=== PATIENT | male | born 1965 | race Caucasian/White ===

== ENCOUNTER 2017-02-24 12:15 | Inpatient (IN) | payer OTHER ==
[2017-02-24] VITALS (14 sets, daily range): BP systolic 100–125; BP diastolic 63–79; PULSE 67–76; TEMP 36.2–37.1; O2SAT 96–100; Ht 172.7 cm; Wt 65.5 kg
[~2017-02-24] VITALS: Ht 172.7 cm; Wt 65.5 kg
[~2017-02-24 12:15] MED LIST: ASPCH81X PO; CYAN10005 PO; FERR1TAB13 PO; FLM4 PO; FURO80TA63 PO; HYDR-4717 PO; LISI20TA3 PO; LOVA20TA4 PO; METO100T14 PO
[2017-02-24] MEDS ORDERED: ALUMINUM/MAGNESIUM/SIMETH (MAALOX MAX) 30 ML UDC PO PRN (13:30)
[2017-02-24] MEDS ORDERED: ONDANSETRON INJ 2 MG/ML 2 ML VIAL IV PRN (13:30)
[2017-02-24] MEDS ORDERED: ACETAMINOPHEN 325 MG TAB PO PRN (13:30)
--- NOTE | 2017-02-24 13:52 | History and Physical ---
History & Physical Date & Time of Service: Feb 24, 2017 at 13:43 Chief Complaint: Worsening Anemia Primary Care Physician: Arslan Mendoza M.D. History of Present Illness 51 M sent from group home for persistent anemia, has previously had outpt transfusions. Currently is weak and sleeps 16 hours a day, Custodial hgb is 5.2. The pt is currently on iron and B12, has presistent dark stools. Had colonoscopy and EGD in april 2016 at [facility] in [place], record release is pending, and reportedly had a colon polyp and some thing in his esophagus, the pt states his discharge hgb at that time was 9.2. Was scheduled for an outpt colonoscopy this coming week. Has no other issues, has a history of "heart failure from blood pressure", but has not had issues recently with shortness of breath at rest, currently is slightly mackey. Social History Smoking Status: Never Smoker Smokeless Tobacco Use: Yes Alcohol Use: socially Immunizations History of Influenza Vaccine: Unknown History of Tetanus Vaccine?: Unknown History of Pneumococcal: Unknown History of Hepatitis B Vaccine: Unknown Allergies Coded Allergies: Penicillins (Verified Allergy, Unknown, unknown, 01/19/17) Home Medications Scheduled Aspirin (Aspirin Chewable), 81 MG PO DAILY Cyanocobalamin (Vitamin B-12), 1,000 MCG PO DAILY Ferrous Sulfate (Kp Ferrous Sulfate), 1 TAB PO DAILY Furosemide (Lasix), 80 MG PO DAILY Hydralazine Hcl (Apresoline), 1 TAB PO DIRECTED Lisinopril (Prinivil), 20 MG PO DAILY Lovastatin (Mevacor), 20 MG PO DAILY Metoprolol Tartrate (Lopressor) (Lopressor), 1 TAB PO DIRECTED Tamsulosin HCl (Tamsulosin HCl), 0.4 MG PO DAILY Review of Systems Constitutional: + weakness, + fatigue, No fever, No chills Eyes: No worsening of vision, No eye pain Respiratory: No cough, No sputum, No wheezing Abdomen: + problem reported (poor appetite), No pain, No nausea, No vomiting Musculoskeletal: + problem reported (some back pain), No joint pain, No muscle pain, No swelling Neurologic: No memory loss, No paralysis, No weakness Psychiatric: No depression symptoms, No anhedonism Endocrine: + fatigue, No excessive thirst Physical Exam Vital Signs Date Time Temp Pulse Resp B/P (MAP) Pulse Ox O2 Delivery O2 Flow Rate FiO2 02/24/17 13:21 36.4 75 20 100/66 (77) 100 Room Air General Appearance: WD/WN, + mild distress Head: normocephalic, atraumatic Eyes: normal inspection, EOMI ENT: hearing grossly normal, pharynx normal Neck: supple, no adenopathy, thyroid normal, no JVD Respiratory/Chest: chest non-tender, lungs clear, normal breath sounds Cardiovascular: regular rate, rhythm (not tachycardic, likely from B Monet), no murmur Abdomen/GI: normal bowel sounds, non tender, soft Back: no CVA tenderness, no muscle spasm Extremities/Musculoskelatal: no calf tenderness, no pedal edema Neurologic/Psych: alert, oriented x 3 Skin: + pallor Diagnostics Laboratory Results Results Past 24 Hours Test 02/24/17 13:25 Range/Units Transferrin % Saturation 20-50 % Diagnostic Radiology Lab tests pending on intake except for hgb of 5.2 Impression Assessment and Plan 51 M with symptomatic anemia reportedly with hgb of 5.2 Anemia, will have a workup and hematology consult, consider keeping colonoscopy this week if nothing is discovered on initial surveilence will transfuse 2 u prbc, continue B12 and iron HTN/ Heart failure unspecified typy, will continue metoprolol lisinopril hydralazine and lasix. lovastatin but hold aspirin BPH will continue flomax pt request nutritional supplement for poor appetite DVT prevention is mechanical means VTE Prophylaxis VTE Risk Assessment Done? Y/N: Yes Risk Level: Moderate Given or contraindicated: Contraindicated
[2017-02-24 14:29] LABS: ALT/SGPT 14 U/L (12-78); AST/SGOT 15 U/L (15-37); BLOOD UREA NITROGEN 50 mg/dl (7-18); BUN/CREATININE RATIO 26.3 (10-20); CALCIUM 7.7 mg/dl (8.5-10.1); CARBON DIOXIDE 24 mmol/L (21-32); CHLORIDE 105 mmol/L (98-107); CREATININE 1.89 mg/dl (0.60-1.40); GLUCOSE 101 mg/dl (70-99); POTASSIUM 4.6 mmol/L (3.5-5.1); SODIUM 138 mmol/L (136-145)
[2017-02-24 14:38] LABS: ALKALINE PHOSPHATASE 72 U/L (45-117); FERRITIN 101.2 ng/ml (8.0-388.0); TOTAL IRON BINDING CAPACITY 217 mcg/dl (250-450)
[2017-02-24 14:39] LABS: HEMATOCRIT 20.1 % (42-52); MEAN CORPUSCULAR HEMOGLOBIN 26.4 pg (25-34); MEAN CORPUSCULAR HGB CONC 30.3 g/dl (32-36); MEAN PLATELET VOLUME 8.2 fL (7.4-10.4); PLATELET COUNT 288 K/uL (130-400); RED BLOOD COUNT 2.31 M/uL (4.7-6.1); WHITE BLOOD COUNT 3.33 K/uL (4.8-10.8)
[2017-02-24] MEDS ORDERED: INFLUENZA VIRUS QUAD VACCINE 0.5 ML SYR IM. ONE (14:45)
[2017-02-24] MEDS ORDERED: INFLUENZA ADMINISTRATION CHARGE ONE (14:45)
[2017-02-24] MEDS ORDERED: PNEUMOCOCCAL ADMINISTRATION CHARGE ONE (15:00)
[2017-02-24] MEDS ORDERED: PNEUMOCOCCAL POLYSACCHARIDES 25 MCG/0.5 ML VIAL/SYR IM. ONE (15:00)
[2017-02-24 15:06] LABS: COMPLETE YES; EOS % 3.3 %; HYPOCHROMIA PRESENT; IG% 0.3 %; LYMPH % 19.8 %; LYMPH ABS # 0.66 K/uL (1.2-3.4); MONO % 4.2 %; NEUT % 72.4 %
[2017-02-24] MEDS: RANITIDINE HCL 150 MG TAB PO SCH (20:08)
[2017-02-24] MEDS: METOPROLOL TARTRATE 100 MG TAB PO SCH (20:08)
[2017-02-24] MEDS: BOOST VANILLA PO SCH ×2 (20:08)
[2017-02-25] VITALS (19 sets, daily range): BP systolic 89–109; BP diastolic 51–67; PULSE 71–86; TEMP 36.6–37.4; O2SAT 95–98
[2017-02-25 06:34] LABS: HEMATOCRIT 21.3 % (42-52); MEAN CELL VOLUME 86.2 fL (80-100); MEAN CORPUSCULAR HEMOGLOBIN 26.7 pg (25-34); MEAN PLATELET VOLUME 8.4 fL (7.4-10.4); PLATELET COUNT 242 K/uL (130-400); RED BLOOD COUNT 2.47 M/uL (4.7-6.1); WHITE BLOOD COUNT 3.14 K/uL (4.8-10.8)
[2017-02-25 07:03] LABS: BUN/CREATININE RATIO 26.1 (10-20); CALCIUM 7.8 mg/dl (8.5-10.1); CREATININE 1.89 mg/dl (0.60-1.40); POTASSIUM 5.3 mmol/L (3.5-5.1)
[2017-02-25] MEDS: RANITIDINE HCL 150 MG TAB PO SCH ×2 (07:57→19:58)
[2017-02-25] MEDS: LISINOPRIL 20 MG TAB PO SCH ×2 (07:58→08:00)
[2017-02-25] MEDS: FUROSEMIDE 80 MG TAB PO SCH (07:58)
[2017-02-25] MEDS: TAMSULOSIN HCL 0.4 MG CAP PO SCH (07:58)
[2017-02-25] MEDS: LOVASTATIN 20 MG TAB PO SCH (07:59)
[2017-02-25] MEDS: METOPROLOL TARTRATE 100 MG TAB PO SCH ×2 (08:00→19:58)
[2017-02-25] MEDS: CYANOCOBALAMIN 500 MCG TAB (VIT B-12) PO SCH (08:00)
[2017-02-25] MEDS: FERROUS SULFATE 325 MG TAB PO SCH (08:00)
[2017-02-25] MEDS ORDERED: ACETAMINOPHEN 325 MG TAB PO STA (08:33)
[2017-02-25] MEDS: BOOST VANILLA PO SCH ×4 (09:42→17:00)
--- NOTE | 2017-02-25 10:20 | Hospitalist Progress Note ---
Hospitalist Progress Note Date of Service Feb 25, 2017. Subjective Pt evaluation today including: conversation w/ patient, chart review, lab review, review of studies Pt reports a one year h/o weakness, falls, anemia that has been severe at times requiring transfusions. He recently had a transfusion at our [facility] about 1-2 months ago. Hgb was down to 6.0 at that time and then was not rechecked until yesterday when it was found to be 5.2 at the residential. After 2 units PRBCs yesterday, hgb still only at 6.6 this AM. He reports a daily, well-formed BM that is usually dark and a little sticky in texture, but takes Fe tabs. No BRBPR, no hematemesis, no GERD sxs, but sometimes feels a little pressure in the upper abdomen. No N/V, no diarrhea, no constipation. He had a colonoscopy in 04/2016 which revealed a large 1.8 cm pedunculated, friable polyp that was bleeding. Path results not available in the old records. Constitutional: + fatigue, No fever Eyes: No problem reported ENT: No problem reported Respiratory: No shortness of breath Cardiovascular: No chest pain Breast: No problem reported Abdomen: No diarrhea, No constipation, No GI bleeding Musculoskeletal: + problem reported (some hand pain bilaterally, has numbness in bilat hands x 1 year, no neck or back pain, no leg pain) Male : No problem reported Neurologic: + numbness/tingling (in hands as above) Psychiatric: No problem reported Heme: + see HPI Endo: + fatigue Skin: No problem reported All Other Systems: Reviewed and Negative Objective Vital Signs Date Time Temp Pulse Resp B/P (MAP) Pulse Ox O2 Delivery O2 Flow Rate FiO2 02/25/17 09:47 98 Room Air 02/25/17 08:14 92/57 (69) 96/54 (68) 02/25/17 06:48 37.0 77 18 95/55 (68) 98 Room Air 02/25/17 00:15 Room Air 02/25/17 00:10 37.1 83 18 89/51 (64) 95 Room Air 02/24/17 21:09 36.2 74 18 102/63 (76) 97 Room Air 02/24/17 20:00 37.1 73 18 117/72 02/24/17 19:26 36.7 73 18 118/72 02/24/17 19:08 36.7 71 18 119/76 02/24/17 18:32 36.8 74 18 113/71 02/24/17 18:18 36.7 76 18 122/73 02/24/17 18:04 36.7 76 18 122/73 02/24/17 17:10 36.7 70 20 125/75 02/24/17 16:30 36.7 67 18 117/76 02/24/17 16:00 96 Room Air 02/24/17 16:00 36.8 73 20 118/73 02/24/17 15:44 36.7 69 20 118/69 02/24/17 15:30 36.6 69 18 125/79 02/24/17 13:50 36.4 75 20 100/66 96 Room Air 02/24/17 13:21 36.4 75 20 100/66 (77) 100 Room Air Physical Exam General Appearance: WD/WN, no apparent distress Eyes: sclerae normal, + pertinent finding (pale conjunctiva) ENT: hearing grossly normal, pharynx normal Neck: trachea midline Respiratory/Chest: lungs clear, normal breath sounds, no respiratory distress, no accessory muscle use Cardiovascular: regular rate, rhythm, no edema, no gallop, no JVD, no murmur Abdomen: normal bowel sounds, non tender, soft, no organomegaly, no pulsatile mass Extremities: non-tender, normal inspection, no pedal edema, no calf tenderness Neurologic/Psychiatric: alert, normal mood/affect, oriented x 3 Skin: warm/dry, no rash, + pallor Laboratory Results Last 24 Hours Test 02/24/17 13:48 02/25/17 06:04 02/25/17 09:36 White Blood Count 3.33 K/uL 3.14 K/uL Red Blood Count 2.31 M/uL 2.47 M/uL Hemoglobin 6.1 g/dL 6.6 g/dL Hematocrit 20.1 % 21.3 % Mean Corpuscular Volume 87.0 fL 86.2 fL Mean Corpuscular Hemoglobin 26.4 pg 26.7 pg Mean Corpuscular Hemoglobin Concent 30.3 g/dl 31.0 g/dl Platelet Count 288 K/uL 242 K/uL Mean Platelet Volume 8.2 fL 8.4 fL Neutrophils (%) (Auto) 72.4 % Lymphocytes (%) (Auto) 19.8 % Monocytes (%) (Auto) 4.2 % Eosinophils (%) (Auto) 3.3 % Basophils (%) (Auto) 0.0 % Neutrophils # (Auto) 2.41 K/uL Lymphocytes # (Auto) 0.66 K/uL Monocytes # (Auto) 0.14 K/uL Eosinophils # (Auto) 0.11 K/uL Basophils # (Auto) 0.00 K/uL RDW Standard Deviation 50.9 fL 47.6 fL RDW Coefficient of Variation 15.8 % 15.1 % Immature Granulocyte % (Auto) 0.3 % Immature Granulocyte # (Auto) 0.01 K/uL Hypochromasia PRESENT Absolute Reticulocyte Count 0.08 10^6/uL Percent Reticulocyte Count 3.4 % Sodium Level 138 mmol/L 137 mmol/L Potassium Level 4.6 mmol/L 5.3 mmol/L Chloride Level 105 mmol/L 108 mmol/L Carbon Dioxide Level 24 mmol/L 25 mmol/L Anion Gap 9.0 mmol/L 4.0 mmol/L Blood Urea Nitrogen 50 mg/dl 49 mg/dl Creatinine 1.89 mg/dl 1.89 mg/dl Est Creatinine Clear Calc Drug Dose 41.9 ml/min 41.9 ml/min Estimated GFR () 45.9 45.9 Estimated GFR (Non- 39.6 39.6 BUN/Creatinine Ratio 26.3 26.1 Random Glucose 101 mg/dl 83 mg/dl Calcium Level 7.7 mg/dl 7.8 mg/dl Iron Level 19 mcg/dl Total Iron Binding Capacity 217 mcg/dl Transferrin 175 mg/dl Transferrin % Saturation 8 % Ferritin 101.2 ng/ml Total Bilirubin 0.3 mg/dl Direct Bilirubin < 0.1 mg/dl Aspartate Amino Transf (AST/SGOT) 15 U/L Alanine Aminotransferase (ALT/SGPT) 14 U/L Alkaline Phosphatase 72 U/L Lactate Dehydrogenase 229 U/L Total Protein 7.2 gm/dl Albumin 2.7 gm/dl Vitamin B12 Level 1343 pg/mL Folate 9.83 ng/mL Thyroid Stimulating Hormone (TSH) 1.900 uIu/ml Assessment and Plan This pt is a 51 yo male with a h/o chronic GI blood loss Fe-def anemia, colon polyp, gastritis, previous systolic CHF which is now resolved, HTN, BPH, B12 deficiency, here with persistent weakness/fatigue and severe anemia, hgb 5.2 at residential on day of admission. Chronic GI blood loss Fe-def and B12-def anemia/h/o colon polyp/ h/o gastritis/ Severe anemia/Hypotension-Hgb 5.2 at residential, was 6.0 6 weeks ago and received PRBC transfusion. No obvious gross GI bleeding, has chronic daily dark stools due to taking Fe tabs so difficult to tell. Previous large 1.8 cm pedunculated friable polyp responsible last time, but continues to be anemic since then. COuld be from same area of polyp resection vs AVM vs UGI bleeding. B12 levels here normal Received 2 units PRBCs 02/24 -GI consult to see baout EGD/Colonoscopy this admission -transfuse another 2 units prbcs today for goal Hgb >7 -follow CBC daily - hematology consult placed on admission, does also have leukopenia persistently , but plts normal so not likely bone marrow issue - continue B12 and iron tabs -continue Zantac 150mg bid -if EGD/Colon performed and unremarkable, consider capsule endoscopy HTN/Previous systolic CHF-pt states previous LVEF was 20% in 2014, had clean coronaries on cath, was placed on CHF meds. Had repeat ECHO in 04/2016 during hospitalization and was told his EF was normal then. No records available for review. No current evidence at all of volume overload, no JVD. -holding metoprolol, lisinopril, hydralazine for hypotension -give lasix po daily at home dose due to large volume with PRBC transfusions - continue lovastatin -hold aspirin for bleeding -f/u as outpt with Cardiology Possible CKD Stage III- [employer] Liqu[employer] in 04/2016 records was 1.6 but was also acutely admitted at that time for severe anemia. 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
--- NOTE | 2017-02-25 12:07 | HEMATOLOGY CONSULTATION ---
DATE OF CONSULTATION: 02/25/2017 REASON FOR CONSULTATION: Severe normocytic normochromic anemia. HISTORY OF PRESENT ILLNESS: Mr. Madera is a 51-year-old half-way inmate who was admitted to [facility] on 02/24/2017 for generalized weakness, fatigue and lethargy. According to Mateusz, he sleeps most of the day, approximately 16 hours. The patient was diagnosed with iron deficiency and was started on oral supplementation, he estimates about a year ago. Apparently, he has been worked up by gastroenterology and underwent a colonoscopy approximately 1 year ago, revealing a single polyp, which was actively bleeding. The patient has been transfused on multiple occasions, he estimates 4 times over the past year or so. He has never been evaluated by hematology for this reason. He suffers other comorbid issues, particularly hypertension and chronic renal insufficiency, attributable to obstructive uropathy. Baseline laboratories on admission reveal a mild leukopenia, hemoglobin of 6.1, and hematocrit of 20.1 with a percent reticulocytosis of 3.4. Serum chemistries revealed serum iron of 19, TIBC of 217, any transferrin saturation of 8. Ferritin presently 101.2. His creatinine measures 1.89. The remainder of lab results were otherwise unremarkable. Primary service is requesting assistance for anemia workup. He reports no eddie rectal bleeding, hematochezia or melena at present. PAST MEDICAL HISTORY: Again, significant for, 1. Obstructive uropathy, secondary to prostatic enlargement. 2. Chronic anemia. 3. Chronic renal insufficiency, secondary to obstructive uropathy. 4. Iron deficiency. 5. Essential hypertension. MEDICATIONS: Prior to admission include aspirin 81 mg p.o. q. daily, vitamin B12 at 1000 mcg p.o. q. daily, ferrous sulfate 325 mg p.o. q. daily, Lasix 80 mg p.o. q. daily, hydralazine 1 tablet p.o. as directed, lisinopril 20 mg p.o. q. daily, lovastatin 20 mg p.o. q. daily, metoprolol 1 tablet p.o. as directed, and Flomax 0.4 mg p.o. q. daily. ALLERGIES: TO PENICILLINS. SOCIAL HISTORY: The patient is incarcerated. Nonsmoker. Does to chew tobacco. Social alcohol use. FAMILY HISTORY: Positive for breast cancer in the patient's mother. Father has a history of skin cancers. REVIEW OF SYSTEMS: GENERAL: As per HPI, most notably for generalized weakness, fatigue and lethargy. No fevers, chills or sweats. He is not anorexic or losing weight. SKIN: No rashes or lesions. No history of dermatoses. HEENT: He denies headaches, lightheadedness or dizziness. No acute visual or hearing deficits. No sinus symptoms, sore throat or dysphagia. LYMPHATICS: No history of lymphoproliferative disease. CARDIAC: Negative for coronary artery disease. No angina or palpitations. PULMONARY: Negative for COPD. No shortness of breath, dyspnea or orthopnea. No cough or hemoptysis. GASTROINTESTINAL: Negative for abdominal pain, nausea, vomiting, diarrhea or constipation. GENITOURINARY: Again, he reports a history of obstructive uropathy secondary to BPH and underwent TURP in the past. No current hematuria, dysuria, or urinary incontinence. PSYCHIATRIC: Negative for anxiety, depression or psychoses. ENDOCRINE: Negative for diabetes or thyroid disease. NEUROLOGIC: Negative for seizure, stroke, or migraine headache by history. HEMATOLOGIC: As per HPI. PHYSICAL EXAMINATION: GENERAL: Very pleasant 51-year-old gentleman, awake, alert and appropriate, no acute distress. VITAL SIGNS: Temperature 36.8, pulse 73, respiratory rate 20, and blood pressure 97/59. SKIN: Warm, dry, and noncyanotic without petechia, rash or ecchymosis. HEENT: Head: Atraumatic and normocephalic. Eyes: PERRLA and EOMI. Sclerae nonicteric. No conjunctival injection. Nares patent without rhinorrhea or discharge. Throat is clear. Tongue is midline. Mucous membranes are moist. NECK: Supple without JVD or thyromegaly. LYMPHATICS: No cervical, supraclavicular, axillary or inguinal palpable nodes. HEART: Regular rate and rhythm. No clicks, rubs, murmurs, or gallops. LUNGS: Clear to auscultation bilaterally. ABDOMEN: Soft, nontender, and nondistended without palpable hepatosplenomegaly. EXTREMITIES: No calf tenderness or swelling. No clubbing, cyanosis or edema. NEUROLOGICALLY: He is awake, alert and oriented x3. Cranial nerves II-XII are intact. No gross motor or sensory deficits are noted. LABORATORY DATA: WBC count 3140, hemoglobin 6.6, and platelet count 242,000. Sodium 137, potassium 5.3, chloride 108, carbon dioxide 25, BUN 49, and creatinine 1.89. IMPRESSION: 1. Persistent normocytic normochromic anemia. 2. Generalized weakness. 3. Lethargy/fatigue. 4. Chronic renal insufficiency. 5. Leukopenia. PLAN: Mateusz is a pleasant 51-year-old half-way inmate, who was admitted to [facility] with generalized weakness and fatigue. His hemoglobin was in the 6 gram per deciliter range. Apparently, Mateusz has had issues with anemia over the past several months. He was seen by gastroenterology and underwent colonoscopy, revealing a single polyp. EGD has yet to be performed. Mateusz also reports being placed on supplemental iron, which obviously has not been effective. His iron studies still reflect deficient state. He also suffers from renal insufficiency and there therefore may have a component of anemia secondary to renal insufficiency/chronic disease. However, if GI tract has not been thoroughly examined, I recommend doing so. Additionally, the patient's leukopenia is otherwise unexplained. Certainly, myelodysplasia is not ruled out unless the patient undergoes bone marrow biopsy and aspiration. I would be in favor of pursuing supplemental intravenous iron while inpatient and perhaps consider supplemental erythropoietin as well. I agree with transfusing him at this juncture. Dr. Ngo will take over service tomorrow and I will leave it up to him if bone marrow biopsy should be pursued. Thank you very much for allowing me to participate in his care. If you have any questions or concerns, feel free to contact me at any time. HEALTH SYSTEMDmitry
--- NOTE | 2017-02-25 16:36 | Gastrointestinal Consultation ---
Gastrointestinal Consultation Date of Consultation: Feb 25, 2017 Attending Physician: Dr. Ellis Consulting Physician: Dr. Dumont Reason for Consultation: symptomatic anemia History of Present Illness Patient is a 51 year old male with CKD and HTN as well as iron deficiency anemia. He has had problems with anemia for about a year and has been followed by gastroenterology at [facility]. He was admitted from intermediate with weakness and SOB and a hgb of 6. Has reports dark stools since being started on a iron supplement about a year ago. No hematochezia. He had an EGD and a colonoscopy in April at [facility] (I do not have those reports at this time) and tells me he had a colon polyp removed. He was supposed to have a repeat colonoscopy this coming week apparently. Iron studies on admission show on-going iron deficiency despite oral replacement with iron of 19 and transferrin saturation of 8%. On B12 as well and levels reflect this. he was seen by hematology and plans in place for IV iron infusion as well as transfusion. Past Medical/Surgical History severe anemia SOB Past Medical History: as note din HPI Past Surgical History: non-contributory; reviewed. Family History non-contributory Social History Smoking Status: Never Smoker Alcohol Use: none Drug Use: none Housing Status: other Occupation Status: other incarcerated Allergies Coded Allergies: Penicillins (Verified Allergy, Unknown, unknown, 01/19/17) Current Medications Home Meds and Scripts Medications Dose Route/Sig Max Daily Dose Days Date Category Apresoline (Hydralazine Hcl) 50 Mg Tab 1 Tab PO DIRECTED 30 12/07/16 Reported Lasix (Furosemide) 80 Mg Tab 80 Mg PO DAILY 12/07/16 Reported Vitamin B-12 (Cyanocobalamin) 1,000 Mcg Tab 1,000 Mcg PO DAILY 12/07/16 Reported Kp Ferrous Sulfate (Ferrous Sulfate) 325 Mg Tab 1 Tab PO DAILY 30 12/07/16 Reported Tamsulosin HCl 0.4 Mg Cap 0.4 Mg PO DAILY 12/07/16 Reported Lopressor (Metoprolol Tartrate) 100 Mg Tab 1 Tab PO DIRECTED 12/07/16 Reported Mevacor (Lovastatin) 20 Mg Tab 20 Mg PO DAILY 12/07/16 Reported Prinivil (Lisinopril) 20 Mg Tab 20 Mg PO DAILY 12/07/16 Reported Aspirin Chewable (Aspirin) 81 Mg Chew 81 Mg PO DAILY 12/07/16 Reported Review of Systems 12 systems reviewed and negative except as noted Physical Exam Date Time Temp Pulse Resp B/P (MAP) Pulse Ox O2 Delivery O2 Flow Rate FiO2 02/25/17 16:00 97 Room Air 02/25/17 15:29 36.6 73 18 95/60 (72) 97 Room Air 02/25/17 14:30 37.2 72 18 95/59 96 02/25/17 14:00 37.2 86 18 93/56 02/25/17 13:30 37.2 78 18 92/58 02/25/17 13:15 37.0 76 18 92/56 02/25/17 13:00 36.9 72 20 104/67 02/25/17 11:43 36.9 71 18 100/61 02/25/17 11:16 36.8 73 20 97/59 02/25/17 10:45 36.7 72 20 97/58 02/25/17 10:30 37.2 72 20 102/58 02/25/17 10:28 37.2 73 20 109/67 02/25/17 10:11 36.6 72 16 101/64 02/25/17 09:47 98 Room Air 02/25/17 08:14 92/57 (69) 96/54 (68) 02/25/17 06:48 37.0 77 18 95/55 (68) 98 Room Air 02/25/17 00:15 Room Air 02/25/17 00:10 37.1 83 18 89/51 (64) 95 Room Air 02/24/17 21:09 36.2 74 18 102/63 (76) 97 Room Air 02/24/17 20:00 37.1 73 18 117/72 02/24/17 19:26 36.7 73 18 118/72 02/24/17 19:08 36.7 71 18 119/76 02/24/17 18:32 36.8 74 18 113/71 02/24/17 18:18 36.7 76 18 122/73 02/24/17 18:04 36.7 76 18 122/73 02/24/17 17:10 36.7 70 20 125/75 02/24/17 16:30 36.7 67 18 117/76 General Appearance: WD/WN, no apparent distress Eyes: normal inspection, PERRL ENT: normal ENT inspection, hearing grossly normal, pharynx normal Neck: supple, no adenopathy, no JVD Respiratory/Chest: chest non-tender, lungs clear, normal breath sounds, no respiratory distress Cardiovascular: regular rate, rhythm, no murmur Abdomen: normal bowel sounds, non tender, soft Extremities: normal range of motion, no pedal edema 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, no motor/sensory deficits, alert, normal mood/affect, oriented x 3 Skin: normal color, no jaundice, warm/dry, no rash Laboratory Results Last 24 Hours Test 02/25/17 06:04 White Blood Count 3.14 K/uL Red Blood Count 2.47 M/uL Hemoglobin 6.6 g/dL Hematocrit 21.3 % Mean Corpuscular Volume 86.2 fL Mean Corpuscular Hemoglobin 26.7 pg Mean Corpuscular Hemoglobin Concent 31.0 g/dl RDW Standard Deviation 47.6 fL RDW Coefficient of Variation 15.1 % Platelet Count 242 K/uL Mean Platelet Volume 8.4 fL Sodium Level 137 mmol/L Potassium Level 5.3 mmol/L Chloride Level 108 mmol/L Carbon Dioxide Level 25 mmol/L Anion Gap 4.0 mmol/L Blood Urea Nitrogen 49 mg/dl Creatinine 1.89 mg/dl Est Creatinine Clear Calc Drug Dose 41.9 ml/min Estimated GFR () 45.9 Estimated GFR (Non- 39.6 BUN/Creatinine Ratio 26.1 Random Glucose 83 mg/dl Calcium Level 7.8 mg/dl Impression Patient is a 51 year old male with persistent iron deficiency anemia as well as CKD. Outpatient GI work up has been initiated at [facility]. Presumably, a colon and upper GI malignancy were ruled out on endoscopies there in April. He had a polyp and is supposed to undergo a repeat colonoscopy. It is unclear if small bowel biopsies of the duodenum were done to r/o celiac disease as this can be a cause of persistent iron deficiency anemia. If not already done, a small bowel capsule study may be useful though this may prove difficult to arrange in an inmate as it is an outpatient study with specific timing. Hematologic causes also a possibility. Plan - Await records from [facility] regarding endoscopy details from April. - Check celiac markers. - Further recommendations regarding repeating endoscopies can be made once records are available. - Consider small bowel VCE. - Hematology following.
[2017-02-26 07:00] VITALS: BP 107/68; PULSE 62; TEMP 36.9; O2SAT 96
[2017-02-26] MEDS: METOPROLOL TARTRATE 100 MG TAB PO SCH ×2 (07:39→20:40)
[2017-02-26] MEDS: RANITIDINE HCL 150 MG TAB PO SCH ×2 (07:39→20:39)
[2017-02-26] MEDS: FUROSEMIDE 80 MG TAB PO SCH (07:40)
[2017-02-26] MEDS: FERROUS SULFATE 325 MG TAB PO SCH (07:40)
[2017-02-26] MEDS: TAMSULOSIN HCL 0.4 MG CAP PO SCH (07:40)
[2017-02-26] MEDS: CYANOCOBALAMIN 500 MCG TAB (VIT B-12) PO SCH (07:40)
[2017-02-26] MEDS: LOVASTATIN 20 MG TAB PO SCH (07:40)
[2017-02-26] MEDS: BOOST VANILLA PO SCH ×4 (08:00→17:00)
[2017-02-26 08:10] LABS: COMPLETE YES; EOS % 4.9 %; HEMATOCRIT 28.4 % (42-52); IG% 0.3 %; LYMPH % 26.9 %; LYMPH ABS # 0.94 K/uL (1.2-3.4); MEAN CELL VOLUME 87.4 fL (80-100); MEAN CORPUSCULAR HEMOGLOBIN 27.7 pg (25-34); MEAN CORPUSCULAR HGB CONC 31.7 g/dl (32-36); MEAN PLATELET VOLUME 8.6 fL (7.4-10.4); MONO % 6.6 %; NEUT % 61.3 %; PLATELET COUNT 236 K/uL (130-400); RED BLOOD COUNT 3.25 M/uL (4.7-6.1); WHITE BLOOD COUNT 3.49 K/uL (4.8-10.8)
[2017-02-26 08:47] LABS: BUN/CREATININE RATIO 23.1 (10-20); CALCIUM 8.1 mg/dl (8.5-10.1); CREATININE 2.16 mg/dl (0.60-1.40); MAGNESIUM 2.3 mg/dl (1.8-2.4); POTASSIUM 5.1 mmol/L (3.5-5.1)
--- NOTE | 2017-02-26 10:30 | Hematology/Oncology Prog Note ---
Hematology/Onc Progress Note Date of Service Feb 26, 2017. Diagnoses Anemia cause unclear Medications Medications Administered Medications (Trade) Dose Ordered Sig/Dada Route Start Time Stop Time Status Last Admin Dose Admin Cyanocobalamin (Vitamin B-12 Tab) 1,000 mcg DAILY PO 02/25/17 08:00 03/27/17 07:59 02/26/17 07:40 1,000 MCG Furosemide (Lasix Tab) 80 mg DAILY PO 02/25/17 08:00 03/27/17 07:59 Future Hold 02/26/17 07:40 80 MG Hydralazine HCl (Apresoline Tab) 50 mg TID PO 02/24/17 20:00 03/26/17 19:59 Future Hold 02/25/17 19:59 50 MG Lovastatin (Mevacor Tab) 20 mg DAILY PO 02/25/17 08:00 03/27/17 07:59 02/26/17 07:40 20 MG Metoprolol Tartrate (Lopressor Tab) 100 mg BID PO 02/24/17 20:00 03/26/17 19:59 02/26/17 07:39 100 MG Tamsulosin HCl (Flomax Cap) 0.4 mg DAILY PO 02/25/17 08:00 03/27/17 07:59 02/26/17 07:40 0.4 MG Ferrous Sulfate (Feosol Tab) 325 mg DAILY PO 02/25/17 08:00 03/27/17 07:59 02/26/17 07:40 325 MG Enteral Nutritional Formula (Boost) 1 can BID PO 02/24/17 20:00 02/25/17 14:13 DC 02/25/17 09:42 1 CAN Ranitidine HCl (zANTac TAB) 150 mg BID PO 02/24/17 20:00 03/26/17 19:59 02/26/17 07:39 150 MG Pneumococcal Polysaccharide Vaccine (Pneumovax-23 Inj) 25 mcg ONCE ONCE IM. 02/24/17 15:00 02/24/17 15:01 DC 02/24/17 20:10 25 MCG Acetaminophen (Tylenol Tab) 650 mg NOW STAT PO 02/25/17 08:33 02/25/17 08:46 DC 02/25/17 09:40 650 MG Diphenhydramine HCl (Benadryl Cap) 25 mg NOW ONCE PO 02/25/17 08:45 02/25/17 08:46 DC 02/25/17 09:40 25 MG Enteral Nutritional Formula (Boost) 1 can BIDM PO 02/25/17 17:00 03/27/17 16:59 02/25/17 17:00 1 CAN Subjective He really offers no new complaints. He reviews with me that he has lost a considerable amount of weight in the past 6 months. He states he has been on iron supplementation for the past several months that he believes turns his stool dark. Review of Systems: Constitutional: Negative for night sweats, or fever. He states he is always cold Eyes: Negative for event change of vision ENT: Negative for epistaxis, nasal discharge, sore throat, or deafness Cardiovascular: Negative for chest pain, palpitations, dizziness, diaphoresis Respiratory: Negative for new shortness of breath,hemoptysis, or purulent cough Gastrointestinal: Negative for diarrhea, hematemesis, definite melena, nausea, vomiting, or dyspepsia Integumentary (skin): Negative for rash or jaundice discoloration Genitourinary: Negative for urinary frequency, hematuria, or dysuria Neurological: Negative for weakness, seizure activity, headache, or dizziness Lymphatic/Hematologic: Negative for petechiae, bleeding or new adenopathy Musculoskeletal: Negative for new joint or back pain Allergic/Immunologic: Negative for unusual rash or pruritis. Vital Signs Vital Signs Past 12 Hours Date Time Temp Pulse Resp B/P (MAP) Pulse Ox O2 Delivery O2 Flow Rate FiO2 02/26/17 08:00 Room Air 02/26/17 07:00 36.9 62 18 107/68 (81) 96 Room Air 02/25/17 23:32 Room Air 02/25/17 22:42 37.4 78 18 103/60 (74) 95 Room Air Physical Exam Constitutional: vitals are stable. Eyes: Eyes are ALFREDO EOMI without conjuctival erythema or icterus. ENT: External examination was negative for masses. Neck: Negative for masses or palpable thyromegaly Respiratory: Lung sounds were generally clear bilaterally Cardiovascular: Heart was RRR without significant murmur, gallops aoe rubs Gastrointestinal: No palpable hepatic or splenomegaly however the spleen tip is palpable with deep inspiration. The abdomen was soft with normal bowel sounds. Lymphatic system: there was no palpable peripheral lymphadenopathy Musculoskeletal System: The musculoskeletal system seemed concordant with age. Skin: The skin was negative for jaundice. Neurologic exam: The exam was negative for any focal findings. Deep tendon reflexes were equal and symmetrical. Psychiatric exam: Was essentially negative with normal mood and effect. Extremities: Negative for edema erythema Laboratory Last 24 Hours Test 02/26/17 07:31 02/26/17 08:49 White Blood Count 3.49 K/uL Red Blood Count 3.25 M/uL Hemoglobin 9.0 g/dL Hematocrit 28.4 % Mean Corpuscular Volume 87.4 fL Mean Corpuscular Hemoglobin 27.7 pg Mean Corpuscular Hemoglobin Concent 31.7 g/dl Platelet Count 236 K/uL Mean Platelet Volume 8.6 fL Neutrophils (%) (Auto) 61.3 % Lymphocytes (%) (Auto) 26.9 % Monocytes (%) (Auto) 6.6 % Eosinophils (%) (Auto) 4.9 % Basophils (%) (Auto) 0.0 % Neutrophils # (Auto) 2.14 K/uL Lymphocytes # (Auto) 0.94 K/uL Monocytes # (Auto) 0.23 K/uL Eosinophils # (Auto) 0.17 K/uL Basophils # (Auto) 0.00 K/uL RDW Standard Deviation 48.9 fL RDW Coefficient of Variation 15.1 % Immature Granulocyte % (Auto) 0.3 % Immature Granulocyte # (Auto) 0.01 K/uL Sodium Level 140 mmol/L Potassium Level 5.1 mmol/L Chloride Level 108 mmol/L Carbon Dioxide Level 23 mmol/L Anion Gap 9.0 mmol/L Blood Urea Nitrogen 50 mg/dl Creatinine 2.16 mg/dl Est Creatinine Clear Calc Drug Dose 36.6 ml/min Estimated GFR () 39.1 Estimated GFR (Non- 33.7 BUN/Creatinine Ratio 23.1 Random Glucose 87 mg/dl Calcium Level 8.1 mg/dl Magnesium Level 2.3 mg/dl Stool Occult Blood POSITIVE Assessment & Plan Marked anemia that is normochromic normocytic. Iron studies would suggest more of an anemia of iron reutilization defect rather than deficiency. I understand a GI workup is pending and certainly would agree with that. It may come to having to do an eventual bone marrow biopsy. For now I would like to ask for a chest x-ray as well as a complete abdominal ultrasound as well as serum immunofixation studies. We will follow along with you.
[2017-02-26 13:39] LABS: URINE APPEARANCE CLEAR (CLEAR); URINE BILIRUBIN NEG (NEG); URINE COLOR YELLOW; URINE EPITHELIAL CELL AUTO 0-5 /lpf (0-5); URINE NITRITE NEG (NEG); URINE SPECIFIC GRAVITY 1.013 (1.000-1.030); UROBILINOGEN NEG (NEG)
[2017-02-26 13:44] LABS: MANUAL MICROSCOPIC REQUIRED? NO; REVIEW REQ? NO
--- NOTE | 2017-02-26 14:43 | DIAGNOSTIC IMAGING REPORT ---
TWO VIEW CHEST CLINICAL HISTORY: Anemia and weight loss. FINDINGS: PA and lateral chest radiographs are obtained. No prior studies are available for comparison at the time of dictation. The cardiomediastinal silhouette is unremarkable. There is atherosclerotic calcification of the thoracic aorta. Calcified hilar nodes are identified. There is elevation of the right hemidiaphragm. A small pleural effusion is seen on the right. The left lung appears clear. There is no pneumothorax. The bony thorax appears intact. IMPRESSION: There is elevation of right hemidiaphragm and a small right pleural effusion. This could be further assessed with a chest CT if clinically warranted. Electronically signed by: Ta Dangelo M.D. 02/26/2017 2:42 PM Dictated Date/Time: 02/26/2017 2:40 PM
--- NOTE | 2017-02-26 15:22 | DIAGNOSTIC IMAGING REPORT ---
ABDOMEN COMPLETE (US) CLINICAL HISTORY: severe anemia, weight loss and increased creatinine COMPARISON STUDY: No previous studies for comparison. FINDINGS: The pancreas appears normal as visualized. There is no evidence of abdominal aortic dilatation. There is a large calcified gallstone. There is significant gallbladder wall thickening. No focal hepatic masses are visualized. The liver is slightly heterogeneous in echotexture. There is no intrahepatic ductal dilatation. The common bile duct measures 6 mm. The spleen is enlarged measuring 14.8 cm. There are several splenic calcifications. The right kidney measures 12.7 cm in length. There is a 3.4 cm upper pole right renal cyst. The left kidney measures 11.8 cm in length. There is a tiny lower pole left renal cyst. There is no hydronephrosis IMPRESSION: 1. Large calcified gallstone. The gallbladder wall is thickened measuring 9 mm and hypervascular. Clinical correlation in regards to cholecystitis or a gallbladder wall mass is recommended. 2. No evidence of ductal dilatation. 3. Splenomegaly Electronically signed by: Rohit Cazares M.D. 02/26/2017 3:21 PM Dictated Date/Time: 02/26/2017 3:16 PM
[2017-02-26 16:00] VITALS: O2SAT 96
[2017-02-26 16:10] VITALS: BP 106/68; PULSE 74; TEMP 36.9; O2SAT 100
--- NOTE | 2017-02-26 16:25 | Gastroenterology Progress Note ---
Progress Note Date of Service: Feb 26, 2017 Subjective Pt evaluation today including: conversation w/ patient, physical exam, chart review, lab review, review of studies, review of inpatient medication list Mr. Madera is a 51 yr old male admitted for anemia. Stool occult positive today. Pt denies abdominal pain, nausea or vomiting. Tolerating a regular diet. Review of Systems Constitutional: No fever Respiratory: No cough Abdomen: + GI bleeding (occult positive but no gross bleeding), No pain, No nausea, No vomiting, No diarrhea, No constipation Male : No dysuria Neuro: No memory loss Psych: No depression symptoms Heme: No abnormal bleeding/bruising Endo: + fatigue (much improved with blood transfusion) Skin: No rash, No jaundice Medications Current Inpatient Medications Medications (Trade) Dose Ordered Sig/Dada Route Start Time Stop Time Status Last Admin Dose Admin Acetaminophen (Tylenol Tab) 650 mg Q4H PRN PO 02/24/17 13:30 03/26/17 13:29 Al Hydrox/Mg Hydrox/Simethicone (Maalox Max Susp) 15 ml Q4H PRN PO 02/24/17 13:30 03/26/17 13:29 Ondansetron HCl (Zofran Inj) 4 mg Q6H PRN IV 02/24/17 13:30 03/26/17 13:29 Cyanocobalamin (Vitamin B-12 Tab) 1,000 mcg DAILY PO 02/25/17 08:00 03/27/17 07:59 02/26/17 07:40 1,000 MCG Furosemide (Lasix Tab) 80 mg DAILY PO 02/25/17 08:00 03/27/17 07:59 Future Hold 02/26/17 07:40 80 MG Hydralazine HCl (Apresoline Tab) 50 mg TID PO 02/24/17 20:00 03/26/17 19:59 Future Hold 02/25/17 19:59 50 MG Lisinopril (Zestril Tab) 20 mg DAILY PO 02/25/17 08:00 03/27/17 07:59 Future Hold Lovastatin (Mevacor Tab) 20 mg DAILY PO 02/25/17 08:00 03/27/17 07:59 02/26/17 07:40 20 MG Metoprolol Tartrate (Lopressor Tab) 100 mg BID PO 02/24/17 20:00 03/26/17 19:59 02/26/17 07:39 100 MG Tamsulosin HCl (Flomax Cap) 0.4 mg DAILY PO 02/25/17 08:00 03/27/17 07:59 02/26/17 07:40 0.4 MG Ferrous Sulfate (Feosol Tab) 325 mg DAILY PO 02/25/17 08:00 03/27/17 07:59 02/26/17 07:40 325 MG Ranitidine HCl (zANTac TAB) 150 mg BID PO 02/24/17 20:00 03/26/17 19:59 02/26/17 07:39 150 MG Enteral Nutritional Formula (Boost) 1 can BIDM PO 02/25/17 17:00 03/27/17 16:59 02/26/17 08:00 1 CAN Objective Vital Signs Date Time Temp Pulse Resp B/P (MAP) Pulse Ox O2 Delivery O2 Flow Rate FiO2 02/26/17 16:10 36.9 74 18 106/68 (81) 100 Room Air 02/26/17 08:00 Room Air 02/26/17 07:00 36.9 62 18 107/68 (81) 96 Room Air 02/25/17 23:32 Room Air 02/25/17 22:42 37.4 78 18 103/60 (74) 95 Room Air 02/25/17 19:57 75 18 106/66 (79) 96 Room Air Physical Exam General Appearance: no apparent distress ENT: pharynx normal Neck: no JVD Respiratory/Chest: lungs clear Cardiovascular: regular rate, rhythm, no JVD, no murmur Abdomen: non tender, soft Extremities: normal inspection Neurologic/Psych: alert, normal mood/affect, oriented x 3 Skin: normal color, no jaundice Laboratory Results Last 24 Hours Test 02/26/17 07:31 02/26/17 08:49 02/26/17 11:00 02/26/17 13:00 White Blood Count 3.49 K/uL Red Blood Count 3.25 M/uL Hemoglobin 9.0 g/dL Hematocrit 28.4 % Mean Corpuscular Volume 87.4 fL Mean Corpuscular Hemoglobin 27.7 pg Mean Corpuscular Hemoglobin Concent 31.7 g/dl Platelet Count 236 K/uL Mean Platelet Volume 8.6 fL Neutrophils (%) (Auto) 61.3 % Lymphocytes (%) (Auto) 26.9 % Monocytes (%) (Auto) 6.6 % Eosinophils (%) (Auto) 4.9 % Basophils (%) (Auto) 0.0 % Neutrophils # (Auto) 2.14 K/uL Lymphocytes # (Auto) 0.94 K/uL Monocytes # (Auto) 0.23 K/uL Eosinophils # (Auto) 0.17 K/uL Basophils # (Auto) 0.00 K/uL RDW Standard Deviation 48.9 fL RDW Coefficient of Variation 15.1 % Immature Granulocyte % (Auto) 0.3 % Immature Granulocyte # (Auto) 0.01 K/uL Sodium Level 140 mmol/L Potassium Level 5.1 mmol/L Chloride Level 108 mmol/L Carbon Dioxide Level 23 mmol/L Anion Gap 9.0 mmol/L Blood Urea Nitrogen 50 mg/dl Creatinine 2.16 mg/dl Est Creatinine Clear Calc Drug Dose 36.6 ml/min Estimated GFR () 39.1 Estimated GFR (Non- 33.7 BUN/Creatinine Ratio 23.1 Random Glucose 87 mg/dl Calcium Level 8.1 mg/dl Magnesium Level 2.3 mg/dl Hepatitis C Antibody Screen NEG Stool Occult Blood POSITIVE Urine Color YELLOW Urine Appearance CLEAR Urine pH 5.0 Urine Specific [place] 1.013 Urine Protein 1+ Urine Glucose (UA) NEG Urine Ketones NEG Urine Occult Blood 3+ Urine Nitrite NEG Urine Bilirubin NEG Urine Urobilinogen NEG Urine Leukocyte Esterase NEG Urine WBC (Auto) 1-5 /hpf Urine RBC (Auto) >30 /hpf Urine Hyaline Casts (Auto) 1-5 /lpf Urine Epithelial Cells (Auto) 0-5 /lpf Urine Bacteria (Auto) NEG Test 02/26/17 15:51 Assessment and Plan Mr. Madera is a 51 yr old male patient with acute on chronic normocytic anemia. Stool occult is positive. Plan: 1. Regular diet today. 2. Begin clear liquids tomorrow morning. 3. Plan for OP EGD and Colonoscopy as previously scheduled at [facility] with Dr. Naik on this Sunday. If negative, may consider VCE - will address when results of the EGD/Colonoscopy are reviewed. 4. No GI contraindication to discharge. I performed a history and physical examination of the patient. I have discussed the patient's case, impression and plan with RAF Harvey on 02/26/2017. Her note reflects my findings and plan. Patient already scheduled for out patient endoscopy. Rusty Ferguson MD
--- NOTE | 2017-02-26 17:16 | Family Medicine Progress Note ---
Progress Note Date of Service Feb 26, 2017. Subjective Pt evaluation today including: conversation w/ patient, conversation w/ family , physical exam, chart review, lab review, review of inpatient medication list Pain: No pain reported PO Intake: Tolerating PO intake Voiding: no voiding problems Mr. Madera reports he feels better today than yesterday. He states his fatigue is slowly starting to resolve. He denies chest pain, shortness of breath, presyncope or syncopal episodes. He is eating and drinking ok. No urinary symptoms. Bowels moving. He did state that he has had a longstanding history of bilateral arm weakness and occasional pain that flares up from time to time. He has not sought medical attention for this in the past. Constitutional: + fatigue, No fever, No chills, No sweats Respiratory: No cough, No sputum, No wheezing, No shortness of breath Cardiovascular: No chest pain, No edema All Other Systems: Reviewed and Negative Medications Current Inpatient Medications Medications (Trade) Dose Ordered Sig/Dada Route Start Time Stop Time Status Last Admin Dose Admin Acetaminophen (Tylenol Tab) 650 mg Q4H PRN PO 02/24/17 13:30 03/26/17 13:29 Al Hydrox/Mg Hydrox/Simethicone (Maalox Max Susp) 15 ml Q4H PRN PO 02/24/17 13:30 03/26/17 13:29 Ondansetron HCl (Zofran Inj) 4 mg Q6H PRN IV 02/24/17 13:30 03/26/17 13:29 Cyanocobalamin (Vitamin B-12 Tab) 1,000 mcg DAILY PO 02/25/17 08:00 03/27/17 07:59 02/26/17 07:40 1,000 MCG Furosemide (Lasix Tab) 80 mg DAILY PO 02/25/17 08:00 03/27/17 07:59 Future Hold 02/26/17 07:40 80 MG Hydralazine HCl (Apresoline Tab) 50 mg TID PO 02/24/17 20:00 03/26/17 19:59 Future Hold 02/25/17 19:59 50 MG Lisinopril (Zestril Tab) 20 mg DAILY PO 02/25/17 08:00 03/27/17 07:59 Future Hold Lovastatin (Mevacor Tab) 20 mg DAILY PO 02/25/17 08:00 03/27/17 07:59 02/26/17 07:40 20 MG Metoprolol Tartrate (Lopressor Tab) 100 mg BID PO 02/24/17 20:00 03/26/17 19:59 02/26/17 07:39 100 MG Tamsulosin HCl (Flomax Cap) 0.4 mg DAILY PO 02/25/17 08:00 03/27/17 07:59 02/26/17 07:40 0.4 MG Ferrous Sulfate (Feosol Tab) 325 mg DAILY PO 02/25/17 08:00 03/27/17 07:59 02/26/17 07:40 325 MG Ranitidine HCl (zANTac TAB) 150 mg BID PO 02/24/17 20:00 03/26/17 19:59 02/26/17 07:39 150 MG Enteral Nutritional Formula (Boost) 1 can BIDM PO 02/25/17 17:00 03/27/17 16:59 02/26/17 08:00 1 CAN Objective Vital Signs Date Time Temp Pulse Resp B/P (MAP) Pulse Ox O2 Delivery O2 Flow Rate FiO2 02/26/17 16:10 36.9 74 18 106/68 (81) 100 Room Air 02/26/17 08:00 Room Air 02/26/17 07:00 36.9 62 18 107/68 (81) 96 Room Air 02/25/17 23:32 Room Air 02/25/17 22:42 37.4 78 18 103/60 (74) 95 Room Air 02/25/17 19:57 75 18 106/66 (79) 96 Room Air Physical Exam General Appearance: WD/WN, no apparent distress Respiratory/Chest: chest non-tender, lungs clear, normal breath sounds, no respiratory distress, no accessory muscle use Cardiovascular: regular rate, rhythm, no edema, no gallop, no JVD, no murmur Abdomen: normal bowel sounds, non tender, soft Neurologic/Psychiatric: + pertinent finding (Decreased bank president strength and 4/5 power in upper extremities. Cap refill <2seconds. Sensation intact) Laboratory Results Last 24 Hours Test 02/26/17 07:31 02/26/17 08:49 02/26/17 11:00 02/26/17 13:00 White Blood Count 3.49 K/uL Red Blood Count 3.25 M/uL Hemoglobin 9.0 g/dL Hematocrit 28.4 % Mean Corpuscular Volume 87.4 fL Mean Corpuscular Hemoglobin 27.7 pg Mean Corpuscular Hemoglobin Concent 31.7 g/dl Platelet Count 236 K/uL Mean Platelet Volume 8.6 fL Neutrophils (%) (Auto) 61.3 % Lymphocytes (%) (Auto) 26.9 % Monocytes (%) (Auto) 6.6 % Eosinophils (%) (Auto) 4.9 % Basophils (%) (Auto) 0.0 % Neutrophils # (Auto) 2.14 K/uL Lymphocytes # (Auto) 0.94 K/uL Monocytes # (Auto) 0.23 K/uL Eosinophils # (Auto) 0.17 K/uL Basophils # (Auto) 0.00 K/uL RDW Standard Deviation 48.9 fL RDW Coefficient of Variation 15.1 % Immature Granulocyte % (Auto) 0.3 % Immature Granulocyte # (Auto) 0.01 K/uL Sodium Level 140 mmol/L Potassium Level 5.1 mmol/L Chloride Level 108 mmol/L Carbon Dioxide Level 23 mmol/L Anion Gap 9.0 mmol/L Blood Urea Nitrogen 50 mg/dl Creatinine 2.16 mg/dl Est Creatinine Clear Calc Drug Dose 36.6 ml/min Estimated GFR () 39.1 Estimated GFR (Non- 33.7 BUN/Creatinine Ratio 23.1 Random Glucose 87 mg/dl Calcium Level 8.1 mg/dl Magnesium Level 2.3 mg/dl Hepatitis C Antibody Screen NEG Stool Occult Blood POSITIVE Urine Color YELLOW Urine Appearance CLEAR Urine pH 5.0 Urine Specific [place] 1.013 Urine Protein 1+ Urine Glucose (UA) NEG Urine Ketones NEG Urine Occult Blood 3+ Urine Nitrite NEG Urine Bilirubin NEG Urine Urobilinogen NEG Urine Leukocyte Esterase NEG Urine WBC (Auto) 1-5 /hpf Urine RBC (Auto) >30 /hpf Urine Hyaline Casts (Auto) 1-5 /lpf Urine Epithelial Cells (Auto) 0-5 /lpf Urine Bacteria (Auto) NEG Test 02/26/17 16:19 Assessment and Plan Mr. Madera is a 51 yo male with a longstanding history of chronic GI blood loss Fe-def anemia, colon polyp, gastritis, previous systolic CHF which is now resolved, HTN, BPH, B12 deficiency, who presented to [facility] with persistent weakness/fatigue and severe anemia with a hemoglobin of 5.2 at senior living on day of admission. Chronic GI blood loss Fe-def and B12-def anemia/h/o colon polyp/ h/o gastritis/ Severe anemia/Hypotension - Hgb 5.2 at senior living, was 6.0 6 weeks ago and received PRBC transfusion - Apr 2016 - Colonoscopy revealed a large 1.8 cm pedunculated friable polyp which was removed, but he continues to be anemic - thank you to GI for consult - stool occult positive but no obvious GI bleeding at the time - will undergo outpatient EGD and colonoscopy as previously scheduled at [facility] with Dr. Naik on Sunday. If negative, could consider VCE - begin clear liquid diet from tomorrow AM - awaiting celiac panel - Received 2 units PRBCs 02/24 and another 2 units PRBCs 02/25 - Hemoglobin increased from 6.6 to 9 - will follow CBC daily & obtain peripheral blood smear - thank you to hematology for input - in addition to anemia, has persistent leukopenia, but platelets normal - abdo ultrasound revealed splenomegaly - anemia is normochromic normocytic & as per hematology, iron studies suggest anemia of iron reutilization instead of deficiency - will obtain serum immunofixation studies - continue B12 and iron tabs - continue Zantac 150mg bid HTN/Previous systolic CHF - pt states previous LVEF was 20% in 2014, had clean coronaries on cath, was placed on CHF meds. Had repeat ECHO in 04/2016 during hospitalization and was told his EF was normal then. No records available for review. No current evidence at all of volume overload, no JVD. - holding metoprolol, lisinopril, hydralazine for hypotension - hold Lasix given creatinine of 2.16 - continue lovastatin - hold aspirin for bleeding - f/u as outpt with Cardiology Acute Tubular Necrosis on a background of possible CKD Stage III- - Merchandise Coordinator in 04/2016 records was 1.6 - creatinine worsened today at 2.16 from 1.89 - casts present in urine - likely due to volume depletion causing decreased renal perfusion - holding BP meds as above - follow BMP - avoid nephrotoxins, and renally dose meds BPH- - no current issues - will continue flomax Bilateral Arm Weakness - chronic problem, no evidence of acute worsening - ?due to severe anemia - will monitor Gallstone/Gallbladder wall thickening - currently asymptomatic, but abdominal US revealed "Large calcified gallstone. The gallbladder wall is thickened measuring 9 mm and hypervascular. No evidence of ductal dilation" - can follow up for this in outpatient setting VTE Prophylaxis: DVT prevention is mechanical means Code: FULL Disposition: stable for discharge to senior living with outpatient follow up - pending creatinine and BP improvement Resident Tracking Resident Involvement: Resident Care Provided Care Provided: Adult Hospital Medicine Reviewed: Pt Seen/Exam by Me History Resident Physician Supervision Note: I interviewed and examined the patient. Discussed with Dr. Lerma and agree with findings and plan as documented in the note. Any exceptions or clarifications are listed here: Pt feeling better today. Denies abd pain. DIscussed findings on ABD US and RBCs in UA, CXR with small rt pleural effusion. Vitals reviewed RRR no mgr CTAB no wcr Abd +BS soft NT ND Ext no edema This pt is a 51 yo male with a h/o chronic GI blood loss Fe-def anemia, colon polyp, gastritis, previous systolic CHF which is now resolved, HTN, BPH, B12 deficiency, here with persistent weakness/fatigue and severe anemia, hgb 5.2 at senior living on day of admission. -hold lasix and follow logistics team leader, likely ATN from hypotension as cause of acute renal insufficiency in setting of likely CKD stage III -microscopic hematuria-had cystoscopy in 06/2016 reportedly normal but with BPH, kidneys without masses (except cysts) on US here--> consider CT abd/pel to look for source of bleeding; check urine cytology -GI bleeding, anemia--> mixed picture, not exactly consistent with Fe-deficiency , appreciate Heme input. With splenomegaly on US. APpreciate Heme further input ; plan for outpt EGD/colon on Sun if discharged on Sunday. If not discharged for other reasons, plan for rescheduling outpt colonoscopy -Thickened GB wall, Radiology cannot r/o gallbladder wall mass. Pt asymptomatic , normal LFTs, no abd pain--> Appreciate Surgery input as to whether should have cholecystectomy this admission or in future. -CXR with small rt pleural effusion--> possibly related to chronic cholecystitis ? Dispo- to senior living when renal function improved and after Surgery evaluation Documented By: Lynsey Light
[2017-02-26 23:58] VITALS: BP 101/60; PULSE 73; TEMP 37; O2SAT 96
[2017-02-27 07:09] VITALS: BP 110/71; PULSE 59; TEMP 36.9; O2SAT 97
[2017-02-27] MEDS: RANITIDINE HCL 150 MG TAB PO SCH (07:42)
[2017-02-27] MEDS: LOVASTATIN 20 MG TAB PO SCH (07:42)
[2017-02-27] MEDS: TAMSULOSIN HCL 0.4 MG CAP PO SCH (07:42)
[2017-02-27] MEDS: FERROUS SULFATE 325 MG TAB PO SCH (07:42)
[2017-02-27] MEDS: CYANOCOBALAMIN 500 MCG TAB (VIT B-12) PO SCH (07:43)
[2017-02-27 07:44] VITALS: PULSE 64
[2017-02-27] MEDS: METOPROLOL TARTRATE 100 MG TAB PO SCH (07:44)
[2017-02-27] MEDS: BOOST VANILLA PO SCH ×4 (08:00→17:00)
[2017-02-27 08:55] LABS: HEMATOCRIT 28.7 % (42-52); MEAN CELL VOLUME 89.7 fL (80-100); MEAN CORPUSCULAR HEMOGLOBIN 27.5 pg (25-34); MEAN CORPUSCULAR HGB CONC 30.7 g/dl (32-36); MEAN PLATELET VOLUME 8.6 fL (7.4-10.4); PLATELET COUNT 238 K/uL (130-400); WHITE BLOOD COUNT 3.94 K/uL (4.8-10.8)
[2017-02-27 09:26] LABS: BUN/CREATININE RATIO 28.6 (10-20); CREATININE 2.03 mg/dl (0.60-1.40)
[2017-02-27 09:44] LABS: ALKALINE PHOSPHATASE 65 U/L (45-117); ALT/SGPT 12 U/L (12-78); AST/SGOT 14 U/L (15-37)
--- NOTE | 2017-02-27 10:33 | Surgery Consultation ---
Consultation Date of Consultation: Feb 27, 2017. Attending Physician: Lynsey Light MD History of Present Illness 51 M sent from [facility] for persistent anemia, has previously had outpt transfusions. Currently is weak and sleeps 16 hours a day, Half-Way hgb is 5.2. The pt is currently on iron and B12, has presistent dark stools. Had colonoscopy and EGD in april 2016 at [facility] in [place], record release is pending, and reportedly had a colon polyp and some thing in his esophagus, the pt states his discharge hgb at that time was 9.2. Was scheduled for an outpt colonoscopy this coming week. Has no other issues, has a history of "heart failure from blood pressure", but has not had issues recently with shortness of breath at rest, currently is slightly mackey. I got a call for consult gallstone, pt has no abdominal pain, no nausea, no vomiting. He tolerated diet, Social History Smoking Status: Never Smoker Smokeless Tobacco Use: Yes Alcohol Use: socially Drug Use: none Housing Status: other Occupation Status: other Allergies Coded Allergies: Penicillins (Verified Allergy, Unknown, unknown, 01/19/17) Home Medications Scheduled Aspirin (Aspirin Chewable), 81 MG PO DAILY Cyanocobalamin (Vitamin B-12), 1,000 MCG PO DAILY Ferrous Sulfate (Kp Ferrous Sulfate), 1 TAB PO DAILY Furosemide (Lasix), 80 MG PO DAILY Hydralazine Hcl (Apresoline), 1 TAB PO DIRECTED Lisinopril (Prinivil), 20 MG PO DAILY Lovastatin (Mevacor), 20 MG PO DAILY Metoprolol Tartrate (Lopressor) (Lopressor), 1 TAB PO DIRECTED Tamsulosin HCl (Tamsulosin HCl), 0.4 MG PO DAILY Current Inpatient Medications Current Inpatient Medications Medications (Trade) Dose Ordered Sig/Dada Route Start Time Stop Time Status Last Admin Dose Admin Acetaminophen (Tylenol Tab) 650 mg Q4H PRN PO 02/24/17 13:30 03/26/17 13:29 Al Hydrox/Mg Hydrox/Simethicone (Maalox Max Susp) 15 ml Q4H PRN PO 02/24/17 13:30 03/26/17 13:29 Ondansetron HCl (Zofran Inj) 4 mg Q6H PRN IV 02/24/17 13:30 03/26/17 13:29 Cyanocobalamin (Vitamin B-12 Tab) 1,000 mcg DAILY PO 02/25/17 08:00 03/27/17 07:59 02/27/17 07:43 1,000 MCG Furosemide (Lasix Tab) 80 mg DAILY PO 02/25/17 08:00 03/27/17 07:59 Future Hold 02/26/17 07:40 80 MG Hydralazine HCl (Apresoline Tab) 50 mg TID PO 02/24/17 20:00 03/26/17 19:59 Future Hold 02/25/17 19:59 50 MG Lisinopril (Zestril Tab) 20 mg DAILY PO 02/25/17 08:00 03/27/17 07:59 Future Hold Lovastatin (Mevacor Tab) 20 mg DAILY PO 02/25/17 08:00 03/27/17 07:59 02/27/17 07:42 20 MG Metoprolol Tartrate (Lopressor Tab) 100 mg BID PO 02/24/17 20:00 03/26/17 19:59 02/27/17 07:44 100 MG Tamsulosin HCl (Flomax Cap) 0.4 mg DAILY PO 02/25/17 08:00 03/27/17 07:59 02/27/17 07:42 0.4 MG Ferrous Sulfate (Feosol Tab) 325 mg DAILY PO 02/25/17 08:00 03/27/17 07:59 02/27/17 07:42 325 MG Ranitidine HCl (zANTac TAB) 150 mg BID PO 02/24/17 20:00 03/26/17 19:59 02/27/17 07:42 150 MG Enteral Nutritional Formula (Boost) 1 can BIDM PO 02/25/17 17:00 03/27/17 16:59 02/26/17 17:00 1 CAN Review of Systems Constitutional: No fever, No chills, No sweats, No weight loss, No weakness, No fatigue, No problem reported Eyes: No worsening of vision, No eye pain, No redness, No discharge, No diplopia, No problem reported ENT: No hearing loss, No unusual epistaxis, No nasal symptoms, No sore throat, No tinnitus, No dental problems, No trouble swallowing, No problem reported Respiratory: No cough, No sputum, No wheezing, No shortness of breath, No dyspnea on exertion, No dyspnea at rest, No hemoptysis, No problem reported Cardiovascular: No chest pain, No orthopnea, No PND, No edema, No claudication , No palpitations, No problem reported Abdomen: No pain, No nausea, No vomiting, No diarrhea, No constipation, No GI bleeding, No problem reported Musculoskeletal: No joint pain, No muscle pain, No swelling, No calf pain, No problem reported Neurologic: No memory loss, No paralysis, No weakness, No numbness/tingling, No vertigo, No balance problems, No problem reported Psychiatric: No depression symptoms, No anhedonism, No anxiety, No insomnia, No substance abuse, No problem reported Endocrine: No fatigue, No excessive thirst, No excessive urination, No problem reported Hematologic / Lymphatic: + problem reported (anemia) Physical Exam Date Time Temp Pulse Resp B/P (MAP) Pulse Ox O2 Delivery O2 Flow Rate FiO2 02/27/17 08:00 Room Air 02/27/17 07:44 64 02/27/17 07:09 36.9 59 18 110/71 (84) 97 Room Air 02/27/17 00:30 Room Air 02/26/17 23:58 37.0 73 18 101/60 (74) 96 Room Air 02/26/17 16:10 36.9 74 18 106/68 (81) 100 Room Air 02/26/17 16:00 96 Room Air General Appearance: WD/WN, no apparent distress Head: normocephalic Eyes: normal inspection ENT: normal ENT inspection Neck: supple, no JVD Respiratory/Chest: chest non-tender, lungs clear, normal breath sounds Cardiovascular: regular rate, rhythm, no edema, no gallop, no JVD, no murmur Abdomen/GI: normal bowel sounds, non tender, soft, no organomegaly, no pulsatile mass Extremities/Musculoskelatal: normal inspection, no calf tenderness, normal capillary refill Neurologic/Psych: no motor/sensory deficits, alert, normal mood/affect Skin: normal color, warm/dry, no rash Laboratory Results Last 24 Hours Test 02/26/17 11:00 02/26/17 13:00 02/26/17 16:19 02/27/17 08:15 Urine Color YELLOW Urine Appearance CLEAR Urine pH 5.0 Urine Specific [place] 1.013 Urine Protein 1+ Urine Glucose (UA) NEG Urine Ketones NEG Urine Occult Blood 3+ Urine Nitrite NEG Urine Bilirubin NEG Urine Urobilinogen NEG Urine Leukocyte Esterase NEG Urine WBC (Auto) 1-5 /hpf Urine RBC (Auto) >30 /hpf Urine Hyaline Casts (Auto) 1-5 /lpf Urine Epithelial Cells (Auto) 0-5 /lpf Urine Bacteria (Auto) NEG Peripheral Blood Smear Path Consult White Blood Count 3.94 K/uL Red Blood Count 3.20 M/uL Hemoglobin 8.8 g/dL Hematocrit 28.7 % Mean Corpuscular Volume 89.7 fL Mean Corpuscular Hemoglobin 27.5 pg Mean Corpuscular Hemoglobin Concent 30.7 g/dl RDW Standard Deviation 49.9 fL RDW Coefficient of Variation 15.4 % Platelet Count 238 K/uL Mean Platelet Volume 8.6 fL Sodium Level 140 mmol/L Potassium Level 5.0 mmol/L Chloride Level 108 mmol/L Carbon Dioxide Level 25 mmol/L Anion Gap 7.0 mmol/L Blood Urea Nitrogen 58 mg/dl Creatinine 2.03 mg/dl Est Creatinine Clear Calc Drug Dose 39.0 ml/min Estimated GFR () 42.1 Estimated GFR (Non- 36.3 BUN/Creatinine Ratio 28.6 Random Glucose 90 mg/dl Calcium Level 8.0 mg/dl Total Bilirubin 0.3 mg/dl Direct Bilirubin < 0.1 mg/dl Aspartate Amino Transf (AST/SGOT) 14 U/L Alanine Aminotransferase (ALT/SGPT) 12 U/L Alkaline Phosphatase 65 U/L Total Protein 6.9 gm/dl Albumin 2.4 gm/dl Assessment & Plan U/S study-IMPRESSION: 1. Large calcified gallstone. The gallbladder wall is thickened measuring 9 mm and hypervascular. Clinical correlation in regards to cholecystitis or a gallbladder wall mass is recommended. 2. No evidence of ductal dilatation. 3. Splenomegaly Assessment: pt is a 51 years old male who was admitted to hospital for anemia, pt got 2 units PRBC , pt feels better, pt denies any abdominal pain, IMP: asymptomatic gallstone, no indication for surgery now F/U out patient clinic 2 weeks [phone] sign off today, thanks, please call if any questions,
--- NOTE | 2017-02-27 10:49 | Hematology/Oncology Prog Note ---
Hematology/Onc Progress Note Date of Service Feb 27, 2017. Diagnoses Anemia cause unclear Medications Medications Administered Medications (Trade) Dose Ordered Sig/Dada Route Start Time Stop Time Status Last Admin Dose Admin Cyanocobalamin (Vitamin B-12 Tab) 1,000 mcg DAILY PO 02/25/17 08:00 03/27/17 07:59 02/27/17 07:43 1,000 MCG Furosemide (Lasix Tab) 80 mg DAILY PO 02/25/17 08:00 03/27/17 07:59 Future Hold 02/26/17 07:40 80 MG Hydralazine HCl (Apresoline Tab) 50 mg TID PO 02/24/17 20:00 03/26/17 19:59 Future Hold 02/25/17 19:59 50 MG Lovastatin (Mevacor Tab) 20 mg DAILY PO 02/25/17 08:00 03/27/17 07:59 02/27/17 07:42 20 MG Metoprolol Tartrate (Lopressor Tab) 100 mg BID PO 02/24/17 20:00 03/26/17 19:59 02/27/17 07:44 100 MG Tamsulosin HCl (Flomax Cap) 0.4 mg DAILY PO 02/25/17 08:00 03/27/17 07:59 02/27/17 07:42 0.4 MG Ferrous Sulfate (Feosol Tab) 325 mg DAILY PO 02/25/17 08:00 03/27/17 07:59 02/27/17 07:42 325 MG Enteral Nutritional Formula (Boost) 1 can BID PO 02/24/17 20:00 02/25/17 14:13 DC 02/25/17 09:42 1 CAN Ranitidine HCl (zANTac TAB) 150 mg BID PO 02/24/17 20:00 03/26/17 19:59 02/27/17 07:42 150 MG Pneumococcal Polysaccharide Vaccine (Pneumovax-23 Inj) 25 mcg ONCE ONCE IM. 02/24/17 15:00 02/24/17 15:01 DC 02/24/17 20:10 25 MCG Acetaminophen (Tylenol Tab) 650 mg NOW STAT PO 02/25/17 08:33 02/25/17 08:46 DC 02/25/17 09:40 650 MG Diphenhydramine HCl (Benadryl Cap) 25 mg NOW ONCE PO 02/25/17 08:45 02/25/17 08:46 DC 02/25/17 09:40 25 MG Enteral Nutritional Formula (Boost) 1 can BIDM PO 02/25/17 17:00 03/27/17 16:59 02/26/17 17:00 1 CAN Subjective No new complaints. Stool is heme positive. He has been transfused. Review of Systems: Constitutional: Negative for night sweats, or fever Eyes: Negative for event change of vision ENT: Negative for epistaxis, nasal discharge, sore throat, or deafness Cardiovascular: Negative for chest pain, palpitations, dizziness, diaphoresis Respiratory: Negative for new shortness of breath,hemoptysis, or purulent cough Gastrointestinal: Negative for diarrhea, hematemesis, melena, nausea, vomiting , or dyspepsia Integumentary (skin): Negative for rash or jaundice discoloration Genitourinary: Negative for urinary frequency, hematuria, or dysuria Neurological: Negative for weakness, seizure activity, headache, or dizziness Lymphatic/Hematologic: Negative for petechiae, bleeding or new adenopathy Musculoskeletal: Negative for new joint or back pain Allergic/Immunologic: Negative for unusual rash or pruritis. Vital Signs Vital Signs Past 12 Hours Date Time Temp Pulse Resp B/P (MAP) Pulse Ox O2 Delivery O2 Flow Rate FiO2 02/27/17 08:00 Room Air 02/27/17 07:44 64 02/27/17 07:09 36.9 59 18 110/71 (84) 97 Room Air 02/27/17 00:30 Room Air 02/26/17 23:58 37.0 73 18 101/60 (74) 96 Room Air Physical Exam Constitutional: vitals are stable. Eyes: Eyes are ALFREDO EOMI without conjuctival erythema or icterus. ENT: External examination was negative for masses. Neck: Negative for masses or palpable thyromegaly Respiratory: Lung sounds were generally clear bilaterally Cardiovascular: Heart was RRR without significant murmur, gallops aoe rubs Gastrointestinal: No palpable hepatic or splenomegaly. The abdomen was soft with normal bowel sounds. Lymphatic system: there was no palpable peripheral lymphadenopathy Musculoskeletal System: The musculoskeletal system seemed concordant with age. Skin: The skin was negative for jaundice. Neurologic exam: The exam was negative for any focal findings. Deep tendon reflexes were equal and symmetrical. Psychiatric exam: Was essentially negative with normal mood and effect. Laboratory Last 24 Hours Test 02/26/17 11:00 02/26/17 13:00 02/26/17 16:19 02/27/17 08:15 Urine Color YELLOW Urine Appearance CLEAR Urine pH 5.0 Urine Specific [place] 1.013 Urine Protein 1+ Urine Glucose (UA) NEG Urine Ketones NEG Urine Occult Blood 3+ Urine Nitrite NEG Urine Bilirubin NEG Urine Urobilinogen NEG Urine Leukocyte Esterase NEG Urine WBC (Auto) 1-5 /hpf Urine RBC (Auto) >30 /hpf Urine Hyaline Casts (Auto) 1-5 /lpf Urine Epithelial Cells (Auto) 0-5 /lpf Urine Bacteria (Auto) NEG Peripheral Blood Smear Path Consult White Blood Count 3.94 K/uL Red Blood Count 3.20 M/uL Hemoglobin 8.8 g/dL Hematocrit 28.7 % Mean Corpuscular Volume 89.7 fL Mean Corpuscular Hemoglobin 27.5 pg Mean Corpuscular Hemoglobin Concent 30.7 g/dl RDW Standard Deviation 49.9 fL RDW Coefficient of Variation 15.4 % Platelet Count 238 K/uL Mean Platelet Volume 8.6 fL Sodium Level 140 mmol/L Potassium Level 5.0 mmol/L Chloride Level 108 mmol/L Carbon Dioxide Level 25 mmol/L Anion Gap 7.0 mmol/L Blood Urea Nitrogen 58 mg/dl Creatinine 2.03 mg/dl Est Creatinine Clear Calc Drug Dose 39.0 ml/min Estimated GFR () 42.1 Estimated GFR (Non- 36.3 BUN/Creatinine Ratio 28.6 Random Glucose 90 mg/dl Calcium Level 8.0 mg/dl Total Bilirubin 0.3 mg/dl Direct Bilirubin < 0.1 mg/dl Aspartate Amino Transf (AST/SGOT) 14 U/L Alanine Aminotransferase (ALT/SGPT) 12 U/L Alkaline Phosphatase 65 U/L Total Protein 6.9 gm/dl Albumin 2.4 gm/dl Assessment & Plan Ultrasound of the abdomen comments about the spleen being gently enlarged. There is no adenopathy seen. Chest x-ray will be reviewed but there is a very small pleural effusion is commented on. I really do not expect to find a primary bone marrow problem. Stool is heme positive. I suspect the anemia is based on GI bleeding however I also realize that there will continue to be questions as to whether there is a marrow issue. I did discuss this with the patient today and he is willing to have a bone marrow biopsy to corroborate. With that then a bone marrow will be done later this morning. We await the results of the GI evaluation. After obtaining consent a bone marrow biopsy was done from the patient's right posterior iliac crest. 1% lidocaine were used as local anesthetic. The specimen that was obtained included both bone marrow aspirate as well as aids a bone marrow core. The patient tolerated the procedure well.
[2017-02-27 15:33] VITALS: BP 110/70; PULSE 63; TEMP 37.1; O2SAT 98
[2017-02-27] MEDS ORDERED: ASPCH81X PO (15:43)
[2017-02-27] MEDS ORDERED: METO100T14 PO (15:43)
[2017-02-27] MEDS ORDERED: HYDR-4717 PO (15:43)
[2017-02-27] MEDS ORDERED: FURO80TA63 PO (15:43)
[2017-02-27] MEDS ORDERED: LISI20TA3 PO (15:43)
--- NOTE | 2017-02-27 15:54 | Discharge Instructions ---
Discharge Instructions Date of Service Feb 27, 2017. Admission Reason for Admission: Worsening Anemia Discharge Discharge Diagnosis / Problem: Anemia Discharge Goals Goal(s): Decrease discomfort, Improve function, Improve disease control Activity Recommendations Activity Limitations: resume your previous activity . Instructions / Follow-Up Instructions / Follow-Up You were admitted to [facility] due to severe anemia. You were transfused with 4 units of blood and your hemoglobin sal from 5.2 to 9. Below are a list of problems that were addressed: 1) Anemia - You were seen by both the gastrointestinal and hematology doctors. The gastrointestinal doctors will perform a scope tomorrow to check if the reason you are so anemic is because you are bleeding from somewhere in your GI tract. Please complete the bowel prep for that tonight. The hematology doctors took a biopsy from your bone marrow and will follow up with you in clinic in one week to discuss these results with you. . 2) Enlarged gallbladder - Your ultrasound showed the presence of a stone in your gallbladder. You met with general surgery, who said that they will follow up with you in 2 weeks in clinic as surgery is not necessary during this hospital visit, as you are not having any symptoms. 3) Blood pressure - please do not take your lasix, metoprolol, lisinopril, or hydralazine until after you have had your scope, and your doctor confirms that it is safe to restart. 5) Please also do not take your aspirin until after your procedure 6) Your urine showed a small amount of blood - we are awaiting the test results pertaining to that. In the future, you may need to have a CT scan of your pelvis to check your kidneys and ureters You can take your other regular medications as prescribed. If you experience worsening of your symptoms, please see your doctor or come back to the hospital. Otherwise, follow up with your doctor in one week. Current Hospital Diet Patient's current hospital diet: Clear Liquid Diet Discharge Diet Recommended Diet: Clear Liquid Diet Procedures Procedures Performed: Blood transfusion, Bone Marrow Biopsy Pending Studies Studies pending at discharge: yes List of pending studies: Celiac Panel, Bone Marrow Biopsy, Urine Cytology Medical Emergencies . Who to Call and When: Medical Emergencies: If at any time you feel your situation is an emergency, please call 911 immediately. . Non-Emergent Contact Non-Emergency issues call your: Primary Care Provider . . "Provider Documentation" section prepared by Riaz Lerma. . VTE Core Measure Inpt VTE Proph given/why not?: Contraindicated
--- NOTE | 2017-02-27 15:55 | Discharge Summary ---
Discharge Summary Date of Service Feb 27, 2017. Discharge Summary Admission Date: Feb 24, 2017 at 13:03 Discharge Date: Feb 27, 2017 Principal Diagnosis: Severe anemia Problems/Secondary Diagnoses: 1) Hypertension 2) GI bleeding 3) Hypercholesterolemia 4) CKD stage 3 5) BPH Immunizations: Have You Had Influenza Vaccine: Unknown History of Tetanus Vaccine?: Unknown History of Pneumococcal: Unknown History of Hepatitis B Vaccine: Unknown Procedures: 1) Blood transfusion x4 2) Bone marrow Biopsy Consultations: 1) Gastrointestinal 2) Hematology 3) General Surgery Medication Reconciliation Changed Medications: Aspirin (Aspirin Chewable) 81 Mg Chew 81 MG PO DAILY for 30 Days (Medication details modified) Hold until after scope Furosemide (Lasix) 80 Mg Tab 80 MG PO DAILY for 30 Days, TAB (Medication details modified) Hold until after scope Hydralazine Hcl (Apresoline) 50 Mg Tab 1 TAB PO DIRECTED for 30 Days, TAB 5 Refills (Medication details modified) Hold until after scope Lisinopril (Prinivil) 20 Mg Tab 20 MG PO DAILY for 30 Days, TAB (Medication details modified) Hold until after scope Metoprolol Tartrate (Lopressor) (Lopressor) 100 Mg Tab 1 TAB PO DIRECTED for 30 Days, TAB 5 Refills (Medication details modified) Hold until after scope Continued Medications: Cyanocobalamin (Vitamin B-12) 1,000 Mcg Tab 1000 MCG PO DAILY, TAB Ferrous Sulfate (Kp Ferrous Sulfate) 325 Mg Tab 1 TAB PO DAILY for 30 Days, #30 TAB 3 Refills Lovastatin (Mevacor) 20 Mg Tab 20 MG PO DAILY, TAB Tamsulosin HCl (Tamsulosin HCl) 0.4 Mg Cap 0.4 MG PO DAILY Discharge Exam Mr. Madera reports he feels well today. He denies any chest pain, shortness of breath at rest, abdominal pain, nausea or vomiting. Review of Systems: Constitutional: No fever, No chills, No sweats Respiratory: No cough, No sputum, No wheezing, No shortness of breath Cardiovascular: No chest pain Abdomen: No pain, No nausea, No vomiting, No diarrhea Physical Exam: General Appearance: WD/WN, no apparent distress Respiratory/Chest: chest non-tender, lungs clear, normal breath sounds, no respiratory distress, no accessory muscle use Cardiovascular: regular rate, rhythm, no edema, no gallop, no JVD, no murmur , normal peripheral pulses Extremities: normal capillary refill, + pertinent finding (weak torch shearer strength, 4/5 power in upper extremities bilaterally) Hospital Course Mr. Madera was admitted to [facility] due to a hemoglobin of 5.2. He was subsequently transfused with 4 units of PRBCS. Both gastroenterology and hematology were consulted. His stool occult was positive and he will undergo a scope on 02/28 at [facility] to determine the source of the bleeding. As well, he underwent a bone marrow biopsy today given both his hemoglobin and white cell counts were low. He will require follow up with hematology in 1 week's time to discuss these results. During his admission, he was discovered to have gallstones, and general surgery was consulted, but stated he did not require surgery at this visit and recommended he follow up in 2 weeks time in clinic. We recommend he hold his metoprolol, lisinopril, hydralazine and lasix until after his scope and after his blood pressure normalizes. We will defer this decision to his regular doctor, as well as restarting aspirin, which we have also held. He also had microscopic hematuria. His cystoscopy on 06/23 was normal, and ultrasound showed cysts on his kidneys, but no masses, and urine cytology showed atypical urothelial cells in the [place] system of urinary cytology. He may need further workup for this, perhaps with a CT scan to examine his ureters. Total Time Spent: Greater than 30 minutes This includes examination of the patient, discharge planning, medication reconciliation, and communication with other providers. Discharge Instructions Please refer to the electronic Patient Visit Report (Discharge Instructions) for additional information. Follow-Up Hematology Clinic - 1 week General surgery clinic - 2 weeks Additional Copies To Arslan Mendoza M.D.; Justin LAYTON Resident Tracking Resident Involvement: Resident Care Provided Care Provided: Adult Hospital Medicine
[2017-02-27 16:00] VITALS: O2SAT 98
[2017-02-27 16:28] VITALS: BP 110/70; PULSE 63; TEMP 37.1; O2SAT 98
[2017-03-01 22:33] LABS: IGA SERUM 60 mg/dL (81-463); TIS TRANS IGA 1 U/mL (<4)
== END 2017-02-27 19:06 | DRG 811 ==
LOC: C.MS4W 13:03
PROVIDERS: ADMIT Internal Medicine; ATTEND Family Medicine
PROC: 07DR3ZX Extraction of Iliac Bone Marrow, Percutaneous Approach, Diagnostic (ICD-10-PCS; principal; 2017-02-27)
DX: D64.9 Anemia, unspecified (principal); N17.0 Acute kidney failure with tubular necrosis; K92.2 Gastrointestinal hemorrhage, unspecified; D50.0 Iron deficiency anemia secondary to blood loss (chronic); D51.0 Vitamin B12 deficiency anemia due to intrinsic factor deficiency; D63.1 Anemia in chronic kidney disease; R31.29 Other microscopic hematuria; R29.898 Other symptoms and signs involving the musculoskeletal system; K80.20 Calculus of gallbladder without cholecystitis without obstruction; R82.99 Other abnormal findings in urine; N28.1 Cyst of kidney, acquired; I12.9 Hypertensive chronic kidney disease with stage 1 through stage 4 chronic kidney disease, or unspecified chronic kidney disease; N18.3 Chronic kidney disease, stage 3 (moderate); N40.0 Benign prostatic hyperplasia without lower urinary tract symptoms; E78.00 Pure hypercholesterolemia, unspecified; F17.220 Nicotine dependence, chewing tobacco, uncomplicated; Z79.899 Other long term (current) drug therapy; Z79.82 Long term (current) use of aspirin; Z86.010 Personal history of colon polyps; Z80.3 Family history of malignant neoplasm of breast; Z80.8 Family history of malignant neoplasm of other organs or systems

== ENCOUNTER 2017-04-30 05:47 | Inpatient (IN) | payer OTHER ==
[2017-04-24 09:45] VITALS: BMI 23.0
[~2017-04-30] VITALS: Ht 172.7 cm; Wt 68.2 kg
[2017-04-30] VITALS (8 sets, daily range): BP systolic 132–160; BP diastolic 74–97; PULSE 64–85; TEMP 36.2–37.1; O2SAT 2–100; Ht 172.7 cm; Wt 68.2 kg
[~2017-04-30 05:47] MED LIST changes: -ASPCH81X PO; +ASPI81TA28 PO; -FERR1TAB13 PO; +FRS/40 PO; -FURO80TA63 PO; -HYDR-4717 PO; -LISI20TA3 PO; -METO100T14 PO; +OMEP40CA41 PO
[2017-04-30] MEDS ORDERED: CEFOXITIN IV 2,000 MG in DEXTROSE 5% 50ML 50 ML IV SCH (06:00)
[2017-04-30] MEDS ORDERED: Procrit SQ (06:00)
[2017-04-30] MEDS ORDERED: LACTATED RINGER'S 1000ML 1,000 ML IV SCH (06:00)
[2017-04-30 06:25] LABS: HEMATOCRIT 25.5 % (42-52); HEMOGLOBIN 7.9 g/dL (14.0-18.0); MEAN CELL VOLUME 83.9 fL (80-100); MEAN PLATELET VOLUME 8.5 fL (7.4-10.4); PLATELET COUNT 221 K/uL (130-400); RED CELL DISTRIBUTION WIDTH SD 49.6 fL (36.4-46.3); WHITE BLOOD COUNT 3.57 K/uL (4.8-10.8)
[2017-04-30] MEDS ORDERED: BUPIVACAINE 0.5 % 5 MG/1 ML MPF 30ML VIAL ONE ×2 (07:08→10:00)
--- NOTE | 2017-04-30 07:13 | History & Physical Bridge Note ---
H&P Re-Evaluation Bridge Note: I have examined the patient, reviewed the History & Physical and in the interval since the performance of the History & Physical I have noted the following changes of clinical significance: HCT 25, down slightly, patient T&C 2 units. Prior EGD results showed likely healing ulcer, biopsies benign. No changes noted
[2017-04-30] MEDS ORDERED: ONDANSETRON INJ 2 MG/ML 2 ML VIAL IV PRN ×2 (07:15→10:30)
[2017-04-30] MEDS ORDERED: MEPERIDINE HCL 25 MG/ML CARP IV PRN (07:15)
[2017-04-30] MEDS ORDERED: HYDROmorphone INJ 2 MG/ML SYR/VIAL IV PRN (07:15)
[2017-04-30] MEDS ORDERED: ATROPINE SULFATE 0.1 MG/ML 5ML SYR IV PRN (07:15)
[2017-04-30] MEDS ORDERED: PHENYLEPHRINE 100MCG/ML 5ML SYR IV PRN (07:15)
[2017-04-30] MEDS ORDERED: LABETALOL HCL IV 5 MG/ML 20ML IV PRN (07:15)
[2017-04-30] MEDS ORDERED: NALOXONE HCL 0.4 MG/1 ML VIAL/CARP IV PRN (07:15)
[2017-04-30] MEDS ORDERED: EpHEDrine SULFATE INJ 50 MG/ML AMP IV PRN (07:15)
[2017-04-30] MEDS ORDERED: FLUMAZENIL 0.1 MG/1 ML 10 ML VIAL IV PRN (07:15)
[2017-04-30] MEDS ORDERED: FENTANYL CITRATE INJ 50 MCG/1 ML 2 ML VIAL ONE ×2 (07:20→08:08)
[2017-04-30] MEDS ORDERED: ONDANSETRON INJ 2 MG/ML 2 ML VIAL ONE (07:39)
[2017-04-30] MEDS ORDERED: DEXAMETHASONE SOD INJ 4 MG/ML VIAL ONE (07:39)
[2017-04-30] MEDS ORDERED: ROCURONIUM BROMIDE 10 MG/ML 5 ML VIAL IV ONE (07:39)
[2017-04-30] MEDS ORDERED: LIDOCAINE 2% 20 MG/ML 5ML SYR IV ONE (07:39)
[2017-04-30] MEDS ORDERED: PROPOFOL IV EMULSION 10 MG/ML 20 ML VIAL IV ONE (07:39)
[2017-04-30] MEDS ORDERED: EpHEDrine SULFATE 50MG/5ML SYR ONE (07:57)
[2017-04-30] MEDS ORDERED: GLYCOPYRROLATE INJ 0.2 MG/ML VIAL ONE (07:57)
[2017-04-30] MEDS ORDERED: NEOSTIGMINE METHYLSULFATE 5 MG/5 ML SYR ONE (07:57)
[2017-04-30] MEDS ORDERED: PHENYLEPHRINE HCL INJ 10 MG/ML VIAL ONE (09:16)
[2017-04-30] MEDS ORDERED: BUPIVACAINE LIPOSOME 1/3% 266 MG/20 ML VIAL INFIL ONE (10:00)
--- NOTE | 2017-04-30 10:18 | [facility] Post Operative Brief Note ---
Immediate Operative Summary Operative Date Apr 30, 2017. Pre-Operative Diagnosis Chronic Cholecystitis Post-Operative Diagnosis Chronic Cholecystitis Procedure(s) Performed Laparoscopic converted to open cholecystectomy Surgeon Dr Garret Menchaca Diamond Wheel Edger Surgeon(s) Simone Savage PA-C; Cale Woodruff MD Estimated Blood Loss 200 mL Findings See Below colon and dudodenum adhesed to gallbladder, converted to open Specimens As Per Surgeon Pernament A. Gall Bladder and Contents Frozen Section 1. Liver Mass Drains 10 mm ZENAIDA in RUQ Anesthesia Type General Complication(s) none Disposition Accompanied Pt To Recover: no Disposition: Recovery Room / PACU
[2017-04-30] MEDS ORDERED: ACETAMINOPHEN 650 MG SUPP PR PRN (10:30)
[2017-04-30] MEDS: FENTANYL CITRATE INJ 50 MCG/1 ML 2 ML VIAL IV PRN ×3 (10:38→11:19)
--- NOTE | 2017-04-30 10:53 | [facility] Operative Report ---
Operative Report Operative Date Apr 30, 2017. Pre-Operative Diagnosis Chronic Cholecystitis Post-Operative Diagnosis chronic cholecystitis, dense adhesions Procedure(s) Performed Laparoscopic converted to open cholecystectomy Surgeon Dr Garret Menchaca Branch Controller Surgeon(s) Simone Savage PA-C; Cale Woodruff MD Estimated Blood Loss 200 mL Findings Significant inflammation and adhesions in the right upper quadrant. The omentum was densely adhesed to the gallbladder as was the transverse colon and duodenum. After taking down the omentum we were unable to grasp the gallbladder and were not able to safely take down the adhesions of the colon and duodenum to the gallbladder. We then converted to open. Gallbladder was dissected using dome down technique, 5 cm x 3 cm stone removed from the gallbladder. Cystic artery was ligated with 3-0 silk ties. We were able to visualize the cystic duct internally and this was ligated with 2-0 chromic [id number] suture. Gallbladder was removed, Surgicel was placed in the liver bed, 10 mm ZENAIDA drain was placed. The patient received 1 unit of blood intraoperatively due to his preoperative anemia and blood loss. Specimens As Per Surgeon Perhkari A. Gall Bladder and Contents Frozen Section 1. Liver Mass Drains 10 mm ZENAIDA in RUQ Anesthesia GETA Complication(s) None Disposition Recovery Room / PACU Indications 51-year-old male prisoner with history of anemia, abdominal pain, and weight loss. He had an ultrasound that showed large gallstones and a thickened gallbladder wall. He also had an upper endoscopy that showed a possible mass versus likely healing ulcer in the second portion of his duodenum. CT scan showed inflammation around the gallbladder, transverse colon, and duodenum. Biopsies of the duodenal mass revealed inflammation and was believed to be secondary to a healing ulcer. Preoperative MRI was performed and showed a 15 mm gallbladder wall possible exophytic duodenal mass. Planned for laparoscopic cholecystectomy with possible cholangiogram, possible open. The risks of the procedure were discussed, all questions were answered, and the patient agreed to proceed with surgery as planned. Description of Procedure The patient was properly identified, consented, and taken to the operating room where he was placed in the supine position. General endotracheal anesthesia was induced. SCDs and a safety belt were placed. Preoperative antibiotics were administered. The patient's abdomen was prepped and draped in the standard sterile fashion. A surgical timeout was performed and all parties were in agreement that this was the correct patient and procedure to be performed and we continued as planned. A curvilinear, infraumbilical incision was made with electrocautery and deepened down to the fascia with blunt dissection. The base of the umbilicus was grasped with a Jacky and elevated towards the ceiling. An incision was made in the midline fascia with a knife and entry into the peritoneum was confirmed. Stay suture of 0 Vicryl was placed and a Powell trocar was inserted. The abdomen was insufflated with carbon dioxide which the patient tolerated without incident. The laparoscope was inserted and no damage from initial trocar placement was noted, no gross abnormalities were noted within the 4 quadrants of the abdomen. 5 mm ports were then placed in the subxiphoid position in the midline and 2 in the right subcostal position. The patient was placed in reverse Trendelenburg position and rotated towards the left. There were dense adhesions between the omentum and the gallbladder. There also appeared to be dense adhesions of the colon and duodenum to the gallbladder. There were a few small exophytic liver lesions, and one of these was biopsied and sent for frozen section with pathology. This returned a granuloma. After prolonged dissection I was able to free the omentum away from the gallbladder, however we could not safely free the transverse colon and duodenum away from the gallbladder. We also could not grasp the gallbladder to assist ourselves with retraction. At this point I decided to convert to open. Laparoscopic surgery was ceased and the ports removed. A Midway incision was made in the right upper quadrant and taken down through the skin, subcutaneous tissue, and muscles. The Bookwalter retractor was inserted. I was able to gently tease the transverse colon away from the gallbladder and using a finger fracture technique was able to take down the adhesions bluntly. The colon was examined and appeared to have no damage to the serosa. We then turned our attention to the duodenal adhesions and this was very dense. At this point Dr. Woodruff scrubbed in and assisted with retraction, exposure, and dissection. During the dissection of the gallbladder, the gallbladder was entered and there was a very large 5 x 3 cm stone that was removed and sent for specimen. There was no bile within the gallbladder. We then continued our dissection and were able to identify the opening of the cystic duct from inside the gallbladder. The gallbladder was divided just above the cystic duct opening and this the duct was ligated with a 2-0 chromic [id number] suture. During the dissection the cystic artery was identified and ligated with 3-0 silk ties. The gallbladder was removed and passed off the table as specimen. The duodenum was examined and there was no evidence of injury. The wound bed was irrigated. There was some bleeding from the liver bed which was controlled with cautery. Surgicel was placed in the liver bed and the liver bed was packed with gauze until the bleeding was negligible. A 10 mm ZENAIDA drain was placed in the gallbladder fossa and exited through the right subcostal port site. This was secured in place with 3-0 nylon suture. The peritoneum was then closed in 2 layers using #0 PDS for the posterior and anterior sheaths. The skin and fascia were injected with Exparel mixed with bupivacaine. The wound was irrigated. Skin was closed with interrupted 3-0 Vicryl deep dermal sutures followed by emily. The fascia of the infrapubic port site was closed with an 0 Vicryl [id number] suture. The skin of the remaining port sites was closed with emily. Sterile dressings were applied. The patient was extubated in the operating room and taken to the PACU where he recovered without apparent incident. All sponge, instrument and needle counts were correct at the conclusion of the procedure. The patient tolerated the procedure well. Simone Savage, the Physician's Branch Controller was crucial in positioning and prepping the patient, entry into the abdomen, exposure, retraction, removal of the gallbladder, and closure of the abdominal wall. I attest to the content of the Intraoperative Record and any orders documented therein. Any exceptions are noted below.
[2017-04-30 11:07] LABS: HEMATOCRIT 25.1 % (42-52); HEMOGLOBIN 7.9 g/dL (14.0-18.0)
--- NOTE | 2017-04-30 11:16 | Anesthesiology Progress Note ---
Anesthesia Post Op Note Date & Time Apr 30, 2017 at 11:15 Vital Signs Pain Intensity: 2 Vital Signs Past 12 Hours Date Time Temp Pulse Resp B/P (MAP) Pulse Ox O2 Delivery O2 Flow Rate FiO2 04/30/17 11:05 36.8 57 12 121/74 100 Nasal Cannula 2 04/30/17 10:55 60 12 134/75 100 Nasal Cannula 2 04/30/17 10:45 59 13 130/82 100 Oxymask 10 04/30/17 10:35 64 19 133/80 100 Oxymask 10 04/30/17 10:31 134/78 04/30/17 10:29 125/ (90) 04/30/17 10:27 36.3 73 24 100 Oxymask 10 04/30/17 06:00 36.8 78 18 144/97 (113) 100 Room Air Notes Mental Status: alert / awake / arousable, participated in evaluation Pt Amnestic to Procedure: Yes Nausea / Vomiting: adequately controlled Pain: adequately controlled Airway Patency, RR, SpO2: stable & adequate BP & HR: stable & adequate Hydration State: stable & adequate Anesthetic Complications: no major complications apparent The patient is doing well. He was anemic preoperatively and had some blood loss during the procedure so he was transfused one unit PRBC. Postop hgb is the same as his preop hgb level of 7.9. He is awake, comfortable, and his vital signs are all stable.
[2017-04-30] MEDS ORDERED: CLINDAMYCIN PHOS 150 MG/ML 2 ML VIAL ONE ×2 (12:24)
[2017-04-30] MEDS: LACTATED RINGER'S 1000ML 1,000 ML IV SCH ×2 (14:02→22:05)
[2017-04-30] MEDS: MoRPHine SULFATE 4 MG/ML 1 ML CARP\\VIAL IV PRN ×2 (14:10→22:11)
[2017-04-30] MEDS: CEFOXITIN IV 2,000 MG in DEXTROSE 5% 50ML 50 ML IV SCH ×2 (18:17→23:50)
[2017-05-01 04:01] VITALS: BP 131/77; PULSE 72; TEMP 36.5; O2SAT 97
[2017-05-01] MEDS: CEFOXITIN IV 2,000 MG in DEXTROSE 5% 50ML 50 ML IV SCH ×2 (05:21→11:54)
[2017-05-01] MEDS: LACTATED RINGER'S 1000ML 1,000 ML IV SCH ×3 (06:03→19:08)
--- NOTE | 2017-05-01 07:04 | Surgery Progress Note ---
Surgery Progress Note Date of Service May 01, 2017. Subjective Post OP Day: 1 + feeling well, + ambulating, + flatus, + pain controlled, + diet (Tolerating clears.), No complaints, No bowel movement, No nausea, No vomiting States he is very hungry Objective Vital Signs: Date Time Temp Pulse Resp B/P (MAP) Pulse Ox O2 Delivery O2 Flow Rate FiO2 05/01/17 04:01 36.5 72 15 131/77 (95) 97 Room Air 04/30/17 23:56 Room Air 04/30/17 22:43 36.9 72 16 160/90 (113) 98 Room Air 04/30/17 19:52 36.3 85 18 158/87 (110) 100 Room Air 04/30/17 15:37 36.9 70 16 150/86 (107) 100 Nasal Cannula 2.5 04/30/17 15:35 Nasal Cannula 04/30/17 14:32 64 20 136/80 (98) 100 Nasal Cannula 2.0 04/30/17 13:34 68 20 157/85 (109) 100 Nasal Cannula 2.0 04/30/17 13:01 37.1 68 17 137/80 (99) 100 Nasal Cannula 2.0 04/30/17 12:35 99 Nasal Cannula 2.0 04/30/17 12:35 36.2 68 16 132/74 (93) 2 Nasal Cannula 99.0 04/30/17 12:35 99 Nasal Cannula 2.0 04/30/17 12:15 36.4 57 12 127/77 100 Nasal Cannula 2 04/30/17 12:00 59 12 120/74 100 Nasal Cannula 2 04/30/17 11:45 60 12 120/71 100 Nasal Cannula 2 04/30/17 11:30 60 17 122/77 100 Nasal Cannula 2 04/30/17 11:15 58 12 121/76 100 Nasal Cannula 2 04/30/17 11:05 36.8 57 12 121/74 100 Nasal Cannula 2 04/30/17 10:55 60 12 134/75 100 Nasal Cannula 2 04/30/17 10:45 59 13 130/82 100 Oxymask 10 04/30/17 10:35 64 19 133/80 100 Oxymask 10 04/30/17 10:31 134/78 04/30/17 10:29 125/ (90) 04/30/17 10:27 36.3 73 24 100 Oxymask 10 General Appearance: WD/WN, no apparent distress Head: normocephalic, atraumatic Respiratory/Chest: no respiratory distress, no accessory muscle use Abdomen: normal bowel sounds, non distended, soft, no organomegaly, + tenderness (Mild incisional tenderness.) Incision(s): clean, dry, intact, no erythema, no drainage Laboratory Results: Results Past 24 Hours Test 04/30/17 10:41 05/01/17 04:44 Range/Units Hemoglobin 7.9 14.0-18.0 g/dL Hematocrit 25.1 42-52 % Assessment & Plan POD #1 s/p laparoscopic cholecystectomy, switch to open Doing well, pain controlled, No N/V, afebrile, Urinating without trouble. Tolerating clears - will advance to Full liquids and ADAT from there. He has been receiving morphine, but denies any pain medication over the night - encouraged him to try PO pain medication first. AM labs pending Probable D/C tomorrow if he tolerates some foods and his pain is controlled on PO medications. Will discuss findings with Dr. Menchaca. Please contact with questions or concerns.
--- NOTE | 2017-05-01 07:11 | Discharge Instructions ---
Discharge Instructions Date of Service May 01, 2017. Admission Reason for Admission: Cholelithiasis Discharge Discharge Diagnosis / Problem: Cholelithiasis Discharge Goals Goal(s): Decrease discomfort, Improve function Activity Recommendations Activity Limitations: as noted below Lifting Limitations: no more than 10 pounds (For 1 week ) Exercise/Sports Limitations: gradually increase as tolerated (avoid strenuous exercise or heavy lifting for the first couple weeks. ) Shower/Bathe: tomorrow Driving or Machine Use: resume 1 day after discharge . Instructions / Follow-Up Instructions / Follow-Up You may remove your bandages tomorrow. Please do not submerge your incision sites in water for 1 week. You may shower tomorrow. You may use Ibuprofen 800mg every 8 hours as needed for pain relief. You may alternate this with over the counter tylenol for better pain relief as well. Please follow-up with a medical provider at your correctional facility in 1-2 weeks for a post-op incision check. Please contact our office with any questions or concerns at . [facility]. [address] [place] [address]. [place] [address]. Current Hospital Diet Patient's current hospital diet: Full Liquid Diet Discharge Diet Recommended Diet: Regular Diet Procedures Procedures Performed: Laparoscopic converted to open cholecystectomy Pending Studies Studies pending at discharge: yes List of pending studies: pathology Medical Emergencies . Who to Call and When: Medical Emergencies: If at any time you feel your situation is an emergency, please call 911 immediately. . Non-Emergent Contact Non-Emergency issues call your: Primary Care Provider, Surgeon Call Non-Emergent contact if: you have a fever, temperature is above 101.5, your pain is not controlled, your pain is worsening, wound has increased drainage, wound has increased redness . "Provider Documentation" section prepared by Shay Noriega. . VTE Core Measure Inpt VTE Proph given/why not?: SCD's [place] Drug Monitoring Program Drug Monitoring Findings: N/A - no narcotic medications prescribed.
[2017-05-01 07:12] VITALS: BP 142/84; PULSE 67; TEMP 36.3; O2SAT 97
[2017-05-01] MEDS: ASPIRIN 81 MG ECTAB PO SCH (08:57)
[2017-05-01] MEDS: PANTOprazole SOD 40 MG TAB PO SCH (08:58)
[2017-05-01] MEDS: TAMSULOSIN HCL 0.4 MG CAP PO SCH (08:58)
[2017-05-01 09:11] LABS: EOS % 1.9 %; EOS ABS # 0.07 K/uL (0-0.5); HEMATOCRIT 24.7 % (42-52); HEMOGLOBIN 7.8 g/dL (14.0-18.0); IG# 0.01 K/uL (0.00-0.02); LYMPH % 31.6 %; LYMPH ABS # 1.15 K/uL (1.2-3.4); MEAN CELL VOLUME 83.4 fL (80-100); MEAN CORPUSCULAR HEMOGLOBIN 26.4 pg (25-34); MEAN CORPUSCULAR HGB CONC 31.6 g/dl (32-36); MEAN PLATELET VOLUME 8.4 fL (7.4-10.4); MONO % 5.8 %; MONO ABS # 0.21 K/uL (0.11-0.59); NEUT % 60.4 %; PLATELET COUNT 209 K/uL (130-400); RED CELL DISTRIBUTION WIDTH CV 16.2 % (11.5-14.5); RED CELL DISTRIBUTION WIDTH SD 49.6 fL (36.4-46.3); WHITE BLOOD COUNT 3.64 K/uL (4.8-10.8)
[2017-05-01 10:31] LABS: CALCIUM 8.1 mg/dl (8.5-10.1); CREATININE 1.49 mg/dl (0.60-1.40)
[2017-05-01 11:18] VITALS: BP 143/83; PULSE 82; TEMP 37.1; O2SAT 96
[2017-05-01] MEDS: OXYCODONE/ACETAMINOPHEN 5-325 TAB PO PRN ×3 (14:08→22:15)
[2017-05-01 15:21] VITALS: BP 128/79; PULSE 92; TEMP 37.1; O2SAT 96
[2017-05-01 23:45] VITALS: BP 136/85; PULSE 91; TEMP 37.3; O2SAT 95
[2017-05-02] MEDS: MoRPHine SULFATE 4 MG/ML 1 ML CARP\\VIAL IV PRN (00:08)
[2017-05-02] MEDS: LACTATED RINGER'S 1000ML 1,000 ML IV SCH ×3 (04:42→23:28)
[2017-05-02] MEDS: OXYCODONE/ACETAMINOPHEN 5-325 TAB PO PRN ×3 (04:43→15:33)
--- NOTE | 2017-05-02 06:24 | Surgery Progress Note ---
Surgery Progress Note Date of Service May 02, 2017. Subjective Post OP Day: 2 + feeling well, + pain controlled, + diet (Tolerating regular diet), No complaints, No bowel movement, No nausea, No vomiting Objective Vital Signs: Date Time Temp Pulse Resp B/P (MAP) Pulse Ox O2 Delivery O2 Flow Rate FiO2 05/02/17 00:04 Room Air 05/01/17 23:45 37.3 91 16 136/85 (102) 95 Room Air 05/01/17 16:30 Room Air 05/01/17 15:21 37.1 92 18 128/79 (95) 96 Room Air 05/01/17 11:18 37.1 82 16 143/83 (103) 96 Room Air 05/01/17 07:20 Room Air 05/01/17 07:12 36.3 67 16 142/84 (103) 97 Room Air Physical Exam: ZENAIDA drainage (Minimal drainage yesterday. Increasing this AM.) General Appearance: WD/WN, no apparent distress Head: normocephalic, atraumatic Neck: trachea midline Respiratory/Chest: no respiratory distress, no accessory muscle use Abdomen: soft, no organomegaly, + distended (mild), + tenderness (Incisional) Incision(s): clean, dry, intact, no erythema, no drainage Laboratory Results: Results Past 24 Hours Test 05/01/17 08:42 05/02/17 04:44 Range/Units White Blood Count 3.64 4.8-10.8 K/uL Red Blood Count 2.96 4.7-6.1 M/uL Hemoglobin 7.8 14.0-18.0 g/dL Hematocrit 24.7 42-52 % Mean Corpuscular Volume 83.4 80-100 fL Mean Corpuscular Hemoglobin 26.4 25-34 pg Mean Corpuscular Hemoglobin Concent 31.6 32-36 g/dl Platelet Count 209 130-400 K/uL Mean Platelet Volume 8.4 7.4-10.4 fL Neutrophils (%) (Auto) 60.4 % Lymphocytes (%) (Auto) 31.6 % Monocytes (%) (Auto) 5.8 % Eosinophils (%) (Auto) 1.9 % Basophils (%) (Auto) 0.0 % Neutrophils # (Auto) 2.20 1.4-6.5 K/uL Lymphocytes # (Auto) 1.15 1.2-3.4 K/uL Monocytes # (Auto) 0.21 0.11-0.59 K/uL Eosinophils # (Auto) 0.07 0-0.5 K/uL Basophils # (Auto) 0.00 0-0.2 K/uL RDW Standard Deviation 49.6 36.4-46.3 fL RDW Coefficient of Variation 16.2 11.5-14.5 % Immature Granulocyte % (Auto) 0.3 % Immature Granulocyte # (Auto) 0.01 0.00-0.02 K/uL Large Platelets 1+ Hypochromasia PRESENT Poikilocytosis PRESENT Sodium Level 138 136-145 mmol/L Potassium Level 4.0 3.5-5.1 mmol/L Chloride Level 106 98-107 mmol/L Carbon Dioxide Level 27 21-32 mmol/L Anion Gap 5.0 3-11 mmol/L Blood Urea Nitrogen 22 7-18 mg/dl Creatinine 1.49 0.60-1.40 mg/dl Est Creatinine Clear Calc Drug Dose 55.3 ml/min Estimated GFR () 61.2 Estimated GFR (Non- 52.8 BUN/Creatinine Ratio 14.8 10-20 Random Glucose 84 70-99 mg/dl Calcium Level 8.1 8.5-10.1 mg/dl Assessment & Plan POD #2 s/p laparoscopic cholecystectomy, switch to open Doing well, pain controlled, afebrile, urinating okay. Tolerating regular diet, No N/V. ZENAIDA drainage minimal yesterday but increased this AM - will keep for now. AM labs pending. Probable D/C today if AM labs look okay and he continues to do well. Will discuss findings with Dr. Menchaca. Please contact with questions or concerns. POD #1 s/p laparoscopic cholecystectomy, switch to open Doing well, pain controlled, No N/V, afebrile, Urinating without trouble. Tolerating clears - will advance to Full liquids and ADAT from there. He has been receiving morphine, but denies any pain medication over the night - encouraged him to try PO pain medication first. AM labs pending Probable D/C today if he tolerates some foods and his pain is controlled on PO medications. Will discuss findings with Dr. Menchaca. Please contact with questions or concerns.
[2017-05-02 07:07] VITALS: BP 109/73; PULSE 81; TEMP 37.2; O2SAT 94
[2017-05-02] MEDS: TAMSULOSIN HCL 0.4 MG CAP PO SCH (08:40)
[2017-05-02] MEDS: ASPIRIN 81 MG ECTAB PO SCH (08:40)
[2017-05-02] MEDS: PANTOprazole SOD 40 MG TAB PO SCH (08:40)
[2017-05-02 08:56] LABS: HEMATOCRIT 26.8 % (42-52); HEMOGLOBIN 8.4 g/dL (14.0-18.0); MEAN CORPUSCULAR HEMOGLOBIN 26.3 pg (25-34); MEAN CORPUSCULAR HGB CONC 31.3 g/dl (32-36); MEAN PLATELET VOLUME 8.9 fL (7.4-10.4); PLATELET COUNT 240 K/uL (130-400); RED CELL DISTRIBUTION WIDTH CV 16.5 % (11.5-14.5); RED CELL DISTRIBUTION WIDTH SD 50.8 fL (36.4-46.3); WHITE BLOOD COUNT 4.86 K/uL (4.8-10.8)
[2017-05-02 09:15] LABS: CALCIUM 8.5 mg/dl (8.5-10.1); CREATININE 1.08 mg/dl (0.60-1.40); POTASSIUM 4.2 mmol/L (3.5-5.1)
--- NOTE | 2017-05-02 13:42 | Progress Note ---
Progress Note Date of Service May 02, 2017. Progress Note ZENAIDA drainage 20 cc remains serosanguineous, drain removed not tolerating diet today, will continue IVF & keep here today
[2017-05-02 16:14] VITALS: BP 136/79; PULSE 83; TEMP 37.6; O2SAT 92
[2017-05-02 22:50] VITALS: BP 120/79; PULSE 85; TEMP 38.1; O2SAT 95
[2017-05-02 23:29] VITALS: TEMP 36.5
[2017-05-03] VITALS (8 sets, daily range): BP systolic 138–163; BP diastolic 79–91; PULSE 78–92; TEMP 36.3–38.1; O2SAT 94–96
--- NOTE | 2017-05-03 06:13 | Surgery Progress Note ---
Surgery Progress Note Date of Service May 03, 2017. Subjective Post OP Day: 3 + feeling well, + flatus, + pain controlled, + diet (Tolerating regular diet.), No complaints, No bowel movement, No nausea, No vomiting Drain pulled yesterday afternoon. Doing fine since then. He did have an elevated temp last PM. Objective Vital Signs: Date Time Temp Pulse Resp B/P (MAP) Pulse Ox O2 Delivery O2 Flow Rate FiO2 05/02/17 23:29 36.5 05/02/17 23:26 Room Air 05/02/17 22:50 38.1 85 16 120/79 (93) 95 Room Air 05/02/17 16:14 37.6 83 18 136/79 (98) 92 Room Air 05/02/17 15:20 Room Air 05/02/17 07:50 Room Air 05/02/17 07:07 37.2 81 18 109/73 (85) 94 Room Air General Appearance: WD/WN, no apparent distress Head: normocephalic, atraumatic Respiratory/Chest: no respiratory distress, no accessory muscle use Abdomen: normal bowel sounds, non distended, soft, no organomegaly, + tenderness (Mild incisional) Incision(s): clean, dry, intact, no erythema, no drainage Laboratory Results: Results Past 24 Hours Test 05/02/17 08:36 05/02/17 11:46 Range/Units White Blood Count 4.86 4.8-10.8 K/uL Red Blood Count 3.19 4.7-6.1 M/uL Hemoglobin 8.4 14.0-18.0 g/dL Hematocrit 26.8 42-52 % Mean Corpuscular Volume 84.0 80-100 fL Mean Corpuscular Hemoglobin 26.3 25-34 pg Mean Corpuscular Hemoglobin Concent 31.3 32-36 g/dl RDW Standard Deviation 50.8 36.4-46.3 fL RDW Coefficient of Variation 16.5 11.5-14.5 % Platelet Count 240 130-400 K/uL Mean Platelet Volume 8.9 7.4-10.4 fL Sodium Level 138 136-145 mmol/L Potassium Level 4.2 3.5-5.1 mmol/L Chloride Level 103 98-107 mmol/L Carbon Dioxide Level 29 21-32 mmol/L Anion Gap 7.0 3-11 mmol/L Blood Urea Nitrogen 17 7-18 mg/dl Creatinine 1.08 0.60-1.40 mg/dl Est Creatinine Clear Calc Drug Dose 76.3 ml/min Estimated GFR () 90.3 Estimated GFR (Non- 77.9 BUN/Creatinine Ratio 16.0 10-20 Random Glucose 98 70-99 mg/dl Calcium Level 8.5 8.5-10.1 mg/dl Total Bilirubin 0.4 0.2-1 mg/dl Aspartate Amino Transf (AST/SGOT) 21 15-37 U/L Alanine Aminotransferase (ALT/SGPT) 19 12-78 U/L Alkaline Phosphatase 75 45-117 U/L Total Protein 6.0 6.4-8.2 gm/dl Albumin 2.0 3.4-5.0 gm/dl Globulin 4.0 2.5-4.0 gm/dl Albumin/Globulin Ratio 0.5 0.9-2 Assessment & Plan POD #3 s/p laparoscopic cholecystectomy, switch to open Doing well, Pain controlled, No N/V, Urinating okay, +flatus. Tolerating regular diet, H/H stable. Will recheck labs this AM as he spiked a fever yesterday evening. Okay for D/C today to correction facility provided labs look okay. Will discuss findings with Dr. Menchaca. Please contact with questions or concerns. POD #2 s/p laparoscopic cholecystectomy, switch to open Doing well, pain controlled, afebrile, urinating okay. Tolerating regular diet, No N/V. ZENAIDA drainage minimal yesterday but increased this AM - will keep for now. AM labs pending. Probable D/C today if AM labs look okay and he continues to do well. Will discuss findings with Dr. Menchaca. Please contact with questions or concerns.
[2017-05-03 08:08] LABS: HEMATOCRIT 21.3 % (42-52); HEMOGLOBIN 6.5 g/dL (14.0-18.0); MEAN CELL VOLUME 83.9 fL (80-100); MEAN CORPUSCULAR HEMOGLOBIN 25.6 pg (25-34); MEAN CORPUSCULAR HGB CONC 30.5 g/dl (32-36); MEAN PLATELET VOLUME 8.7 fL (7.4-10.4); PLATELET COUNT 189 K/uL (130-400); RED CELL DISTRIBUTION WIDTH CV 16.1 % (11.5-14.5); RED CELL DISTRIBUTION WIDTH SD 49.9 fL (36.4-46.3); WHITE BLOOD COUNT 3.83 K/uL (4.8-10.8)
[2017-05-03] MEDS: TAMSULOSIN HCL 0.4 MG CAP PO SCH (08:20)
[2017-05-03] MEDS: PANTOprazole SOD 40 MG TAB PO SCH (08:20)
[2017-05-03] MEDS: LACTATED RINGER'S 1000ML 1,000 ML IV SCH (08:20)
[2017-05-03] MEDS: ASPIRIN 81 MG ECTAB PO SCH (08:20)
[2017-05-03 08:23] LABS: CREATININE 1.02 mg/dl (0.60-1.40)
[2017-05-03 09:06] LABS: HEMATOCRIT 21.9 % (42-52); HEMOGLOBIN 6.7 g/dL (14.0-18.0); MEAN CELL VOLUME 83.9 fL (80-100); MEAN CORPUSCULAR HEMOGLOBIN 25.7 pg (25-34); MEAN CORPUSCULAR HGB CONC 30.6 g/dl (32-36); MEAN PLATELET VOLUME 8.4 fL (7.4-10.4); PLATELET COUNT 184 K/uL (130-400); RED CELL DISTRIBUTION WIDTH CV 15.9 % (11.5-14.5); RED CELL DISTRIBUTION WIDTH SD 49.2 fL (36.4-46.3); WHITE BLOOD COUNT 3.88 K/uL (4.8-10.8)
[2017-05-03 09:18] LABS: EOS % 9.3 %; EOS ABS # 0.36 K/uL (0-0.5); IG# 0.01 K/uL (0.00-0.02); LYMPH % 33.2 %; LYMPH ABS # 1.29 K/uL (1.2-3.4); MONO % 6.7 %; MONO ABS # 0.26 K/uL (0.11-0.59); NEUT % 50.5 %; NEUT ABS # 1.96 K/uL (1.4-6.5)
[2017-05-04] VITALS (8 sets, daily range): BP systolic 153–167; BP diastolic 83–93; PULSE 73–86; TEMP 36.5–37.3; O2SAT 94–96
[2017-05-04 07:30] LABS: EOS % 6.4 %; EOS ABS # 0.24 K/uL (0-0.5); HEMATOCRIT 25.2 % (42-52); HEMOGLOBIN 8.1 g/dL (14.0-18.0); IG# 0.02 K/uL (0.00-0.02); LYMPH % 27.2 %; LYMPH ABS # 1.02 K/uL (1.2-3.4); MEAN CELL VOLUME 83.4 fL (80-100); MEAN CORPUSCULAR HEMOGLOBIN 26.8 pg (25-34); MEAN CORPUSCULAR HGB CONC 32.1 g/dl (32-36); MEAN PLATELET VOLUME 8.6 fL (7.4-10.4); MONO % 6.9 %; MONO ABS # 0.26 K/uL (0.11-0.59); NEUT ABS # 2.21 K/uL (1.4-6.5); PLATELET COUNT 211 K/uL (130-400); RED CELL DISTRIBUTION WIDTH CV 15.7 % (11.5-14.5); RED CELL DISTRIBUTION WIDTH SD 48.2 fL (36.4-46.3); WHITE BLOOD COUNT 3.75 K/uL (4.8-10.8)
--- NOTE | 2017-05-04 08:05 | Surgery Progress Note ---
Surgery Progress Note Date of Service May 04, 2017. Subjective Post OP Day: 4 + feeling well, + ambulating, + flatus, + pain controlled, + diet (Tolerating regular diet), No complaints, No bowel movement, No nausea, No vomiting Objective Vital Signs: Date Time Temp Pulse Resp B/P (MAP) Pulse Ox O2 Delivery O2 Flow Rate FiO2 05/04/17 05:55 36.5 77 16 157/93 96 05/04/17 05:00 36.7 79 16 154/83 96 05/04/17 04:06 36.7 83 16 162/86 96 05/04/17 03:15 37.3 86 16 159/93 94 05/04/17 03:00 37.1 82 16 157/84 94 05/04/17 00:37 37.3 82 16 153/93 95 05/03/17 23:43 Room Air 05/03/17 23:10 37.4 86 16 163/91 96 05/03/17 22:10 37.7 91 16 158/87 96 05/03/17 21:40 38.1 87 16 156/88 96 05/03/17 21:10 37.2 88 16 154/81 95 05/03/17 20:51 37.4 92 18 154/83 95 05/03/17 16:27 37.2 84 17 140/79 (99) 95 Room Air 05/03/17 15:50 Room Air General Appearance: WD/WN, no apparent distress Head: normocephalic, atraumatic Neck: trachea midline Respiratory/Chest: no respiratory distress, no accessory muscle use Abdomen: normal bowel sounds, non distended, soft, no organomegaly, + tenderness (mild) Incision(s): clean, dry, intact, no erythema, no drainage Laboratory Results: Results Past 24 Hours Test 05/03/17 08:34 05/04/17 07:11 Range/Units White Blood Count 3.88 3.75 4.8-10.8 K/uL Red Blood Count 2.61 3.02 4.7-6.1 M/uL Hemoglobin 6.7 8.1 14.0-18.0 g/dL Hematocrit 21.9 25.2 42-52 % Mean Corpuscular Volume 83.9 83.4 80-100 fL Mean Corpuscular Hemoglobin 25.7 26.8 25-34 pg Mean Corpuscular Hemoglobin Concent 30.6 32.1 32-36 g/dl Platelet Count 184 211 130-400 K/uL Mean Platelet Volume 8.4 8.6 7.4-10.4 fL Neutrophils (%) (Auto) 50.5 59.0 % Lymphocytes (%) (Auto) 33.2 27.2 % Monocytes (%) (Auto) 6.7 6.9 % Eosinophils (%) (Auto) 9.3 6.4 % Basophils (%) (Auto) 0.0 0.0 % Neutrophils # (Auto) 1.96 2.21 1.4-6.5 K/uL Lymphocytes # (Auto) 1.29 1.02 1.2-3.4 K/uL Monocytes # (Auto) 0.26 0.26 0.11-0.59 K/uL Eosinophils # (Auto) 0.36 0.24 0-0.5 K/uL Basophils # (Auto) 0.00 0.00 0-0.2 K/uL RDW Standard Deviation 49.2 48.2 36.4-46.3 fL RDW Coefficient of Variation 15.9 15.7 11.5-14.5 % Immature Granulocyte % (Auto) 0.3 0.5 % Immature Granulocyte # (Auto) 0.01 0.02 0.00-0.02 K/uL Hypochromasia PRESENT Poikilocytosis PRESENT Anisocytosis PRESENT Assessment & Plan POD #4 s/p laparoscopic cholecystectomy, switch to open Pain controlled, No N/V, afebrile, Tolerating regular diet. Hgb 8.1 and Hct 25.2 this AM s/p transfusion last night. Okay for D/C today back to correctional facility if H/H remains stable. Will discuss findings with Dr. Menchaca. POD #3 s/p laparoscopic cholecystectomy, switch to open Doing well, Pain controlled, No N/V, Urinating okay, +flatus. Tolerating regular diet, H/H stable. Will recheck labs this AM as he spiked a fever yesterday evening. Okay for D/C today to correction facility provided labs look okay. Will discuss findings with Dr. Menchaca. Please contact with questions or concerns.
[2017-05-04] MEDS: ASPIRIN 81 MG ECTAB PO SCH (08:49)
[2017-05-04] MEDS: PANTOprazole SOD 40 MG TAB PO SCH (08:49)
[2017-05-04] MEDS: TAMSULOSIN HCL 0.4 MG CAP PO SCH (08:49)
--- NOTE | 2017-05-07 11:17 | DISCHARGE SUMMARY ---
PRIMARY DISCHARGE DIAGNOSES: 1. Cholelithiasis with acute on chronic cholecystitis. 2. Acute (blood loss) on chronic anemia. SECONDARY DISCHARGE DIAGNOSES: 1. Hypertension. 2. Benign prostatic hypertrophy. 3. High cholesterol. 4. History of gastritis. PROCEDURE PERFORMED: Laparoscopic converted to open cholecystectomy. HOSPITAL COURSE: The patient is a 51-year-old male inmate with chronic cholecystitis, taken to the operating room through same day for laparoscopic cholecystectomy. He had significantly thickened gallbladder wall, to which the colon and duodenum were adherent. The procedure was converted to open, so that these adhesions could safely be dissected. A ZENAIDA drain was placed. There was no evidence of fistulization. He did have approximately 200 mL of blood loss intraoperatively and he was transfused 1 unit intraoperatively given a preop hemoglobin of 7.9. He was transferred to the surgical floor. He was able to tolerate an advancing diet over postoperative day #1. His drainage remained nonbilious. The drain was removed on postoperative day #2. He was not tolerating diet very well and we decided to observe him another day. On postoperative day #3, his H&H had fallen to 6.5 and 21. He was transfused an additional 2 units of red blood cells for a total of 3 units during the hospitalization. On postoperative day #4, his hemoglobin was 8.1. He was tolerating diet and oral analgesics. His incision was clean and dry. He was stable for discharge. DISCHARGE INSTRUCTIONS: Discharge back to [facility]. Follow up with Dr. Menchaca in 2 weeks. DISCHARGE MEDICATIONS: Aspirin 81 mg daily, vitamin B12 of 1000 mcg daily, Lasix 40 mg daily, Mevacor 20 mg daily, Prilosec 40 mg daily, Flomax 0.4 mg daily, Procrit injections weekly and analgesics per receiving facility. [facility], [place]
== END 2017-05-04 15:00 | disposition home or self-care (01) | DRG 416 ==
LOC: C.ACU 05:47 → C.MSW 10:29 → ENRESERV 12:09
PROVIDERS: ADMIT Surgery; ATTEND Surgery
PROC: 0FT40ZZ Resection of Gallbladder, Open Approach (ICD-10-PCS; principal; 2017-04-30 07:00)
DX: K80.10 Calculus of gallbladder with chronic cholecystitis without obstruction (principal); D64.9 Anemia, unspecified; E78.00 Pure hypercholesterolemia, unspecified; I10 Essential (primary) hypertension; N40.1 Benign prostatic hyperplasia with lower urinary tract symptoms; Z88.0 Allergy status to penicillin; Z82.49 Family history of ischemic heart disease and other diseases of the circulatory system; Z80.3 Family history of malignant neoplasm of breast; Z80.8 Family history of malignant neoplasm of other organs or systems

== ENCOUNTER 2018-10-26 17:29 | Inpatient (IN) ==
--- OUTSIDE RECORDS SUMMARY | 2018-10-26 17:31 | External Medical Summary | Continuity of Care Document ---
:1965 Author Name Ari Coates, Provider Address Unavailable Unavailable , Care Team Providers Name Role Phone Nikolai GUERREROGarret Perez [email or web address] [place] BIANCA STILL Unavailable Unavailable Assessments Assessed Problems:Aftercare following surgery Problems Right upper quadrant abdominal pain (789.01) (R10.11) Anemia (285.9) (D64.9) Cholelithiasis (574.20) (K80.20) Aftercare following surgery (V58.89) (Z48.89) Hypertension (401.9) (I10) Hypercholesterolemia (272.0) (E78.00) Osteoarthritis (715.90) (M19.90) BPH with obstruction/lower urinary tract symptoms (600.01) ( N40.1) Allergies and Adverse Reactions Penicillins (Allergy) Medications Aspirin 81 MG Oral Tablet Delayed Release; TAKE 1 TABLET KAYLA LY DIRECTED. Start: 15-Mar-2017 Refills: 0 Furosemide 40 MG Oral Tablet; TAKE 1 TABLET DAILY DIRECTE D. Start: 15-Mar-2017 Refills: 0 Lovastatin 20 MG Oral Tablet; TAKE 1 TABLET DAILY DIRECTE D. Start: 15-Mar-2017 Refills: 0 60 Tablet Bottle Omeprazole 40 MG Oral Capsule Delayed Release; TAKE 1 CAPSUL E TWICE DAILY. Start: 15-Mar-2017 Refills: 0 Tamsulosin HCl - 0.4 MG Oral Capsule; TAKE 1 CAPSULE Bedtime Start: 15-Mar-2017 Quantity: 30 Refills: 6 Vitamin B12 1000 MCG Oral Tablet Extende d Release; TAKE 1 TABLET DAILY DIRECTED. Start: 15-Mar-2017 Refills: 0 Procrit 2000 UNIT/ML Injection Solution; USE DIRECTED. Start: 12-Jun-2017 Refills: 0 Milliliter Ferrex 150 150 MG Oral Capsule Start: Jun-2017 Refills: 0 Procedures History of cyst excision Status: Complet ed History of colonoscopy Status: Completed History of esophagogastroduodenoscopy St atus: Completed History of cystoscopy Status: Completed History of cholecystectomy Status: Compl eted 30-Apr-2017 0:00 Immunizations Immunizations not documented Family History Mother Family history of hypertension (V17.49) (Z82.49) Status: Act lori Family history of malignant neoplasm of breast (V16.3) (Z80. 3) Status: Active Father Family history of hypertension (V17.49) (Z82.49) Status: Act lori Family history of malignant melanoma (V16.8) (Z80.8) Status: Active Sister Family history of hypertension (V17.49) (Z82.49) Status: Act lori Social History - Smoking Status Never smoker Plan of Treatment Planned Observations Planned Goals not documented Results No Known Results Results not documented Encounters Appointment; Garret Menchaca DO 30-Apr-2017 7:00 Encounter Diagnosis: Problem not documented Appointment; Garret Menchaca DO 17-Apr-2017 14:50 Encounter Diagnosis: Problem not documented Appointment; Garret Menchaca DO 15-Mar-2017 9:00 Encounter Diagnosis: Problem not documented Appointment; Garret Menchaca DO 12-Jun-2017 11:30 Encounter Diagnosis: Problem not documented
[2018-10-26] MEDS ORDERED: SODIUM CHLORIDE 0.9% 500 ML IV SCH (18:00)
[2018-10-26] MEDS ORDERED: SODIUM CHLORIDE 0.9% 1000ML 1,000 ML IV SCH (18:00)
[2018-10-26 18:58] LABS: Eosinophils # (auto) 0.03 K/uL (0-0.5); Eosinophils % (auto) 0.8 %; Hemoglobin 9.3 g/dL (14.0-18.0); Immature Granulocytes # (auto) 0.03 K/uL (0.00-0.02); Immature Granulocytes % (auto) 0.8 %; Lymphocytes # (auto) 1.02 K/uL (1.2-3.4); Lymphocytes % (auto) 27.6 %; Mean Corpuscular Hgb Conc 34.4 g/dL (32-36); Mean Corpuscular Volume 79.4 fL (80-100); Mean Platelet Volume 8.6 fL (7.4-10.4); Monocytes # (auto) 0.39 K/uL (0.11-0.59); Monocytes % (auto) 10.6 %; Neutrophils # (auto) 2.22 K/uL (1.4-6.5); Neutrophils % (auto) 60.2 %; Platelet Count 128 K/uL (130-400); RDW Coefficient of Variation 14.6 % (11.5-14.5); RDW Standard Deviation 42.4 fL (36.4-46.3); White Blood Count 3.69 K/uL (4.8-10.8)
--- NOTE | 2018-10-26 19:25 | CT Scan Report ---
CT SCAN OF THE ABDOMEN AND PELVIS WITHOUT CONTRAST CLINICAL HISTORY: Hematuria and abdominal pain COMPARISON STUDY: Outside CT scan dated 04/06/2017 TECHNIQUE: CT scan of the abdomen and pelvis was performed from the lung bases to the proximal femurs . Images are reviewed in the axial, sagittal, and coronal planes. IV contrast was not administered fo r this examination. A dose lowering technique was utilized adhering to the principles of ALARA. CT DOSE: 384.00 mGy.cm FINDINGS: Lower chest: There are calcified mediastinal and hilar lymph nodes. There is respiratory motion artif act. There is a trace right pleural effusion. There is elevation of the right hemidiaphragm Liver: The unenhanced liver is normal in size, contour, and attenuation. There is no intrahepatic mega iary ductal dilatation. Gallbladder: Not visualized and presumed surgically absent Spleen: There are multiple splenic granulomata. Spleen is mildly enlarged measuring 13 cm. Pancreas: Unremarkable. Adrenal glands: Unremarkable. Kidneys: No renal, ureteral, or bladder calculi are visualized. There is no hydronephrosis. There is a 5.5 cm right renal cyst. Bowel: There are no transition zones indicate bowel obstruction. There is no evidence of acute divert iculitis. There are scattered colonic air-fluid levels. There is no evidence of acute appendicitis. Peritoneum: There is a small volume of free intraperitoneal fluid. There is minor peritoneal and abdo bettina wall edema. Vasculature: The abdominal aorta is normal in course and caliber. Adenopathy: None. Pelvic viscera: There is mild prostatomegaly. There is bladder wall thickening with mild infiltration of the perivesical fat. While this may be secondary to chronic bladder outlet obstruction, a cystiti s could appear similar. Skeletal structures: No destructive osseous lesions are seen. IMPRESSION: 1. Elevated right hemidiaphragm 2. No evidence of bowel obstruction. No evidence of free air. 3. No evidence of acute diverticulitis. No evidence of acute appendicitis. 4. No renal, ureteral, or bladder calculi identified 5. Small amount of intraperitoneal fluid. Mild peritoneal abdominal wall edema. 6. Mild bladder wall thickening and infiltration of the perivesical fat. The findings are likely seco ndary to either chronic bladder outlet obstruction or a cystitis. Correlation with urinalysis is annamarie mmended. 7. 5.5 cm right renal cyst Electronically signed by: Rohit Cazares M.D. 10/26/2018 7:24 PM
[2018-10-26 19:26] LABS: Echinocytes 1+; Tear Drop Cells 1+
[2018-10-26 19:35] LABS: Alanine Aminotransferase 13 U/L (12-78); Albumin Globulin Ratio 0.6 (0.9-2); Albumin Level 2.5 gm/dl (3.4-5.0); Alkaline Phosphatase 78 U/L (45-117); Aspartate Aminotransferase 8 U/L (15-37); BUN Creatinine Ratio 11.1 (10-20); Bilirubin,Total 0.3 mg/dl (0.2-1); Blood Urea Nitrogen 114 mg/dl (7-18); Calcium 6.8 mg/dl (8.5-10.1); Carbon Dioxide 12 mmol/L (21-32); Chloride 90 mmol/L (98-107); Creatinine Clr Calc Pharmacy 7.8 ml/min; Est GFR (African American) 5.8; Globulin 4.1 gm/dl (2.5-4.0); Glucose 74 mg/dl (70-99); Magnesium 2.5 mg/dl (1.8-2.4); Potassium 6.2 mmol/L (3.5-5.1); Sodium 121 mmol/L (136-145); Total Protein 6.6 gm/dl (6.4-8.2); Troponin I < 0.015 ng/ml (0-0.045)
[2018-10-26 19:48] LABS: T4 Free Thyroxine 1.14 ng/dl (0.8-1.6)
--- NOTE | 2018-10-26 19:51 | XRay Report ---
XR chest 1V portable CLINICAL HISTORY: weakness COMPARISON STUDY: 02/26/2017 FINDINGS: The heart is the upper limits of normal in size. There is mild elevation right hemidiaphrag m. There is no failure. There is no focal pulmonary consolidation. There is a small right pleural eff usion.[ IMPRESSION: 1. Mild elevation of the right hemidiaphragm 2. Small right pleural effusion 3. No evidence of focal pulmonary consolidation Electronically signed by: Rohit Cazares M.D. 10/26/2018 7:49 PM
[2018-10-26] MEDS ORDERED: CALCIUM GLUCONATE 10% 1,000 MG in SODIUM CHLORIDE 0.9% 50 ML IV STA (19:58)
[2018-10-26] MEDS ORDERED: NovoLIN-R INSULIN PER UNIT CHARGE IV STA (19:58)
[2018-10-26] MEDS ORDERED: DEXTROSE 50% 50 ML SYRINGE IV STA (19:58)
[2018-10-26] MEDS ORDERED: SODIUM BICARB 8.4% INJ 50 MEQ/50 ML SYR IV STA (19:58)
[2018-10-26] MEDS ORDERED: SODIUM BICARBONATE 8.4% 150 MEQ in DEXTROSE 5% 1,000 ML IV STA (20:19)
--- NOTE | 2018-10-26 21:06 | History & Physical Report ---
Date of Service October 26, 2018 Assessment & Plan (1) Acute renal failure: 53M with PMH CKDIII, anemia, HLD, HTN, gastritis, and nonischemic CM here with diarrhea and low PO intake x 7 days presents from assisted due to abnormal labs - Drafter (Cad) Electrical 10.4 in ED, with hyperkalemia and elev AG. Denies h/o HIV. Has been taking immodium x3 days. ED course: calcium gluconate, insulin, bicarb. CT abdomen with prostamegaly otherwise unremarkable. Elev RT hemidiaphragm on CXR. NIK -Drafter (Cad) [employer] 10x his baseline -complicated by electrolyte abnormalities -likely prerenal given low PO intake/diarrhea Plan -admit to ICU -cont bicarb drip, repeat BMP, titrate as needed -c diff testing -fluids - has documented h/o nonischemic CM EF 10%, repeat TTE -follow BMP -consult nephrology, may need dialysed Diarrhea -likely viral, denies h/o HIV -check c diff -clears, IVF hydration Hyperkalemia -2/2 NIK -mgmt as above FEN/GI: normasol, bicarb drip DVT ppx: heparin q12 CODE STATUS: FULL DISPO: ICU Other ongoing medical problems: abnormal TSH -repeat in 4 weeks, likely temporal Anemia, leukocytopenia (Chronic) -cont procrit (2) Hyponatremia: (3) Hyperkalemia: History of Present Illness Chief Complaint: NIK, diarrhea Primary Care Provider: KINJAL Anderson 53M with PMH CKDIII, anemia, HLD, HTN, gastritis, and nonischemic CM here with diarrhea and low PO intake x 7 days, presents from assisted due to abnormal labs - Drafter (Cad) [employer] 10.4 in ED, with hyperkalemia and elev AG. Has been urinating but says he saw blood in his urine. Denies bloody stools. Has not had antibiotics recently. Has been taking immodium x 3 days. ED course: calcium gluconate, insulin, bicarb. CT abdomen with prostamegaly otherwise unremarkable. Elev RT hemidiaphragm on CXR. Labs remarkable for Drafter (Cad) [employer] 10.4, K 6.2, AG 19, TSH 0.268. Free T4 1.14. Review of past medical records show: Cardiac cath in 2013 which showed normal patent vessels, global severe nonischemic cardiomyopathy with an EF of 10 to 15% with 2-3+ mitral insufficiency and elevated right heart pressures. History of cholelithiasis. PMH Anemia, leukocytopenia, on Procrit BPH on Flomax Hypertension on lisinopril Gastritis on omeprazole History of CKD stage III as of 2016 PSH Cholecystectomy EGD, showed gastritis SH Prisoner at [facility] Allergies Allergy/AdvReac Type Severity Reaction Status Date / Time Penicillins Allergy Unknown unknown Verified 10/26/18 18:02 Home Medications Home Medications Medication Instructions Recorded Confirmed Type aspirin 81 mg PO DAILY 10/26/18 10/26/18 History epoetin sue-epbx [Retacrit] 10,000 unit SUBCUT WK 10/26/18 10/26/18 History furosemide [Lasix] 40 mg PO BID 10/26/18 10/26/18 History lisinopril 40 mg PO DAILY 10/26/18 10/26/18 History lovastatin 40 mg PO DAILY 10/26/18 10/26/18 History metoprolol tartrate 100 mg PO BID 10/26/18 10/26/18 History omeprazole 40 mg PO QAM 10/26/18 10/26/18 History Past Med/Surg History Medical History Anemia CHF (congestive heart failure) HTN (hypertension) Family History Other No significant family history Social History Preferred Language: Upper Sorbian Communication Ability: Effective Beliefs That Will Affect Care: None Current Living Situation: Other Current Living Situation Comment: [facility] Justin current occupational status: other current occupation: prisoner Feels Safe at Home: Yes Safety Concerns: Feels Safe At This Time Smoking Status: Never smoker Hx Alcohol Use: No Hx Substance Use: No Review of Systems Review of Systems: All systems reviewed & are unremarkable except as noted in HPI & below (endorses mild abdominal pain and shoulders hurting, blurred vision) Physical Exam Physical Exam: Vitals noted and within normal limits with the exception of HTN GENERAL: Awake, alert to person, place, and time, nontoxic-appearing, in no distress. HENT: Normocephalic, atraumatic. Mucus membranes appear moist. EYES: Normal conjunctiva. Sclera non-icteric. EOMI. NECK: Supple. Full range of motion. No JVD. RESPIRATORY: Clear to auscultation. Normal work of breathing. CARDIAC: Regular rate, normal rhythm. Extremities warm and well perfused, 2+ radial pulses bilaterally; 2+ posterior tibialis pulses bilaterally. ABDOMEN: Soft, non-distended. Mild tenderness to palpation in LLQ. No rebound or guarding. No masses. Bowel sounds are normal. LOWER EXTREMITIES: Inspection of calves reveal equal size bilaterally. They are non-tender. No edema. No discoloration. NEURO: No gross focal motor deficits noted. Sensation in tact. CN II-XII grossly in tact. . SKIN: Rash not present. No jaundice noted. Significant lesions not present. PSYCH: Appropriate mood and affect. Cooperative. Exam as done by Heather Montano MD, [employer] Director. Results & Data Vital Signs (Past 12 Hours) Vital Signs Temp Pulse Resp BP Pulse Ox 10/26/18 20:31 73 20 99 10/26/18 20:30 72 17 153/92 H 100 10/26/18 20:01 72 17 99 10/26/18 20:00 72 17 158/90 H 100 10/26/18 19:45 75 19 99 10/26/18 19:40 76 22 99 10/26/18 19:39 75 19 170/96 H 99 10/26/18 19:38 99 10/26/18 19:00 68 26 H 10/26/18 18:51 69 20 10/26/18 17:31 36.8 C 71 18 182/98 H 99 Laboratory Results 10/26/18 10/26/18 Range/Units 18:45 18:45 WBC 3.69 L (4.8-10.8) K/uL RBC 3.40 L (4.7-6.1) M/uL Hgb 9.3 L (14.0-18.0) g/dL Hct 27.0 L (42-52) % MCV 79.4 L (80-100) fL MCH 27.4 (25-34) pg MCHC 34.4 (32-36) g/dL RDW Std Deviation 42.4 (36.4-46.3) fL RDW Coeff of Erich 14.6 H (11.5-14.5) % Plt Count 128 L (130-400) K/uL MPV 8.6 (7.4-10.4) fL Immature Gran % (Auto) 0.8 % Neut % (Auto) 60.2 % Lymph % (Auto) 27.6 % Sumner % (Auto) 10.6 % Eos % (Auto) 0.8 % Baso % (Auto) 0.0 % Immature Gran # (Auto) 0.03 H (0.00-0.02) K/uL Neut # (Auto) 2.22 (1.4-6.5) K/uL Lymph # (Auto) 1.02 L (1.2-3.4) K/uL Sumner # (Auto) 0.39 (0.11-0.59) K/uL Eos # (Auto) 0.03 (0-0.5) K/uL Baso # (Auto) 0.00 (0-0.2) K/uL Tear Drop Cells 1+ Echinocytes 1+ Sodium 121 L (136-145) mmol/L Potassium 6.2 H* (3.5-5.1) mmol/L Chloride 90 L (98-107) mmol/L Carbon Dioxide 12 L (21-32) mmol/L Anion Gap 19.0 H (3-11) BUN 114 H (7-18) mg/dl Creatinine 10.40 H* (0.6-1.4) mg/dl Est Cr Clr Drug Dosing 7.8 ml/min Est GFR ( Amer) 5.8 Est GFR (Non-Af Amer) 5.0 BUN/Creatinine Ratio 11.1 (10-20) Glucose 74 (70-99) mg/dl Calcium 6.8 L (8.5-10.1) mg/dl Magnesium 2.5 H (1.8-2.4) mg/dl Total Bilirubin 0.3 (0.2-1) mg/dl AST 8 L (15-37) U/L ALT 13 (12-78) U/L Alkaline Phosphatase 78 (45-117) U/L Troponin I < 0.015 (0-0.045) ng/ml Total Protein 6.6 (6.4-8.2) gm/dl Albumin 2.5 L (3.4-5.0) gm/dl Globulin 4.1 H (2.5-4.0) gm/dl Albumin/Globulin Ratio 0.6 L (0.9-2) TSH 0.268 L (0.300-4.500) uIu/ml Free T4 1.14 (0.8-1.6) ng/dl Supervising Physician Co-Signing Physician Notes Pt seen/examined in conjunction with resident MD Nathaniel Montano. Orders and plan of admission formulated with resident. 53 y/o M Hx CKDIII, anemia, HLD, HTN, nonischemic CM - EF reported at 10% in past - states recent echo shows near-normalization. Presents from the local [facility] due to persistent diarrhea x 10 days. Initial labs demonstrate a creatinine of 10 and a K of 6.2. He states that his urine output is minimal and that he has had some hematuria. OE AAO x 3 - no distress S1,2 R CATB NT, ND No CCE P: Assigned to ICU - IVF, calcium gluc provided. Placed on a bicarb drip per nephrology recommendation We will test stool for C diff Hold Lisinopril - can continue statin PG Care Time/CCT Total # of Minutes Spent Total Time Spent with Patient: Total time spent is greater than 50% in coordination of care (as documented) at patient's floor/unit and/or counseling patient: Resident Activity Tracking Resident Involvement: Resident Care Provided Care Provided: Adult Hospital Medicine (1) Acute renal failure Acute renal failure type: unspecified Qualified Code(s): N17.9 - Acute kidney failure, unspecified
--- NOTE | 2018-10-26 21:56 | Critical Care Consultation ---
Date of Consultation October 26, 2018 Assessment & Plan (1) Acute renal failure: Pt is a 53yo male prisoner requiring emergent dialysis in the setting of metabolic acidosis requiring sodium bicarbonate administration secondary to an approximately week long Hx of diarrhea. NEURO -[facility] ICU NEGATIVE -AAOx3 CARDS/VASC -EKG 10/26 normal sinus rhythm, qtc 501 -Echo with EF of 10%-15% RESP -currently on room air, saturating well -chest XR with no indication of acute cardiopulm process GI -CT Abd/pelvis: suggests cystitis, mesenteric edema -NPO until dialysis -GI Prophylaxis: Pepcid 20mg IV ID -No concerns. RENAL//ELECTROLYTES -Pt with Hx of CKD III, currently requiring emergent dialysis -Cr now elevated to 10.4 with increased K+, Mag -Also with metabolic acidosis likely secondary to diarrhea -Continue bicarb drip, will d/c normosol given pt's EF of 10-15% -appreciate nephro consult ENDOCRINE -ICU protocol for hyperglycemia -Pt with low TSH, normal t4, subclinical hypothyroidism PIVs intact DVT proph: IV heparin CODE STATUS: Full code Dispo: ICU for dialysis cath placement Supervising Physician Co-Signing Physician Notes Dr. Turner was resident physician during care of patient. I discussed the case with the resident via telephone. Plan was to medically manage hyperkalemia with bicarbonate infusion and rechecking potassium. History of Present Illness History of Present Illness Pt is a 53 yo prisoner with a PMHx significant for CKD III, CHF with EF of 10- 15% and anemia requiring Procrit administration who presents after a week of diarrhea, URI symptoms and generalized malaise. In the ED he was found to have a Cr of 10, and elevated electrolytes requiring emergent dialysis. He also had a metabolic acidosis requiring sodium bicarb administration. He currently denies chest pain, SOB, palps, GARZA. States he has some new onset blurry vision with abdominal pain, diarrhea and cough. Allergies Allergy/AdvReac Type Severity Reaction Status Date / Time Penicillins Allergy Unknown unknown Verified 10/26/18 18:02 Home Medications Home Medications Medication Instructions Recorded Confirmed Type aspirin 81 mg PO DAILY 10/26/18 10/26/18 History epoetin sue-epbx [Retacrit] 10,000 unit SUBCUT WK 10/26/18 10/26/18 History furosemide [Lasix] 40 mg PO BID 10/26/18 10/26/18 History lisinopril 40 mg PO DAILY 10/26/18 10/26/18 History lovastatin 40 mg PO DAILY 10/26/18 10/26/18 History metoprolol tartrate 100 mg PO BID 10/26/18 10/26/18 History omeprazole 40 mg PO QAM 10/26/18 10/26/18 History Patient History Medical History Anemia CHF (congestive heart failure) HTN (hypertension) Family History Other No significant family history Social History Preferred Language: Estonian Communication Ability: Effective Beliefs That Will Affect Care: None Current Living Situation: Other Current Living Situation Comment: [facility] current occupational status: other current occupation: prisoner Feels Safe at Home: Yes Safety Concerns: Feels Safe At This Time Smoking Status: Never smoker Hx Alcohol Use: No Hx Substance Use: No Review of Systems Review of Systems: All systems reviewed & are unremarkable except as noted in HPI & below Physical Exam Physical Exam: General: Alert, orientedx3 HEENT: NC/AT Chest: Nontender to palpation. CV: RRR, Normal s1, s2. No murmurs appreciated Resp: Breath sounds clear but decreased bilaterally, no increased effort of breathing. Abdomen: Soft, tender in left quadrants, nondistended. No guarding. Extremities: No edema. Results & Data Vital Signs (Past 12 Hours) Vital Signs Temp Pulse Resp BP Pulse Ox 10/26/18 21:01 76 18 99 10/26/18 21:00 77 17 148/80 H 100 10/26/18 20:31 73 20 99 10/26/18 20:30 72 17 153/92 H 100 10/26/18 20:01 72 17 99 10/26/18 20:00 72 17 158/90 H 100 10/26/18 19:45 75 19 99 10/26/18 19:40 76 22 99 10/26/18 19:39 75 19 170/96 H 99 10/26/18 19:38 99 10/26/18 19:00 68 26 H 10/26/18 18:51 69 20 07/20/19 17:31 36.8 C 71 18 182/98 H 99 Laboratory Results Laboratory Results - last 24 hr 10/26/18 10/26/18 10/26/18 18:45 18:45 23:06 WBC 3.69 L RBC 3.40 L Hgb 9.3 L Hct 27.0 L MCV 79.4 L MCH 27.4 MCHC 34.4 RDW Std Deviation 42.4 RDW Coeff of Erich 14.6 H Plt Count 128 L MPV 8.6 Immature Gran % (Auto) 0.8 Neut % (Auto) 60.2 Lymph % (Auto) 27.6 [place] % (Auto) 10.6 Eos % (Auto) 0.8 Baso % (Auto) 0.0 Immature Gran # (Auto) 0.03 H Neut # (Auto) 2.22 Lymph # (Auto) 1.02 L [place] # (Auto) 0.39 Eos # (Auto) 0.03 Baso # (Auto) 0.00 Tear Drop Cells 1+ Echinocytes 1+ ABG pH ABG pCO2 ABG pO2 ABG HCO3 ABG O2 Saturation ABG Base Excess Leon Test Barometric Pressure Oxygen Given Sodium 121 L Potassium 6.2 H* Chloride 90 L Carbon Dioxide 12 L Anion Gap 19.0 H BUN 114 H Creatinine 10.40 H* Est Cr Clr Drug Dosing 7.8 Est GFR ( Amer) 5.8 Est GFR (Non-Af Amer) 5.0 BUN/Creatinine Ratio 11.1 Glucose 74 POC Glucose 64 L* Calcium 6.8 L Phosphorus Magnesium 2.5 H Total Bilirubin 0.3 AST 8 L ALT 13 Alkaline Phosphatase 78 Troponin I < 0.015 Total Protein 6.6 Albumin 2.5 L Globulin 4.1 H Albumin/Globulin Ratio 0.6 L TSH 0.268 L Free T4 1.14 10/26/18 10/26/18 10/26/18 23:07 23:07 23:07 WBC 4.86 RBC 3.35 L Hgb 9.0 L Hct 26.0 L MCV 77.6 L MCH 26.9 MCHC 34.6 RDW Std Deviation 42.3 RDW Coeff of Erich 14.6 H Plt Count 148 MPV 8.9 Immature Gran % (Auto) 0.6 Neut % (Auto) 61.8 Lymph % (Auto) 29.4 [place] % (Auto) 7.6 Eos % (Auto) 0.6 Baso % (Auto) 0.0 Immature Gran # (Auto) 0.03 H Neut # (Auto) 3.00 Lymph # (Auto) 1.43 [place] # (Auto) 0.37 Eos # (Auto) 0.03 Baso # (Auto) 0.00 Tear Drop Cells Echinocytes ABG pH 7.26 L ABG pCO2 24 L ABG pO2 100 H ABG HCO3 10 L ABG O2 Saturation 96.7 H ABG Base Excess -15.1 L Leon Test POS Barometric Pressure 730.1 Oxygen Given ROOM AIR Sodium Pending Potassium Pending Chloride Pending Carbon Dioxide Pending Anion Gap Pending BUN Pending Creatinine Pending Est Cr Clr Drug Dosing Pending Est GFR ( Amer) Pending Est GFR (Non-Af Amer) Pending BUN/Creatinine Ratio Pending Glucose Pending POC Glucose Calcium Pending Phosphorus Pending Magnesium Pending Total Bilirubin AST ALT Alkaline Phosphatase Troponin I Total Protein Albumin Globulin Albumin/Globulin Ratio TSH Free T4 10/26/18 10/26/18 23:12 23:39 WBC RBC Hgb Hct MCV MCH MCHC RDW Std Deviation RDW Coeff of Erich Plt Count MPV Immature Gran % (Auto) Neut % (Auto) Lymph % (Auto) [place] % (Auto) Eos % (Auto) Baso % (Auto) Immature Gran # (Auto) Neut # (Auto) Lymph # (Auto) [place] # (Auto) Eos # (Auto) Baso # (Auto) Tear Drop Cells Echinocytes ABG pH ABG pCO2 ABG pO2 ABG HCO3 ABG O2 Saturation ABG Base Excess Leon Test Barometric Pressure Oxygen Given Sodium Potassium Chloride Carbon Dioxide Anion Gap BUN Creatinine Est Cr Clr Drug Dosing Est GFR ( Amer) Est GFR (Non-Af Amer) BUN/Creatinine Ratio Glucose POC Glucose 65 L* 71 Calcium Phosphorus Magnesium Total Bilirubin AST ALT Alkaline Phosphatase Troponin I Total Protein Albumin Globulin Albumin/Globulin Ratio TSH Free T4 Medications Administered Home Medications aspirin 81 mg PO DAILY 10/26/18 [History Confirmed 10/26/18] epoetin sue-epbx [Retacrit] 10,000 unit SUBCUT WK 10/26/18 [History Confirmed 10/26/18] furosemide [Lasix] 40 mg PO BID 10/26/18 [History Confirmed 10/26/18] lisinopril 40 mg PO DAILY 10/26/18 [History Confirmed 10/26/18] lovastatin 40 mg PO DAILY 10/26/18 [History Confirmed 10/26/18] metoprolol tartrate 100 mg PO BID 10/26/18 [History Confirmed 10/26/18] omeprazole 40 mg PO QAM 10/26/18 [History Confirmed 10/26/18] Active Medications Al Hydrox/Mg Hydrox/Simethicone (Maalox Max) 15 ml PO Q4H PRN PRN Reason: Dyspepsia Stop: 11/25/18 22:53 Famotidine (Pepcid) 20 mg PO BID [facility] Stop: 11/25/18 23:14 Heparin Sodium (Porcine) (Heparin Sodium (Porcine)) 5,000 units SQ Q12 [facility] Stop: 11/26/18 08:59 Sodium Bicarbonate 150 meq/ (Sterile Water) 1,150 mls @ 250 mls/hr IV .Q4H36M [facility] Stop: 10/27/18 07:56 Last Admin: 10/26/18 23:17 Dose: 250 mls/hr Documented by: Sodium Bicarbonate 150 meq/ (Sterile Water) 1,150 mls @ 125 mls/hr IV .Q9H12M [facility] Stop: 11/26/18 07:59 Magnesium Hydroxide (Milk Of Magnesia) 30 ml PO Q6H PRN PRN Reason: Constipation Stop: 11/25/18 22:53 Metoprolol Tartrate (Lopressor) 100 mg PO BID [facility] Stop: 11/26/18 08:59 Miscellaneous (Icu Protocol For Hyperglycemia) 1 ea N/A PRN PRN; Protocol PRN Reason: Hyperglycemia Protocol Stop: 10/28/18 22:53 Miscellaneous (Carbohydrates For Hypoglycemia) 15 gm PO ONCE PRN PRN Reason: Hypoglycemia Treatment Stop: 11/25/18 23:15 Last Admin: 10/26/18 23:16 Dose: 15 gm Documented by: Polyethylene Glycol (Miralax Powder Packet) 17 gm PO DAILY PRN PRN Reason: Constipation Stop: 11/25/18 22:53 PG Care Time/CCT Total # of Minutes Spent Total Time Spent with Patient: Total time spent is greater than 50% in coordination of care (as documented) at patient's floor/unit and/or counseling patient: (1) Acute renal failure Acute renal failure type: unspecified Qualified Code(s): N17.9 - Acute kidney failure, unspecified
[2018-10-26] MEDS ORDERED: SODIUM BICARBONATE IV SCH ×2 (22:30→22:54)
[2018-10-26] MEDS ORDERED: ICU PROTOCOL FOR HYPERGLYCEMIA PRN (22:54)
[2018-10-26] MEDS ORDERED: NORMOSOL-R 1,000 ML IV SCH (22:54)
[2018-10-26] MEDS ORDERED: POLYETHYLENE (MIRALAX) 17 GM PACK PO PRN (22:54)
[2018-10-26] MEDS ORDERED: MAGNESIUM HYDROXIDE SUSP 30 ML UDC PO PRN (22:54)
[2018-10-26] MEDS ORDERED: ALUMINUM/MAGNESIUM/SIMETH (MAALOX MAX) 30 ML UDC PO PRN (22:54)
[2018-10-26] MEDS: CARBOHYDRATES FOR HYPOGLYCEMIA PO PRN (23:16)
[2018-10-26] MEDS: SODIUM BICARBONATE 8.4% 150 MEQ in WATER, STERILE 1,000 ML IV SCH (23:17)
[2018-10-26 23:18] LABS: Eosinophils # (auto) 0.03 K/uL (0-0.5); Eosinophils % (auto) 0.6 %; Immature Granulocytes # (auto) 0.03 K/uL (0.00-0.02); Immature Granulocytes % (auto) 0.6 %; Lymphocytes # (auto) 1.43 K/uL (1.2-3.4); Lymphocytes % (auto) 29.4 %; Mean Corpuscular Hgb Conc 34.6 g/dL (32-36); Mean Corpuscular Volume 77.6 fL (80-100); Mean Platelet Volume 8.9 fL (7.4-10.4); Monocytes # (auto) 0.37 K/uL (0.11-0.59); Monocytes % (auto) 7.6 %; Neutrophils % (auto) 61.8 %; Platelet Count 148 K/uL (130-400); RDW Coefficient of Variation 14.6 % (11.5-14.5); RDW Standard Deviation 42.3 fL (36.4-46.3); Red Blood Count 3.35 M/uL (4.7-6.1); White Blood Count 4.86 K/uL (4.8-10.8)
[2018-10-26 23:21] LABS: Base Excess ABG -15.1 mEq/L (-9-1.8); HCO3 ABG 10 mmol/L (19-24); Oxygen Saturation ABG 96.7 % (90-95); PCO2 ABG 24 mmHg (35-46); PO2 ABG 100 mm/Hg (80-95); pH ABG 7.26 (7.35-7.45)
[2018-10-26 23:22] LABS: Allen Test POS (Pos)
--- NOTE | 2018-10-26 23:43 | Emergency Department Note ---
Entered by Cinthya Mcbride acting as a scribe for Abelardo Roa MD ED Provider Note CHIEF COMPLAINT: Abnormal lab results HISTORY OF PRESENT ILLNESS: The patient is a 53 year old male who presents to the Emergency Room with complaints of an episode of abnormal test results that were found 1 day ago. He states that he has had diarrhea for 5 days now and is taking Imodium with little relief. He reports that he is experiencing dull abdominal pain. The patient also reports a loss of appetite, low urine output, hematuria, and a lack of urination. He states that he has slightly blurry vision. The patient reports that he was at the doctor yesterday and his labs revealed a creatinine level of 9.41, a potassium level of 5.6, and a sodium level of 120. Pt denies LOC, headache, fevers, chills, diaphoresis, visual changes, neck pain, chest pain, breathing difficulties, nausea, vomiting, back pain, melena, hematochezia, numbness, weakness, lymphadenopathy, rash, or other complaints. REVIEW OF SYSTEMS: See HPI for pertinent positives and negatives. A total of ten systems were reviewed and were otherwise negative. PMHx/PSHx: Gallbladder removal CHF HTN Anemia SOCIAL HISTORY: Patient lives at home. PHYSICAL EXAM: GENERAL: Awake, alert, uncomfortable-appearing, in no distress HENT: Normocephalic, atraumatic. Oropharynx unremarkable. EYES: PERRL. Normal conjunctiva. Sclera non-icteric. NECK: Inspection normal. Non-tender. Supple. No nuchal rigidity. FROM. No masses. RESPIRATORY: Clear to auscultation. No wheezes. No rales. Normal respiratory effort. CARDIAC: Normal rate. Normal rhythm. No murmurs. No rubs. Extremities warm and well perfused. Pulses equal. No JVD. GI: Soft, non-distended. Mild diffusive abdominal tenderness. No rebound or gua rding. No masses. RECTAL: Deferred. MUSCULOSKELETAL: Atraumatic. Chest examination reveals no tenderness. The back is symmetrical on inspection without obvious abnormality. There is no CVA tenderness to palpation. No joint edema. LOWER EXTREMITIES: Calves are equal size bilaterally and non-tender. No edema. No discoloration. NEURO: Normal sensorium. No sensory or motor deficits noted. SKIN: No rash or jaundice noted. EMERGENCY DEPARTMENT COURSE: 1750: Past medical records reviewed. The patient was evaluated in room B10, and a complete history and physical examination were performed. 1943: I reevaluated the patient at this time and he is doing better. I am paging the support staff production controller to discuss the patients case. 1999: I discussed the patients case with Dr. Zepeda, Nephrology. He recommended that the patient be started on insulin, glucose, bicarbonate, and calcium for his electrolyte abnormality. He suggested that I start him on a bicarb drip for 100ml an hour and admit the patient to the ICU. 2003: I reevaluated the patient at this time. I discussed the patients test results and treatment plan at this time. He verbally agreed and understood. 2042: I discussed the patients case with Dr. Montano and Dr. Ellison, [facility]. They have agreed to admit the patient for further management. MEDICAL DECISION MAKING: B10 Prior records/ancillary studies reviewed. Summarized above. Nursing notes reviewed and agree them. The patient's history was concerning for weakness, diarrhea, and abnormal labs. Differential diagnosis: Etiologies such as metabolic, infection, hypo/hyperglycemia, electrolyte abnormalities, cardiac sources, intracerebral event, toxicologic, neurologic, as well as others were entertained. Physical examination: As above. ER treatment provided: IV Lock Normal saline hydration 500 mL bolus then 125 mL per hour hour IV. On reassessment the patient was stable. IV calcium 1 g IV bicarbonate 1 amp IV insulin 10 units IV dextrose 1 amp Bicarbonate drip at 100 mL an hour IV. Diagnostics interpretation by me: ECG: Sinus rhythm. No QRS widening. There was peaked morphology to the T waves. The labs revealed pancytopenia on CBC. The patient's chemistry panel revealed significant abnormalities with hyponatremia, hyperkalemia, acute renal failure with a creatinine of 10 and hypocalcemia. Urine studies and stool studies pending. Imaging studies: CT imaging revealed some trace intra-abdominal fluid and edema to the abdominal wall. There was no signs of urinary obstruction. Consultation: Consultation was placed with Dr. Maurice Zepeda of nephrology. The case was discussed and diagnostics were reviewed. He agreed with the treatment for hyperkalemia and recommended a bicarbonate drip. Recommended admission to the ICU due to the significant metabolic acidosis. A consultation was placed with the hospitalist. The case was discussed and diagnostics were reviewed. The patient was evaluated in the ER for further treatment. IMPRESSION: Acute renal failure, hyponatremia, hyperkalemia PLAN: The patient was admitted for further management. CRITICAL CARE: I have personally spent 45 minutes of critical care time in the direct management of this patient. This includes bedside care, interpretation of diagnostic studies, and testing, discussion with consultants, patient, and other required patient management activities. This 45 minutes is in excess of all separately billable procedures. The scribe's documentation has been prepared under my direction and personally reviewed by me in its entirety. I confirm that the note above accurately reflects all work, treatment, procedures, and medical decision making performed by me. Impression & Plan Acute renal failure, Hyponatremia, Hyperkalemia Past Med/Surg History Medical History Anemia CHF (congestive heart failure) HTN (hypertension) Family History Other No significant family history Social History Preferred Language: Frisian Communication Ability: Effective Beliefs That Will Affect Care: None Current Living Situation: Other Current Living Situation Comment: [facility] current occupational status: other current occupation: prisoner Feels Safe at Home: Yes Safety Concerns: Feels Safe At This Time Smoking Status: Never smoker Hx Alcohol Use: No Hx Substance Use: No Results & Data Vital Signs Vital Signs - 24 hr 10/26/18 17:31 10/26/18 18:51 10/26/18 19:00 Temperature 36.8 C Temperature Source Oral Sepsis Recent Fever Within 48 Hours No Sepsis New/Unexplained Change in Mental Status No Sepsis Action Taken by Nursing No Action Required Pulse Rate 71 69 68 Pulse Rate from SpO2 Sensor Pulse Rhythm Respiratory Rate 18 20 26 H Respiratory Effort / Characteristics Non-Labored Spontaneous Respiratory Depth Normal Respiratory Pattern Regular Blood Pressure 182/98 H Blood Pressure Mean 126 Blood Pressure Position Sitting Pulse Oximetry 99 Oxygen Delivery Method Room Air 10/26/18 19:38 10/26/18 19:39 10/26/18 19:40 Temperature Temperature Source Sepsis Recent Fever Within 48 Hours Sepsis New/Unexplained Change in Mental Status Sepsis Action Taken by Nursing Pulse Rate 75 76 Pulse Rate from SpO2 Sensor 72 74 76 Pulse Rhythm Respiratory Rate 19 22 Respiratory Effort / Characteristics Respiratory Depth Respiratory Pattern Blood Pressure 170/96 H Blood Pressure Mean 120 Blood Pressure Position Pulse Oximetry 99 99 99 Oxygen Delivery Method 10/26/18 19:45 10/26/18 20:00 10/26/18 20:01 Temperature Temperature Source Sepsis Recent Fever Within 48 Hours Sepsis New/Unexplained Change in Mental Status Sepsis Action Taken by Nursing Pulse Rate 75 72 72 Pulse Rate from SpO2 Sensor 72 71 Pulse Rhythm Regular Respiratory Rate 19 17 17 Respiratory Effort / Characteristics Respiratory Depth Respiratory Pattern Blood Pressure 158/90 H Blood Pressure Mean 112 Blood Pressure Position Pulse Oximetry 99 100 99 Oxygen Delivery Method Room Air 10/26/18 20:30 10/26/18 20:31 10/26/18 21:00 Temperature Temperature Source Sepsis Recent Fever Within 48 Hours Sepsis New/Unexplained Change in Mental Status Sepsis Action Taken by Nursing Pulse Rate 72 73 77 Pulse Rate from SpO2 Sensor 72 72 77 Pulse Rhythm Respiratory Rate 17 20 17 Respiratory Effort / Characteristics Respiratory Depth Respiratory Pattern Blood Pressure 153/92 H 148/80 H Blood Pressure Mean 112 102 Blood Pressure Position Pulse Oximetry 100 99 100 Oxygen Delivery Method 10/26/18 21:01 10/26/18 21:30 10/26/18 21:31 Temperature Temperature Source Sepsis Recent Fever Within 48 Hours Sepsis New/Unexplained Change in Mental Status Sepsis Action Taken by Nursing Pulse Rate 76 75 76 Pulse Rate from SpO2 Sensor 76 75 75 Pulse Rhythm Respiratory Rate 18 17 21 Respiratory Effort / Characteristics Respiratory Depth Respiratory Pattern Blood Pressure 156/94 H Blood Pressure Mean 114 Blood Pressure Position Pulse Oximetry 99 100 100 Oxygen Delivery Method Home Medications Current Medication List: was personally reviewed by me Laboratory Data Attestation: I reviewed the patient's lab results. Result diagrams: 10/26/18 23:07 10/26/18 18:45 Lab Results 10/26/18 10/26/18 Range/Units 18:45 18:45 WBC 3.69 L (4.8-10.8) K/uL RBC 3.40 L (4.7-6.1) M/uL Hgb 9.3 L (14.0-18.0) g/dL Hct 27.0 L (42-52) % MCV 79.4 L (80-100) fL MCH 27.4 (25-34) pg MCHC 34.4 (32-36) g/dL RDW Std Deviation 42.4 (36.4-46.3) fL RDW Coeff of Erich 14.6 H (11.5-14.5) % Plt Count 128 L (130-400) K/uL MPV 8.6 (7.4-10.4) fL Immature Gran % (Auto) 0.8 % Neut % (Auto) 60.2 % Lymph % (Auto) 27.6 % [place] % (Auto) 10.6 % Eos % (Auto) 0.8 % Baso % (Auto) 0.0 % Immature Gran # (Auto) 0.03 H (0.00-0.02) K/uL Neut # (Auto) 2.22 (1.4-6.5) K/uL Lymph # (Auto) 1.02 L (1.2-3.4) K/uL [place] # (Auto) 0.39 (0.11-0.59) K/uL Eos # (Auto) 0.03 (0-0.5) K/uL Baso # (Auto) 0.00 (0-0.2) K/uL Tear Drop Cells 1+ Echinocytes 1+ Sodium 121 L (136-145) mmol/L Potassium 6.2 H* (3.5-5.1) mmol/L Chloride 90 L (98-107) mmol/L Carbon Dioxide 12 L (21-32) mmol/L Anion Gap 19.0 H (3-11) BUN 114 H (7-18) mg/dl Creatinine 10.40 H* (0.6-1.4) mg/dl Est Cr Clr Drug Dosing 7.8 ml/min Est GFR ( Amer) 5.8 Est GFR (Non-Af Amer) 5.0 BUN/Creatinine Ratio 11.1 (10-20) Glucose 74 (70-99) mg/dl Calcium 6.8 L (8.5-10.1) mg/dl Magnesium 2.5 H (1.8-2.4) mg/dl Total Bilirubin 0.3 (0.2-1) mg/dl AST 8 L (15-37) U/L ALT 13 (12-78) U/L Alkaline Phosphatase 78 (45-117) U/L Troponin I < 0.015 (0-0.045) ng/ml Total Protein 6.6 (6.4-8.2) gm/dl Albumin 2.5 L (3.4-5.0) gm/dl Globulin 4.1 H (2.5-4.0) gm/dl Albumin/Globulin Ratio 0.6 L (0.9-2) TSH 0.268 L (0.300-4.500) uIu/ml Free T4 1.14 (0.8-1.6) ng/dl Administered Medications Sodium Bicarbonate 150 meq/ (Sterile Water) 1,150 mls @ 250 mls/hr IV .[id number] MYRA Stop: 10/27/18 07:56 Last Admin: 10/26/18 23:17 Dose: 250 mls/hr Documented by: [id number] Miscellaneous (Carbohydrates For Hypoglycemia) 15 gm PO ONCE PRN PRN Reason: Hypoglycemia Treatment Stop: 11/25/18 23:15 Last Admin: 10/26/18 23:16 Dose: 15 gm Documented by: [id number] Discontinued Medications Dextrose (Dextrose 50%) 50 ml IV NOW STA Stop: 10/26/18 19:59 Last Admin: 10/26/18 20:43 Dose: 50 ml Documented by: [id number] Sodium Chloride (Nss) 500 mls @ 999 mls/hr IV .Q31M MYRA Stop: 10/26/18 18:30 Last Infusion: 10/26/18 19:44 Dose: 0 mls/hr Documented by: [id number] Admin: 10/26/18 19:04 Dose: 999 mls/hr Documented by: [id number] Sodium Chloride (Nss 1000ml) 1,000 mls @ 125 mls/hr IV .Q8H MYRA Stop: 10/27/18 01:59 Last Admin: 10/26/18 20:14 Dose: 125 mls/hr Documented by: [id number] Calcium Gluconate 1,000 mg/ (Sodium Chloride) 60 mls @ 240 mls/hr IV NOW STA Stop: 10/26/18 20:12 Last Infusion: 10/26/18 20:35 Dose: 0 mls/hr Documented by: [id number] Admin: 10/26/18 20:14 Dose: 240 mls/hr Documented by: [id number] Sodium Bicarbonate 150 meq/ (Dextrose) 1,150 mls @ 100 mls/hr IV .[id number] STA Stop: 10/27/18 07:48 Last Admin: 10/26/18 20:43 Dose: 100 mls/hr Documented by: [id number] Insulin Human Regular (Novolin R U-100 Per Unit) 10 units IV NOW STA Stop: 10/26/18 19:59 Last Admin: 10/26/18 20:44 Dose: 10 units Documented by: [id number] Cosigned by: [id number] Sodium Bicarbonate (Sodium Bicarbonate 8.4%) 50 meq IV NOW STA Stop: 10/26/18 19:59 Last Admin: 10/26/18 20:55 Dose: Not Given Documented by: [id number] Imaging Data Radiologist's Impression: Radiology results as stated below per my review and the radiologist's interpretation: XR chest 1V portable CLINICAL HISTORY: weakness COMPARISON STUDY: 02/26/2017 FINDINGS: The heart is the upper limits of normal in size. There is mild elevation right hemidiaphragm. There is no failure. There is no focal pulmonary consolidation. There is a small right pleural effusion.[ IMPRESSION: 1. Mild elevation of the right hemidiaphragm 2. Small right pleural effusion 3. No evidence of focal pulmonary consolidation Electronically signed by: Rohit Cazares M.D. 10/26/2018 7:[address] SCAN OF THE ABDOMEN AND PELVIS WITHOUT CONTRAST CLINICAL HISTORY: Hematuria and abdominal pain COMPARISON STUDY: Outside CT scan dated 04/06/2017 TECHNIQUE: CT scan of the abdomen and pelvis was performed from the lung bases to the proximal femurs. Images are reviewed in the axial, sagittal, and coronal planes. IV contrast was not administered for this examination. A dose lowering technique was utilized adhering to the principles of ALARA. CT DOSE: 384.00 mGy.cm FINDINGS: Lower chest: There are calcified mediastinal and hilar lymph nodes. There is respiratory motion artifact. There is a trace right pleural effusion. There is elevation of the right hemidiaphragm Liver: The unenhanced liver is normal in size, contour, and attenuation. There is no intrahepatic biliary ductal dilatation. Gallbladder: Not visualized and presumed surgically absent Spleen: There are multiple splenic granulomata. Spleen is mildly enlarged measuring 13 cm. Pancreas: Unremarkable. Adrenal glands: Unremarkable. Kidneys: No renal, ureteral, or bladder calculi are visualized. There is no hydronephrosis. There is a 5.5 cm right renal cyst. Bowel: There are no transition zones indicate bowel obstruction. There is no evidence of acute diverticulitis. There are scattered colonic air-fluid levels. There is no evidence of acute appendicitis. Peritoneum: There is a small volume of free intraperitoneal fluid. There is minor peritoneal and abdominal wall edema. Vasculature: The abdominal aorta is normal in course and caliber. Adenopathy: None. Pelvic viscera: There is mild prostatomegaly. There is bladder wall thickening with mild infiltration of the perivesical fat. While this may be secondary to chronic bladder outlet obstruction, a cystitis could appear similar. Skeletal structures: No destructive osseous lesions are seen. IMPRESSION: 1. Elevated right hemidiaphragm 2. No evidence of bowel obstruction. No evidence of free air. 3. No evidence of acute diverticulitis. No evidence of acute appendicitis. 4. No renal, ureteral, or bladder calculi identified 5. Small amount of intraperitoneal fluid. Mild peritoneal abdominal wall edema. 6. Mild bladder wall thickening and infiltration of the perivesical fat. The findings are likely secondary to either chronic bladder outlet obstruction or a cystitis. Correlation with urinalysis is recommended. 7. 5.5 cm right renal cyst Electronically signed by: Rohit Cazares M.D. 10/26/2018 7:24 PM ECG Data Attestation: I personally reviewed and interpreted this ECG as follows: Indication: other (abnormal labs ) Rate (beats per minute): 78 Rhythm: sinus rhythm Findings: + other (septal p-waves, QRS is normal), + peaked T-waves (mild ) and + prolonged QT; no ST depression, no ST elevation and no acute ischemic change Blood Pressure Blood Pressure Findings: Elevated blood pressure Blood Pressure Disposition: further management by hospitalist Discharge Plan Visit Data *Final* Discharge Date/Time: 10/26/18 22:34 Chief Complaint: Abnormal Labs/Diagnostic Testing Stated Complaint: ABNORMAL LAB WORK ED Provider: Abelardo Roa Discharge Problem: Acute renal failure, Hyponatremia, Hyperkalemia Patient Disposition: Admitted As Inpatient Discharge Instructions Interventions: ED Discharge Assessment Last Done: 10/26/18 22:34 Discharge Problem: Acute renal failure Qualifiers: Acute renal failure type: unspecified Qualified Code(s): N17.9 - Acute kidney failure, unspecified The scribe's documentation has been prepared under my direction and personally reviewed by me in its entirety. I confirm that the note above accurately reflects all work, treatment, procedures, and medical decision making performed by me.
[2018-10-26 23:51] LABS: Calcium 6.6 mg/dl (8.5-10.1); Est GFR (Non-African American) 5.2; Magnesium 2.3 mg/dl (1.8-2.4)
[2018-10-26 23:52] LABS: Potassium 5.1 mmol/L (3.5-5.1)
[2018-10-27 00:03] LABS: Phosphorus 11.3 mg/dl (2.5-4.9)
[2018-10-27 00:39] LABS: Appearance Urine Turbid (Clear); Color Urine Brown; Protein Urine Positive (Negative); Specific Gravity Urine 1.013 (1.000-1.030)
[2018-10-27 00:43] LABS: Amorphous Sediment Urine Present (None Prsent); Bacteria Urine 1+ (Negative); Epithelial Cell Urine 0-5 /lpf (0-5); RBC Urine >30 /hpf (0-4)
[2018-10-27] MEDS: FAMOTIDINE 20 MG TAB PO SCH ×3 (01:03→20:32)
[2018-10-27 01:38] LABS: BUN Creatinine Ratio 11.1 (10-20); Calcium 6.5 mg/dl (8.5-10.1); Est GFR (Non-African American) 5.2; Potassium 5.3 mmol/L (3.5-5.1)
[2018-10-27] MEDS: SODIUM BICARBONATE 8.4% 150 MEQ in WATER, STERILE 1,000 ML IV SCH ×3 (04:20→17:27)
[2018-10-27 04:47] LABS: Eosinophils # (auto) 0.04 K/uL (0-0.5); Eosinophils % (auto) 1.3 %; Hematocrit (blood only) 22.6 % (42-52); Hemoglobin 8.1 g/dL (14.0-18.0); Immature Granulocytes # (auto) 0.01 K/uL (0.00-0.02); Immature Granulocytes % (auto) 0.3 %; Lymphocytes % (auto) 28.4 %; Mean Corpuscular Hgb Conc 35.8 g/dL (32-36); Mean Corpuscular Volume 76.9 fL (80-100); Mean Platelet Volume 8.8 fL (7.4-10.4); Monocytes % (auto) 9.5 %; Neutrophils # (auto) 1.92 K/uL (1.4-6.5); Neutrophils % (auto) 60.5 %; Platelet Count 135 K/uL (130-400); RDW Coefficient of Variation 14.5 % (11.5-14.5); RDW Standard Deviation 41.8 fL (36.4-46.3); Red Blood Count 2.94 M/uL (4.7-6.1); White Blood Count 3.17 K/uL (4.8-10.8)
[2018-10-27 04:52] LABS: Base Excess ABG -10.4 mEq/L (-9-1.8); HCO3 ABG 14 mmol/L (19-24); Oxygen Saturation ABG 96.9 % (90-95); PCO2 ABG 27 mmHg (35-46); PO2 ABG 102 mm/Hg (80-95); pH ABG 7.34 (7.35-7.45)
[2018-10-27 04:53] LABS: Allen Test POS (Pos)
[2018-10-27 04:58] LABS: INR 1.2 (0.9-1.1); Prothrombin Time 11.7 Seconds (9.0-12.0)
[2018-10-27 05:19] LABS: Calcium 6.3 mg/dl (8.5-10.1); Creatinine Clr Calc Pharmacy 8.1 ml/min; Est GFR (African American) 6.1; Est GFR (Non-African American) 5.2; Magnesium 2.2 mg/dl (1.8-2.4); Potassium 5.3 mmol/L (3.5-5.1)
[2018-10-27] MEDS: CARBOHYDRATES FOR HYPOGLYCEMIA PO PRN (05:33)
[2018-10-27 05:38] LABS: Phosphorus 10.7 mg/dl (2.5-4.9)
--- NOTE | 2018-10-27 05:46 | Critical Care Progress Note ---
Date of Service October 27, 2018 Assessment & Plan (1) Acute renal failure: Pt is a 53yo male prisoner requiring emergent dialysis in the setting of metabolic acidosis requiring sodium bicarbonate administration secondary to an approximately week long Hx of diarrhea. NEURO -[facility] ICU NEGATIVE -AAOx3, no signs of acute encephalopathy CARDS/VASC -EKG 10/26 normal sinus rhythm, qtc 501 -Echo with EF of 10%-15% -appreciate cardiology recs RESP -currently on room air, saturating well -chest XR with no indication of acute cardiopulm process GI -CT Abd/pelvis: suggests cystitis, mesenteric edema -NPO until dialysis -GI Prophylaxis: Pepcid 20mg IV ID -No concerns. RENAL//ELECTROLYTES -Pt with Hx of CKD III, currently with slowly downtrending Cr of 9. Likely prerenal given Hx of chronic diarrhea and low EF -will continue to trend labs and monitor as K downtrended to normal levels with sodium bicarb administration -Metabolic acidosis likely secondary to diarrhea -Continue bicarb drip as ordered -appreciate nephro consult ENDOCRINE -currently periodically hypoglycemic in 60s -Continue symptomatic apple juice administration -ICU protocol for hyperglycemia -Pt with low TSH, normal t4, ?subclinical hypothyroidism -outpt followup HEME -persistent pancytopenia -HIV test ordered -had previous bone marrow workup, neg for MDS. ALso neg for Hep C PIVs intact DVT proph: IV heparin CODE STATUS: Full code Dispo: ICU for monitoring Supervising Physician Co-Signing Physician Notes Dr. Turner was resident physician during care of patient. I separately evaluated patient for reyes portions of the history and the exam. I was present during the critical portion of medical decision making, and I discussed the case with the resident. I generally agree with the findings and plan. Persistent pancytopenia since 2017. I presumptive prerenal secondary to volume depletion from diarrhea. Patient alert and oriented and taking apple juice for relative hypoglycemia. Patient previously has hepatitis C screen negative in February 2017. Patient has had some formal work-up in 2017 as he had a bone marrow biopsy which was negative for myelodysplastic syndrome. Patient has had some formal work-up previously, I think with the severity of his illness right now and diarrhea we should check for HIV versus AIDS otherwise he can continue with his current work-up for the pancytopenia. Update 1715: Patient not making additional urine however remains asymptomatic. Bicarbonate gap is closed we will transition to Normal saline infusion at 100 mils per hour with additional recheck of electrolytes later on this evening. Patient has been started on antibiotics for C. difficile colitis and checking HIV. I have personally spent 50 minutes of critical care time in the direct management of this patient. This is a life/limb threatening event. This includes time spent evaluating patient, direct bedside care, chart review, placing orders, interpretation of diagnostic studies, discussion with consultants, patient, and/or family members regarding treatment decisions, as well as other required patient management activities. This time is exclusive of all separately billable procedures, and teaching time and separate from and in addition to any other critical care service time. Subjective Pt states he feels better from last night. States his diarrhea has seemingly resolved. Currently denies GARZA, chest pain, SOB, palps, N/V. Admits to abdominal pain espeically on left. Review of Systems Review of Systems: All systems reviewed & are unremarkable except as noted in HPI & below Physical Exam Physical Exam: General: Alert, orientedx3 HEENT: NC/AT Chest: Nontender to palpation. CV: RRR, Normal s1, s2. No murmurs appreciated Resp: Breath sounds clear but decreased bilaterally, no increased effort of breathing. Abdomen: Soft, tender in left quadrants, nondistended. No guarding. Extremities: No edema. Results & Data Vital Signs (Past 12 Hours) Vital Signs Temp Pulse Pulse Resp BP Pulse Ox 10/26/18 23:00 78 19 145/81 H 98 10/26/18 22:55 36.6 C 80 20 98 10/26/18 22:48 36.6 C 79 24 157/81 H 10/26/18 22:30 79 20 155/92 H 100 10/26/18 22:01 69 20 99 10/26/18 22:00 70 17 155/95 H 100 10/26/18 21:31 76 21 100 10/26/18 21:30 75 17 156/94 H 100 10/26/18 21:01 76 18 99 10/26/18 21:00 77 17 148/80 H 100 10/26/18 20:31 73 20 99 10/26/18 20:30 72 17 153/92 H 100 10/26/18 20:01 72 17 99 10/26/18 20:00 72 17 158/90 H 100 10/26/18 19:45 75 19 99 10/26/18 19:40 76 22 99 10/26/18 19:39 75 19 170/96 H 99 10/26/18 19:38 99 10/26/18 19:00 68 26 H 10/26/18 18:51 69 20 Laboratory Results Laboratory Results - last 24 hr 10/26/18 10/26/18 10/26/18 18:45 18:45 22:53 WBC 3.69 L RBC 3.40 L Hgb 9.3 L Hct 27.0 L MCV 79.4 L MCH 27.4 MCHC 34.4 RDW Std Deviation 42.4 RDW Coeff of Erich 14.6 H Plt Count 128 L MPV 8.6 Immature Gran % (Auto) 0.8 Neut % (Auto) 60.2 Lymph % (Auto) 27.6 [place] % (Auto) 10.6 Eos % (Auto) 0.8 Baso % (Auto) 0.0 Immature Gran # (Auto) 0.03 H Neut # (Auto) 2.22 Lymph # (Auto) 1.02 L [place] # (Auto) 0.39 Eos # (Auto) 0.03 Baso # (Auto) 0.00 Tear Drop Cells 1+ Echinocytes 1+ PT INR ABG pH ABG pCO2 ABG pO2 ABG HCO3 ABG O2 Saturation ABG Base Excess Leon Test Barometric Pressure Oxygen Given Sodium 121 L Potassium 6.2 H* Chloride 90 L Carbon Dioxide 12 L Anion Gap 19.0 H BUN 114 H Creatinine 10.40 H* Est Cr Clr Drug Dosing 7.8 Est GFR ( Amer) 5.8 Est GFR (Non-Af Amer) 5.0 BUN/Creatinine Ratio 11.1 Glucose 74 POC Glucose Calcium 6.8 L Phosphorus Magnesium 2.5 H Total Bilirubin 0.3 AST 8 L ALT 13 Alkaline Phosphatase 78 Troponin I < 0.015 Total Protein 6.6 Albumin 2.5 L Globulin 4.1 H Albumin/Globulin Ratio 0.6 L TSH 0.268 L Free T4 1.14 Urine Color Urine Appearance Urine pH Ur Specific [place] Urine Protein Urine Glucose (UA) Urine Ketones Urine Blood Urine Nitrite Urine Bilirubin Urine Urobilinogen Ur Leukocyte Esterase Urine RBC Urine WBC Ur Epithelial Cells Amorphous Sediment Urine Bacteria Nasal Screen MRSA (PCR) Negative 07/20/19 07/20/19 07/20/19 23:06 23:07 23:07 WBC 4.86 RBC 3.35 L Hgb 9.0 L Hct 26.0 L MCV 77.6 L MCH 26.9 MCHC 34.6 RDW Std Deviation 42.3 RDW Coeff of Erich 14.6 H Plt Count 148 MPV 8.9 Immature Gran % (Auto) 0.6 Neut % (Auto) 61.8 Lymph % (Auto) 29.4 [place] % (Auto) 7.6 Eos % (Auto) 0.6 Baso % (Auto) 0.0 Immature Gran # (Auto) 0.03 H Neut # (Auto) 3.00 Lymph # (Auto) 1.43 [place] # (Auto) 0.37 Eos # (Auto) 0.03 Baso # (Auto) 0.00 Tear Drop Cells Echinocytes PT INR ABG pH ABG pCO2 ABG pO2 ABG HCO3 ABG O2 Saturation ABG Base Excess Leon Test Barometric Pressure Oxygen Given Sodium 122 L Potassium 5.1 D Chloride 90 L Carbon Dioxide 10 L Anion Gap 22.0 H BUN 112 H Creatinine 10.10 H* D Est Cr Clr Drug Dosing 8.0 Est GFR ( Amer) 6.0 Est GFR (Non-Af Amer) 5.2 BUN/Creatinine Ratio 11.0 Glucose 57 L POC Glucose 64 L* Calcium 6.6 L Phosphorus 11.3 H Magnesium 2.3 Total Bilirubin AST ALT Alkaline Phosphatase Troponin I Total Protein Albumin Globulin Albumin/Globulin Ratio TSH Free T4 Urine Color Urine Appearance Urine pH Ur Specific [place] Urine Protein Urine Glucose (UA) Urine Ketones Urine Blood Urine Nitrite Urine Bilirubin Urine Urobilinogen Ur Leukocyte Esterase Urine RBC Urine WBC Ur Epithelial Cells Amorphous Sediment Urine Bacteria Nasal Screen MRSA (PCR) 10/26/18 10/26/18 10/26/18 23:07 23:12 23:39 WBC RBC Hgb Hct MCV MCH MCHC RDW Std Deviation RDW Coeff of Erich Plt Count MPV Immature Gran % (Auto) Neut % (Auto) Lymph % (Auto) [place] % (Auto) Eos % (Auto) Baso % (Auto) Immature Gran # (Auto) Neut # (Auto) Lymph # (Auto) [place] # (Auto) Eos # (Auto) Baso # (Auto) Tear Drop Cells Echinocytes PT INR ABG pH 7.26 L ABG pCO2 24 L ABG pO2 100 H ABG HCO3 10 L ABG O2 Saturation 96.7 H ABG Base Excess -15.1 L Leon Test POS Barometric Pressure 730.1 Oxygen Given ROOM AIR Sodium Potassium Chloride Carbon Dioxide Anion Gap BUN Creatinine Est Cr Clr Drug Dosing Est GFR ( Amer) Est GFR (Non-Af Amer) BUN/Creatinine Ratio Glucose POC Glucose 65 L* 71 Calcium Phosphorus Magnesium Total Bilirubin AST ALT Alkaline Phosphatase Troponin I Total Protein Albumin Globulin Albumin/Globulin Ratio TSH Free T4 Urine Color Urine Appearance Urine pH Ur Specific [place] Urine Protein Urine Glucose (UA) Urine Ketones Urine Blood Urine Nitrite Urine Bilirubin Urine Urobilinogen Ur Leukocyte Esterase Urine RBC Urine WBC Ur Epithelial Cells Amorphous Sediment Urine Bacteria Nasal Screen MRSA (PCR) 10/26/18 10/27/18 10/27/18 23:55 01:04 04:36 WBC 3.17 L RBC 2.94 L Hgb 8.1 L Hct 22.6 L MCV 76.9 L MCH 27.6 MCHC 35.8 RDW Std Deviation 41.8 RDW Coeff of Erich 14.5 Plt Count 135 MPV 8.8 Immature Gran % (Auto) 0.3 Neut % (Auto) 60.5 Lymph % (Auto) 28.4 [place] % (Auto) 9.5 Eos % (Auto) 1.3 Baso % (Auto) 0.0 Immature Gran # (Auto) 0.01 Neut # (Auto) 1.92 Lymph # (Auto) 0.90 L [place] # (Auto) 0.30 Eos # (Auto) 0.04 Baso # (Auto) 0.00 Tear Drop Cells Echinocytes PT INR ABG pH ABG pCO2 ABG pO2 ABG HCO3 ABG O2 Saturation ABG Base Excess Leon Test Barometric Pressure Oxygen Given Sodium 120 L Potassium 5.3 H Chloride 88 L Carbon Dioxide 14 L Anion Gap 18.0 H BUN 113 H Creatinine 10.10 H* Est Cr Clr Drug Dosing 8.0 Est GFR ( Amer) 6.0 Est GFR (Non-Af Amer) 5.2 BUN/Creatinine Ratio 11.1 Glucose 68 L POC Glucose Calcium 6.5 L Phosphorus Magnesium Total Bilirubin AST ALT Alkaline Phosphatase Troponin I Total Protein Albumin Globulin Albumin/Globulin Ratio TSH Free T4 Urine Color Brown Urine Appearance Turbid A Urine pH Ur Specific [place] 1.013 Urine Protein Positive H Urine Glucose (UA) Urine Ketones Urine Blood Urine Nitrite Urine Bilirubin Urine Urobilinogen Ur Leukocyte Esterase Urine RBC >30 H Urine WBC 10-30 H Ur Epithelial Cells 0-5 Amorphous Sediment Present A Urine Bacteria 1+ H Nasal Screen MRSA (PCR) 10/27/18 10/27/18 10/27/18 04:36 04:36 04:36 WBC RBC Hgb Hct MCV MCH MCHC RDW Std Deviation RDW Coeff of Erich Plt Count MPV Immature Gran % (Auto) Neut % (Auto) Lymph % (Auto) [place] % (Auto) Eos % (Auto) Baso % (Auto) Immature Gran # (Auto) Neut # (Auto) Lymph # (Auto) [place] # (Auto) Eos # (Auto) Baso # (Auto) Tear Drop Cells Echinocytes PT 11.7 INR 1.2 H ABG pH 7.34 L ABG pCO2 27 L ABG pO2 102 H ABG HCO3 14 L ABG O2 Saturation 96.9 H ABG Base Excess -10.4 L Leon Test POS Barometric Pressure 729.0 Oxygen Given ROOM AIR Sodium 121 L Potassium 5.3 H Chloride 86 L Carbon Dioxide 16 L Anion Gap 19.0 H BUN 109 H Creatinine 9.97 H* Est Cr Clr Drug Dosing 8.1 Est GFR ( Amer) 6.1 Est GFR (Non-Af Amer) 5.2 BUN/Creatinine Ratio 11.0 Glucose 61 L POC Glucose Calcium 6.3 L Phosphorus 10.7 H Magnesium 2.2 Total Bilirubin AST ALT Alkaline Phosphatase Troponin I Total Protein Albumin Globulin Albumin/Globulin Ratio TSH Free T4 Urine Color Urine Appearance Urine pH Ur Specific [place] Urine Protein Urine Glucose (UA) Urine Ketones Urine Blood Urine Nitrite Urine Bilirubin Urine Urobilinogen Ur Leukocyte Esterase Urine RBC Urine WBC Ur Epithelial Cells Amorphous Sediment Urine Bacteria Nasal Screen MRSA (PCR) 10/27/18 05:48 WBC RBC Hgb Hct MCV MCH MCHC RDW Std Deviation RDW Coeff of Erich Plt Count MPV Immature Gran % (Auto) Neut % (Auto) Lymph % (Auto) [place] % (Auto) Eos % (Auto) Baso % (Auto) Immature Gran # (Auto) Neut # (Auto) Lymph # (Auto) [place] # (Auto) Eos # (Auto) Baso # (Auto) Tear Drop Cells Echinocytes PT INR ABG pH ABG pCO2 ABG pO2 ABG HCO3 ABG O2 Saturation ABG Base Excess Leon Test Barometric Pressure Oxygen Given Sodium Potassium Chloride Carbon Dioxide Anion Gap BUN Creatinine Est Cr Clr Drug Dosing Est GFR ( Amer) Est GFR (Non-Af Amer) BUN/Creatinine Ratio Glucose POC Glucose 72 Calcium Phosphorus Magnesium Total Bilirubin AST ALT Alkaline Phosphatase Troponin I Total Protein Albumin Globulin Albumin/Globulin Ratio TSH Free T4 Urine Color Urine Appearance Urine pH Ur Specific [place] Urine Protein Urine Glucose (UA) Urine Ketones Urine Blood Urine Nitrite Urine Bilirubin Urine Urobilinogen Ur Leukocyte Esterase Urine RBC Urine WBC Ur Epithelial Cells Amorphous Sediment Urine Bacteria Nasal Screen MRSA (PCR) Medications Administered Home Medications aspirin 81 mg PO DAILY 10/26/18 [History Confirmed 10/26/18] epoetin sue-epbx [Retacrit] 10,000 unit SUBCUT WK 10/26/18 [History Confirmed 10/26/18] furosemide [Lasix] 40 mg PO BID 10/26/18 [History Confirmed 10/26/18] lisinopril 40 mg PO DAILY 10/26/18 [History Confirmed 10/26/18] lovastatin 40 mg PO DAILY 10/26/18 [History Confirmed 10/26/18] metoprolol tartrate 100 mg PO BID 10/26/18 [History Confirmed 10/26/18] omeprazole 40 mg PO QAM 10/26/18 [History Confirmed 10/26/18] Active Medications Al Hydrox/Mg Hydrox/Simethicone (Maalox Max) 15 ml PO Q4H PRN PRN Reason: Dyspepsia Stop: 11/25/18 22:53 Famotidine (Pepcid) 20 mg PO BID [facility] Stop: 11/25/18 23:14 Last Admin: 10/27/18 01:03 Dose: 20 mg Documented by: Heparin Sodium (Porcine) (Heparin Sodium (Porcine)) 5,000 units SQ Q12 [facility] Stop: 11/26/18 08:59 Sodium Bicarbonate 150 meq/ (Sterile Water) 1,150 mls @ 125 mls/hr IV .Q9H12M [facility] Stop: 11/26/18 07:59 Magnesium Hydroxide (Milk Of Magnesia) 30 ml PO Q6H PRN PRN Reason: Constipation Stop: 11/25/18 22:53 Metoprolol Tartrate (Lopressor) 100 mg PO BID [facility] Stop: 11/26/18 08:59 Miscellaneous (Icu Protocol For Hyperglycemia) 1 ea N/A PRN PRN; Protocol PRN Reason: Hyperglycemia Protocol Stop: 10/28/18 22:53 Miscellaneous (Carbohydrates For Hypoglycemia) 15 gm PO ONCE PRN PRN Reason: Hypoglycemia Treatment Stop: 11/25/18 23:15 Last Admin: 10/27/18 05:33 Dose: 15 gm Documented by: Polyethylene Glycol (Miralax Powder Packet) 17 gm PO DAILY PRN PRN Reason: Constipation Stop: 11/25/18 22:53 PG Care Time/CCT Critical Care Time: Yes Total Critical Care Time: 50 (1) Acute renal failure Acute renal failure type: unspecified Qualified Code(s): N17.9 - Acute kidney failure, unspecified
[2018-10-27] MEDS ORDERED: PANTOprazole 40 MG TAB PO SCH (09:00)
[2018-10-27] MEDS: METOPROLOL TARTRATE 100 MG TAB PO SCH ×2 (09:13→20:31)
[2018-10-27] MEDS: HEPARIN SOD 5,000 UNIT/0.5 ML VIAL SQ SCH ×2 (09:13→20:33)
--- NOTE | 2018-10-27 11:25 | Nephrology Consultation ---
Date of Consultation October 27, 2018 Assessment & Plan (1) Acute renal failure: -- Baseline creatinine was 1.0 (04/25) -- No recent exposure to NSAIDS, herbs, nonprescription or illicit drugs -- Hold Lisinopril, Lovastatin, Omeprazole and Furosemide -- Abdominal CT report reviewed: No hydronephrosis. Bladder thickening noted -- Bladder thickening on CT scan. Place Greenberg catheter to monitor I&O's -- Urinalysis w/ hematuria, pyuria and bacteriuria. Await urine culture results -- Will check CPK -- Patient appears clinically volume contracted. Provide 3 amps NaHCO3 in 1 L sterile water at 125 cc/hr for IV hydration, correction of metabolic acidosis and hyperkalemia -- Electrolyte balance improved this am. Potassium is trending down. No acute indication for HD today -- Monitor serial PRP (2) Anemia: -- Mild asymptomatic anemia. Monitor (3) Diarrhea: -- No BM since admission due to Imodium therapy. Obtain stool for C. Difficile toxin assay once patient moves his bowels History of Present Illness Reason for Consultation: NIK Attending Physician: Domo Strauss MD History of Present Illness Mr. Madera is a 53 year old white male who is seen in the ICU at the request of Dr. Mckeon for evaluation of NIK. Medical records in the EMR were reviewed today and are summarized as follows: Mr. Madera has a documented h/o nonischemic CMP (cardiac cath 2009: patent vessels, LVEF 10-15%, 2-3+ mitral in sufficiency), HTN managed w/ LISA inhibitor therapy, BPH and iron deficiency anemia managed w/ iron and Procrit in the past. Mr. Madera's baseline creatinine has been 1.0. He is currently incarcerated and reports that he has suffered from diarrhea for the last 2 weeks. He had 6 - 8 liquid bowel movements/day. Mr. Madera was seen at the [facility] on Sunday and treated w/ Imodium. Although his diarrhea improved, on Sunday he developed gross hematuria and blood work revealed NKI w/ BUN 114, Cr 10.4 and K 6.2. ECG revelaed mildly peaked T- waves but normal NH & QRS intervals. Mr. Madera was subsequently admitted to [facility] ICU and given medical management for his hyperkalemia. His LISA inhibitor has been stopped and IV hydration started. Noncontrast abdominal CT was negative for hydronephrosis. Allergies Allergy/AdvReac Type Severity Reaction Status Date / Time Penicillins Allergy Unknown unknown Verified 10/26/18 18:02 Home Medications Home Medications Medication Instructions Recorded Confirmed Type aspirin 81 mg PO DAILY 10/26/18 10/26/18 History epoetin sue-epbx [Retacrit] 10,000 unit SUBCUT WK 10/26/18 10/26/18 History furosemide [Lasix] 40 mg PO BID 10/26/18 10/26/18 History lisinopril 40 mg PO DAILY 10/26/18 10/26/18 History lovastatin 40 mg PO DAILY 10/26/18 10/26/18 History metoprolol tartrate 100 mg PO BID 10/26/18 10/26/18 History omeprazole 40 mg PO QAM 10/26/18 10/26/18 History Patient History Medical History Anemia CHF (congestive heart failure) HTN (hypertension) Family History Other No significant family history Social History Preferred Language: Guatemalan Communication Ability: Effective Beliefs That Will Affect Care: None Current Living Situation: Other Current Living Situation Comment: [facility] current occupational status: other current occupation: prisoner Feels Safe at Home: Yes Safety Concerns: Feels Safe At This Time Smoking Status: Never smoker Hx Alcohol Use: No Hx Substance Use: No Review of Systems Constitutional: no fever, no chills and no weakness Eyes: no worsening vision and no problem reported Ear, Nose, Mouth, Throat: no problem reported Respiratory: no cough and no dyspnea Cardiovascular: no chest pain, no palpitations and no edema Gastrointestinal: + abdominal pain and + diarrhea/loose stools; no nausea and no vomiting Genitourinary: + hematuria; no dysuria and no urinary hesitancy Musculoskeletal: no back pain Integumentary: no rash Neurologic: no falls, no dizziness and no confusion Physical Exam Constitutional: + thin; not in distress Eyes: PERRL, conjunctivae normal, anicteric sclerae ENMT: external ear and nose normal, oropharynx normal Neck: trachea midline, no thyromegaly Respiratory: normal respiratory effort, lungs clear to auscultation Cardiovascular: RRR, no murmur, no edema Gastrointestinal (Abdomen): normal bowel sounds, soft, nontender, no hepatosplenomegaly Musculoskeletal: no cyanosis or clubbing, extremities motor strength 5/5 Skin: no rashes, warm and dry Neurologic: awake; not confused Results & Data Vital Signs (Past 12 Hours) Vital Signs Temp Pulse Resp BP Pulse Ox 10/27/18 08:00 36.7 C 73 16 145/86 H 98 10/27/18 07:00 66 19 153/90 H 97 10/27/18 06:01 72 18 163/81 H 98 10/27/18 05:00 61 19 146/79 H 98 10/27/18 04:00 36.7 C 62 17 142/83 H 99 10/27/18 03:00 68 18 140/86 99 10/27/18 02:00 62 22 133/81 98 10/27/18 01:01 72 19 144/82 H 98 10/27/18 00:00 36.6 C 72 19 145/83 H 98 Laboratory Results Laboratory Tests 10/26/18 10/27/18 10/27/18 23:55 04:36 04:36 WBC 3.17 L Hgb 8.1 L Hct 22.6 L Plt Count 135 Sodium 121 L Potassium 5.3 H Chloride 86 L Carbon Dioxide 16 L BUN 109 H Creatinine 9.97 H* Glucose 61 L Urine Color Brown Urine Appearance Turbid A Ur Specific [place] Pool 1.013 Urine Protein Positive H Urine RBC >30 H Urine WBC 10-30 H Ur Epithelial Cells 0-5 Amorphous Sediment Present A Urine Bacteria 1+ H Diagnostic Findings ABD CT 10/26/18: 1. Elevated right hemidiaphragm 2. No evidence of bowel obstruction. No evidence of free air. 3. No evidence of acute diverticulitis. No evidence of acute appendicitis. 4. No renal, ureteral, or bladder calculi identified 5. Small amount of intraperitoneal fluid. Mild peritoneal abdominal wall edema. 6. Mild bladder wall thickening and infiltration of the perivesical fat. The findings are likely secondary to either chronic bladder outlet obstruction or a cystitis. Correlation with urinalysis is recommended. 7. 5.5 cm right renal cyst (1) Acute renal failure Acute renal failure type: unspecified Qualified Code(s): N17.9 - Acute kidney failure, unspecified
--- NOTE | 2018-10-27 12:15 | Family Medicine Progress Note ---
Date of Service October 27, 2018 Assessment & Plan (1) Acute renal failure: 53yo male prisoner with PMHx of CKD3 (baseline Cr 1), anemia, HLD, HTN, gastritis, nonischemic cardiomyopathy presented with diarrhea and decreased PO intake x 7 days. Found to have NIK, Cr 10.4 with electrolyte derangements K 6.3. Metabolic acidosis (bicarb 12, AG 19) in the setting of likely uremia from NIK and decreased PO intake. Acute renal failure likely pre-renal with metabolic acidosis and electrolyte derangements Hx of CKD 3 -Baseline creatinine was 1.0 (04/26) -On admission Cr 10.4 improved to 9.9 s/p IVFs -Abdominal CT: No hydronephrosis, bladder thickening noted -UA: hematuria, pyuria and bacteriuria -UCx pending -CK pending -Greenberg placed to monitor Is and Os -Hold home Lisinopril, Lovastatin, Omeprazole and Furosemide -Nephrology consulted - appreciate recs Provide 3 amps NaHCO3 in 1 L sterile water at 125 cc/hr for IV hydration, correction of metabolic acidosis and hyperkalemia -Monitor BMP Diarrhea - now improving -C Diff toxin and gene positive -Started on vanc po 125mg Q6H x 10 days Hx of non-ischemic cardiomyopathy and HTN -EKG 10/26 normal sinus rhythm, qtc 508 -Previous Echo with EF of 10%-15% -Repeat Echo today: EF 60 to 65%, mild dilated left ventricle, mild concentric LVH, RV mildly dilated with normal function, mild to moderate mitral valve regurg, moderate to severe pulmonary hypertension, right atrial pressure 8 mmHg -CXR small R pleural effusion Anemia Asymptomatic, chronic Baseline 7-8 Hgb Has had previous bone marrow workup, neg for MDS. Also neg for Hep C Continue to monitor DVT proph: IV heparin CODE STATUS: Full code Dispo: ICU Supervising Physician Co-Signing Physician Notes Attending attestation Pt seen and examined in concert with Dr. Hester. In agreement with the documented findings as noted in the resident documentation with any exceptions or additions as noted here. Gradual improvement in complaints of pain and fatigue. On examination, S1/S2 nl RRR no MCG. CTAB. Abd NT/ND BS+ve Acute renal injury atop CKD III w/ baseline Cr 1 - nephrology consultation appreciated - tolerating bicarbonate drip. Continue trending BMP and managing electrolytes. Monitor I/Os Congestive heart failure w/ EF 10-15% - cardiology consultation appreciated - acute dehydration state, monitor fluid balance Pancytopenia, chronic - f/u HIV test, h/o bone bx Else see resident documentation as noted. Subjective Pt reports feeling better today compared to when presented to the ED. No further diarrhea or nausea/vomiting and tolerated full liquid diet for lunch. However, continues to have LLQ abdominal pain. Reports having thom urine prior to hospitalization Denies any f/c, sob, cp, dysuria, hematochezia, melena Review of Systems Review of Systems: As per HPI Physical Exam Physical Exam: General: In NAD HEENT: dry mucous membranes Neuro: A&O x 4 Pulm: CTAB equal breath sounds bilaterally CV: RRR, no m/r/g, cap refill 2 sec Abdomen:+BS, TTP over LLQ, non-distended LE: no LE edema, no calf TTP Results & Data Vital Signs (Past 12 Hours) Vital Signs Temp Pulse Resp BP Pulse Ox 10/27/18 11:00 64 12 131/79 97 10/27/18 10:00 68 21 136/85 97 10/27/18 09:00 72 21 151/84 H 96 10/27/18 08:00 36.7 C 73 16 145/86 H 98 10/27/18 07:00 66 19 153/90 H 97 10/27/18 06:01 72 18 163/81 H 98 10/27/18 05:00 61 19 146/79 H 98 10/27/18 04:00 36.7 C 62 17 142/83 H 99 10/27/18 03:00 68 18 140/86 99 10/27/18 02:00 62 22 133/81 98 10/27/18 01:01 72 19 144/82 H 98 Laboratory Results Abnormal lab results 10/26/18 10/26/18 10/26/18 Range/Units 18:45 18:45 23:06 WBC 3.69 L (4.8-10.8) K/uL RBC 3.40 L (4.7-6.1) M/uL Hgb 9.3 L (14.0-18.0) g/dL Hct 27.0 L (42-52) % MCV 79.4 L (80-100) fL RDW Coeff of Erich 14.6 H (11.5-14.5) % Plt Count 128 L (130-400) K/uL Immature Gran # (Auto) 0.03 H (0.00-0.02) K/uL Lymph # (Auto) 1.02 L (1.2-3.4) K/uL INR (0.9-1.1) ABG pH (7.35-7.45) ABG pCO2 (35-46) mmHg ABG pO2 (80-95) mm/Hg ABG HCO3 (19-24) mmol/L ABG O2 Saturation (90-95) % ABG Base Excess (-9-1.8) mEq/L Sodium 121 L (136-145) mmol/L Potassium 6.2 H* (3.5-5.1) mmol/L Chloride 90 L (98-107) mmol/L Carbon Dioxide 12 L (21-32) mmol/L Anion Gap 19.0 H (3-11) BUN 114 H (7-18) mg/dl Creatinine 10.40 H* (0.6-1.4) mg/dl Glucose (70-99) mg/dl POC Glucose 64 L* (70-99) Calcium 6.8 L (8.5-10.1) mg/dl Phosphorus (2.5-4.9) mg/dl Magnesium 2.5 H (1.8-2.4) mg/dl AST 8 L (15-37) U/L Albumin 2.5 L (3.4-5.0) gm/dl Globulin 4.1 H (2.5-4.0) gm/dl Albumin/Globulin Ratio 0.6 L (0.9-2) TSH 0.268 L (0.300-4.500) uIu/ml Urine Appearance (Clear) Urine Protein (Negative) Urine RBC (0-4) /hpf Urine WBC (0-5) /hpf Amorphous Sediment (None Prsent) Urine Bacteria (Negative) Stl C. diff Tox B Gene (Neg) Stl C.difficile Tox A&B (Negative) 10/26/18 10/26/18 10/26/18 Range/Units 23:07 23:07 23:07 WBC (4.8-10.8) K/uL RBC 3.35 L (4.7-6.1) M/uL Hgb 9.0 L (14.0-18.0) g/dL Hct 26.0 L (42-52) % MCV 77.6 L (80-100) fL RDW Coeff of Erich 14.6 H (11.5-14.5) % Plt Count (130-400) K/uL Immature Gran # (Auto) 0.03 H (0.00-0.02) K/uL Lymph # (Auto) (1.2-3.4) K/uL INR (0.9-1.1) ABG pH 7.26 L (7.35-7.45) ABG pCO2 24 L (35-46) mmHg ABG pO2 100 H (80-95) mm/Hg ABG HCO3 10 L (19-24) mmol/L ABG O2 Saturation 96.7 H (90-95) % ABG Base Excess -15.1 L (-9-1.8) mEq/L Sodium 122 L (136-145) mmol/L Potassium (3.5-5.1) mmol/L Chloride 90 L (98-107) mmol/L Carbon Dioxide 10 L (21-32) mmol/L Anion Gap 22.0 H (3-11) BUN 112 H (7-18) mg/dl Creatinine 10.10 H* D (0.6-1.4) mg/dl Glucose 57 L (70-99) mg/dl POC Glucose (70-99) Calcium 6.6 L (8.5-10.1) mg/dl Phosphorus 11.3 H (2.5-4.9) mg/dl Magnesium (1.8-2.4) mg/dl AST (15-37) U/L Albumin (3.4-5.0) gm/dl Globulin (2.5-4.0) gm/dl Albumin/Globulin Ratio (0.9-2) TSH (0.300-4.500) uIu/ml Urine Appearance (Clear) Urine Protein (Negative) Urine RBC (0-4) /hpf Urine WBC (0-5) /hpf Amorphous Sediment (None Prsent) Urine Bacteria (Negative) Stl C. diff Tox B Gene (Neg) Stl C.difficile Tox A&B (Negative) 07/20/19 07/20/19 07/21/19 Range/Units 23:12 23:55 01:04 WBC (4.8-10.8) K/uL RBC (4.7-6.1) M/uL Hgb (14.0-18.0) g/dL Hct (42-52) % MCV (80-100) fL RDW Coeff of Erich (11.5-14.5) % Plt Count (130-400) K/uL Immature Gran # (Auto) (0.00-0.02) K/uL Lymph # (Auto) (1.2-3.4) K/uL INR (0.9-1.1) ABG pH (7.35-7.45) ABG pCO2 (35-46) mmHg ABG pO2 (80-95) mm/Hg ABG HCO3 (19-24) mmol/L ABG O2 Saturation (90-95) % ABG Base Excess (-9-1.8) mEq/L Sodium 120 L (136-145) mmol/L Potassium 5.3 H (3.5-5.1) mmol/L Chloride 88 L (98-107) mmol/L Carbon Dioxide 14 L (21-32) mmol/L Anion Gap 18.0 H (3-11) BUN 113 H (7-18) mg/dl Creatinine 10.10 H* (0.6-1.4) mg/dl Glucose 68 L (70-99) mg/dl POC Glucose 65 L* (70-99) Calcium 6.5 L (8.5-10.1) mg/dl Phosphorus (2.5-4.9) mg/dl Magnesium (1.8-2.4) mg/dl AST (15-37) U/L Albumin (3.4-5.0) gm/dl Globulin (2.5-4.0) gm/dl Albumin/Globulin Ratio (0.9-2) TSH (0.300-4.500) uIu/ml Urine Appearance Turbid A (Clear) Urine Protein Positive H (Negative) Urine RBC >30 H (0-4) /hpf Urine WBC 10-30 H (0-5) /hpf Amorphous Sediment Present A (None Prsent) Urine Bacteria 1+ H (Negative) Stl C. diff Tox B Gene (Neg) Stl C.difficile Tox A&B (Negative) 10/27/18 10/27/18 10/27/18 Range/Units 04:36 04:36 04:36 WBC 3.17 L (4.8-10.8) K/uL RBC 2.94 L (4.7-6.1) M/uL Hgb 8.1 L (14.0-18.0) g/dL Hct 22.6 L (42-52) % MCV 76.9 L (80-100) fL RDW Coeff of Erich (11.5-14.5) % Plt Count (130-400) K/uL Immature Gran # (Auto) (0.00-0.02) K/uL Lymph # (Auto) 0.90 L (1.2-3.4) K/uL INR 1.2 H (0.9-1.1) ABG pH (7.35-7.45) ABG pCO2 (35-46) mmHg ABG pO2 (80-95) mm/Hg ABG HCO3 (19-24) mmol/L ABG O2 Saturation (90-95) % ABG Base Excess (-9-1.8) mEq/L Sodium 121 L (136-145) mmol/L Potassium 5.3 H (3.5-5.1) mmol/L Chloride 86 L (98-107) mmol/L Carbon Dioxide 16 L (21-32) mmol/L Anion Gap 19.0 H (3-11) BUN 109 H (7-18) mg/dl Creatinine 9.97 H* (0.6-1.4) mg/dl Glucose 61 L (70-99) mg/dl POC Glucose (70-99) Calcium 6.3 L (8.5-10.1) mg/dl Phosphorus 10.7 H (2.5-4.9) mg/dl Magnesium (1.8-2.4) mg/dl AST (15-37) U/L Albumin (3.4-5.0) gm/dl Globulin (2.5-4.0) gm/dl Albumin/Globulin Ratio (0.9-2) TSH (0.300-4.500) uIu/ml Urine Appearance (Clear) Urine Protein (Negative) Urine RBC (0-4) /hpf Urine WBC (0-5) /hpf Amorphous Sediment (None Prsent) Urine Bacteria (Negative) Stl C. diff Tox B Gene (Neg) Stl C.difficile Tox A&B (Negative) 10/27/18 10/27/18 10/27/18 Range/Units 04:36 11:25 Unknown WBC (4.8-10.8) K/uL RBC (4.7-6.1) M/uL Hgb (14.0-18.0) g/dL Hct (42-52) % MCV (80-100) fL RDW Coeff of Erich (11.5-14.5) % Plt Count (130-400) K/uL Immature Gran # (Auto) (0.00-0.02) K/uL Lymph # (Auto) (1.2-3.4) K/uL INR (0.9-1.1) ABG pH 7.34 L (7.35-7.45) ABG pCO2 27 L (35-46) mmHg ABG pO2 102 H (80-95) mm/Hg ABG HCO3 14 L (19-24) mmol/L ABG O2 Saturation 96.9 H (90-95) % ABG Base Excess -10.4 L (-9-1.8) mEq/L Sodium (136-145) mmol/L Potassium (3.5-5.1) mmol/L Chloride (98-107) mmol/L Carbon Dioxide (21-32) mmol/L Anion Gap (3-11) BUN (7-18) mg/dl Creatinine (0.6-1.4) mg/dl Glucose (70-99) mg/dl POC Glucose 105 H (70-99) Calcium (8.5-10.1) mg/dl Phosphorus (2.5-4.9) mg/dl Magnesium (1.8-2.4) mg/dl AST (15-37) U/L Albumin (3.4-5.0) gm/dl Globulin (2.5-4.0) gm/dl Albumin/Globulin Ratio (0.9-2) TSH (0.300-4.500) uIu/ml Urine Appearance (Clear) Urine Protein (Negative) Urine RBC (0-4) /hpf Urine WBC (0-5) /hpf Amorphous Sediment (None Prsent) Urine Bacteria (Negative) Stl C. diff Tox B Gene Positive Cdiff Gene H (Neg) Stl C.difficile Tox A&B Positive Cdiff Toxin A* (Negative) Diagnostic Findings XR chest 1V portable CLINICAL HISTORY: weakness COMPARISON STUDY: 02/26/2017 FINDINGS: The heart is the upper limits of normal in size. There is mild elevation right hemidiaphragm. There is no failure. There is no focal pulmonary consolidation. There is a small right pleural effusion.[ IMPRESSION: 1. Mild elevation of the right hemidiaphragm 2. Small right pleural effusion 3. No evidence of focal pulmonary consolidation CT SCAN OF THE ABDOMEN AND PELVIS WITHOUT CONTRAST CLINICAL HISTORY: Hematuria and abdominal pain COMPARISON STUDY: Outside CT scan dated 04/06/2017 TECHNIQUE: CT scan of the abdomen and pelvis was performed from the lung bases to the proximal femurs. Images are reviewed in the axial, sagittal, and coronal planes. IV contrast was not administered for this examination. A dose lowering technique was utilized adhering to the principles of ALARA. CT DOSE: 384.00 mGy.cm FINDINGS: Lower chest: There are calcified mediastinal and hilar lymph nodes. There is respiratory motion artifact. There is a trace right pleural effusion. There is elevation of the right hemidiaphragm Liver: The unenhanced liver is normal in size, contour, and attenuation. There is no intrahepatic biliary ductal dilatation. Gallbladder: Not visualized and presumed surgically absent Spleen: There are multiple splenic granulomata. Spleen is mildly enlarged measuring 13 cm. Pancreas: Unremarkable. Adrenal glands: Unremarkable. Kidneys: No renal, ureteral, or bladder calculi are visualized. There is no hydronephrosis. There is a 5.5 cm right renal cyst. Bowel: There are no transition zones indicate bowel obstruction. There is no evidence of acute diverticulitis. There are scattered colonic air-fluid levels. There is no evidence of acute appendicitis. Peritoneum: There is a small volume of free intraperitoneal fluid. There is minor peritoneal and abdominal wall edema. Vasculature: The abdominal aorta is normal in course and caliber. Adenopathy: None. Pelvic viscera: There is mild prostatomegaly. There is bladder wall thickening with mild infiltration of the perivesical fat. While this may be secondary to chronic bladder outlet obstruction, a cystitis could appear similar. Skeletal structures: No destructive osseous lesions are seen. IMPRESSION: 1. Elevated right hemidiaphragm 2. No evidence of bowel obstruction. No evidence of free air. 3. No evidence of acute diverticulitis. No evidence of acute appendicitis. 4. No renal, ureteral, or bladder calculi identified 5. Small amount of intraperitoneal fluid. Mild peritoneal abdominal wall edema. 6. Mild bladder wall thickening and infiltration of the perivesical fat. The findings are likely secondary to either chronic bladder outlet obstruction or a cystitis. Correlation with urinalysis is recommended. 7. 5.5 cm right renal cyst Medications Administered Current Inpatient Medications Al Hydrox/Mg Hydrox/Simethicone (Maalox Max) 15 ml PO Q4H PRN PRN Reason: Dyspepsia Stop: 11/25/18 22:53 Famotidine (Pepcid) 20 mg PO BID [facility] Stop: 11/25/18 23:14 Last Admin: 10/27/18 09:13 Dose: 20 mg Documented by: Heparin Sodium (Porcine) (Heparin Sodium (Porcine)) 5,000 units SQ Q12 [facility] Stop: 11/26/18 08:59 Last Admin: 10/27/18 09:13 Dose: 5,000 units Documented by: Sodium Bicarbonate 150 meq/ (Sterile Water) 1,150 mls @ 125 mls/hr IV .Q9H12M [facility] Stop: 11/26/18 07:59 Last Admin: 10/27/18 09:13 Dose: 125 mls/hr Documented by: Magnesium Hydroxide (Milk Of Magnesia) 30 ml PO Q6H PRN PRN Reason: Constipation Stop: 11/25/18 22:53 Metoprolol Tartrate (Lopressor) 100 mg PO BID [facility] Stop: 11/26/18 08:59 Last Admin: 10/27/18 09:13 Dose: 100 mg Documented by: Miscellaneous (Icu Protocol For Hyperglycemia) 1 ea N/A PRN PRN; Protocol PRN Reason: Hyperglycemia Protocol Stop: 10/28/18 22:53 Miscellaneous (Carbohydrates For Hypoglycemia) 15 gm PO ONCE PRN PRN Reason: Hypoglycemia Treatment Stop: 11/25/18 23:15 Last Admin: 10/27/18 05:33 Dose: 15 gm Documented by: Polyethylene Glycol (Miralax Powder Packet) 17 gm PO DAILY PRN PRN Reason: Constipation Stop: 11/25/18 22:53 PG Care Time/CCT Total # of Minutes Spent Total Time Spent with Patient: Total time spent is greater than 50% in coordination of care (as documented) at patient's floor/unit and/or counseling patient: Resident Activity Tracking Resident Involvement: Resident Care Provided Care Provided: Adult Hospital Medicine (1) Acute renal failure Acute renal failure type: unspecified Qualified Code(s): N17.9 - Acute kidney failure, unspecified
[2018-10-27 14:39] LABS: Cdiff Antigen Positive; Cdiff Toxin A+B Positive Cdiff Toxin (Negative)
[2018-10-27 16:16] LABS: Eosinophils # (auto) 0.03 K/uL (0-0.5); Hematocrit (blood only) 23.4 % (42-52); Hemoglobin 8.2 g/dL (14.0-18.0); Immature Granulocytes # (auto) 0.01 K/uL (0.00-0.02); Immature Granulocytes % (auto) 0.3 %; Lymphocytes # (auto) 0.75 K/uL (1.2-3.4); Lymphocytes % (auto) 23.9 %; Mean Corpuscular Volume 78.3 fL (80-100); Mean Platelet Volume 8.8 fL (7.4-10.4); Monocytes # (auto) 0.28 K/uL (0.11-0.59); Monocytes % (auto) 8.9 %; Neutrophils # (auto) 2.07 K/uL (1.4-6.5); Neutrophils % (auto) 65.9 %; Platelet Count 130 K/uL (130-400); RDW Coefficient of Variation 14.8 % (11.5-14.5); RDW Standard Deviation 42.6 fL (36.4-46.3); Red Blood Count 2.99 M/uL (4.7-6.1); White Blood Count 3.14 K/uL (4.8-10.8)
[2018-10-27 16:19] LABS: Base Excess VBG -4.1 mEq/L; HCO3 VBG 21 mmol/L; PCO2 VBG 36 mmHg (38-50); PO2 VBG 28 mmHg; pH VBG 7.37 (7.36-7.41)
[2018-10-27 16:39] LABS: Oxygen Saturation VBG < 60.0 %
[2018-10-27 16:45] LABS: RBC Morphology Unremarkable
[2018-10-27 16:49] LABS: Alanine Aminotransferase 11 U/L (12-78); Albumin Globulin Ratio 0.6 (0.9-2); Albumin Level 2.1 gm/dl (3.4-5.0); Alkaline Phosphatase 76 U/L (45-117); Aspartate Aminotransferase 8 U/L (15-37); BUN Creatinine Ratio 10.9 (10-20); Bilirubin,Total 0.3 mg/dl (0.2-1); Blood Urea Nitrogen 105 mg/dl (7-18); Carbon Dioxide 22 mmol/L (21-32); Chloride 83 mmol/L (98-107); Creatine Kinase MB 10.9 ng/ml (0.5-3.6); Creatinine Clr Calc Pharmacy 8.4 ml/min; Est GFR (African American) 6.3; Est GFR (Non-African American) 5.5; Globulin 3.4 gm/dl (2.5-4.0); Glucose 68 mg/dl (70-99); Potassium 5.1 mmol/L (3.5-5.1); Sodium 121 mmol/L (136-145); Total Protein 5.5 gm/dl (6.4-8.2)
[2018-10-27] MEDS: VANCOMYCIN HCL 125 MG/2.5ML SOLN PO SCH ×2 (18:19→23:47)
[2018-10-27] MEDS: SODIUM CHLORIDE 0.9% 1000ML 1,000 ML IV SCH (18:19)
[2018-10-27] MEDS: RASPBERRY SYRUP 5 ML UDP PO SCH ×2 (18:19→23:48)
[2018-10-27 21:06] LABS: BUN Creatinine Ratio 10.8 (10-20); Creatinine Clr Calc Pharmacy 8.2 ml/min; Est GFR (African American) 6.2; Est GFR (Non-African American) 5.3; Potassium 4.9 mmol/L (3.5-5.1)
[2018-10-27 21:50] LABS: Phosphorus 9.7 mg/dl (2.5-4.9)
[2018-10-28] MEDS: SODIUM CHLORIDE 0.9% 1000ML 1,000 ML IV SCH ×3 (02:24→13:36)
[2018-10-28 03:04] LABS: BUN Creatinine Ratio 10.7 (10-20); Calcium 5.8 mg/dl (8.5-10.1); Creatinine Clr Calc Pharmacy 8.4 ml/min; Est GFR (African American) 6.3; Est GFR (Non-African American) 5.5; Potassium 4.8 mmol/L (3.5-5.1)
[2018-10-28 05:17] LABS: Eosinophils # (auto) 0.04 K/uL (0-0.5); Hematocrit (blood only) 24.6 % (42-52); Hemoglobin 8.6 g/dL (14.0-18.0); Immature Granulocytes # (auto) 0.01 K/uL (0.00-0.02); Immature Granulocytes % (auto) 0.3 %; Lymphocytes # (auto) 0.78 K/uL (1.2-3.4); Lymphocytes % (auto) 20.3 %; Mean Corpuscular Volume 77.8 fL (80-100); Mean Platelet Volume 8.8 fL (7.4-10.4); Monocytes % (auto) 5.2 %; Neutrophils # (auto) 2.81 K/uL (1.4-6.5); Neutrophils % (auto) 73.2 %; Platelet Count 127 K/uL (130-400); RDW Coefficient of Variation 14.8 % (11.5-14.5); RDW Standard Deviation 42.6 fL (36.4-46.3); Red Blood Count 3.16 M/uL (4.7-6.1); White Blood Count 3.84 K/uL (4.8-10.8)
[2018-10-28 05:27] LABS: INR 1.2 (0.9-1.1); Prothrombin Time 12.2 Seconds (9.0-12.0)
[2018-10-28] MEDS: VANCOMYCIN HCL 125 MG/2.5ML SOLN PO SCH ×3 (05:29→17:57)
[2018-10-28] MEDS: RASPBERRY SYRUP 5 ML UDP PO SCH ×3 (05:30→17:58)
[2018-10-28] MEDS ORDERED: ACETAMINOPHEN 325 MG TAB PO PRN (05:50)
[2018-10-28 05:57] LABS: Echinocytes 1+; Polychromasia 1+
[2018-10-28 06:02] LABS: BUN Creatinine Ratio 10.8 (10-20); Creatinine Clr Calc Pharmacy 8.6 ml/min; Est GFR (African American) 6.5; Est GFR (Non-African American) 5.6; Potassium 4.7 mmol/L (3.5-5.1)
[2018-10-28 06:27] LABS: Phosphorus 8.9 mg/dl (2.5-4.9)
--- NOTE | 2018-10-28 07:12 | Family Medicine Progress Note ---
Date of Service October 28, 2018 Assessment & Plan (1) Acute renal failure: 53yo male prisoner with PMHx of CKD3 (baseline Cr 1), anemia, HLD, HTN, gastritis, nonischemic cardiomyopathy presented with diarrhea and decreased PO intake x 7 days. Found to have NIK, Cr 10.4 with electrolyte derangements K 6.3. Metabolic acidosis (bicarb 12, AG 19) in the setting of likely uremia from NIK and decreased PO intake. Acute renal failure likely pre-renal with metabolic acidosis and electrolyte derangements Hx of CKD 3, Baseline creatinine was 1.0 (04/26), On admission Cr 10.4 improved to 9.9 s/p IVFs, Abdominal CT: No hydronephrosis, bladder thickening noted. Likely 2/2 to diarrhea -UA: hematuria, pyuria and bacteriuria -UCx pending -Holding home Lisinopril, Lovastatin, Omeprazole and Furosemide -Nephrology consulted - appreciate recs -Provide 3 amps NaHCO3 in 1 L sterile water at 125 cc/hr for IV hydration, correction of metabolic acidosis and hyperkalemia -continue on IV fluid for now however, if p.o. intake improved and blood pressure remained stable will discontinue IV fluid as there is risk for fluid overload -dose medications for GFR less than 10, avoid nephrotoxic medications -Monitor BMP Diarrhea - now improving -C Diff toxin and gene positive -Started on vanc po 125mg Q6H x 10 days Hx of non-ischemic cardiomyopathy and HTN -EKG 10/26 normal sinus rhythm, qtc 508 -Previous Echo with EF of 10%-15% -Repeat Echo today: EF 60 to 65%, mild dilated left ventricle, mild concentric LVH, RV mildly dilated with normal function, mild to moderate mitral valve regurg, moderate to severe pulmonary hypertension, right atrial pressure 8 mmHg -CXR small R pleural effusion Anemia Asymptomatic, chronic, Has had previous bone marrow workup, neg for MDS. Also neg for Hep C. -Baseline 7-8 Hgb -Trend CBC Diet: Full Liquid (Renal Dialysis) DVT proph: sq heparin CODE STATUS: Full code Dispo: ICU Supervising Physician Co-Signing Physician Notes I personally examined the patient and verified all reyes points of history and exam, discussed case, and agree with decision making with Dr Kruger. Feeling a little bit more short of breath earlier, notes that oxygen helps significantly and does not feel short of breath once the oxygen is on. He notes no other new complaints, back was bothering him earlier but not now. Vitals noted, in general he is awake alert pleasant no distress. HEENT normocephalic atraumatic mucous membranes moist. Cardio is regular without rubs murmurs or gallops. Lungs are diminished bibasilar very questionable rail base right otherwise no rhonchi no wheezes good effort. Acute renal failurelikely on the basis of severe volume depletion related to his C. difficile diarrhea, probable ATN. Continue supportive care. See below in regards to shortness of breath, but fluids will be on hold for now. Pulmonary edemarelated to his renal failure more than a true cardiomyopathy (for clarification sake this could possibly be HFpEF but truly this relates much more directly to his renal failure)chest x-ray does show a degree of progression, fluids will be on hold. Currently no acute intervention appears to be required, and he is only needing a small amount of nasal cannula oxygen. Continue to follow closely off of the IV fluids. Subjective Patient laying in bed this morning in no acute distress. Reports no significant interval history, tolerating his diet, voiding, stooling, sleeping. No acute complaints, all questions answered. Physical Exam Physical Exam: General: In NAD HEENT: dry mucous membranes Neuro: A&O x 4 Pulm: CTAB equal breath sounds bilaterally CV: RRR, no m/r/g, cap refill 2 sec Abdomen:+BS, TTP over LLQ, non-distended LE: no LE edema, no calf TTP Results & Data Vital Signs (Past 12 Hours) Vital Signs Temp Pulse Resp BP Pulse Ox 10/28/18 06:01 37.0 C 71 23 95 10/28/18 06:00 71 23 145/81 H 95 10/28/18 05:01 74 28 H 94 10/28/18 05:00 73 24 147/75 H 94 10/28/18 04:00 37.0 C 69 23 139/81 94 10/28/18 03:00 67 18 147/89 H 94 10/28/18 02:01 69 18 94 10/28/18 02:00 72 22 144/85 H 95 10/28/18 01:00 67 17 134/69 94 10/28/18 00:01 70 25 H 96 10/28/18 00:00 72 23 147/89 H 96 10/27/18 23:01 68 21 95 10/27/18 23:00 69 25 H 150/84 H 96 10/27/18 22:01 71 20 96 10/27/18 22:00 69 17 147/88 H 96 10/27/18 21:01 70 16 97 10/27/18 21:00 70 19 144/83 H 97 10/27/18 20:01 72 20 150/83 H 98 10/27/18 20:00 72 20 98 Laboratory Results 10/28/18 10/28/18 10/28/18 Range/Units 11:29 10:00 10:00 WBC (4.8-10.8) K/uL RBC (4.7-6.1) M/uL Hgb (14.0-18.0) g/dL Hct (42-52) % MCV (80-100) fL MCH (25-34) pg MCHC (32-36) g/dL RDW Std Deviation (36.4-46.3) fL RDW Coeff of Erich (11.5-14.5) % Plt Count (130-400) K/uL MPV (7.4-10.4) fL Immature Gran % (Auto) % Neut % (Auto) % Lymph % (Auto) % [facility] % (Auto) % Eos % (Auto) % Baso % (Auto) % Immature Gran # (Auto) (0.00-0.02) K/uL Neut # (Auto) (1.4-6.5) K/uL Lymph # (Auto) (1.2-3.4) K/uL [facility] # (Auto) (0.11-0.59) K/uL Eos # (Auto) (0-0.5) K/uL Baso # (Auto) (0-0.2) K/uL RBC Morphology Polychromasia Echinocytes PT (9.0-12.0) Seconds INR (0.9-1.1) VBG pH (7.36-7.41) VBG pCO2 (38-50) mmHg VBG pO2 mmHg VBG HCO3 mmol/L VBG O2 Saturation % VBG Base Excess mEq/L Barometric Pressure mm/Hg Sodium (136-145) mmol/L Potassium (3.5-5.1) mmol/L Chloride (98-107) mmol/L Carbon Dioxide (21-32) mmol/L Anion Gap (3-11) BUN (7-18) mg/dl Creatinine (0.6-1.4) mg/dl Est Cr Clr Drug Dosing ml/min Est GFR ( Amer) Est GFR (Non-Af Amer) BUN/Creatinine Ratio (10-20) Glucose (70-99) mg/dl POC Glucose (70-99) Calcium (8.5-10.1) mg/dl Phosphorus (2.5-4.9) mg/dl Magnesium (1.8-2.4) mg/dl Total Bilirubin (0.2-1) mg/dl AST (15-37) U/L ALT (12-78) U/L Alkaline Phosphatase (45-117) U/L Total Creatine Kinase (39-308) U/L CK-MB (CK-2) (0.5-3.6) ng/ml Troponin I < 0.015 (0-0.045) ng/ml Total Protein (6.4-8.2) gm/dl Albumin (3.4-5.0) gm/dl Globulin (2.5-4.0) gm/dl Albumin/Globulin Ratio (0.9-2) Urine Color Brown Urine Appearance Cloudy A (Clear) Urine pH (4.5-7.5) Ur Specific [place] 1.013 (1.000-1.030) Urine Protein Positive H (Negative) Urine Glucose (UA) (Negative) Urine Ketones (Negative) Urine Blood (Negative) Urine Nitrite (Negative) Urine Bilirubin (Negative) Urine Urobilinogen (Negative) Ur Leukocyte Esterase (Negative) Urine RBC >30 H (0-4) /hpf Urine WBC >30 H (0-5) /hpf Ur Epithelial Cells 10-20 H (0-5) /lpf Urine Bacteria 1+ H (Negative) Hyaline Casts 5-10 H (0-5) /lpf Granular Casts 1-5 H (0) /lpf Urine Osmolality 246 L (500-800) mOsm/kg Stl C. diff Tox B Gene (Neg) Stl C.difficile Tox A&B (Negative) HIV 1&2 Ab/P24 Ag 4thGn (Neg) 10/28/18 10/28/18 10/28/18 Range/Units 04:52 04:52 04:52 WBC (4.8-10.8) K/uL RBC (4.7-6.1) M/uL Hgb (14.0-18.0) g/dL Hct (42-52) % MCV (80-100) fL MCH (25-34) pg MCHC (32-36) g/dL RDW Std Deviation (36.4-46.3) fL RDW Coeff of Erich (11.5-14.5) % Plt Count (130-400) K/uL MPV (7.4-10.4) fL Immature Gran % (Auto) % Neut % (Auto) % Lymph % (Auto) % [facility] % (Auto) % Eos % (Auto) % Baso % (Auto) % Immature Gran # (Auto) (0.00-0.02) K/uL Neut # (Auto) (1.4-6.5) K/uL Lymph # (Auto) (1.2-3.4) K/uL [facility] # (Auto) (0.11-0.59) K/uL Eos # (Auto) (0-0.5) K/uL Baso # (Auto) (0-0.2) K/uL RBC Morphology Polychromasia Echinocytes PT 12.2 H (9.0-12.0) Seconds INR 1.2 H (0.9-1.1) VBG pH (7.36-7.41) VBG pCO2 (38-50) mmHg VBG pO2 mmHg VBG HCO3 mmol/L VBG O2 Saturation % VBG Base Excess mEq/L Barometric Pressure mm/Hg Sodium 122 L (136-145) mmol/L Potassium 4.7 (3.5-5.1) mmol/L Chloride 84 L (98-107) mmol/L Carbon Dioxide 22 (21-32) mmol/L Anion Gap 16.0 H (3-11) BUN 102 H (7-18) mg/dl Creatinine 9.43 H* (0.6-1.4) mg/dl Est Cr Clr Drug Dosing 8.6 ml/min Est GFR ( Amer) 6.5 Est GFR (Non-Af Amer) 5.6 BUN/Creatinine Ratio 10.8 (10-20) Glucose 66 L (70-99) mg/dl POC Glucose (70-99) Calcium 6.0 L (8.5-10.1) mg/dl Phosphorus 8.9 H (2.5-4.9) mg/dl Magnesium 2.0 (1.8-2.4) mg/dl Total Bilirubin (0.2-1) mg/dl AST (15-37) U/L ALT (12-78) U/L Alkaline Phosphatase (45-117) U/L Total Creatine Kinase 314 H (39-308) U/L CK-MB (CK-2) (0.5-3.6) ng/ml Troponin I (0-0.045) ng/ml Total Protein (6.4-8.2) gm/dl Albumin (3.4-5.0) gm/dl Globulin (2.5-4.0) gm/dl Albumin/Globulin Ratio (0.9-2) Urine Color Urine Appearance (Clear) Urine pH (4.5-7.5) Ur Specific [place] (1.000-1.030) Urine Protein (Negative) Urine Glucose (UA) (Negative) Urine Ketones (Negative) Urine Blood (Negative) Urine Nitrite (Negative) Urine Bilirubin (Negative) Urine Urobilinogen (Negative) Ur Leukocyte Esterase (Negative) Urine RBC (0-4) /hpf Urine WBC (0-5) /hpf Ur Epithelial Cells (0-5) /lpf Urine Bacteria (Negative) Hyaline Casts (0-5) /lpf Granular Casts (0) /lpf Urine Osmolality (500-800) mOsm/kg Stl C. diff Tox B Gene (Neg) Stl C.difficile Tox A&B (Negative) HIV 1&2 Ab/P24 Ag 4thGn (Neg) 10/28/18 10/28/18 10/28/18 Range/Units 04:52 04:28 02:22 WBC 3.84 L (4.8-10.8) K/uL RBC 3.16 L (4.7-6.1) M/uL Hgb 8.6 L (14.0-18.0) g/dL Hct 24.6 L (42-52) % MCV 77.8 L (80-100) fL MCH 27.2 (25-34) pg MCHC 35.0 (32-36) g/dL RDW Std Deviation 42.6 (36.4-46.3) fL RDW Coeff of Erich 14.8 H (11.5-14.5) % Plt Count 127 L (130-400) K/uL MPV 8.8 (7.4-10.4) fL Immature Gran % (Auto) 0.3 % Neut % (Auto) 73.2 % Lymph % (Auto) 20.3 % [facility] % (Auto) 5.2 % Eos % (Auto) 1.0 % Baso % (Auto) 0.0 % Immature Gran # (Auto) 0.01 (0.00-0.02) K/uL Neut # (Auto) 2.81 (1.4-6.5) K/uL Lymph # (Auto) 0.78 L (1.2-3.4) K/uL [facility] # (Auto) 0.20 (0.11-0.59) K/uL Eos # (Auto) 0.04 (0-0.5) K/uL Baso # (Auto) 0.00 (0-0.2) K/uL RBC Morphology Polychromasia 1+ Echinocytes 1+ PT (9.0-12.0) Seconds INR (0.9-1.1) VBG pH (7.36-7.41) VBG pCO2 (38-50) mmHg VBG pO2 mmHg VBG HCO3 mmol/L VBG O2 Saturation % VBG Base Excess mEq/L Barometric Pressure mm/Hg Sodium 122 L (136-145) mmol/L Potassium 4.8 (3.5-5.1) mmol/L Chloride 84 L (98-107) mmol/L Carbon Dioxide 22 (21-32) mmol/L Anion Gap 16.0 H (3-11) BUN 104 H (7-18) mg/dl Creatinine 9.60 H* (0.6-1.4) mg/dl Est Cr Clr Drug Dosing 8.4 ml/min Est GFR ( Amer) 6.3 Est GFR (Non-Af Amer) 5.5 BUN/Creatinine Ratio 10.7 (10-20) Glucose 69 L (70-99) mg/dl POC Glucose 79 (70-99) Calcium 5.8 L* (8.5-10.1) mg/dl Phosphorus (2.5-4.9) mg/dl Magnesium (1.8-2.4) mg/dl Total Bilirubin (0.2-1) mg/dl AST (15-37) U/L ALT (12-78) U/L Alkaline Phosphatase (45-117) U/L Total Creatine Kinase (39-308) U/L CK-MB (CK-2) (0.5-3.6) ng/ml Troponin I (0-0.045) ng/ml Total Protein (6.4-8.2) gm/dl Albumin (3.4-5.0) gm/dl Globulin (2.5-4.0) gm/dl Albumin/Globulin Ratio (0.9-2) Urine Color Urine Appearance (Clear) Urine pH (4.5-7.5) Ur Specific [place] (1.000-1.030) Urine Protein (Negative) Urine Glucose (UA) (Negative) Urine Ketones (Negative) Urine Blood (Negative) Urine Nitrite (Negative) Urine Bilirubin (Negative) Urine Urobilinogen (Negative) Ur Leukocyte Esterase (Negative) Urine RBC (0-4) /hpf Urine WBC (0-5) /hpf Ur Epithelial Cells (0-5) /lpf Urine Bacteria (Negative) Hyaline Casts (0-5) /lpf Granular Casts (0) /lpf Urine Osmolality (500-800) mOsm/kg Stl C. diff Tox B Gene (Neg) Stl C.difficile Tox A&B (Negative) HIV 1&2 Ab/P24 Ag 4thGn (Neg) 10/27/18 10/27/18 10/27/18 Range/Units Unknown 20:21 16:07 WBC (4.8-10.8) K/uL RBC (4.7-6.1) M/uL Hgb (14.0-18.0) g/dL Hct (42-52) % MCV (80-100) fL MCH (25-34) pg MCHC (32-36) g/dL RDW Std Deviation (36.4-46.3) fL RDW Coeff of Erich (11.5-14.5) % Plt Count (130-400) K/uL MPV (7.4-10.4) fL Immature Gran % (Auto) % Neut % (Auto) % Lymph % (Auto) % [facility] % (Auto) % Eos % (Auto) % Baso % (Auto) % Immature Gran # (Auto) (0.00-0.02) K/uL Neut # (Auto) (1.4-6.5) K/uL Lymph # (Auto) (1.2-3.4) K/uL [facility] # (Auto) (0.11-0.59) K/uL Eos # (Auto) (0-0.5) K/uL Baso # (Auto) (0-0.2) K/uL RBC Morphology Polychromasia Echinocytes PT (9.0-12.0) Seconds INR (0.9-1.1) VBG pH (7.36-7.41) VBG pCO2 (38-50) mmHg VBG pO2 mmHg VBG HCO3 mmol/L VBG O2 Saturation % VBG Base Excess mEq/L Barometric Pressure mm/Hg Sodium 122 L 121 L (136-145) mmol/L Potassium 4.9 5.1 (3.5-5.1) mmol/L Chloride 84 L 83 L (98-107) mmol/L Carbon Dioxide 22 22 (21-32) mmol/L Anion Gap 16.0 H 16.0 H (3-11) BUN 107 H 105 H (7-18) mg/dl Creatinine 9.82 H* 9.61 H* D (0.6-1.4) mg/dl Est Cr Clr Drug Dosing 8.2 8.4 ml/min Est GFR ( Amer) 6.2 6.3 Est GFR (Non-Af Amer) 5.3 5.5 BUN/Creatinine Ratio 10.8 10.9 (10-20) Glucose 92 68 L (70-99) mg/dl POC Glucose (70-99) Calcium 6.0 L 6.0 L (8.5-10.1) mg/dl Phosphorus 9.7 H (2.5-4.9) mg/dl Magnesium (1.8-2.4) mg/dl Total Bilirubin 0.3 (0.2-1) mg/dl AST 8 L (15-37) U/L ALT 11 L (12-78) U/L Alkaline Phosphatase 76 (45-117) U/L Total Creatine Kinase (39-308) U/L CK-MB (CK-2) 10.9 H (0.5-3.6) ng/ml Troponin I (0-0.045) ng/ml Total Protein 5.5 L (6.4-8.2) gm/dl Albumin 2.1 L (3.4-5.0) gm/dl Globulin 3.4 (2.5-4.0) gm/dl Albumin/Globulin Ratio 0.6 L (0.9-2) Urine Color Urine Appearance (Clear) Urine pH (4.5-7.5) Ur Specific [place] (1.000-1.030) Urine Protein (Negative) Urine Glucose (UA) (Negative) Urine Ketones (Negative) Urine Blood (Negative) Urine Nitrite (Negative) Urine Bilirubin (Negative) Urine Urobilinogen (Negative) Ur Leukocyte Esterase (Negative) Urine RBC (0-4) /hpf Urine WBC (0-5) /hpf Ur Epithelial Cells (0-5) /lpf Urine Bacteria (Negative) Hyaline Casts (0-5) /lpf Granular Casts (0) /lpf Urine Osmolality (500-800) mOsm/kg Stl C. diff Tox B Gene Positive Cdiff Gene H (Neg) Stl C.difficile Tox A&B Positive Cdiff Toxin A* (Negative) HIV 1&2 Ab/P24 Ag 4thGn (Neg) 10/27/18 10/27/18 10/27/18 Range/Units 16:07 16:07 16:07 WBC 3.14 L (4.8-10.8) K/uL RBC 2.99 L (4.7-6.1) M/uL Hgb 8.2 L (14.0-18.0) g/dL Hct 23.4 L (42-52) % MCV 78.3 L (80-100) fL MCH 27.4 (25-34) pg MCHC 35.0 (32-36) g/dL RDW Std Deviation 42.6 (36.4-46.3) fL RDW Coeff of Erich 14.8 H (11.5-14.5) % Plt Count 130 (130-400) K/uL MPV 8.8 (7.4-10.4) fL Immature Gran % (Auto) 0.3 % Neut % (Auto) 65.9 % Lymph % (Auto) 23.9 % [facility] % (Auto) 8.9 % Eos % (Auto) 1.0 % Baso % (Auto) 0.0 % Immature Gran # (Auto) 0.01 (0.00-0.02) K/uL Neut # (Auto) 2.07 (1.4-6.5) K/uL Lymph # (Auto) 0.75 L (1.2-3.4) K/uL [facility] # (Auto) 0.28 (0.11-0.59) K/uL Eos # (Auto) 0.03 (0-0.5) K/uL Baso # (Auto) 0.00 (0-0.2) K/uL RBC Morphology Unremarkable Polychromasia Echinocytes PT (9.0-12.0) Seconds INR (0.9-1.1) VBG pH 7.37 (7.36-7.41) VBG pCO2 36 L (38-50) mmHg VBG pO2 28 mmHg VBG HCO3 21 mmol/L VBG O2 Saturation < 60.0 % VBG Base Excess -4.1 mEq/L Barometric Pressure 728.7 mm/Hg Sodium (136-145) mmol/L Potassium (3.5-5.1) mmol/L Chloride (98-107) mmol/L Carbon Dioxide (21-32) mmol/L Anion Gap (3-11) BUN (7-18) mg/dl Creatinine (0.6-1.4) mg/dl Est Cr Clr Drug Dosing ml/min Est GFR ( Amer) Est GFR (Non-Af Amer) BUN/Creatinine Ratio (10-20) Glucose (70-99) mg/dl POC Glucose (70-99) Calcium (8.5-10.1) mg/dl Phosphorus (2.5-4.9) mg/dl Magnesium (1.8-2.4) mg/dl Total Bilirubin (0.2-1) mg/dl AST (15-37) U/L ALT (12-78) U/L Alkaline Phosphatase (45-117) U/L Total Creatine Kinase (39-308) U/L CK-MB (CK-2) (0.5-3.6) ng/ml Troponin I (0-0.045) ng/ml Total Protein (6.4-8.2) gm/dl Albumin (3.4-5.0) gm/dl Globulin (2.5-4.0) gm/dl Albumin/Globulin Ratio (0.9-2) Urine Color Urine Appearance (Clear) Urine pH (4.5-7.5) Ur Specific [place] (1.000-1.030) Urine Protein (Negative) Urine Glucose (UA) (Negative) Urine Ketones (Negative) Urine Blood (Negative) Urine Nitrite (Negative) Urine Bilirubin (Negative) Urine Urobilinogen (Negative) Ur Leukocyte Esterase (Negative) Urine RBC (0-4) /hpf Urine WBC (0-5) /hpf Ur Epithelial Cells (0-5) /lpf Urine Bacteria (Negative) Hyaline Casts (0-5) /lpf Granular Casts (0) /lpf Urine Osmolality (500-800) mOsm/kg Stl C. diff Tox B Gene (Neg) Stl C.difficile Tox A&B (Negative) HIV 1&2 Ab/P24 Ag 4thGn Neg (Neg) Medications Administered Current Inpatient Medications Acetaminophen (Tylenol) 1,000 mg PO Q6H PRN PRN Reason: Pain or Fever Stop: 11/27/18 05:49 Last Admin: 10/28/18 11:37 Dose: 1,000 mg Documented by: Al Hydrox/Mg Hydrox/Simethicone (Maalox Max) 15 ml PO Q4H PRN PRN Reason: Dyspepsia Stop: 11/25/18 22:53 Famotidine (Pepcid) 20 mg PO DAILY [facility] Stop: 11/25/18 23:14 Last Admin: 10/28/18 08:52 Dose: Not Given Documented by: Heparin Sodium (Porcine) (Heparin Sodium (Porcine)) 5,000 units SQ Q12 [facility] Stop: 11/26/18 08:59 Last Admin: 10/28/18 08:43 Dose: 5,000 units Documented by: Sodium Chloride (Nss 1000ml) 1,000 mls @ 200 mls/hr IV .Q5H [facility] Stop: 10/28/18 18:29 Last Admin: 10/28/18 08:43 Dose: 200 mls/hr Documented by: Sodium Chloride (Nss 1000ml) 1,000 mls @ 125 mls/hr IV .Q8H [facility] Stop: 11/27/18 18:29 Magnesium Hydroxide (Milk Of Magnesia) 30 ml PO Q6H PRN PRN Reason: Constipation Stop: 11/25/18 22:53 Metoprolol Tartrate (Lopressor) 100 mg PO BID [facility] Stop: 11/26/18 08:59 Last Admin: 10/28/18 08:43 Dose: 100 mg Documented by: Miscellaneous (Icu Protocol For Hyperglycemia) 1 ea N/A PRN PRN; Protocol PRN Reason: Hyperglycemia Protocol Stop: 10/28/18 22:53 Miscellaneous (Carbohydrates For Hypoglycemia) 15 gm PO ONCE PRN PRN Reason: Hypoglycemia Treatment Stop: 11/25/18 23:15 Last Admin: 10/27/18 05:33 Dose: 15 gm Documented by: Polyethylene Glycol (Miralax Powder Packet) 17 gm PO DAILY PRN PRN Reason: Constipation Stop: 11/25/18 22:53 Raspberry (Raspberry) 5 ml PO Q6 [facility] Stop: 11/10/18 17:59 Last Admin: 10/28/18 11:38 Dose: 5 ml Documented by: Vancomycin HCl (Vancomycin Hcl) 125 mg PO Q6 [facility] Stop: 11/06/18 17:59 Last Admin: 10/28/18 11:38 Dose: 125 mg Documented by: PG Care Time/CCT Total # of Minutes Spent Total Time Spent with Patient: Total time spent is greater than 50% in coordination of care (as documented) at patient's floor/unit and/or counseling patient: Resident Activity Tracking Resident Involvement: Resident Care Provided Care Provided: Adult Hospital Medicine (1) Acute renal failure Acute renal failure type: unspecified Qualified Code(s): N17.9 - Acute kidney failure, unspecified
--- NOTE | 2018-10-28 07:26 | Critical Care Progress Note ---
Date of Service October 28, 2018 Assessment & Plan (1) Acute renal failure: Pt is a 53yo male prisoner with known CKD stage 3 presenting with metabolic acidosis requiring sodium bicarbonate administration secondary to an approximately week long Hx of diarrhea. NEURO -[facility] ICU NEGATIVE -AAOx3, no signs of acute encephalopathy CARDS/VASC -EKG 10/28 normal sinus rhythm, qtc 518 -Trops currently negative -continue tylenol for pain; avoid narcotics -Echo with EF of 10%-15% RESP -currently on room air, saturating well -chest XR with no indication of acute cardiopulm process GI -CT Abd/pelvis: suggests cystitis, mesenteric edema -KUB with nonobstructive gas pattern -GI Prophylaxis: Pepcid 20mg IV ID -No concerns. RENAL//ELECTROLYTES -Pt with Hx of CKD III, currently with slowly downtrending Cr of 9. Likely prerenal given Hx of chronic diarrhea and low EF -renal US 10/28 with no evidence of hydronephrosis -will continue to trend labs and monitor as K downtrended to normal levels with sodium bicarb administration -Metabolic acidosis likely secondary to diarrhea -25g of 25% albumin -continue NS @ 200 -appreciate nephro consult ENDOCRINE -currently periodically hypoglycemic in 60s -Continue symptomatic apple juice administration -ICU protocol for hyperglycemia -Pt with low TSH, normal t4, ?subclinical hypothyroidism -outpt followup HEME -persistent pancytopenia -HIV test ordered--NEG -had previous bone marrow workup, neg for MDS. ALso neg for Hep C PIVs intact DVT proph: IV heparin CODE STATUS: Full code Dispo: ICU for monitoring Supervising Physician Co-Signing Physician Notes Dr. Turnre was resident physician during care of patient. I separately evaluated patient for reyes portions of the history and the exam. I was present during the critical portion of medical decision making, and I discussed the case with the resident. I generally agree with the findings and plan. Severe acidosis secondary to C. difficile diarrhea and profound dehydration. Profound acidosis, metabolic. I have personally spent 45 minutes of critical care time in the direct management of this patient. This is a life/limb threatening event. This includes time spent evaluating patient, direct bedside care, chart review, placing orders, interpretation of diagnostic studies, discussion with consultants, patient, and/or family members regarding treatment decisions, as well as other required patient management activities. This time is exclusive of all separately billable procedures, and teaching time and separate from and in addition to any other critical care service time. Subjective Pt had no acute events overnight. Some chest pain radiating to the back, 10/16, described as tightness in the AM. Otherwise doing well. Review of Systems Review of Systems: All systems reviewed & are unremarkable except as noted in HPI & below Physical Exam Physical Exam: General: Alert, orientedx3 HEENT: NC/AT Chest: Nontender to palpation. CV: RRR, Normal s1, s2. No murmurs appreciated Resp: Breath sounds clear but decreased bilaterally, no increased effort of breathing. Abdomen: Soft, tender in left quadrants, nondistended. No guarding. Extremities: No edema. Results & Data Vital Signs (Past 12 Hours) Vital Signs Temp Pulse Resp BP Pulse Ox 10/28/18 06:01 37.0 C 71 23 95 10/28/18 06:00 71 23 145/81 H 95 10/28/18 05:01 74 28 H 94 10/28/18 05:00 73 24 147/75 H 94 10/28/18 04:00 37.0 C 69 23 139/81 94 10/28/18 03:00 67 18 147/89 H 94 10/28/18 02:01 69 18 94 10/28/18 02:00 72 22 144/85 H 95 10/28/18 01:00 67 17 134/69 94 10/28/18 00:01 70 25 H 96 10/28/18 00:00 72 23 147/89 H 96 10/27/18 23:01 68 21 95 10/27/18 23:00 69 25 H 150/84 H 96 10/27/18 22:01 71 20 96 10/27/18 22:00 69 17 147/88 H 96 10/27/18 21:01 70 16 97 10/27/18 21:00 70 19 144/83 H 97 10/27/18 20:01 72 20 150/83 H 98 10/27/18 20:00 72 20 98 Laboratory Results Laboratory Results - last 24 hr 10/27/18 10/27/18 10/27/18 16:07 16:07 16:07 WBC 3.14 L RBC 2.99 L Hgb 8.2 L Hct 23.4 L MCV 78.3 L MCH 27.4 MCHC 35.0 RDW Std Deviation 42.6 RDW Coeff of Erich 14.8 H Plt Count 130 MPV 8.8 Immature Gran % (Auto) 0.3 Neut % (Auto) 65.9 Lymph % (Auto) 23.9 [place] % (Auto) 8.9 Eos % (Auto) 1.0 Baso % (Auto) 0.0 Immature Gran # (Auto) 0.01 Neut # (Auto) 2.07 Lymph # (Auto) 0.75 L [place] # (Auto) 0.28 Eos # (Auto) 0.03 Baso # (Auto) 0.00 RBC Morphology Unremarkable Polychromasia Echinocytes PT INR VBG pH 7.37 VBG pCO2 36 L VBG pO2 28 VBG HCO3 21 VBG O2 Saturation < 60.0 VBG Base Excess -4.1 Barometric Pressure 728.7 Sodium Potassium Chloride Carbon Dioxide Anion Gap BUN Creatinine Est Cr Clr Drug Dosing Est GFR ( Amer) Est GFR (Non-Af Amer) BUN/Creatinine Ratio Glucose POC Glucose Calcium Phosphorus Magnesium Total Bilirubin AST ALT Alkaline Phosphatase Total Creatine Kinase CK-MB (CK-2) Troponin I Total Protein Albumin Globulin Albumin/Globulin Ratio Urine Color Urine Appearance Urine pH Ur Specific [place] Urine Protein Urine Glucose (UA) Urine Ketones Urine Blood Urine Nitrite Urine Bilirubin Urine Urobilinogen Ur Leukocyte Esterase Urine RBC Urine WBC Ur Epithelial Cells Urine Bacteria Hyaline Casts Granular Casts Urine Osmolality Stl C. diff Tox B Gene Stl C.difficile Tox A&B HIV 1&2 Ab/P24 Ag 4thGn Neg 10/27/18 10/27/18 10/27/18 16:07 20:21 Unknown WBC RBC Hgb Hct MCV MCH MCHC RDW Std Deviation RDW Coeff of Erich Plt Count MPV Immature Gran % (Auto) Neut % (Auto) Lymph % (Auto) [place] % (Auto) Eos % (Auto) Baso % (Auto) Immature Gran # (Auto) Neut # (Auto) Lymph # (Auto) [place] # (Auto) Eos # (Auto) Baso # (Auto) RBC Morphology Polychromasia Echinocytes PT INR VBG pH VBG pCO2 VBG pO2 VBG HCO3 VBG O2 Saturation VBG Base Excess Barometric Pressure Sodium 121 L 122 L Potassium 5.1 4.9 Chloride 83 L 84 L Carbon Dioxide 22 22 Anion Gap 16.0 H 16.0 H BUN 105 H 107 H Creatinine 9.61 H* D 9.82 H* Est Cr Clr Drug Dosing 8.4 8.2 Est GFR ( Amer) 6.3 6.2 Est GFR (Non-Af Amer) 5.5 5.3 BUN/Creatinine Ratio 10.9 10.8 Glucose 68 L 92 POC Glucose Calcium 6.0 L 6.0 L Phosphorus 9.7 H Magnesium Total Bilirubin 0.3 AST 8 L ALT 11 L Alkaline Phosphatase 76 Total Creatine Kinase CK-MB (CK-2) 10.9 H Troponin I Total Protein 5.5 L Albumin 2.1 L Globulin 3.4 Albumin/Globulin Ratio 0.6 L Urine Color Urine Appearance Urine pH Ur Specific [place] Urine Protein Urine Glucose (UA) Urine Ketones Urine Blood Urine Nitrite Urine Bilirubin Urine Urobilinogen Ur Leukocyte Esterase Urine RBC Urine WBC Ur Epithelial Cells Urine Bacteria Hyaline Casts Granular Casts Urine Osmolality Stl C. diff Tox B Gene Positive Cdiff Gene H Stl C.difficile Tox A&B Positive Cdiff Toxin A* HIV 1&2 Ab/P24 Ag 4thGn 10/28/18 10/28/18 10/28/18 02:22 04:28 04:52 WBC 3.84 L RBC 3.16 L Hgb 8.6 L Hct 24.6 L MCV 77.8 L MCH 27.2 MCHC 35.0 RDW Std Deviation 42.6 RDW Coeff of Erich 14.8 H Plt Count 127 L MPV 8.8 Immature Gran % (Auto) 0.3 Neut % (Auto) 73.2 Lymph % (Auto) 20.3 [place] % (Auto) 5.2 Eos % (Auto) 1.0 Baso % (Auto) 0.0 Immature Gran # (Auto) 0.01 Neut # (Auto) 2.81 Lymph # (Auto) 0.78 L [place] # (Auto) 0.20 Eos # (Auto) 0.04 Baso # (Auto) 0.00 RBC Morphology Polychromasia 1+ Echinocytes 1+ PT INR VBG pH VBG pCO2 VBG pO2 VBG HCO3 VBG O2 Saturation VBG Base Excess Barometric Pressure Sodium 122 L Potassium 4.8 Chloride 84 L Carbon Dioxide 22 Anion Gap 16.0 H BUN 104 H Creatinine 9.60 H* Est Cr Clr Drug Dosing 8.4 Est GFR ( Amer) 6.3 Est GFR (Non-Af Amer) 5.5 BUN/Creatinine Ratio 10.7 Glucose 69 L POC Glucose 79 Calcium 5.8 L* Phosphorus Magnesium Total Bilirubin AST ALT Alkaline Phosphatase Total Creatine Kinase CK-MB (CK-2) Troponin I Total Protein Albumin Globulin Albumin/Globulin Ratio Urine Color Urine Appearance Urine pH Ur Specific [place] Urine Protein Urine Glucose (UA) Urine Ketones Urine Blood Urine Nitrite Urine Bilirubin Urine Urobilinogen Ur Leukocyte Esterase Urine RBC Urine WBC Ur Epithelial Cells Urine Bacteria Hyaline Casts Granular Casts Urine Osmolality Stl C. diff Tox B Gene Stl C.difficile Tox A&B HIV 1&2 Ab/P24 Ag 4thGn 10/28/18 10/28/18 10/28/18 04:52 04:52 04:52 WBC RBC Hgb Hct MCV MCH MCHC RDW Std Deviation RDW Coeff of Erich Plt Count MPV Immature Gran % (Auto) Neut % (Auto) Lymph % (Auto) [place] % (Auto) Eos % (Auto) Baso % (Auto) Immature Gran # (Auto) Neut # (Auto) Lymph # (Auto) [place] # (Auto) Eos # (Auto) Baso # (Auto) RBC Morphology Polychromasia Echinocytes PT 12.2 H INR 1.2 H VBG pH VBG pCO2 VBG pO2 VBG HCO3 VBG O2 Saturation VBG Base Excess Barometric Pressure Sodium 122 L Potassium 4.7 Chloride 84 L Carbon Dioxide 22 Anion Gap 16.0 H BUN 102 H Creatinine 9.43 H* Est Cr Clr Drug Dosing 8.6 Est GFR ( Amer) 6.5 Est GFR (Non-Af Amer) 5.6 BUN/Creatinine Ratio 10.8 Glucose 66 L POC Glucose Calcium 6.0 L Phosphorus 8.9 H Magnesium 2.0 Total Bilirubin AST ALT Alkaline Phosphatase Total Creatine Kinase 314 H CK-MB (CK-2) Troponin I Total Protein Albumin Globulin Albumin/Globulin Ratio Urine Color Urine Appearance Urine pH Ur Specific [place] Urine Protein Urine Glucose (UA) Urine Ketones Urine Blood Urine Nitrite Urine Bilirubin Urine Urobilinogen Ur Leukocyte Esterase Urine RBC Urine WBC Ur Epithelial Cells Urine Bacteria Hyaline Casts Granular Casts Urine Osmolality Stl C. diff Tox B Gene Stl C.difficile Tox A&B HIV 1&2 Ab/P24 Ag 4thGn 10/28/18 10/28/18 10/28/18 10:00 10:00 11:29 WBC RBC Hgb Hct MCV MCH MCHC RDW Std Deviation RDW Coeff of Erich Plt Count MPV Immature Gran % (Auto) Neut % (Auto) Lymph % (Auto) [place] % (Auto) Eos % (Auto) Baso % (Auto) Immature Gran # (Auto) Neut # (Auto) Lymph # (Auto) [place] # (Auto) Eos # (Auto) Baso # (Auto) RBC Morphology Polychromasia Echinocytes PT INR VBG pH VBG pCO2 VBG pO2 VBG HCO3 VBG O2 Saturation VBG Base Excess Barometric Pressure Sodium Potassium Chloride Carbon Dioxide Anion Gap BUN Creatinine Est Cr Clr Drug Dosing Est GFR ( Amer) Est GFR (Non-Af Amer) BUN/Creatinine Ratio Glucose POC Glucose Calcium Phosphorus Magnesium Total Bilirubin AST ALT Alkaline Phosphatase Total Creatine Kinase CK-MB (CK-2) Troponin I < 0.015 Total Protein Albumin Globulin Albumin/Globulin Ratio Urine Color Brown Urine Appearance Cloudy A Urine pH Ur Specific [place] 1.013 Urine Protein Positive H Urine Glucose (UA) Urine Ketones Urine Blood Urine Nitrite Urine Bilirubin Urine Urobilinogen Ur Leukocyte Esterase Urine RBC >30 H Urine WBC >30 H Ur Epithelial Cells 10-20 H Urine Bacteria 1+ H Hyaline Casts 5-10 H Granular Casts 1-5 H Urine Osmolality 246 L Stl C. diff Tox B Gene Stl C.difficile Tox A&B HIV 1&2 Ab/P24 Ag 4thGn Medications Administered Home Medications aspirin 81 mg PO DAILY 10/26/18 [History Confirmed 10/26/18] epoetin sue-epbx [Retacrit] 10,000 unit SUBCUT WK 10/26/18 [History Confirmed 10/26/18] furosemide [Lasix] 40 mg PO BID 10/26/18 [History Confirmed 10/26/18] lisinopril 40 mg PO DAILY 10/26/18 [History Confirmed 10/26/18] lovastatin 40 mg PO DAILY 10/26/18 [History Confirmed 10/26/18] metoprolol tartrate 100 mg PO BID 10/26/18 [History Confirmed 10/26/18] omeprazole 40 mg PO QAM 10/26/18 [History Confirmed 10/26/18] Active Medications Acetaminophen (Tylenol) 1,000 mg PO Q6H PRN PRN Reason: Pain or Fever Stop: 11/27/18 05:49 Last Admin: 10/28/18 11:37 Dose: 1,000 mg Documented by: Al Hydrox/Mg Hydrox/Simethicone (Maalox Max) 15 ml PO Q4H PRN PRN Reason: Dyspepsia Stop: 11/25/18 22:53 Famotidine (Pepcid) 20 mg PO DAILY MYRA Stop: 11/25/18 23:14 Last Admin: 10/28/18 08:52 Dose: Not Given Documented by: Heparin Sodium (Porcine) (Heparin Sodium (Porcine)) 5,000 units SQ Q12 MYRA Stop: 11/26/18 08:59 Last Admin: 10/28/18 08:43 Dose: 5,000 units Documented by: Sodium Chloride (Nss 1000ml) 1,000 mls @ 200 mls/hr IV .Q5H MYRA Stop: 10/28/18 18:29 Last Admin: 10/28/18 08:43 Dose: 200 mls/hr Documented by: Sodium Chloride (Nss 1000ml) 1,000 mls @ 125 mls/hr IV .Q8H MYRA Stop: 11/27/18 18:29 Magnesium Hydroxide (Milk Of Magnesia) 30 ml PO Q6H PRN PRN Reason: Constipation Stop: 11/25/18 22:53 Metoprolol Tartrate (Lopressor) 100 mg PO BID [facility] Stop: 11/26/18 08:59 Last Admin: 10/28/18 08:43 Dose: 100 mg Documented by: Miscellaneous (Icu Protocol For Hyperglycemia) 1 ea N/A PRN PRN; Protocol PRN Reason: Hyperglycemia Protocol Stop: 10/28/18 22:53 Miscellaneous (Carbohydrates For Hypoglycemia) 15 gm PO ONCE PRN PRN Reason: Hypoglycemia Treatment Stop: 11/25/18 23:15 Last Admin: 10/27/18 05:33 Dose: 15 gm Documented by: Polyethylene Glycol (Miralax Powder Packet) 17 gm PO DAILY PRN PRN Reason: Constipation Stop: 11/25/18 22:53 Raspberry (Raspberry) 5 ml PO Q6 MYRA Stop: 11/10/18 17:59 Last Admin: 10/28/18 11:38 Dose: 5 ml Documented by: Vancomycin HCl (Vancomycin Hcl) 125 mg PO Q6 MYRA Stop: 11/06/18 17:59 Last Admin: 10/28/18 11:38 Dose: 125 mg Documented by: (1) Acute renal failure Acute renal failure type: unspecified Qualified Code(s): N17.9 - Acute kidney failure, unspecified
[2018-10-28] MEDS: HEPARIN SOD 5,000 UNIT/0.5 ML VIAL SQ SCH ×2 (08:43→20:44)
[2018-10-28] MEDS: FAMOTIDINE 20 MG TAB PO SCH ×2 (08:43→08:52)
[2018-10-28] MEDS: METOPROLOL TARTRATE 100 MG TAB PO SCH ×2 (08:43→20:45)
[2018-10-28] MEDS: ALBUMIN 25% 50 ML IV SCH ×2 (09:48→10:27)
--- NOTE | 2018-10-28 09:56 | Ultrasound Report ---
ULTRASOUND KIDNEYS AND BLADDER CLINICAL HISTORY: Chronic kidney disease. COMPARISON STUDY: Abdominal CT dated 10/26/2018. TECHNIQUE: Real-time, grayscale, and color flow sonography of the kidneys and bladder is performed. I mages are reviewed in the transverse and longitudinal planes. FINDINGS: Kidneys: The kidneys are demonstrate mild cortical atrophy increased cortical echotexture. The right kidney measures 14.3 cm in length and the left kidney measures 12.1 cm in length. There is no hydrone phrosis. No shadowing renal calculi are identified. Right renal cysts measure up to 4.5 cm. There is no sonographic evidence of contour deforming renal mass lesion. Trace perinephric fluid is identified . Bladder: The bladder is decompressed around a Greenberg catheter and could not be evaluated. IMPRESSION: 1. Findings are consistent with medical renal disease. There is no hydronephrosis. 2. Trace nonspecific perinephric fluid is seen bilaterally. 3. The bladder was decompressed around a Greenberg catheter and could not be assessed. Electronically signed by: Ta Dangelo M.D. 10/28/2018 9:54 AM
--- NOTE | 2018-10-28 10:26 | Nephrology Progress Note ---
Date of Service October 28, 2018 Assessment & Plan (1) Acute renal failure: 53 y o M with acute kidney injury in the setting of diarrheal illness for few days, lisinopril, furosemide on board. Creatinine was 10.4 with BUN 114 on admission which started to improve slightly, creatinine down to 109.4 this morning. Renal ultrasound otherwise unremarkable. Urinalysis unremarkable. No history of chronic kidney disease, prior baseline creatinine was 1.0 from lab on April 2016. Diarrhea resolved, has been on IV fluid with slight improvement in renal function however remained anuric. Blood pressure stable. Lisinopril, furosemide has been on hold. Sodium remained low around 122. TSH normal. --continue on IV fluid for now however, if p.o. intake improved and blood pressure remained stable will discontinue IV fluid as there is risk for fluid overload --check urine osmolality --monitor renal function volume status closely --dose medications for GFR less than 10, avoid nephrotoxic medications Will follow (2) Anemia: (3) Diarrhea: Subjective Blayne was seen and examined this morning. Overall feeling better, denies any specific symptoms, shortness of Breath chest pain. Diarrhea seems to have resolved, C diff positive. No overnight events. Has been having some lower back pain which slightly better now. Remained anuric. Renal function slowly started to improve creatinine down to 9.4, potassium normalized. Sodium remained low at 122. Blood pressure stable. Review of Systems Review of Systems: All systems reviewed & are unremarkable except as noted in HPI & below Physical Exam Constitutional: WD/WN, vitals as above + ill appearing Neck: trachea midline, no thyromegaly Respiratory: normal respiratory effort, lungs clear to auscultation Cardiovascular: RRR, no murmur, no edema Neurologic: moves all extremities and awake Psychiatric: A+Ox3, euthymic affect Results & Data Vital Signs (Past 12 Hours) Vital Signs Temp Pulse Resp BP Pulse Ox 10/28/18 10:00 68 14 143/81 H 95 10/28/18 09:00 68 18 155/78 H 96 10/28/18 08:00 36.8 C 64 17 129/76 95 10/28/18 07:00 66 15 128/74 93 10/28/18 06:01 37.0 C 71 23 95 10/28/18 06:00 71 23 145/81 H 95 10/28/18 05:01 74 28 H 94 07/22/19 05:00 73 24 147/75 H 94 10/28/18 04:00 37.0 C 69 23 139/81 94 10/28/18 03:00 67 18 147/89 H 94 10/28/18 02:01 69 18 94 10/28/18 02:00 72 22 144/85 H 95 10/28/18 01:00 67 17 134/69 94 10/28/18 00:01 70 25 H 96 10/28/18 00:00 72 23 147/89 H 96 10/27/18 23:01 68 21 95 10/27/18 23:00 69 25 H 150/84 H 96 (1) Acute renal failure Acute renal failure type: unspecified Qualified Code(s): N17.9 - Acute kidney failure, unspecified
[2018-10-28 10:30] LABS: Appearance Urine Cloudy (Clear); Color Urine Brown
[2018-10-28 10:31] LABS: Protein Urine Positive (Negative); Specific Gravity Urine 1.013 (1.000-1.030)
[2018-10-28 10:35] LABS: RBC Urine >30 /hpf (0-4); WBC Urine >30 /hpf (0-5)
[2018-10-28 10:36] LABS: Bacteria Urine 1+ (Negative)
[2018-10-28] MEDS: ACETAMINOPHEN 500 MG TAB PO PRN (11:37)
--- NOTE | 2018-10-28 12:13 | XRay Report ---
KUB HISTORY: Acute generalized abdominal pain with colitis c diff COMPARISON: CT abdomen and pelvis 10/26/2018 FINDINGS: The bowel gas pattern is non-obstructive. Scattered calcified granulomata about the spleen redemonstrated along with splenomegaly. Vascular calcifications of the pelvis are also noted. Cardiom egaly with small right pleural effusion and unchanged right hemidiaphragmatic elevation. There is no organomegaly. No renal calculi. No ureteral calculi. No pneumoperitoneum or pneumatosis. No fracture . IMPRESSION: 1. Nonobstructive bowel gas pattern without pneumatosis or pneumoperitoneum. 2. Small right pleural effusion. 3. Cardiomegaly. 4. Splenomegaly with evidence of prior granulomatous disease. Electronically signed by: Hugo Stallworth M.D. 10/28/2018 12:11 PM
--- NOTE | 2018-10-28 16:06 | XRay Report ---
XR chest 1V portable HISTORY: increased shortness of breath, eval for effusion COMPARISON: Chest 10/26/2018. FINDINGS: Small bilateral pleural effusions have slightly increased in size. The heart remains mildly enlarged. Progressive interstitial and vascular thickening consistent with mild congestive change. N o pneumothorax. IMPRESSION: Small bilateral pleural effusions and mild congestive change has progressed. Electronically signed by: Jose Resendez M.D. 10/28/2018 4:05 PM
[2018-10-28] MEDS ORDERED: SODIUM CHLORIDE 0.9% 1000ML 1,000 ML IV SCH (18:30)
[2018-10-29] MEDS: VANCOMYCIN HCL 125 MG/2.5ML SOLN PO SCH ×4 (01:05→18:02)
[2018-10-29] MEDS: RASPBERRY SYRUP 5 ML UDP PO SCH ×4 (01:05→18:02)
[2018-10-29 02:59] LABS: Hematocrit (blood only) 23.4 % (42-52); Hemoglobin 8.1 g/dL (14.0-18.0); Mean Corpuscular Hgb Conc 34.6 g/dL (32-36); Mean Corpuscular Volume 78.3 fL (80-100); Mean Platelet Volume 9.1 fL (7.4-10.4); Platelet Count 127 K/uL (130-400); RDW Coefficient of Variation 14.8 % (11.5-14.5); RDW Standard Deviation 42.6 fL (36.4-46.3); Red Blood Count 2.99 M/uL (4.7-6.1); White Blood Count 4.58 K/uL (4.8-10.8)
[2018-10-29 03:10] LABS: INR 1.3 (0.9-1.1)
[2018-10-29 03:22] LABS: Eosinophils # (auto) 0.07 K/uL (0-0.5); Eosinophils % (auto) 1.5 %; Immature Granulocytes # (auto) 0.01 K/uL (0.00-0.02); Immature Granulocytes % (auto) 0.2 %; Lymphocytes # (auto) 0.91 K/uL (1.2-3.4); Lymphocytes % (auto) 19.9 %; Monocytes # (auto) 0.28 K/uL (0.11-0.59); Monocytes % (auto) 6.1 %; Neutrophils # (auto) 3.31 K/uL (1.4-6.5); Neutrophils % (auto) 72.3 %; RBC Morphology Unremarkable
[2018-10-29 03:42] LABS: BUN Creatinine Ratio 11.2 (10-20); Calcium 5.8 mg/dl (8.5-10.1); Creatinine Clr Calc Pharmacy 8.6 ml/min; Est GFR (African American) 6.5; Est GFR (Non-African American) 5.6; Magnesium 1.9 mg/dl (1.8-2.4); Potassium 4.8 mmol/L (3.5-5.1)
[2018-10-29 03:50] LABS: Phosphorus 9.7 mg/dl (2.5-4.9)
[2018-10-29] MEDS: CARBOHYDRATES FOR HYPOGLYCEMIA PO PRN (06:02)
--- NOTE | 2018-10-29 07:30 | Family Medicine Progress Note ---
Date of Service October 29, 2018 Assessment & Plan (1) Acute renal failure: 53yo male prisoner with PMHx of CKD3 (baseline Cr 1), anemia, HLD, HTN, gastritis, nonischemic cardiomyopathy presented with diarrhea and decreased PO intake x 7 days. Found to have NIK, Cr 10.4 with electrolyte derangements K 6.3. Metabolic acidosis (bicarb 12, AG 19) in the setting of likely uremia from NIK and decreased PO intake. Acute renal failure likely pre-renal with metabolic acidosis and electrolyte derangements Hx of CKD 3, Baseline creatinine was 1.0 (04/26), On admission Cr 10.4 improved to 9.9 s/p IVFs, Abdominal CT: No hydronephrosis, bladder thickening noted. Likely 2/2 to diarrhea. -DC'd IV fluids on 10/28 secondary to concern for fluid overload, patient beginning to develop uremic type symptoms. Serum sodium slightly improved to 124. -UA: hematuria, pyuria and bacteriuria -UCx pending -Holding home Lisinopril, Lovastatin, Omeprazole and Furosemide -Nephrology consulted - following recs -Bumex 4 mg IV, monitor urine output, if no improvement will need to start dialysis -Keep n.p.o. in case need for vascular access arises -Dose medications for GFR less than 10, avoid nephrotoxic medications -Monitor BMP Diarrhea - now improving -C Diff toxin and gene positive -Started on vanc po 125mg Q6H x 10 days Hx of non-ischemic cardiomyopathy and HTN -EKG 10/26 normal sinus rhythm, qtc 508 -Previous Echo with EF of 10%-15% -Repeat Echo today: EF 60 to 65%, mild dilated left ventricle, mild concentric LVH, RV mildly dilated with normal function, mild to moderate mitral valve regurg, moderate to severe pulmonary hypertension, right atrial pressure 8 mmHg -CXR small R pleural effusion Anemia Asymptomatic, chronic, Has had previous bone marrow workup, neg for MDS. Also neg for Hep C. -Baseline 7-8 Hgb -Trend CBC Diet: Full Liquid (Renal Dialysis) DVT proph: IV heparin CODE STATUS: Full code Dispo: ICU Supervising Physician Co-Signing Physician Notes I personally examined the patient and verified all reyes points of history and exam, discussed case, and agree with decision making with Dr Kruger. Had some back and abdominal pain earlier, relates this to being in bed. Took a Tylenol and feeling better. Breathing feels better. Vitals noted, in general he is awake alert pleasant no distress. HEENT normocephalic atraumatic mucous membranes moist. Cardio is regular without rubs murmurs or gallops. Lungs are clear no rales rhonchi wheezes good effort Acute renal failurelikely on the basis of severe volume depletion related to his C. difficile diarrhea, probable ATN. Continue supportive care. Likely to need dialysis in the near future. More than likely this will follow her chronic picture for at least the time being, as any meaningful renal recovery is likely to take quite a while if it occurs. Pulmonary edemarelated to his renal failure more than a true cardiomyopathy (for clarification sake this could possibly be HFpEF but truly this relates much more directly to his renal failure)breathing feeling better, lungs more reassuring. Continue to follow as he is quite oliguric but appears to be stable right now. DVT prophylaxisheparin subcu Subjective Patient seen and evaluated this morning laying in bed in no acute distress. Patient denies any significant interval history. Patient still for the most part anuric. Patient is tolerating his diet, all acute questions and concerns were answered. Care being managed by the ICU Physical Exam Physical Exam: General: In NAD HEENT: dry mucous membranes Neuro: A&O x 4 Pulm: CTAB equal breath sounds bilaterally CV: RRR, no m/r/g, cap refill 2 sec Abdomen:+BS, TTP over LLQ, non-distended LE: no LE edema, no calf TTP Results & Data Vital Signs (Past 12 Hours) Vital Signs Temp Pulse Resp BP Pulse Ox 10/29/18 06:00 68 27 H 149/87 H 96 10/29/18 05:00 78 23 152/78 H 94 10/29/18 04:00 36.5 C 68 38 H 133/72 95 10/29/18 03:00 63 18 132/71 94 10/29/18 02:00 72 18 145/88 H 95 10/29/18 01:00 67 26 H 153/83 H 96 10/29/18 00:00 74 22 130/76 96 10/28/18 23:00 62 19 136/69 96 10/28/18 22:01 68 26 H 138/89 97 10/28/18 21:00 70 26 H 162/88 H 97 10/28/18 20:08 66 10/28/18 20:01 68 24 137/86 96 Laboratory Results 10/29/18 10/29/18 10/29/18 Range/Units 06:20 06:01 05:59 WBC (4.8-10.8) K/uL RBC (4.7-6.1) M/uL Hgb (14.0-18.0) g/dL Hct (42-52) % MCV (80-100) fL MCH (25-34) pg MCHC (32-36) g/dL RDW Std Deviation (36.4-46.3) fL RDW Coeff of Erich (11.5-14.5) % Plt Count (130-400) K/uL MPV (7.4-10.4) fL Immature Gran % (Auto) % Neut % (Auto) % Lymph % (Auto) % Woods % (Auto) % Eos % (Auto) % Baso % (Auto) % Immature Gran # (Auto) (0.00-0.02) K/uL Neut # (Auto) (1.4-6.5) K/uL Lymph # (Auto) (1.2-3.4) K/uL Woods # (Auto) (0.11-0.59) K/uL Eos # (Auto) (0-0.5) K/uL Baso # (Auto) (0-0.2) K/uL RBC Morphology PT (9.0-12.0) Seconds INR (0.9-1.1) Sodium (136-145) mmol/L Potassium (3.5-5.1) mmol/L Chloride (98-107) mmol/L Carbon Dioxide (21-32) mmol/L Anion Gap (3-11) BUN (7-18) mg/dl Creatinine (0.6-1.4) mg/dl Est Cr Clr Drug Dosing ml/min Est GFR ( Amer) Est GFR (Non-Af Amer) BUN/Creatinine Ratio (10-20) Glucose (70-99) mg/dl POC Glucose 75 68 L* 67 L* (70-99) Calcium (8.5-10.1) mg/dl Phosphorus (2.5-4.9) mg/dl Magnesium (1.8-2.4) mg/dl Total Creatine Kinase (39-308) U/L Troponin I (0-0.045) ng/ml Urine Color Urine Appearance (Clear) Urine pH (4.5-7.5) Ur Specific [place] (1.000-1.030) Urine Protein (Negative) Urine Glucose (UA) (Negative) Urine Ketones (Negative) Urine Blood (Negative) Urine Nitrite (Negative) Urine Bilirubin (Negative) Urine Urobilinogen (Negative) Ur Leukocyte Esterase (Negative) Urine RBC (0-4) /hpf Urine WBC (0-5) /hpf Ur Epithelial Cells (0-5) /lpf Urine Bacteria (Negative) Hyaline Casts (0-5) /lpf Granular Casts (0) /lpf Urine Osmolality (500-800) mOsm/kg 10/29/18 10/29/18 10/29/18 Range/Units 02:40 02:40 02:40 WBC (4.8-10.8) K/uL RBC (4.7-6.1) M/uL Hgb (14.0-18.0) g/dL Hct (42-52) % MCV (80-100) fL MCH (25-34) pg MCHC (32-36) g/dL RDW Std Deviation (36.4-46.3) fL RDW Coeff of Erich (11.5-14.5) % Plt Count (130-400) K/uL MPV (7.4-10.4) fL Immature Gran % (Auto) % Neut % (Auto) % Lymph % (Auto) % Woods % (Auto) % Eos % (Auto) % Baso % (Auto) % Immature Gran # (Auto) (0.00-0.02) K/uL Neut # (Auto) (1.4-6.5) K/uL Lymph # (Auto) (1.2-3.4) K/uL Woods # (Auto) (0.11-0.59) K/uL Eos # (Auto) (0-0.5) K/uL Baso # (Auto) (0-0.2) K/uL RBC Morphology PT 13.0 H (9.0-12.0) Seconds INR 1.3 H (0.9-1.1) Sodium 124 L (136-145) mmol/L Potassium 4.8 (3.5-5.1) mmol/L Chloride 88 L (98-107) mmol/L Carbon Dioxide 19 L (21-32) mmol/L Anion Gap 17.0 H (3-11) BUN 105 H (7-18) mg/dl Creatinine 9.38 H* (0.6-1.4) mg/dl Est Cr Clr Drug Dosing 8.6 ml/min Est GFR ( Amer) 6.5 Est GFR (Non-Af Amer) 5.6 BUN/Creatinine Ratio 11.2 (10-20) Glucose 66 L (70-99) mg/dl POC Glucose (70-99) Calcium 5.8 L* (8.5-10.1) mg/dl Phosphorus 9.7 H (2.5-4.9) mg/dl Magnesium 1.9 (1.8-2.4) mg/dl Total Creatine Kinase (39-308) U/L Troponin I 0.066 H* (0-0.045) ng/ml Urine Color Urine Appearance (Clear) Urine pH (4.5-7.5) Ur Specific [place] (1.000-1.030) Urine Protein (Negative) Urine Glucose (UA) (Negative) Urine Ketones (Negative) Urine Blood (Negative) Urine Nitrite (Negative) Urine Bilirubin (Negative) Urine Urobilinogen (Negative) Ur Leukocyte Esterase (Negative) Urine RBC (0-4) /hpf Urine WBC (0-5) /hpf Ur Epithelial Cells (0-5) /lpf Urine Bacteria (Negative) Hyaline Casts (0-5) /lpf Granular Casts (0) /lpf Urine Osmolality (500-800) mOsm/kg 10/29/18 10/28/18 10/28/18 Range/Units 02:40 19:13 18:27 WBC 4.58 L (4.8-10.8) K/uL RBC 2.99 L (4.7-6.1) M/uL Hgb 8.1 L (14.0-18.0) g/dL Hct 23.4 L (42-52) % MCV 78.3 L (80-100) fL MCH 27.1 (25-34) pg MCHC 34.6 (32-36) g/dL RDW Std Deviation 42.6 (36.4-46.3) fL RDW Coeff of Erich 14.8 H (11.5-14.5) % Plt Count 127 L (130-400) K/uL MPV 9.1 (7.4-10.4) fL Immature Gran % (Auto) 0.2 % Neut % (Auto) 72.3 % Lymph % (Auto) 19.9 % Woods % (Auto) 6.1 % Eos % (Auto) 1.5 % Baso % (Auto) 0.0 % Immature Gran # (Auto) 0.01 (0.00-0.02) K/uL Neut # (Auto) 3.31 (1.4-6.5) K/uL Lymph # (Auto) 0.91 L (1.2-3.4) K/uL Woods # (Auto) 0.28 (0.11-0.59) K/uL Eos # (Auto) 0.07 (0-0.5) K/uL Baso # (Auto) 0.00 (0-0.2) K/uL RBC Morphology Unremarkable PT (9.0-12.0) Seconds INR (0.9-1.1) Sodium (136-145) mmol/L Potassium (3.5-5.1) mmol/L Chloride (98-107) mmol/L Carbon Dioxide (21-32) mmol/L Anion Gap (3-11) BUN (7-18) mg/dl Creatinine (0.6-1.4) mg/dl Est Cr Clr Drug Dosing ml/min Est GFR ( Amer) Est GFR (Non-Af Amer) BUN/Creatinine Ratio (10-20) Glucose (70-99) mg/dl POC Glucose 132 H (70-99) Calcium (8.5-10.1) mg/dl Phosphorus (2.5-4.9) mg/dl Magnesium (1.8-2.4) mg/dl Total Creatine Kinase (39-308) U/L Troponin I 0.063 H* (0-0.045) ng/ml Urine Color Urine Appearance (Clear) Urine pH (4.5-7.5) Ur Specific [place] (1.000-1.030) Urine Protein (Negative) Urine Glucose (UA) (Negative) Urine Ketones (Negative) Urine Blood (Negative) Urine Nitrite (Negative) Urine Bilirubin (Negative) Urine Urobilinogen (Negative) Ur Leukocyte Esterase (Negative) Urine RBC (0-4) /hpf Urine WBC (0-5) /hpf Ur Epithelial Cells (0-5) /lpf Urine Bacteria (Negative) Hyaline Casts (0-5) /lpf Granular Casts (0) /lpf Urine Osmolality (500-800) mOsm/kg 10/28/18 10/28/18 10/28/18 Range/Units 12:13 11:29 10:00 WBC (4.8-10.8) K/uL RBC (4.7-6.1) M/uL Hgb (14.0-18.0) g/dL Hct (42-52) % MCV (80-100) fL MCH (25-34) pg MCHC (32-36) g/dL RDW Std Deviation (36.4-46.3) fL RDW Coeff of Erich (11.5-14.5) % Plt Count (130-400) K/uL MPV (7.4-10.4) fL Immature Gran % (Auto) % Neut % (Auto) % Lymph % (Auto) % Woods % (Auto) % Eos % (Auto) % Baso % (Auto) % Immature Gran # (Auto) (0.00-0.02) K/uL Neut # (Auto) (1.4-6.5) K/uL Lymph # (Auto) (1.2-3.4) K/uL Woods # (Auto) (0.11-0.59) K/uL Eos # (Auto) (0-0.5) K/uL Baso # (Auto) (0-0.2) K/uL RBC Morphology PT (9.0-12.0) Seconds INR (0.9-1.1) Sodium (136-145) mmol/L Potassium (3.5-5.1) mmol/L Chloride (98-107) mmol/L Carbon Dioxide (21-32) mmol/L Anion Gap (3-11) BUN (7-18) mg/dl Creatinine (0.6-1.4) mg/dl Est Cr Clr Drug Dosing ml/min Est GFR ( Amer) Est GFR (Non-Af Amer) BUN/Creatinine Ratio (10-20) Glucose (70-99) mg/dl POC Glucose 120 H (70-99) Calcium (8.5-10.1) mg/dl Phosphorus (2.5-4.9) mg/dl Magnesium (1.8-2.4) mg/dl Total Creatine Kinase (39-308) U/L Troponin I < 0.015 (0-0.045) ng/ml Urine Color Urine Appearance (Clear) Urine pH (4.5-7.5) Ur Specific [place] (1.000-1.030) Urine Protein (Negative) Urine Glucose (UA) (Negative) Urine Ketones (Negative) Urine Blood (Negative) Urine Nitrite (Negative) Urine Bilirubin (Negative) Urine Urobilinogen (Negative) Ur Leukocyte Esterase (Negative) Urine RBC (0-4) /hpf Urine WBC (0-5) /hpf Ur Epithelial Cells (0-5) /lpf Urine Bacteria (Negative) Hyaline Casts (0-5) /lpf Granular Casts (0) /lpf Urine Osmolality 246 L (500-800) mOsm/kg 10/28/18 10/28/18 Range/Units 10:00 04:52 WBC (4.8-10.8) K/uL RBC (4.7-6.1) M/uL Hgb (14.0-18.0) g/dL Hct (42-52) % MCV (80-100) fL MCH (25-34) pg MCHC (32-36) g/dL RDW Std Deviation (36.4-46.3) fL RDW Coeff of Erich (11.5-14.5) % Plt Count (130-400) K/uL MPV (7.4-10.4) fL Immature Gran % (Auto) % Neut % (Auto) % Lymph % (Auto) % Woods % (Auto) % Eos % (Auto) % Baso % (Auto) % Immature Gran # (Auto) (0.00-0.02) K/uL Neut # (Auto) (1.4-6.5) K/uL Lymph # (Auto) (1.2-3.4) K/uL Woods # (Auto) (0.11-0.59) K/uL Eos # (Auto) (0-0.5) K/uL Baso # (Auto) (0-0.2) K/uL RBC Morphology PT (9.0-12.0) Seconds INR (0.9-1.1) Sodium (136-145) mmol/L Potassium (3.5-5.1) mmol/L Chloride (98-107) mmol/L Carbon Dioxide (21-32) mmol/L Anion Gap (3-11) BUN (7-18) mg/dl Creatinine (0.6-1.4) mg/dl Est Cr Clr Drug Dosing ml/min Est GFR ( Amer) Est GFR (Non-Af Amer) BUN/Creatinine Ratio (10-20) Glucose (70-99) mg/dl POC Glucose (70-99) Calcium (8.5-10.1) mg/dl Phosphorus (2.5-4.9) mg/dl Magnesium (1.8-2.4) mg/dl Total Creatine Kinase 314 H (39-308) U/L Troponin I (0-0.045) ng/ml Urine Color Brown Urine Appearance Cloudy A (Clear) Urine pH (4.5-7.5) Ur Specific [place] 1.013 (1.000-1.030) Urine Protein Positive H (Negative) Urine Glucose (UA) (Negative) Urine Ketones (Negative) Urine Blood (Negative) Urine Nitrite (Negative) Urine Bilirubin (Negative) Urine Urobilinogen (Negative) Ur Leukocyte Esterase (Negative) Urine RBC >30 H (0-4) /hpf Urine WBC >30 H (0-5) /hpf Ur Epithelial Cells 10-20 H (0-5) /lpf Urine Bacteria 1+ H (Negative) Hyaline Casts 5-10 H (0-5) /lpf Granular Casts 1-5 H (0) /lpf Urine Osmolality (500-800) mOsm/kg Medications Administered Current Inpatient Medications Acetaminophen (Tylenol) 1,000 mg PO Q6H PRN PRN Reason: Pain or Fever Stop: 11/27/18 05:49 Last Admin: 10/28/18 11:37 Dose: 1,000 mg Documented by: Al Hydrox/Mg Hydrox/Simethicone (Maalox Max) 15 ml PO Q4H PRN PRN Reason: Dyspepsia Stop: 11/25/18 22:53 Famotidine (Pepcid) 20 mg PO DAILY MYRA Stop: 11/25/18 23:14 Last Admin: 10/28/18 08:52 Dose: Not Given Documented by: Heparin Sodium (Porcine) (Heparin Sodium (Porcine)) 5,000 units SQ Q12 MYRA Stop: 11/26/18 08:59 Last Admin: 10/28/18 20:44 Dose: 5,000 units Documented by: Magnesium Hydroxide (Milk Of Magnesia) 30 ml PO Q6H PRN PRN Reason: Constipation Stop: 11/25/18 22:53 Metoprolol Tartrate (Lopressor) 100 mg PO BID MYRA Stop: 11/26/18 08:59 Last Admin: 10/28/18 20:45 Dose: 100 mg Documented by: Miscellaneous (Carbohydrates For Hypoglycemia) 15 gm PO ONCE PRN PRN Reason: Hypoglycemia Treatment Stop: 11/25/18 23:15 Last Admin: 10/29/18 06:02 Dose: 15 gm Documented by: Polyethylene Glycol (Miralax Powder Packet) 17 gm PO DAILY PRN PRN Reason: Constipation Stop: 11/25/18 22:53 Raspberry (Raspberry) 5 ml PO Q6 MYRA Stop: 11/10/18 17:59 Last Admin: 10/29/18 06:02 Dose: 5 ml Documented by: Vancomycin HCl (Vancomycin Hcl) 125 mg PO Q6 MYRA Stop: 11/06/18 17:59 Last Admin: 10/29/18 06:02 Dose: 125 mg Documented by: PG Care Time/CCT Total # of Minutes Spent Total Time Spent with Patient: Total time spent is greater than 50% in coordination of care (as documented) at patient's floor/unit and/or counseling patient: Resident Activity Tracking Resident Involvement: Resident Care Provided Care Provided: Adult Hospital Medicine (1) Acute renal failure Acute renal failure type: unspecified Qualified Code(s): N17.9 - Acute kidney failure, unspecified
[2018-10-29] MEDS: METOPROLOL TARTRATE 100 MG TAB PO SCH ×2 (08:05→20:55)
[2018-10-29] MEDS: FAMOTIDINE 20 MG TAB PO SCH (08:05)
[2018-10-29] MEDS ORDERED: BUMETANIDE 4 MG in SYRINGE 0 ML IV ONE (10:00)
--- NOTE | 2018-10-29 10:24 | Nephrology Progress Note ---
Date of Service October 29, 2018 Assessment & Plan (1) Acute renal failure: 53 y o M with acute kidney injury in the setting of diarrheal illness for few days, lisinopril, furosemide on board. Creatinine was 10.4 with BUN 114 on admission which started to improve slightly, creatinine down to 109.4 this morning. Renal ultrasound otherwise unremarkable. Urinalysis unremarkable. No history of chronic kidney disease, prior baseline creatinine was 1.0 from lab on April 2016. Diarrhea resolved, has been on IV fluid with slight improvement in renal function however remained anuric. Blood pressure stable. Lisinopril, furosemide has been on hold. TSH normal. So far no sign of renal recovery and ect patient has been having some uremic symptoms. Serum sodium slightly improved to 124. BUN creatinine staying elevated with acceptable electrolyte. Has been off of IV fluid yesterday as his getting volume overloaded. --will give Bumex 4 mg IV x1 dose, monitor urine output for next few hours. If no improvement in urine output with Bumex, will need to start on dialysis with a temporary dialysis access. Discussed the associated risk factors of with temporary dialysis access and dialysis treatment, patient verbalized understanding and is agreeable to have temporary dialysis access and dialysis if needed. --will keep NPO for now in case he needs to have vascular access, will consult vascular surgery if needed. --monitor renal function volume status closely --dose medications for GFR less than 10, avoid nephrotoxic medications Will follow (2) Anemia: -- Mild asymptomatic anemia. Monitor (3) Diarrhea: -- No BM since admission due to Imodium therapy. Obtain stool for C. Difficile toxin assay once patient moves his bowels Subjective Blayne was seen examined in his room this morning. Overall feeling poorly, has persistent nausea and abdominal discomfort for, appetite has been poor and he has not been having much p.o. intake. Remained anuric, BUN creatinine relatively stable with acceptable electrolyte. Blood pressure stable. Review of Systems Review of Systems: All systems reviewed & are unremarkable except as noted in HPI & below Physical Exam Constitutional: WD/WN, vitals as above + ill appearing Neck: trachea midline, no thyromegaly Respiratory: normal respiratory effort, lungs clear to auscultation Cardiovascular: RRR, no murmur, no edema Neurologic: moves all extremities and awake Psychiatric: A+Ox3, euthymic affect Results & Data Vital Signs (Past 12 Hours) Vital Signs Temp Pulse Pulse Resp BP BP Pulse Ox 10/29/18 08:00 36.4 C L 68 67 16 119/68 95 10/29/18 06:00 68 27 H 149/87 H 96 10/29/18 05:00 78 23 152/78 H 94 10/29/18 04:00 36.5 C 68 38 H 133/72 95 10/29/18 03:00 63 18 132/71 94 10/29/18 02:00 72 18 145/88 H 95 10/29/18 01:00 67 26 H 153/83 H 96 10/29/18 00:00 74 22 130/76 96 10/28/18 23:00 62 19 136/69 96 (1) Acute renal failure Acute renal failure type: unspecified Qualified Code(s): N17.9 - Acute kidney failure, unspecified
[2018-10-29] MEDS: HEPARIN SOD 5,000 UNIT/0.5 ML VIAL SQ SCH ×2 (10:25→20:55)
--- NOTE | 2018-10-29 12:23 | Critical Care Progress Note ---
Date of Service October 29, 2018 Assessment & Plan (1) S/P admission to intensive care unit: Neurology: From neuro point the patient remains stable. The patient is alert awake and oriented and is not in any distress. He is also moving all his extremities. Respiratory: Overall the patient remains stable. He is oxygenating mid to high 90s on room air. Not in any acute respiratory distress. Cardiac: Patient is hemodynamically stable. His initial echo revealed EF of 10 to 15% but the repeat echo which was done here did reveal significant improvement in his ejection fraction around 50 to 55%. Cardiology follows the patient. We will follow the recommendations. Renal: The patient with chronic renal failure. He received bumetanide as per nephrology but there was no results. They are planning to do the dialysis on this patient. We will follow the recommendations. GI: The patient has C. difficile diarrhea. He was started on p.o. vancomycin 125 mg every 6 hours and his diarrhea has improved. We are going to follow him very closely. Infectious disease: The patient has C. difficile colitis. He was started on p.o. vancomycin and he seems to be doing better at this time. Hematology: The patient has chronic anemia/pancytopenia. HIV test was ordered which is in progress. The patient also had previous bone marrow work-up done negative for MDS. Patient is also negative for hep C. Overall the patient is stable, his full code, he is on DVT prophylaxis on heparin. I have spent greater than 35 minutes of critical care time. (2) C. difficile diarrhea: (3) Anemia: (4) Diarrhea: (5) Acute renal failure: (6) Hyponatremia: (7) Hyperkalemia: Subjective History of Present Illness Pt is a 53 yo prisoner with a PMHx significant for CKD III, CHF with EF of 10-15 % and anemia requiring Procrit administration who presents after a week of diarrhea, URI symptoms and generalized malaise. In the ED he was found to have a Cr of 10, and elevated electrolytes requiring emergent dialysis. He also had a metabolic acidosis requiring sodium bicarb administration. He currently denies chest pain, SOB, palps, GARZA. States he has some new onset blurry vision with abdominal pain, diarrhea and cough. The patient's diarrhea has improved significantly after he was started on vancomycin 125 mg every 6 hours. He is still not able to put out any urine. He was also evaluated by nephrology this morning and was given bumetanide 4 mg IV with no urine output. As per the nephrology the plan is to go for dialysis if he is not putting out any urine. The patient is sitting in his bed and denies having any headache dizziness or syncopal episode. Also denies having any chest pain or palpitations. Overall seems to be comfortable. Review of Systems Review of Systems: The patient denies having any headache dizziness or syncopal episode. Also denies having any swollen glands. No chest pain no palpitations. No shortness of breath. No wheezing no orthopnea no paroxysmal nocturnal dyspnea. No abdominal pain no nausea no vomiting. His diarrhea has improved since he was started on vancomycin p.o. No blood in the stool urine or painful micturition. No swollen extremities. Physical Exam Physical Exam: Middle-aged male resting comfortably in the bed and not in any acute distress. HEENT: Pupils are reactive to light. Oral mucosa is dry. Neck: Supple, no JVD, no lymphadenopathy. Respiratory: The patient overall is comfortable and is oxygenating in mid to high 90s on room air. He is not in any respiratory distress. Cardiac: S1-S2 heard, regular rate and rhythm. No murmur no rubs no gallops. Abdomen: Soft, nontender, bowel sounds are positive and no mass felt. Extremities: No edema, no clubbing, nontender calf muscles. Skin: No rash, no lesions seen. Neurology: The patient is alert and awake and follows simple commands and is moving all his extremities. His pupils also reactive to light and accommodation. At this time there is no neurological deficit. Results & Data Vital Signs (Past 12 Hours) Vital Signs Temp Pulse Pulse Resp BP BP Pulse Ox 10/29/18 08:00 36.4 C L 68 67 16 119/68 95 10/29/18 06:00 68 27 H 149/87 H 96 10/29/18 05:00 78 23 152/78 H 94 10/29/18 04:00 36.5 C 68 38 H 133/72 95 10/29/18 03:00 63 18 132/71 94 10/29/18 02:00 72 18 145/88 H 95 10/29/18 01:00 67 26 H 153/83 H 96 Laboratory Results 10/29/18 02:40 10/29/18 02:40 Diagnostic Findings XR chest 1V portable HISTORY: increased shortness of breath, eval for effusion COMPARISON: Chest 10/26/2018. FINDINGS: Small bilateral pleural effusions have slightly increased in size. The heart remains mildly enlarged. Progressive interstitial and vascular thickening consistent with mild congestive change. No pneumothorax. IMPRESSION: Small bilateral pleural effusions and mild congestive change has progressed. Electronically signed by: Jose Resendez M.D. 10/28/2018 4:05 PM Medications Administered Current Inpatient Medications Acetaminophen (Tylenol) 1,000 mg PO Q6H PRN PRN Reason: Pain or Fever Stop: 11/27/18 05:49 Last Admin: 10/28/18 11:37 Dose: 1,000 mg Documented by: Al Hydrox/Mg Hydrox/Simethicone (Maalox Max) 15 ml PO Q4H PRN PRN Reason: Dyspepsia Stop: 11/25/18 22:53 Famotidine (Pepcid) 20 mg PO DAILY [facility] Stop: 11/25/18 23:14 Last Admin: 10/29/18 08:05 Dose: 20 mg Documented by: Heparin Sodium (Porcine) (Heparin Sodium (Porcine)) 5,000 units SQ Q12 MYRA Stop: 11/26/18 08:59 Last Admin: 10/29/18 10:25 Dose: 5,000 units Documented by: Magnesium Hydroxide (Milk Of Magnesia) 30 ml PO Q6H PRN PRN Reason: Constipation Stop: 11/25/18 22:53 Metoprolol Tartrate (Lopressor) 100 mg PO BID MYRA Stop: 11/26/18 08:59 Last Admin: 10/29/18 08:05 Dose: 100 mg Documented by: Miscellaneous (Carbohydrates For Hypoglycemia) 15 gm PO ONCE PRN PRN Reason: Hypoglycemia Treatment Stop: 11/25/18 23:15 Last Admin: 10/29/18 06:02 Dose: 15 gm Documented by: Polyethylene Glycol (Miralax Powder Packet) 17 gm PO DAILY PRN PRN Reason: Constipation Stop: 11/25/18 22:53 Raspberry (Raspberry) 5 ml PO Q6 MYRA Stop: 11/10/18 17:59 Last Admin: 10/29/18 06:02 Dose: 5 ml Documented by: Vancomycin HCl (Vancomycin Hcl) 125 mg PO Q6 MYRA Stop: 11/06/18 17:59 Last Admin: 10/29/18 06:02 Dose: 125 mg Documented by: PG Care Time/CCT Critical Care Time: Yes Total Critical Care Time: 35 (1) Acute renal failure Acute renal failure type: unspecified Qualified Code(s): N17.9 - Acute kidney failure, unspecified
[2018-10-29] MEDS: ACETAMINOPHEN 500 MG TAB PO PRN (15:42)
[2018-10-30] MEDS: VANCOMYCIN HCL 125 MG/2.5ML SOLN PO SCH ×5 (00:12→23:37)
[2018-10-30] MEDS: RASPBERRY SYRUP 5 ML UDP PO SCH ×5 (00:12→23:37)
--- NOTE | 2018-10-30 07:02 | Family Medicine Progress Note ---
Date of Service October 30, 2018 Assessment & Plan (1) Acute renal failure: 53yo male prisoner with PMHx of CKD3 (baseline Cr 1), anemia, HLD, HTN, gastritis, nonischemic cardiomyopathy presented with diarrhea and decreased PO intake x 7 days. Found to have NIK, Cr 10.4 with electrolyte derangements K 6.3. Metabolic acidosis (bicarb 12, AG 19) in the setting of likely uremia from NIK and decreased PO intake. HIV negative Acute renal failure likely pre-renal with metabolic acidosis and electrolyte derangements Hx of CKD 3, Baseline creatinine was 1.0 (04/26), On admission Cr 10.4 improved to 9.9 s/p IVFs, Abdominal CT: No hydronephrosis, bladder thickening noted. Likely 2/2 to diarrhea. -DC'd IV fluids on 10/28 secondary to concern for fluid overload, patient beginning to develop uremic type symptoms. -UA: hematuria, pyuria and bacteriuria -UCx no growth -Holding home Lisinopril, Lovastatin, Omeprazole and Furosemide -Nephrology consulted - following recs -For surgery today for vascular access -See with hemodialysis afternoon for 2 hours, will continue hemodialysis for at least a few days and monitor renal function -Tums with meals, renal vitamin -Trend daily BMP Diarrhea - now improving -Stool toxin and culture is negative -C Diff toxin and gene positive -Started on vanc po 125mg Q6H x 10 days Hx of non-ischemic cardiomyopathy and HTN -EKG 10/26 normal sinus rhythm, qtc 508 -Previous Echo with EF of 10%-15% -Repeat Echo today: EF 60 to 65%, mild dilated left ventricle, mild concentric LVH, RV mildly dilated with normal function, mild to moderate mitral valve regurg, moderate to severe pulmonary hypertension, right atrial pressure 8 mmHg -CXR small R pleural effusion Anemia Asymptomatic, chronic, Has had previous bone marrow workup, neg for MDS. Also ne g for Hep C. -Baseline 7-8 Hgb -Trend CBC Diet: Full Liquid (Renal Dialysis) DVT proph: IV heparin CODE STATUS: Full code Dispo: ICU Supervising Physician Co-Signing Physician Notes I personally examined the patient and verified all reyes points of history and exam, discussed case, and agree with decision making with Dr Kruger. sleeping comfortably after attempt at OR. no new complaints otherwise Vitals noted, in general he is awake alert pleasant no distress. HEENT normocephalic atraumatic. breathing unlabored no pallor or icterus. no focal neuro deficits. Acute renal failurelikely on the basis of severe volume depletion related to his C. difficile diarrhea, probable ATN. Continue supportive care. getting set up for dialysis. More than likely this will follow her chronic picture for at least the time being, as any meaningful renal recovery is likely to take quite a while if it occurs. Pulmonary edemarelated to his renal failure more than a true cardiomyopathy (for clarification sake this could possibly be HFpEF but truly this relates much more directly to his renal failure)orthopnea that precluded vascular access probably relates to this. fortunately vitals stable. DVT prophylaxisheparin subcu stable for telemetry Subjective Patient laying on his side this morning in no acute distress. Patient reports interval history positive for increasing uremic symptoms, feeling nauseous and easy, malaise. Is not surprising giving his a.m. creatinine imaging increased to 10. Patient has been n.p.o. overnight for scheduled surgery this afternoon with Dr. White for vascular access. He will be proceeding with dialysis per nephro. Patient still endorsing occasional diarrhea however significantly proved, he is for the most part anuric, n.p.o., slept okay overnight. All questions answered, no acute concerns. Physical Exam Physical Exam: General: In NAD, feels crummy HEENT: dry mucous membranes Neuro: A&O x 4 Pulm: CTAB equal breath sounds bilaterally CV: RRR, no m/r/g, cap refill 2 sec Abdomen:+BS, TTP over LLQ, non-distended, anuric LE: no LE edema, no calf TTP Results & Data Vital Signs (Past 12 Hours) Vital Signs Temp Pulse Resp BP Pulse Ox 10/30/18 05:00 67 21 158/92 H 96 10/30/18 04:00 36.7 C 67 23 166/88 H 95 10/30/18 03:00 65 20 156/80 H 95 10/30/18 02:00 58 L 20 167/80 H 93 10/30/18 01:01 64 21 150/74 H 94 10/30/18 00:00 36.6 C 61 16 159/66 H 94 10/29/18 23:00 63 23 144/77 H 94 10/29/18 22:01 67 19 153/76 H 94 10/29/18 21:00 69 24 165/84 H 95 10/29/18 20:00 36.6 C 71 21 154/77 H 93 Laboratory Results 10/30/18 10/30/18 10/29/18 Range/Units 07:12 07:12 15:37 WBC 4.66 L (4.8-10.8) K/uL RBC 3.21 L (4.7-6.1) M/uL Hgb 8.5 L (14.0-18.0) g/dL Hct 25.2 L (42-52) % MCV 78.5 L (80-100) fL MCH 26.5 (25-34) pg MCHC 33.7 (32-36) g/dL RDW Std Deviation 43.4 (36.4-46.3) fL RDW Coeff of Erich 15.0 H (11.5-14.5) % Plt Count 154 (130-400) K/uL MPV 8.6 (7.4-10.4) fL Sodium 127 L (136-145) mmol/L Potassium 4.8 (3.5-5.1) mmol/L Chloride 90 L (98-107) mmol/L Carbon Dioxide 17 L (21-32) mmol/L Anion Gap 19.0 H (3-11) BUN 105 H (7-18) mg/dl Creatinine 10.40 H* D (0.6-1.4) mg/dl Est Cr Clr Drug Dosing 7.8 ml/min Est GFR ( Amer) 5.8 Est GFR (Non-Af Amer) 5.0 BUN/Creatinine Ratio 10.1 (10-20) Glucose 64 L (70-99) mg/dl POC Glucose 81 (70-99) Calcium 6.6 L (8.5-10.1) mg/dl Medications Administered Current Inpatient Medications Acetaminophen (Tylenol) 1,000 mg PO Q6H PRN PRN Reason: Pain or Fever Stop: 11/27/18 05:49 Last Admin: 10/29/18 15:42 Dose: 1,000 mg Documented by: Al Hydrox/Mg Hydrox/Simethicone (Maalox Max) 15 ml PO Q4H PRN PRN Reason: Dyspepsia Stop: 08/19/19 22:53 Famotidine (Pepcid) 20 mg PO DAILY [facility] Stop: 11/25/18 23:14 Last Admin: 10/29/18 08:05 Dose: 20 mg Documented by: Heparin Sodium (Porcine) (Heparin Sodium (Porcine)) 5,000 units SQ Q12 [facility] Stop: 11/26/18 08:59 Last Admin: 10/29/18 20:55 Dose: 5,000 units Documented by: Clindamycin Phosphate (Cleocin) 600 mg in 54 mls @ 100 mls/hr IV ONE ONE Stop: 10/30/18 13:32 Magnesium Hydroxide (Milk Of Magnesia) 30 ml PO Q6H PRN PRN Reason: Constipation Stop: 11/25/18 22:53 Metoprolol Tartrate (Lopressor) 100 mg PO BID [facility] Stop: 11/26/18 08:59 Last Admin: 10/29/18 20:55 Dose: 100 mg Documented by: Miscellaneous (Carbohydrates For Hypoglycemia) 15 gm PO ONCE PRN PRN Reason: Hypoglycemia Treatment Stop: 11/25/18 23:15 Last Admin: 10/29/18 06:02 Dose: 15 gm Documented by: Polyethylene Glycol (Miralax Powder Packet) 17 gm PO DAILY PRN PRN Reason: Constipation Stop: 11/25/18 22:53 Raspberry (Raspberry) 5 ml PO Q6 [facility] Stop: 11/10/18 17:59 Last Admin: 10/30/18 06:14 Dose: 5 ml Documented by: Vancomycin HCl (Vancomycin Hcl) 125 mg PO Q6 [facility] Stop: 11/06/18 17:59 Last Admin: 10/30/18 06:14 Dose: 125 mg Documented by: PG Care Time/CCT Total # of Minutes Spent Total Time Spent with Patient: Total time spent is greater than 50% in coordination of care (as documented) at patient's floor/unit and/or counseling patient: Resident Activity Tracking Resident Involvement: Resident Care Provided Care Provided: Adult Hospital Medicine (1) Acute renal failure Acute renal failure type: unspecified Qualified Code(s): N17.9 - Acute kidney failure, unspecified
[2018-10-30 07:24] LABS: Hematocrit (blood only) 25.2 % (42-52); Hemoglobin 8.5 g/dL (14.0-18.0); Mean Corpuscular Hgb Conc 33.7 g/dL (32-36); Mean Corpuscular Volume 78.5 fL (80-100); Mean Platelet Volume 8.6 fL (7.4-10.4); Platelet Count 154 K/uL (130-400); RDW Standard Deviation 43.4 fL (36.4-46.3); Red Blood Count 3.21 M/uL (4.7-6.1); White Blood Count 4.66 K/uL (4.8-10.8)
[2018-10-30 08:22] LABS: BUN Creatinine Ratio 10.1 (10-20); Calcium 6.6 mg/dl (8.5-10.1); Creatinine Clr Calc Pharmacy 7.8 ml/min; Est GFR (African American) 5.8; Potassium 4.8 mmol/L (3.5-5.1)
[2018-10-30] MEDS: METOPROLOL TARTRATE 100 MG TAB PO SCH ×2 (08:25→19:46)
[2018-10-30] MEDS: HEPARIN SOD 5,000 UNIT/0.5 ML VIAL SQ SCH ×2 (08:25→19:46)
[2018-10-30] MEDS: FAMOTIDINE 20 MG TAB PO SCH (08:25)
[2018-10-30] MEDS: CARBOHYDRATES FOR HYPOGLYCEMIA PO PRN (08:41)
--- NOTE | 2018-10-30 10:22 | Nephrology Progress Note ---
Date of Service October 30, 2018 Assessment & Plan (1) Acute renal failure: 53 y o M with acute kidney injury in the setting of diarrheal illness for few days, lisinopril, furosemide on board. Creatinine was 10.4 with BUN 114 on admission which started to improve slightly, creatinine down to 109.4 this morning. Renal ultrasound otherwise unremarkable. Urinalysis unremarkable. No history of chronic kidney disease, prior baseline creatinine was 1.0 from lab on April 2016. Diarrhea resolved, has been on IV fluid with slight improvement in renal function however remained anuric. Blood pressure stable. Lisinopril, furosemide has been on hold. TSH normal. So far no sign of renal recovery and patient has been having some uremic symptoms. BUN creatinine staying elevated with acceptable electrolyte. Remained anuric, no response to Bumex. --TDC this afternoon and then first HD for 2 h, May need to continue HD at least foe few days while monitor for renal recovery. --start on Tums with meals --renal vitamin --dose medications for GFR less than 10, avoid nephrotoxic medications Will follow (2) Anemia: -- Mild asymptomatic anemia. Monitor (3) Diarrhea: -- No BM since admission due to Imodium therapy. Obtain stool for C. Difficile toxin assay once patient moves his bowels Subjective Blayne was seen and examined this morning. Overall feeling poorly , denies shortness of Breath chest pain but reports pain all over his body. Diarrhea resolved, C diff positive. No overnight events. Remain anuric with no sign of recovery of Renal function. Blood pressure high. Physical Exam Constitutional: WD/WN, vitals as above + ill appearing Neck: trachea midline, no thyromegaly Respiratory: normal respiratory effort, lungs clear to auscultation Cardiovascular: RRR, no murmur, no edema Neurologic: moves all extremities and awake Psychiatric: A+Ox3, euthymic affect Results & Data Vital Signs (Past 12 Hours) Vital Signs Temp Pulse Resp BP Pulse Ox 10/30/18 05:00 67 21 158/92 H 96 10/30/18 04:00 36.7 C 67 23 166/88 H 95 10/30/18 03:00 65 20 156/80 H 95 10/30/18 02:00 58 L 20 167/80 H 93 10/30/18 01:01 64 21 150/74 H 94 10/30/18 00:00 36.6 C 61 16 159/66 H 94 10/29/18 23:00 63 23 144/77 H 94 (1) Acute renal failure Acute renal failure type: unspecified Qualified Code(s): N17.9 - Acute kidney failure, unspecified
[2018-10-30] MEDS: CALCIUM CARBONATE 500 MG CHEWABLE TAB PO SCH ×3 (10:51→17:32)
[2018-10-30 12:26] LABS: Hepatitis B Surface Antibody Non-Immune
[2018-10-30] MEDS ORDERED: CLINDAMYCIN 600 MG/54 ML BAG IV ONE (13:00)
[2018-10-30 13:13] LABS: Hepatitis B Surface Antigen Neg (Neg)
--- NOTE | 2018-10-30 13:51 | Consultation ---
Date of Consultation October 30, 2018 Assessment & Plan (1) Acute renal failure: PermCath insertion was recommended for dialysis. I have discussed the risks options and benefits of the procedure with the patient. The patient understands the risks options and benefits and agrees to the procedure. This will be done later today. Acute renal failure type: unspecified Qualified Code(s): N17.9 - Acute kidney failure, unspecified History of Present Illness Reason for Consultation: Acute renal failure Attending Physician: Derrick Pina DO History of Present Illness This is a 53-year-old prisoner who was admitted with C. difficile. He subsequently developed acute kidney injury. He now requires dialysis. Consultation was requested for insertion of a PermCath for dialysis purposes. Allergies Allergy/AdvReac Type Severity Reaction Status Date / Time Penicillins Allergy Unknown unknown Verified 10/26/18 18:02 Home Medications Home Medications Medication Instructions Recorded Confirmed Type aspirin 81 mg PO DAILY 10/26/18 10/26/18 History epoetin sue-epbx [Retacrit] 10,000 unit SUBCUT WK 10/26/18 10/26/18 History furosemide [Lasix] 40 mg PO BID 10/26/18 10/26/18 History lisinopril 40 mg PO DAILY 10/26/18 10/26/18 History lovastatin 40 mg PO DAILY 10/26/18 10/26/18 History metoprolol tartrate 100 mg PO BID 10/26/18 10/26/18 History omeprazole 40 mg PO QAM 10/26/18 10/26/18 History Patient History Medical History Anemia CHF (congestive heart failure) HTN (hypertension) Family History Other No significant family history Social History Preferred Language: [place] Communication Ability: Effective Beliefs That Will Affect Care: None Current Living Situation: Other Current Living Situation Comment: [facility] current occupational status: other current occupation: prisoner Feels Safe at Home: Yes Safety Concerns: Feels Safe At This Time Smoking Status: Never smoker Hx Alcohol Use: No Hx Substance Use: No Review of Systems Review of Systems: All systems reviewed & are unremarkable except as noted in HPI & below Physical Exam Constitutional: WD/WN, vitals as above well developed and well nourished; no acute distress Respiratory: normal respiratory effort; no respiratory distress Auscultation: lungs clear to auscultation bilaterally Cardiovascular: Rate/Rhythm: regular rate and regular rhythm Gastrointestinal (Abdomen): Inspection/Auscultation: abdomen normal to inspection; abdomen not distended Neurologic: normal touch/pain/proprioception Psychiatric: Orientation: alert and oriented x 3 Results & Data Vital Signs (Past 12 Hours) Vital Signs Temp Pulse Pulse Resp BP BP Pulse Ox 10/30/18 12:01 36.6 C 65 62 20 172/90 H 10/30/18 10:01 65 10/30/18 10:00 59 L 164/86 H 10/30/18 09:10 59 L 14 162/83 H 10/30/18 09:01 66 162/83 H 92 10/30/18 09:00 64 10/30/18 08:01 68 10/30/18 08:00 36.7 C 70 74 22 170/88 H 151/82 H 10/30/18 07:01 73 21 96 10/30/18 07:00 64 15 151/81 H 10/30/18 05:00 67 21 158/92 H 96 10/30/18 04:00 36.7 C 67 23 166/88 H 10/30/18 03:00 65 20 156/80 H 10/30/18 02:00 58 L 20 167/80 H 93
[2018-10-30] MEDS ORDERED: HEPARIN SOD (PORCINE) 5,000 UNITS/ML VIAL ONE (14:37)
[2018-10-30] MEDS ORDERED: LIDOCAINE HCL 1% 20 ML VIAL ONE (14:37)
[2018-10-30] MEDS ORDERED: MIDAZOLAM HCL 1 MG/ML 2ML VIAL ONE (14:53)
[2018-10-30] MEDS ORDERED: fentaNYL citrate 100 MCG/2 ML VIAL ONE (14:53)
--- NOTE | 2018-10-30 16:06 | Communication Note ---
Date of Service: October 30, 2018 Patient could not lay on his back. Cancelled procedure. Talked to the ICU about putting in a temp catheter at this time and then changing it to a permcath next week.
[2018-10-30] MEDS: HYDROmorphone INJ 0.5 MG/0.5 ML SYR IV PRN (22:16)
[2018-10-31] MEDS: RASPBERRY SYRUP 5 ML UDP PO SCH ×3 (05:51→17:42)
[2018-10-31] MEDS: VANCOMYCIN HCL 125 MG/2.5ML SOLN PO SCH ×3 (05:51→17:42)
[2018-10-31] MEDS ORDERED: EPOETIN ALFA 20,000 UNITS/ML VIAL IV ONE (07:00)
[2018-10-31] MEDS ORDERED: SODIUM CHLORIDE 0.9% 1000ML 1,000 ML IV PRN ×2 (07:00)
--- NOTE | 2018-10-31 07:14 | Family Medicine Progress Note ---
Date of Service October 31, 2018 Assessment & Plan (1) Acute renal failure: 53yo male prisoner with PMHx of CKD3 (baseline Cr 1), anemia, HLD, HTN, gastritis, nonischemic cardiomyopathy presented with diarrhea and decreased PO intake x 7 days. Found to have NIK, Cr 10.4 with electrolyte derangements K 6.3. Metabolic acidosis (bicarb 12, AG 19) in the setting of likely uremia from NIK and decreased PO intake. HIV negative Acute renal failure likely pre-renal with metabolic acidosis and electrolyte derangements Hx of CKD 3, Baseline creatinine was 1.0 (04/26), On admission Cr 10.4 improved to 9.9 s/p IVFs, Abdominal CT: No hydronephrosis, bladder thickening noted. UA positive for hematuria, pyuria and bacteriuria however the urine cultures demonstrate no growth. His current presentation is likely 2/2 to diarrhea. On admission his home lisinopril, lovastatin, omeprazole, and furosemide were held, nephrology was consulted, aggressive IV fluid rehydration was provided and the patient was monitored in the ICU. However creatinine did not not improve and fl uids were DC'd IV fluids on 10/28 secondary to concern for fluid overload, patient beginning to develop uremic type symptoms. Decision was made to proceed with hemodialysis and the patient was scheduled for surgery on 10/30, he was brought to the operating room but did not tolerate the cath, the procedure was repeated on 10/31 with anesthesia's assistance. -Holding home Lisinopril, Lovastatin, Omeprazole and Furosemide -Nephrology consulted - following recs -Temporary line placed this morning, plan for TDC next week -Hemodialysis this afternoon for 2 hours, will continue hemodialysis for at least a few days and monitor renal function -Tums with meals, renal vitamin -Trend daily BMP Diarrhea - now improving -Stool toxin and culture is negative -C Diff toxin and gene positive -Continue vanc po 125mg started on 10/27 -day 4 of 10 Hx of non-ischemic cardiomyopathy and HTN -EKG 10/26 normal sinus rhythm, qtc 508 -Previous Echo with EF of 10%-15% -Repeat Echo today: EF 60 to 65%, mild dilated left ventricle, mild concentric LVH, RV mildly dilated with normal function, mild to moderate mitral valve regurg, moderate to severe pulmonary hypertension, right atrial pressure 8 mmHg -CXR small R pleural effusion Anemia Asymptomatic, chronic, Has had previous bone marrow workup, neg for MDS. Also neg for Hep C. -Baseline 7-8 Hgb -Trend CBC Diet: Full Liquid (Renal Dialysis) DVT proph: IV heparin CODE STATUS: Full code Dispo: pcu/tele Supervising Physician Co-Signing Physician Notes I personally examined the patient and verified all reyes points of history and exam, discussed case, and agree with decision making with Dr Kruger. TDC placed. doing well post op. for HD later today. discussed typical "what to expect" Vitals noted, in general he is awake alert pleasant no distress. HEENT normocephalic atraumatic, MMM. TDC site c/d/i. breathing unlabored no pallor or icterus. no focal neuro deficits. Acute renal failurelikely on the basis of severe volume depletion related to his C. difficile diarrhea, probable ATN. Continue supportive care. first HD later today. More than likely this will follow her chronic picture for at least the time being, as any meaningful renal recovery is likely to take quite a while if it occurs. Pulmonary edemarelated to his renal failure more than a true cardiomyopathy (for clarification sake this could possibly be HFpEF but truly this relates much more directly to his renal failure)anticipate improvement w HD DVT prophylaxisheparin subcu stable on telemetry for now - would want to ensure he tolerates initial run of HD without significant problems before considering med/surg Subjective She is seen and evaluated this morning sitting up in bed in no acute distress. Patient endorses feeling worse with increasing uremia symptoms, general malaise, anorexia. Other than that patient denies any significant interval history, patient tolerated cath placement well today. For hemodialysis this afternoon, expect patient to feel significantly better status post hemodialysis. I am so optimistic the patient may recover kidney function with a couple dose hemodialysis. No acute concerns at present all questions answered Physical Exam Physical Exam: General: In NAD, feels crummy HEENT: dry mucous membranes Neuro: A&O x 4 Pulm: CTAB equal breath sounds bilaterally CV: RRR, no m/r/g, cap refill 2 sec Abdomen:+BS, TTP over LLQ, non-distended, anuric LE: no LE edema, no calf TTP Results & Data Vital Signs (Past 12 Hours) Vital Signs Temp Pulse Resp BP BP Pulse Ox 10/31/18 03:22 36.7 C 73 18 125/93 99 10/30/18 23:21 36.9 C 76 20 141/93 H 94 10/30/18 21:14 74 158/101 H 10/30/18 19:41 36.8 C 94 H 22 173/119 H 95 Laboratory Results 10/31/18 10/31/18 10/31/18 Range/Units 12:00 11:41 07:58 WBC (4.8-10.8) K/uL RBC (4.7-6.1) M/uL Hgb (14.0-18.0) g/dL Hct (42-52) % MCV (80-100) fL MCH (25-34) pg MCHC (32-36) g/dL RDW Std Deviation (36.4-46.3) fL RDW Coeff of Erich (11.5-14.5) % Plt Count (130-400) K/uL MPV (7.4-10.4) fL Immature Gran % (Auto) % Neut % (Auto) % Lymph % (Auto) % Gosper % (Auto) % Eos % (Auto) % Baso % (Auto) % Immature Gran # (Auto) (0.00-0.02) K/uL Neut # (Auto) (1.4-6.5) K/uL Lymph # (Auto) (1.2-3.4) K/uL Gosper # (Auto) (0.11-0.59) K/uL Eos # (Auto) (0-0.5) K/uL Baso # (Auto) (0-0.2) K/uL Sodium (136-145) mmol/L Potassium (3.5-5.1) mmol/L Chloride (98-107) mmol/L Carbon Dioxide (21-32) mmol/L Anion Gap (3-11) BUN (7-18) mg/dl Creatinine (0.6-1.4) mg/dl Est Cr Clr Drug Dosing ml/min Est GFR ( Amer) Est GFR (Non-Af Amer) BUN/Creatinine Ratio (10-20) Glucose (70-99) mg/dl POC Glucose 73 110 H (70-99) Calcium (8.5-10.1) mg/dl Total Bilirubin (0.2-1) mg/dl AST (15-37) U/L ALT (12-78) U/L Alkaline Phosphatase (45-117) U/L Total Protein (6.4-8.2) gm/dl Albumin (3.4-5.0) gm/dl Globulin (2.5-4.0) gm/dl Albumin/Globulin Ratio (0.9-2) Hep Bs Antigen (Neg) Hep B Core IgM Ab Pending 10/31/18 10/31/18 10/31/18 Range/Units 07:25 07:23 06:58 WBC (4.8-10.8) K/uL RBC (4.7-6.1) M/uL Hgb (14.0-18.0) g/dL Hct (42-52) % MCV (80-100) fL MCH (25-34) pg MCHC (32-36) g/dL RDW Std Deviation (36.4-46.3) fL RDW Coeff of Erich (11.5-14.5) % Plt Count (130-400) K/uL MPV (7.4-10.4) fL Immature Gran % (Auto) % Neut % (Auto) % Lymph % (Auto) % Gosper % (Auto) % Eos % (Auto) % Baso % (Auto) % Immature Gran # (Auto) (0.00-0.02) K/uL Neut # (Auto) (1.4-6.5) K/uL Lymph # (Auto) (1.2-3.4) K/uL Gosper # (Auto) (0.11-0.59) K/uL Eos # (Auto) (0-0.5) K/uL Baso # (Auto) (0-0.2) K/uL Sodium 127 L (136-145) mmol/L Potassium 5.2 H (3.5-5.1) mmol/L Chloride 90 L (98-107) mmol/L Carbon Dioxide 16 L (21-32) mmol/L Anion Gap 21.0 H (3-11) BUN 112 H (7-18) mg/dl Creatinine 10.80 H* D (0.6-1.4) mg/dl Est Cr Clr Drug Dosing 7.5 ml/min Est GFR ( Amer) 5.5 Est GFR (Non-Af Amer) 4.8 BUN/Creatinine Ratio 10.3 (10-20) Glucose 58 L (70-99) mg/dl POC Glucose 63 L* 66 L* (70-99) Calcium 7.1 L (8.5-10.1) mg/dl Total Bilirubin 0.4 (0.2-1) mg/dl AST 11 L (15-37) U/L ALT 10 L (12-78) U/L Alkaline Phosphatase 84 (45-117) U/L Total Protein 5.9 L (6.4-8.2) gm/dl Albumin 2.2 L (3.4-5.0) gm/dl Globulin 3.7 (2.5-4.0) gm/dl Albumin/Globulin Ratio 0.6 L (0.9-2) Hep Bs Antigen (Neg) Hep B Core IgM Ab 10/31/18 10/30/18 Range/Units 06:58 07:16 WBC 6.30 (4.8-10.8) K/uL RBC 3.43 L (4.7-6.1) M/uL Hgb 9.2 L (14.0-18.0) g/dL Hct 27.4 L (42-52) % MCV 79.9 L (80-100) fL MCH 26.8 (25-34) pg MCHC 33.6 (32-36) g/dL RDW Std Deviation 44.8 (36.4-46.3) fL RDW Coeff of Erich 15.2 H (11.5-14.5) % Plt Count 183 (130-400) K/uL MPV 8.5 (7.4-10.4) fL Immature Gran % (Auto) 0.5 % Neut % (Auto) 68.8 % Lymph % (Auto) 23.7 % Gosper % (Auto) 6.0 % Eos % (Auto) 0.8 % Baso % (Auto) 0.2 % Immature Gran # (Auto) 0.03 H (0.00-0.02) K/uL Neut # (Auto) 4.34 (1.4-6.5) K/uL Lymph # (Auto) 1.49 (1.2-3.4) K/uL Gosper # (Auto) 0.38 (0.11-0.59) K/uL Eos # (Auto) 0.05 (0-0.5) K/uL Baso # (Auto) 0.01 (0-0.2) K/uL Sodium (136-145) mmol/L Potassium (3.5-5.1) mmol/L Chloride (98-107) mmol/L Carbon Dioxide (21-32) mmol/L Anion Gap (3-11) BUN (7-18) mg/dl Creatinine (0.6-1.4) mg/dl Est Cr Clr Drug Dosing ml/min Est GFR ( Amer) Est GFR (Non-Af Amer) BUN/Creatinine Ratio (10-20) Glucose (70-99) mg/dl POC Glucose (70-99) Calcium (8.5-10.1) mg/dl Total Bilirubin (0.2-1) mg/dl AST (15-37) U/L ALT (12-78) U/L Alkaline Phosphatase (45-117) U/L Total Protein (6.4-8.2) gm/dl Albumin (3.4-5.0) gm/dl Globulin (2.5-4.0) gm/dl Albumin/Globulin Ratio (0.9-2) Hep Bs Antigen Neg (Neg) Hep B Core IgM Ab Medications Administered Current Inpatient Medications Acetaminophen (Tylenol) 1,000 mg PO Q6H PRN PRN Reason: Pain or Fever Stop: 11/27/18 05:49 Last Admin: 10/29/18 15:42 Dose: 1,000 mg Documented by: Al Hydrox/Mg Hydrox/Simethicone (Maalox Max) 15 ml PO Q4H PRN PRN Reason: Dyspepsia Stop: 11/25/18 22:53 Calcium Carbonate (Tums) 500 mg PO TIDM MYRA Stop: 11/29/18 10:29 Last Admin: 10/31/18 11:46 Dose: Not Given Documented by: Dextrose (Dextrose 50%) 25 - 50 ml IV UD PRN; Protocol PRN Reason: Hypoglycemia Protocol Stop: 11/30/18 07:29 Famotidine (Pepcid) 20 mg PO DAILY MYRA Stop: 11/25/18 23:14 Last Admin: 10/31/18 11:47 Dose: 20 mg Documented by: Glucagon (Glucagen) 1 mg SQ UD PRN; Protocol PRN Reason: Hypoglycemia Protocol Stop: 11/30/18 07:29 Glucose (Dex4 Glucose) 4 - 8 tabs PO UD PRN; Protocol PRN Reason: Hypoglycemia Protocol Stop: 11/30/18 07:29 Glucose (Glucose 40%) 15 - 30 gm PO UD PRN; Protocol PRN Reason: Hypoglycemia Protocol Stop: 11/30/18 07:29 Heparin Sodium (Porcine) (Heparin Sodium (Porcine)) 5,000 units SQ Q12 MYRA Stop: 11/26/18 08:59 Last Admin: 10/31/18 11:47 Dose: Not Given Documented by: Hydromorphone HCl (Dilaudid) 0.5 mg IV Q4H PRN PRN Reason: Pain Stop: 10/31/18 21:46 Last Admin: 10/31/18 11:37 Dose: 0.5 mg Documented by: Magnesium Hydroxide (Milk Of Magnesia) 30 ml PO Q6H PRN PRN Reason: Constipation Stop: 11/25/18 22:53 Metoprolol Tartrate (Lopressor) 100 mg PO BID [facility] Stop: 11/26/18 08:59 Last Admin: 10/31/18 11:47 Dose: 100 mg Documented by: Miscellaneous (Carbohydrates For Hypoglycemia) 15 - 30 gm PO UD PRN PRN Reason: Hypoglycemia Treatment Stop: 11/30/18 07:29 Polyethylene Glycol (Miralax Powder Packet) 17 gm PO DAILY PRN PRN Reason: Constipation Stop: 11/25/18 22:53 Raspberry (Raspberry) 5 ml PO Q6 MYRA Stop: 11/10/18 17:59 Last Admin: 10/31/18 11:48 Dose: 5 ml Documented by: Vancomycin HCl (Vancomycin Hcl) 125 mg PO Q6 [facility] Stop: 11/06/18 17:59 Last Admin: 10/31/18 11:51 Dose: 125 mg Documented by: Vitamin B Complex/Folic Acid (Nephrocaps) 1 cap PO QAM [facility] Stop: 11/30/18 08:59 Last Admin: 10/31/18 11:46 Dose: 1 cap Documented by: PG Care Time/CCT Total # of Minutes Spent Total Time Spent with Patient: Total time spent is greater than 50% in coordination of care (as documented) at patient's floor/unit and/or counseling patient: Resident Activity Tracking Resident Involvement: Resident Care Provided Care Provided: Adult Hospital Medicine (1) Acute renal failure Acute renal failure type: unspecified Qualified Code(s): N17.9 - Acute kidney failure, unspecified
[2018-10-31 07:19] LABS: Basophils # (auto) 0.01 K/uL (0-0.2); Basophils % (auto) 0.2 %; Eosinophils # (auto) 0.05 K/uL (0-0.5); Eosinophils % (auto) 0.8 %; Hematocrit (blood only) 27.4 % (42-52); Hemoglobin 9.2 g/dL (14.0-18.0); Immature Granulocytes # (auto) 0.03 K/uL (0.00-0.02); Immature Granulocytes % (auto) 0.5 %; Lymphocytes # (auto) 1.49 K/uL (1.2-3.4); Lymphocytes % (auto) 23.7 %; Mean Corpuscular Hgb Conc 33.6 g/dL (32-36); Mean Corpuscular Volume 79.9 fL (80-100); Mean Platelet Volume 8.5 fL (7.4-10.4); Monocytes # (auto) 0.38 K/uL (0.11-0.59); Neutrophils # (auto) 4.34 K/uL (1.4-6.5); Neutrophils % (auto) 68.8 %; Platelet Count 183 K/uL (130-400); RDW Coefficient of Variation 15.2 % (11.5-14.5); RDW Standard Deviation 44.8 fL (36.4-46.3); Red Blood Count 3.43 M/uL (4.7-6.1)
[2018-10-31] MEDS ORDERED: GLUCAGON FOR INJ 1 MG VIAL SQ PRN (07:30)
[2018-10-31] MEDS ORDERED: GLUCOSE 40% GEL 15 GM TUBE PO PRN (07:30)
[2018-10-31] MEDS ORDERED: CARBOHYDRATES FOR HYPOGLYCEMIA PO PRN (07:30)
[2018-10-31] MEDS ORDERED: GLUCOSE 10 TABS/TUBE PO PRN (07:30)
[2018-10-31] MEDS ORDERED: DEXTROSE 50% 50 ML SYRINGE IV PRN (07:30)
[2018-10-31] MEDS ORDERED: GLUCOSE 40% GEL 15 GM TUBE PO ONE (07:32)
[2018-10-31] MEDS ORDERED: DEXTROSE 50% 50 ML SYRINGE IV ONE (07:36)
[2018-10-31 08:14] LABS: Albumin Globulin Ratio 0.6 (0.9-2); Albumin Level 2.2 gm/dl (3.4-5.0); BUN Creatinine Ratio 10.3 (10-20); Bilirubin,Total 0.4 mg/dl (0.2-1); Calcium 7.1 mg/dl (8.5-10.1); Creatinine Clr Calc Pharmacy 7.5 ml/min; Est GFR (African American) 5.5; Est GFR (Non-African American) 4.8; Globulin 3.7 gm/dl (2.5-4.0); Potassium 5.2 mmol/L (3.5-5.1); Total Protein 5.9 gm/dl (6.4-8.2)
--- NOTE | 2018-10-31 08:39 | Communication Note ---
Date of Service: October 31, 2018 Patient agreeable for a temporary dialysis catheter today. Will have ICU service place the catheter. Will plan on changing it to a permcath next week. Thank you very much for letting us participate in the care of this patient.
--- NOTE | 2018-10-31 10:10 | Nephrology Progress Note ---
Date of Service October 31, 2018 Assessment & Plan (1) Acute renal failure: 53 y o M with acute kidney injury in the setting of diarrheal illness for few days, lisinopril, furosemide on board. Creatinine was 10.4 with BUN 114 on admission which started to improve slightly, creatinine down to 109.4 this morning. Renal ultrasound otherwise unremarkable. Urinalysis unremarkable. No history of chronic kidney disease, prior baseline creatinine was 1.0 from lab on April 2016. Diarrhea resolved, has been on IV fluid with slight improvement in renal function however remained anuric. Blood pressure stable. Lisinopril, furosemide has been on hold. TSH normal. So far no sign of renal recovery and patient has been having some uremic symptoms. BUN creatinine staying elevated with acceptable electrolyte. Remained anuric, no response to Bumex. Went to oR for TDC on 10/30/18 but refused to lie flat and did not have TDC --Temporary line this am and then HD, plan for TDC next week --start on Tums with meals --renal vitamin --dose medications for GFR less than 10, avoid nephrotoxic medications Will follow (2) Anemia: -- Mild asymptomatic anemia. Monitor (3) Diarrhea: -- No BM since admission due to Imodium therapy. Obtain stool for C. Difficile toxin assay once patient moves his bowels Subjective Blayne was seen and examined this morning. Overall feeling poorly , nauseous, reports pain all over his body. Diarrhea resolved, C diff positive. No overnight events. Remain anuric with no sign of recovery of Renal function. Blo od pressure high. Refused TDC yesterday but agreeable now. Physical Exam Constitutional: WD/WN, vitals as above + ill appearing Neck: trachea midline, no thyromegaly Respiratory: normal respiratory effort, lungs clear to auscultation Cardiovascular: RRR, no murmur, no edema Neurologic: moves all extremities and awake Psychiatric: A+Ox3, euthymic affect Results & Data Vital Signs (Past 12 Hours) Vital Signs Temp Pulse Resp BP BP Pulse Ox 10/31/18 07:27 36.8 C 18 152/100 H 99 10/31/18 03:22 36.7 C 73 18 125/93 99 10/30/18 23:21 36.9 C 76 20 141/93 H 94 (1) Acute renal failure Acute renal failure type: unspecified Qualified Code(s): N17.9 - Acute kidney failure, unspecified
--- NOTE | 2018-10-31 10:22 | Procedure Note ---
Procedure Note Date of Service October 31, 2018 Note Procedure: Tempoary Dialysis catheter Time: 09:44am Consent: Written consent obtained by Dr. Guillen Timeout: Performed at 09:44 Utility Tractor Operator: Ta Quinn PA-C Attending: Dr. Guillen Narrative: This is a 53 yo male that has a severely elevated creatinine with minimal urine output. Patient has failed conservative treatment and nephrology has decided to begin dialysis. Patient refused a tunneled catheter yesterday and is unable to get OR time until next week. Consequently, we were asked to place a temporary catheter. INR, platelets and other labs were WNL. Risks vs benefits were again discussed with the patient prior to beginning the consent and he agreed to proceed. Using bedside ultra sound, the right IJ vein was identified as well as the right carotid artery. Images were obtained and saved to the PACS system. Using strict sterile technique, the ultra sound was used to identify the right internal juglar vein and 4 mls of 1% lidocaine was used to anesthiatize the area. With the IJ identified, a finder needle was advanced using negative pressure until a flash was observed in the syringe. I was able to easily draw blood into the syringe. A guidewire was then easily advanced into the vein and the finder needle was withdrawn. A dilator was then used and advanced with an incision. The dilator was then removed and a mukarur dual lumen dialysis catheter was easily placed to 15cm. There was no significant ectopy on the mon itor and no hemodynamic change. The guidewire was easily removed and ports were flushed with sterile saline. There was adequate draw and flush with each of the two ports. A chlrhexadine disc was placed at the insertion site of the catheter. The proximal hub was then secured with two sutures. A sterile dressing was placed over the catheter. Complications: None Blood loss: 5 mls The patient tolerated the procedure well. A post procedure CXR was obtained and showed adequate placement of the catheter and no evidence of pneumothorax. At the completion of the procedure, Dr. Donovan was updated. Supervising Physician Co-Signing Physician Notes I have seen and examined this patient with Ta Quinn PA-C and agree with his assessment and plan of care. We are going to continue with current plan of care as prescribed. Dr. Ondina Guillen. Coding CPT Codes Tubes, Drains, and Vasc Access - Tubes, Drains, and Vasc Access: Insertion Of Non-tunneled Catheter Age 5 Yrs> ([id number]) Tubes, Drains, and Vasc Access - Tubes, Drains, and Vasc Access: Ultrasound Guidance For Vascular ([id number])
--- NOTE | 2018-10-31 10:29 | XRay Report ---
XR chest 1V portable HISTORY: S/P right IJ dialysis catheter COMPARISON: Chest 10/28/2018. FINDINGS: Interval placement of a right jugular central venous catheter which terminates in the expec ananth location of the SVC. No pneumothorax. The heart is unenlarged. Small right pleural effusion has s lightly increased in size. Right greater than left interstitial and vascular thickening suggests asym metric pulmonary edema. This has also progressed. Hazy appearance to the right lung may represent a l ayering pleural fluid. IMPRESSION: 1. Right jugular central venous catheter terminates at the SVC. No pneumothorax. 2. Progressive asymmetric pulmonary edema and a small right pleural effusion. Electronically signed by: Jose Resendez M.D. 10/31/2018 10:28 AM
[2018-10-31] MEDS: HYDROmorphone INJ 0.5 MG/0.5 ML SYR IV PRN ×2 (11:37→20:32)
[2018-10-31] MEDS: NEPHROCAPS PO SCH (11:46)
[2018-10-31] MEDS: CALCIUM CARBONATE 500 MG CHEWABLE TAB PO SCH ×3 (11:46→17:41)
[2018-10-31] MEDS: HEPARIN SOD 5,000 UNIT/0.5 ML VIAL SQ SCH ×2 (11:47→20:33)
[2018-10-31] MEDS: METOPROLOL TARTRATE 100 MG TAB PO SCH ×2 (11:47→20:33)
[2018-10-31] MEDS: FAMOTIDINE 20 MG TAB PO SCH (11:47)
[2018-11-01] MEDS: RASPBERRY SYRUP 5 ML UDP PO SCH ×4 (00:17→17:27)
[2018-11-01] MEDS: VANCOMYCIN HCL 125 MG/2.5ML SOLN PO SCH ×4 (00:17→17:27)
[2018-11-01] MEDS ORDERED: HYDROmorphone INJ 0.5 MG/0.5 ML SYR IV PRN (00:41)
[2018-11-01 07:05] LABS: Eosinophils # (auto) 0.06 K/uL (0-0.5); Eosinophils % (auto) 1.4 %; Hematocrit (blood only) 24.3 % (42-52); Hemoglobin 8.2 g/dL (14.0-18.0); Immature Granulocytes # (auto) 0.02 K/uL (0.00-0.02); Immature Granulocytes % (auto) 0.5 %; Lymphocytes # (auto) 1.36 K/uL (1.2-3.4); Lymphocytes % (auto) 32.4 %; Mean Corpuscular Hgb Conc 33.7 g/dL (32-36); Mean Corpuscular Volume 79.4 fL (80-100); Mean Platelet Volume 8.9 fL (7.4-10.4); Monocytes # (auto) 0.31 K/uL (0.11-0.59); Monocytes % (auto) 7.4 %; Neutrophils # (auto) 2.45 K/uL (1.4-6.5); Neutrophils % (auto) 58.3 %; Platelet Count 176 K/uL (130-400); RDW Coefficient of Variation 15.3 % (11.5-14.5); RDW Standard Deviation 44.5 fL (36.4-46.3); Red Blood Count 3.06 M/uL (4.7-6.1)
--- NOTE | 2018-11-01 07:15 | Family Medicine Progress Note ---
Date of Service November 01, 2018 Assessment & Plan (1) Acute renal failure: 53yo male prisoner with PMHx of CKD3 (baseline Cr 1), anemia, HLD, HTN, gastritis, nonischemic cardiomyopathy presented with diarrhea and decreased PO intake x 7 days. Found to have NIK, Cr 10.4 with electrolyte derangements K 6.3. Metabolic acidosis (bicarb 12, AG 19) in the setting of likely uremia from NIK and decreased PO intake. HIV negative Acute renal failure likely pre-renal with metabolic acidosis and electrolyte derangements Hx of CKD 3, Baseline creatinine was 1.0 (04/26), On admission Cr 10.4 improved to 9.9 s/p IVFs, Abdominal CT: No hydronephrosis, bladder thickening noted. UA positive for hematuria, pyuria and bacteriuria however the urine cultures demonstrate no growth. His current presentation is likely 2/2 to diarrhea. On admission his home lisinopril, lovastatin, omeprazole, and furosemide were held, nephrology was consulted, aggressive IV fluid rehydration was provided and the patient was monitored in the ICU. However creatinine did not not improve and fl uids were DC'd IV fluids on 10/28 secondary to concern for fluid overload, patient beginning to develop uremic type symptoms. Decision was made to proceed with hemodialysis and the patient was scheduled for surgery on 10/30, he was brought to the operating room but did not tolerate the cath, the procedure was repeated on 10/31 with anesthesia's assistance. Patient has temporary port in place and receiving hemodialysis, he will be for TDC on Sunday. -Holding home Lisinopril, Lovastatin, Omeprazole and Furosemide -Nephrology consulted - following recs -continue HD via HD cath -NPO Sunday after midnight for TDC sunday -Tums with meals, renal vitamin -Dose medications for GFR less than 10, avoid nephrotoxic medications -Trend daily BMP Diarrhea - now improving Diarrhea improved, patient reviewed current diarrhea to full liquid diet -Stool toxin and culture is negative -C Diff toxin and gene positive -Continue vanc po 125mg started on 10/27 -day 5 of 10 Hx of non-ischemic cardiomyopathy and HTN -EKG 10/26 normal sinus rhythm, qtc 508, -Previous Echo with EF of 10%-15% -Repeat Echo today: EF 60 to 65%, mild dilated left ventricle, mild concentric LVH, RV mildly dilated with normal function, mild to moderate mitral valve regurg, moderate to severe pulmonary hypertension, right atrial pressure 8 mmHg -CXR 10/31 small R pleural effusion Anemia Asymptomatic, chronic, Has had previous bone marrow workup, neg for MDS. Also neg for Hep C. -hgb 8.2, baseline 7-8 Hgb -Trend CBC Diet: Full Liquid (Renal Dialysis) DVT proph: IV heparin CODE STATUS: Full code Dispo: pcu/tele Supervising Physician Co-Signing Physician Notes I personally examined the patient and verified all reyes points of history and exam, discussed case, and agree with decision making with Dr Kruger. Breathing feeling considerably better after dialysis. Feeling fatigued but not overwhelmingly so. Vitals noted, in general he is awake alert pleasant no distress. HEENT normocephalic atraumatic, MMM. Undergoing the tail end of dialysis whenever I am in the room, he is tolerating it well. Breathing unlabored no accessory muscle use good effort. Acute renal failurelikely on the basis of severe volume depletion related to his C. difficile diarrhea, probable ATN. Continue supportive care. Continue initial run of dialysis. Appreciate nephrology input. More than likely this will follow her chronic picture for at least the time being, as any meaningful renal recovery is likely to take quite a while if it occurs. Pulmonary edemarelated to his renal failure more than a true cardiomyopathy (for clarification sake this could possibly be HFpEF but truly this relates much more directly to his renal failure)clearly improving with HD. DVT prophylaxisheparin subcu stable on telemetry for now - would want to ensure he tolerates initial run of HD without significant problems before considering med/surg (perhaps as soon as tomorrow) Subjective Patient laying in bed this morning in no acute distress, reports improvement in his malaise, and overall poor feeling. Still experiencing intermittent diarrhea he attributes this to his full liquid diet.he is currently tolerating dialysis through his temporary port. Reports sleeping okay, still anuric, tolerating diet. No acute concerns are present, all questions answered. Physical Exam Physical Exam: General: In NAD, feeling better HEENT: Normocephalic atraumatic Neuro: A&O x 4 Pulm: CTAB equal breath sounds bilaterally CV: RRR, no m/r/g, cap refill 2 sec Abdomen:+BS, non-distended, anuric LE: no LE edema, no calf TTP Results & Data Vital Signs (Past 12 Hours) Vital Signs Temp Pulse Pulse Pulse Resp BP BP 11/01/18 07:05 36.6 C 74 18 157/105 H 11/01/18 04:00 36.5 C 81 18 133/97 11/01/18 00:10 36.6 C 80 18 163/104 H 10/31/18 22:00 70 15 10/31/18 21:48 82 20 152/110 H 10/31/18 20:00 36.6 C 91 H 22 165/115 H Pulse Ox 11/01/18 07:05 94 11/01/18 04:00 91 11/01/18 00:10 91 10/31/18 22:00 10/31/18 21:48 10/31/18 20:00 92 Laboratory Results 11/01/18 11/01/18 11/01/18 Range/Units 06:26 06:26 05:45 WBC 4.20 L (4.8-10.8) K/uL RBC 3.06 L (4.7-6.1) M/uL Hgb 8.2 L (14.0-18.0) g/dL Hct 24.3 L (42-52) % MCV 79.4 L (80-100) fL MCH 26.8 (25-34) pg MCHC 33.7 (32-36) g/dL RDW Std Deviation 44.5 (36.4-46.3) fL RDW Coeff of Erich 15.3 H (11.5-14.5) % Plt Count 176 (130-400) K/uL MPV 8.9 (7.4-10.4) fL Immature Gran % (Auto) 0.5 % Neut % (Auto) 58.3 % Lymph % (Auto) 32.4 % [place] % (Auto) 7.4 % Eos % (Auto) 1.4 % Baso % (Auto) 0.0 % Immature Gran # (Auto) 0.02 (0.00-0.02) K/uL Neut # (Auto) 2.45 (1.4-6.5) K/uL Lymph # (Auto) 1.36 (1.2-3.4) K/uL [place] # (Auto) 0.31 (0.11-0.59) K/uL Eos # (Auto) 0.06 (0-0.5) K/uL Baso # (Auto) 0.00 (0-0.2) K/uL Sodium 129 L (136-145) mmol/L Potassium 4.2 D (3.5-5.1) mmol/L Chloride 92 L (98-107) mmol/L Carbon Dioxide 22 (21-32) mmol/L Anion Gap 15.0 H (3-11) BUN 78 H (7-18) mg/dl Creatinine 8.74 H* D (0.6-1.4) mg/dl Est Cr Clr Drug Dosing 9.2 ml/min Est GFR ( Amer) 7.1 Est GFR (Non-Af Amer) 6.1 BUN/Creatinine Ratio 8.8 L (10-20) Glucose 82 (70-99) mg/dl POC Glucose 85 (70-99) Calcium 7.1 L (8.5-10.1) mg/dl Hep B Core IgM Ab (NON-REACTIVE) 10/31/18 10/31/18 Range/Units 12:00 11:41 WBC (4.8-10.8) K/uL RBC (4.7-6.1) M/uL Hgb (14.0-18.0) g/dL Hct (42-52) % MCV (80-100) fL MCH (25-34) pg MCHC (32-36) g/dL RDW Std Deviation (36.4-46.3) fL RDW Coeff of Erich (11.5-14.5) % Plt Count (130-400) K/uL MPV (7.4-10.4) fL Immature Gran % (Auto) % Neut % (Auto) % Lymph % (Auto) % [place] % (Auto) % Eos % (Auto) % Baso % (Auto) % Immature Gran # (Auto) (0.00-0.02) K/uL Neut # (Auto) (1.4-6.5) K/uL Lymph # (Auto) (1.2-3.4) K/uL [place] # (Auto) (0.11-0.59) K/uL Eos # (Auto) (0-0.5) K/uL Baso # (Auto) (0-0.2) K/uL Sodium (136-145) mmol/L Potassium (3.5-5.1) mmol/L Chloride (98-107) mmol/L Carbon Dioxide (21-32) mmol/L Anion Gap (3-11) BUN (7-18) mg/dl Creatinine (0.6-1.4) mg/dl Est Cr Clr Drug Dosing ml/min Est GFR ( Amer) Est GFR (Non-Af Amer) BUN/Creatinine Ratio (10-20) Glucose (70-99) mg/dl POC Glucose 73 (70-99) Calcium (8.5-10.1) mg/dl Hep B Core IgM Ab NON-REACTIVE (NON-REACTIVE) Medications Administered Current Inpatient Medications Acetaminophen (Tylenol) 1,000 mg PO Q6H PRN PRN Reason: Pain or Fever Stop: 11/27/18 05:49 Last Admin: 10/29/18 15:42 Dose: 1,000 mg Documented by: Al Hydrox/Mg Hydrox/Simethicone (Maalox Max) 15 ml PO Q4H PRN PRN Reason: Dyspepsia Stop: 11/25/18 22:53 Calcium Carbonate (Tums) 500 mg PO TIDM [facility] Stop: 11/29/18 10:29 Last Admin: 11/01/18 07:41 Dose: 500 mg Documented by: Dextrose (Dextrose 50%) 25 - 50 ml IV UD PRN; Protocol PRN Reason: Hypoglycemia Protocol Stop: 11/30/18 07:29 Epoetin Francois (Procrit) 20,000 units IV TODAY@0815 [facility] Stop: 11/01/18 16:00 Famotidine (Pepcid) 20 mg PO DAILY [facility] Stop: 11/25/18 23:14 Last Admin: 11/01/18 07:36 Dose: 20 mg Documented by: Glucagon (Glucagen) 1 mg SQ UD PRN; Protocol PRN Reason: Hypoglycemia Protocol Stop: 11/30/18 07:29 Glucose (Dex4 Glucose) 4 - 8 tabs PO UD PRN; Protocol PRN Reason: Hypoglycemia Protocol Stop: 11/30/18 07:29 Glucose (Glucose 40%) 15 - 30 gm PO UD PRN; Protocol PRN Reason: Hypoglycemia Protocol Stop: 11/30/18 07:29 Heparin Sodium (Porcine) (Heparin Sodium (Porcine)) 5,000 units SQ Q12 [facility] Stop: 11/26/18 08:59 Last Admin: 10/31/18 20:33 Dose: 5,000 units Documented by: Hydromorphone HCl (Dilaudid) 0.5 mg IV Q4 PRN PRN Reason: Pain Stop: 11/03/18 00:40 Last Admin: 11/01/18 03:59 Dose: 0.5 mg Documented by: Sodium Chloride (Nss 1000ml) 1,000 mls @ 0 mls/hr IV .Q0M PRN PRN Reason: For Hemodialysis Use ONLY Stop: 11/01/18 13:22 Sodium Chloride (Nss 1000ml) 1,000 mls @ 0 mls/hr IV .Q0M PRN PRN Reason: For Hemodialysis Use ONLY Stop: 11/02/18 12:59 Magnesium Hydroxide (Milk Of Magnesia) 30 ml PO Q6H PRN PRN Reason: Constipation Stop: 11/25/18 22:53 Metoprolol Tartrate (Lopressor) 100 mg PO BID [facility] Stop: 11/26/18 08:59 Last Admin: 10/31/18 20:33 Dose: 100 mg Documented by: Miscellaneous (Carbohydrates For Hypoglycemia) 15 - 30 gm PO UD PRN PRN Reason: Hypoglycemia Treatment Stop: 11/30/18 07:29 Polyethylene Glycol (Miralax Powder Packet) 17 gm PO DAILY PRN PRN Reason: Constipation Stop: 11/25/18 22:53 Raspberry (Raspberry) 5 ml PO Q6 [facility] Stop: 11/10/18 17:59 Last Admin: 11/01/18 05:42 Dose: 5 ml Documented by: Vancomycin HCl (Vancomycin Hcl) 125 mg PO Q6 [facility] Stop: 11/06/18 17:59 Last Admin: 11/01/18 05:42 Dose: 125 mg Documented by: Vitamin B Complex/Folic Acid (Nephrocaps) 1 cap PO QAM [facility] Stop: 11/30/18 08:59 Last Admin: 11/01/18 07:36 Dose: 1 cap Documented by: PG Care Time/CCT Total # of Minutes Spent Total Time Spent with Patient: Total time spent is greater than 50% in coordination of care (as documented) at patient's floor/unit and/or counseling patient: Resident Activity Tracking Resident Involvement: Resident Care Provided Care Provided: Adult Hospital Medicine (1) Acute renal failure Acute renal failure type: unspecified Qualified Code(s): N17.9 - Acute kidney failure, unspecified
[2018-11-01] MEDS ORDERED: SODIUM CHLORIDE 0.9% 1000ML 1,000 ML IV PRN (07:23)
[2018-11-01] MEDS: NEPHROCAPS PO SCH (07:36)
[2018-11-01] MEDS: FAMOTIDINE 20 MG TAB PO SCH (07:36)
[2018-11-01] MEDS: CALCIUM CARBONATE 500 MG CHEWABLE TAB PO SCH ×3 (07:41→17:30)
[2018-11-01 07:56] LABS: BUN Creatinine Ratio 8.8 (10-20); Calcium 7.1 mg/dl (8.5-10.1); Creatinine Clr Calc Pharmacy 9.2 ml/min; Est GFR (African American) 7.1; Est GFR (Non-African American) 6.1; Potassium 4.2 mmol/L (3.5-5.1)
[2018-11-01] MEDS ORDERED: EPOETIN ALFA 20,000 UNITS/ML VIAL IV SCH (08:15)
--- NOTE | 2018-11-01 09:57 | Nephrology Progress Note ---
Date of Service November 01, 2018 Assessment & Plan (1) Acute renal failure: 53 y o M with acute kidney injury in the setting of diarrheal illness for few days, lisinopril, furosemide on board. Creatinine was 10.4 with BUN 114 on admission which started to improve slightly, creatinine down to 109.4 this morning. Renal ultrasound otherwise unremarkable. Urinalysis unremarkable. No history of chronic kidney disease, prior baseline creatinine was 1.0 from lab on April 2016. Diarrhea resolved, has been on IV fluid with slight improvement in renal function however remained anuric. Blood pressure stable. Lisinopril, furosemide has been on hold. TSH normal. So far no sign of renal recovery but overall started to feel better after first HD on 10/31/18. --HD via HD catheter --keep NPO Sunday after midnight for TDC Sunday --continue Tums with meals --renal vitamin --dose medications for GFR less than 10, avoid nephrotoxic medications Will follow (2) Anemia: -- Mild asymptomatic anemia. Monitor (3) Diarrhea: -- No BM since admission due to Imodium therapy. Obtain stool for C. Difficile toxin assay once patient moves his bowels Subjective Blayne was seen and examined this morning. Overall feeling better, had HD yesterday, now getting second HD Rx. , nauseous resolved, appetite started to improve. Remain anuric with no sign of recovery of Renal function. Physical Exam Constitutional: WD/WN, vitals as above + ill appearing Neck: trachea midline, no thyromegaly Respiratory: normal respiratory effort, lungs clear to auscultation Cardiovascular: RRR, no murmur, no edema Neurologic: moves all extremities and awake Psychiatric: A+Ox3, euthymic affect Results & Data Vital Signs (Past 12 Hours) Vital Signs Temp Pulse Pulse Pulse Resp BP BP 11/01/18 09:30 78 158/97 H 11/01/18 09:00 70 153/99 H 11/01/18 08:20 36.7 C 85 11/01/18 07:05 36.6 C 74 18 157/105 H 11/01/18 04:00 36.5 C 81 18 133/97 11/01/18 00:10 36.6 C 80 18 163/104 H 10/31/18 22:00 70 15 Pulse Ox 11/01/18 09:30 11/01/18 09:00 11/01/18 08:20 11/01/18 07:05 94 11/01/18 04:00 91 11/01/18 00:10 91 10/31/18 22:00 (1) Acute renal failure Acute renal failure type: unspecified Qualified Code(s): N17.9 - Acute kidney failure, unspecified
[2018-11-01] MEDS: HEPARIN SOD 5,000 UNIT/0.5 ML VIAL SQ SCH ×2 (11:57→20:35)
[2018-11-01] MEDS: METOPROLOL TARTRATE 100 MG TAB PO SCH ×2 (11:58→20:36)
[2018-11-02] MEDS: VANCOMYCIN HCL 125 MG/2.5ML SOLN PO SCH ×4 (00:17→19:13)
[2018-11-02] MEDS: RASPBERRY SYRUP 5 ML UDP PO SCH ×4 (00:17→19:52)
[2018-11-02] MEDS: ACETAMINOPHEN 500 MG TAB PO PRN (00:22)
[2018-11-02] MEDS ORDERED: SODIUM CHLORIDE 0.9% 1000ML 1,000 ML IV PRN (07:00)
[2018-11-02 08:13] LABS: Eosinophils # (auto) 0.06 K/uL (0-0.5); Hematocrit (blood only) 23.9 % (42-52); Hemoglobin 7.9 g/dL (14.0-18.0); Immature Granulocytes # (auto) 0.01 K/uL (0.00-0.02); Immature Granulocytes % (auto) 0.3 %; Lymphocytes # (auto) 0.95 K/uL (1.2-3.4); Lymphocytes % (auto) 32.3 %; Mean Corpuscular Hgb Conc 33.1 g/dL (32-36); Mean Platelet Volume 8.8 fL (7.4-10.4); Monocytes # (auto) 0.19 K/uL (0.11-0.59); Monocytes % (auto) 6.5 %; Neutrophils # (auto) 1.73 K/uL (1.4-6.5); Neutrophils % (auto) 58.9 %; Platelet Count 166 K/uL (130-400); RDW Coefficient of Variation 15.5 % (11.5-14.5); RDW Standard Deviation 46.8 fL (36.4-46.3); Red Blood Count 2.95 M/uL (4.7-6.1); White Blood Count 2.94 K/uL (4.8-10.8)
[2018-11-02] MEDS: FAMOTIDINE 20 MG TAB PO SCH (08:26)
[2018-11-02] MEDS: HEPARIN SOD 5,000 UNIT/0.5 ML VIAL SQ SCH ×2 (08:26→21:15)
[2018-11-02] MEDS: METOPROLOL TARTRATE 100 MG TAB PO SCH ×2 (08:26→19:40)
[2018-11-02] MEDS: NEPHROCAPS PO SCH (08:26)
[2018-11-02 08:37] LABS: RBC Morphology Unremarkable
[2018-11-02 08:57] LABS: BUN Creatinine Ratio 8.1 (10-20); Calcium 7.5 mg/dl (8.5-10.1); Creatinine Clr Calc Pharmacy 12.1 ml/min; Est GFR (African American) 9.9; Est GFR (Non-African American) 8.5; Potassium 3.5 mmol/L (3.5-5.1)
--- NOTE | 2018-11-02 10:37 | Nephrology Progress Note ---
Date of Service November 02, 2018 Assessment & Plan (1) Acute renal failure: 53 y o M with acute kidney injury secondary to ATN in the setting of diarrheal illness for few days, hypertension, lisinopril, furosemide on board. Creatinine was 10.4 with BUN 114 on admission which started to improve slightly, creatinine down to 109.4 this morning. Renal ultrasound otherwise unremarkable. Urinalysis unremarkable. No history of chronic kidney disease, prior baseline creatinine was 1.0 from lab on April 2016. Diarrhea resolved, has been on IV fluid with slight improvement in renal function however remained anuric. Blood pressure stable. Lisinopril, furosemide has been on hold. TSH normal. So far no sign of renal recovery but overall feeling much better after first HD on 10/31/18. --HD today via temporary HD catheter --keep NPO Sunday after midnight for TDC Sunday --continue Tums with meals --renal vitamin --dose medications for GFR less than 10, avoid nephrotoxic medications Will follow (2) Anemia: -- Mild asymptomatic anemia. Monitor (3) Diarrhea: -- No BM since admission due to Imodium therapy. Obtain stool for C. Difficile toxin assay once patient moves his bowels Subjective Blayne was seen and examined this morning. Overall feeling better, nauseous resolved, appetite improved, had full breakfast this morning.. Remain anuric with no sign of recovery of Renal function. Physical Exam Constitutional: WD/WN, vitals as above + ill appearing Neck: trachea midline, no thyromegaly Respiratory: normal respiratory effort, lungs clear to auscultation Cardiovascular: RRR, no murmur, no edema Neurologic: moves all extremities and awake Psychiatric: A+Ox3, euthymic affect Results & Data Vital Signs (Past 12 Hours) Vital Signs Temp Pulse Pulse Pulse Resp BP BP 11/02/18 07:44 36.8 C 78 19 167/105 H 11/02/18 02:54 37.3 C 81 20 134/95 11/02/18 00:15 37.4 C 88 16 155/110 H 11/02/18 00:00 91 H Pulse Ox 11/02/18 07:44 95 11/02/18 02:54 94 11/02/18 00:15 94 11/02/18 00:00 (1) Acute renal failure Acute renal failure type: unspecified Qualified Code(s): N17.9 - Acute kidney failure, unspecified
[2018-11-02] MEDS: CALCIUM CARBONATE 500 MG CHEWABLE TAB PO SCH ×3 (11:19→16:45)
--- NOTE | 2018-11-02 13:25 | Family Medicine Progress Note ---
Date of Service November 02, 2018 Assessment & Plan (1) Acute renal failure: 53yo male prisoner with PMHx of CKD3 (baseline Cr 1), anemia, HLD, HTN, gastritis, nonischemic cardiomyopathy presented with diarrhea and decreased PO intake x 7 days. Found to have NIK, Cr 10.4 with electrolyte derangements K 6.3. Metabolic acidosis (bicarb 12, AG 19) in the setting of likely uremia from NIK and decreased PO intake. HIV negative Acute renal failure likely pre-renal with metabolic acidosis and electrolyte derangements Likely ATN secondary to prerenal insult from C. Diff Diarrhea Patient doing much better since first dialysis treatment Will receive hemodialysis later today. Creatinine at 6.66 today, electrolytes stable at this time -Holding home Lisinopril, Lovastatin, Omeprazole and Furosemide -Nephrology consulted - following recs -continue HD via HD cath -NPO Sunday after midnight for TDC sunday -Tums with meals, renal vitamin -Dose medications for GFR less than 10, avoid nephrotoxic medications -Trend daily BMP Diarrhea, C. Diff Diarrhea improved, patient reviewed current diarrhea to full liquid diet -Stool toxin and culture is negative -C Diff toxin and gene positive -Continue vanc po 125mg started on 10/27 -day 6 of 10 Hx of non-ischemic cardiomyopathy and HTN -EKG 10/26 normal sinus rhythm, qtc 508, -Previous Echo with EF of 10%-15% -Repeat Echo today: EF 60 to 65%, mild dilated left ventricle, mild concentric LVH, RV mildly dilated with normal function, mild to moderate mitral valve regurg, moderate to severe pulmonary hypertension, right atrial pressure 8 mmHg -CXR 10/31 small R pleural effusion Anemia Asymptomatic, chronic, Has had previous bone marrow workup, neg for MDS. Also neg for Hep C. -hgb 7.9, baseline 7-8 Hgb -Trending CBC Diet: Full Liquid (Renal Dialysis) DVT proph: IV heparin CODE STATUS: Full code Dispo: pcu/tele Supervising Physician Co-Signing Physician Notes I personally examined the patient and verified all reyes points of history and exam, discussed case, and agree with decision making with Dr Goodwin. breathing feeling ok. no other new complaints. abdomen OK. Vitals noted, in general he is awake alert pleasant no distress. HEENT normocephalic atraumatic, MMM. Breathing unlabored no accessory muscle use good effort. Acute renal failurelikely on the basis of severe volume depletion related to his C. difficile diarrhea, probable ATN. Continue supportive care. Continue initial run of dialysis. Appreciate nephrology input. onalexong HD being arranged via halfway system for once he is able to be discharged. Pulmonary edemarelated to his renal failure more than a true cardiomyopathy (for clarification sake this could possibly be HFpEF but truly this relates much more directly to his renal failure)improved with HD. uncontrolled HTN- anticipate HD improving this, for now hydralazine prn uncontrolled ranges DVT prophylaxisheparin subcu stable for med/surg Subjective Addy Madera is Laying in bed resting comfortably this morning says he feels much better than he did last week still having loose stools. He is very comfortable and watching the auto racing. He tells me he has been up to use the restroom several times without difficulty he is wheelchair-bound at baseline does not feel tired and lightheaded palpitations denies any chest pain shortness of breath. He does endorse some mild abdominal pain in the and denies any nausea or vomiting. No blood in the stool Review of Systems Review of Systems: All systems reviewed & are unremarkable except as noted in HPI & below Physical Exam Constitutional: Well-appearing resting comfortably in bed calm cooperative Eyes: EOMI intact pupils equal round reactive to light Respiratory: Breathing comfortably no accessory muscle use lungs clear to auscultation Cardiovascular: Heart sounds dual regular rate and rhythm, trace edema, no murmurs rubs gallops Gastrointestinal (Abdomen): Abdomen soft, very mildly tender in left lower quadrant. No masses detected no organomegaly Results & Data Vital Signs (Past 12 Hours) Vital Signs Temp Pulse Pulse Resp BP Pulse Ox 11/02/18 11:13 36.7 C 79 16 149/95 H 95 11/02/18 07:44 36.8 C 78 19 167/105 H 95 11/02/18 02:54 37.3 C 81 20 134/95 94 PG Care Time/CCT Total # of Minutes Spent Total Time Spent with Patient: Total time spent is greater than 50% in coordination of care (as documented) at patient's floor/unit and/or counseling patient: Resident Activity Tracking Resident Involvement: Resident Care Provided Care Provided: Adult Hospital Medicine (1) Acute renal failure Acute renal failure type: unspecified Qualified Code(s): N17.9 - Acute kidney failure, unspecified
[2018-11-02] MEDS: HydrALAZINE HCL 20 MG/ML VIAL IV PRN (16:43)
[2018-11-02] MEDS ORDERED: Nursing to Pharmacy Communication ONE (16:45)
[2018-11-02] MEDS ORDERED: EPOETIN ALFA 10,000 UNITS/ML VIAL IV ONE ×2 (16:45)
--- NOTE | 2018-11-02 18:54 | XRay Report ---
XR chest 1V portable HISTORY: Shortness of breath COMPARISON: Chest 10/31/2018. FINDINGS: No pneumothorax. Small right pleural effusion has slightly improved. Perihilar interstitial thickening is again noted and is consistent with pulmonary edema. Hazy appearance to the right mid t o lower lung zone likely represents layering pleural fluid. This has slightly improved. The heart rem ains enlarged. Right jugular catheter terminates at the SVC. IMPRESSION: 1. No change in the cardiomegaly and mild interstitial pulmonary edema. 2. Small right pleural effusion has slightly improved. Electronically signed by: Jose Resendez M.D. 11/02/2018 6:53 PM
[2018-11-02] MEDS ORDERED: METOPROLOL TARTRATE 1 MG/ML VIAL IV STA (19:41)
[2018-11-02] MEDS ORDERED: METOPROLOL TARTRATE 1 MG/ML VIAL IV ONE (19:48)
[2018-11-02 20:03] LABS: Hematocrit (blood only) 27.8 % (42-52); Hemoglobin 8.9 g/dL (14.0-18.0); Mean Corpuscular Volume 81.8 fL (80-100); Platelet Count 162 K/uL (130-400); RDW Coefficient of Variation 15.5 % (11.5-14.5); RDW Standard Deviation 46.4 fL (36.4-46.3); White Blood Count 5.45 K/uL (4.8-10.8)
[2018-11-02 20:29] LABS: BUN Creatinine Ratio 5.8 (10-20); Calcium 7.9 mg/dl (8.5-10.1); Creatinine Clr Calc Pharmacy 26.2 ml/min; Est GFR (African American) 25.1; Est GFR (Non-African American) 21.7; Magnesium 1.7 mg/dl (1.8-2.4); Potassium 3.3 mmol/L (3.5-5.1)
[2018-11-03] MEDS: RASPBERRY SYRUP 5 ML UDP PO SCH ×5 (00:05→23:52)
[2018-11-03] MEDS: VANCOMYCIN HCL 125 MG/2.5ML SOLN PO SCH ×5 (00:05→23:52)
[2018-11-03 06:21] LABS: Eosinophils # (auto) 0.08 K/uL (0-0.5); Hematocrit (blood only) 23.2 % (42-52); Hemoglobin 7.4 g/dL (14.0-18.0); Immature Granulocytes # (auto) 0.01 K/uL (0.00-0.02); Immature Granulocytes % (auto) 0.3 %; Lymphocytes # (auto) 0.96 K/uL (1.2-3.4); Lymphocytes % (auto) 24.5 %; Mean Corpuscular Hgb Conc 31.9 g/dL (32-36); Mean Corpuscular Volume 83.8 fL (80-100); Mean Platelet Volume 8.4 fL (7.4-10.4); Monocytes # (auto) 0.27 K/uL (0.11-0.59); Monocytes % (auto) 6.9 %; Neutrophils % (auto) 66.3 %; Platelet Count 145 K/uL (130-400); RDW Coefficient of Variation 15.8 % (11.5-14.5); RDW Standard Deviation 48.7 fL (36.4-46.3); Red Blood Count 2.77 M/uL (4.7-6.1); White Blood Count 3.92 K/uL (4.8-10.8)
[2018-11-03 06:57] LABS: Calcium 7.3 mg/dl (8.5-10.1); Est GFR (African American) 20.3; Est GFR (Non-African American) 17.5; Phosphorus 2.7 mg/dl (2.5-4.9); Potassium 3.2 mmol/L (3.5-5.1)
[2018-11-03] MEDS: CALCIUM CARBONATE 500 MG CHEWABLE TAB PO SCH ×3 (07:12→17:07)
[2018-11-03] MEDS: NEPHROCAPS PO SCH (07:12)
[2018-11-03] MEDS: FAMOTIDINE 20 MG TAB PO SCH (07:13)
[2018-11-03] MEDS: METOPROLOL TARTRATE 100 MG TAB PO SCH ×2 (07:15→21:33)
[2018-11-03] MEDS: HEPARIN SOD 5,000 UNIT/0.5 ML VIAL SQ SCH ×2 (07:16→21:33)
--- NOTE | 2018-11-03 08:59 | Family Medicine Progress Note ---
Date of Service November 03, 2018 Assessment & Plan (1) Acute renal failure: 53yo male prisoner with PMHx of CKD3 (baseline Cr 1), anemia, HLD, HTN, gastritis, nonischemic cardiomyopathy presented with diarrhea and decreased PO intake x 7 days. Found to have NIK, Cr 10.4 with electrolyte derangements K 6.3. Metabolic acidosis (bicarb 12, AG 19) in the setting of likely uremia from NIK and decreased PO intake. HIV negative Acute renal failure likely pre-renal with metabolic acidosis and electrolyte derangements Likely ATN secondary to prerenal insult from C. Diff Diarrhea Receiving hemodialysis had hypertensive tachycardic episode in the middle of last treated and it was aborted midway. Creatinine at 3.4 today, electrolytes stable at this time potassium slightly low at 3.2 -Holding home Lisinopril, Lovastatin, Omeprazole and Furosemide -Nephrology consulted - following recs -continue HD via HD cath -Tums with meals, renal vitamin -Dose medications for GFR less than 10, avoid nephrotoxic medications -Trend daily BMP - Will make NPO tonight for tunneled cath tomorrow Hypertensive Urgency During dialysis last night, patient became tachycardic and hypertensive Gave scheduled metoprolol dose and lopressor pushes and he improved. Will start him on amlodipine 5 mg tomorrow to further control BP as he remains elevated this afternoon. Diarrhea, C. Diff Diarrhea improved -Stool toxin and culture is negative -C Diff toxin and gene positive -Continue vanc po 125mg started on 10/27 -day 7 of 10 Hx of non-ischemic cardiomyopathy and HTN -EKG 10/26 normal sinus rhythm, qtc 508, -Previous Echo with EF of 10%-15% -Repeat Echo today: EF 60 to 65%, mild dilated left ventricle, mild concentric LVH, RV mildly dilated with normal function, mild to moderate mitral valve regurg, moderate to severe pulmonary hypertension, right atrial pressure 8 mmHg -CXR 10/31 small R pleural effusion Anemia Asymptomatic, chronic, Has had previous bone marrow workup, neg for MDS. Also neg for Hep C. -hgb 7.4, baseline 7-8 Hgb -Trending CBC Diet: Full Liquid (Renal Dialysis) DVT proph: IV heparin CODE STATUS: Full code Dispo: Tele Supervising Physician Co-Signing Physician Notes I personally examined the patient and verified all reyes points of history and exam, discussed case, and agree with decision making with Dr Goodwin. Generally feeling okay, just worried about blood pressure. Discussed extensively, answered all questions to the best of my ability. Vitals noted, in general he is awake alert pleasant no distress. HEENT normocephalic atraumatic, MMM. Breathing unlabored no accessory muscle use good effort. Acute renal failurelikely on the basis of severe volume depletion related to his C. difficile diarrhea, probable ATN. Continue supportive care. Continue initial run of dialysis. Appreciate nephrology input. For better vascular access tomorrow. Pulmonary edemarelated to his renal failure more than a true cardiomyopathy (for clarification sake this could possibly be HFpEF but truly this relates much more directly to his renal failure)this appears to have resolved. uncontrolled HTN- anticipate HD improving this, had a hypertensive urgency last night, elevated troponin is likely either from poor clearance from his renal failure or mild heart strain from pushing against the excessive afterload, but blood pressures have improved significantly. Still technically uncontrolled, may need to add something like amlodipine in the near trigger, but continue to follow on metoprolol and dialysis DVT prophylaxisheparin subQ Subjective Addy Madera resting comfortably in bed this morning watching skateboarding, he has no complaints as of now. Still having some loose stool and some mild LLQ abdominal pain. He does not have any chest pain shortness of breath, leg swelling, Nausea or vomiting. Still having soft frequent stools. Review of Systems Review of Systems: As per HPI Physical Exam Constitutional: well developed, well nourished, cooperative and comfortable; no acute distress Respiratory: normal respiratory effort; no respiratory distress and no labored breathing Auscultation: lungs clear to auscultation bilaterally Cardiovascular: Rate/Rhythm: regular rate and regular rhythm Heart Sounds: no click, no gallop, no murmur and no cardiac rub Extremities: no edema Gastrointestinal (Abdomen): Inspection/Auscultation: abdomen normal to inspection; abdomen not distended Percussion/Palpation: + abdomen tender (mildly tender left lower quadrant) and abdomen soft Skin: no rashes, warm and dry Results & Data Vital Signs (Past 12 Hours) Vital Signs Temp Pulse Pulse Pulse Resp BP BP 11/03/18 07:20 36.8 C 96 H 16 148/95 H 11/03/18 04:49 37.3 C 80 18 131/84 11/03/18 02:31 89 11/03/18 00:07 37 C 95 H 16 156/94 H 11/02/18 22:26 87 142/83 H Pulse Ox 11/03/18 07:20 95 11/03/18 04:49 96 11/03/18 02:31 11/03/18 00:07 95 11/02/18 22:26 PG Care Time/CCT Total # of Minutes Spent Total Time Spent with Patient: Total time spent is greater than 50% in coordination of care (as documented) at patient's floor/unit and/or counseling patient: Resident Activity Tracking Resident Involvement: Resident Care Provided Care Provided: Adult Hospital Medicine (1) Acute renal failure Acute renal failure type: unspecified Qualified Code(s): N17.9 - Acute kidney failure, unspecified
--- NOTE | 2018-11-03 10:34 | Nephrology Progress Note ---
Date of Service November 03, 2018 Assessment & Plan (1) Acute renal failure: 53 y o M with acute kidney injury secondary to ATN in the setting of diarrheal illness for few days, hypertension, lisinopril, furosemide on board. Creatinine was 10.4 with BUN 114 on admission which started to improve slightly, creatinine down to 109.4 this morning. Renal ultrasound otherwise unremarkable. Urinalysis unremarkable. No history of chronic kidney disease, prior baseline creatinine was 1.0 from lab on April 2016. Diarrhea resolved, has been on IV fluid with slight improvement in renal function however remained anuric. Blood pressure stable. Lisinopril, furosemide has been on hold. TSH normal. So far no sign of renal recovery but overall feeling much better after first HD on 10/31/18. --keep NPO Sunday after midnight for TDC Sunday, hemodialysis after patient gets tunnel dialysis catheter --continue Tums with meals --renal vitamin --dose medications for GFR less than 10, avoid nephrotoxic medications --received Epogen 90155 units Sunday and 35321 units Sunday Will follow (2) Anemia: -- Mild asymptomatic anemia. Monitor (3) Diarrhea: -- No BM since admission due to Imodium therapy. Obtain stool for C. Difficile toxin assay once patient moves his bowels Subjective Blayne was seen and examined this morning. Overall feeling better, nauseous resolved, appetite started to improve. Remain anuric with no sign of recovery of Renal function. Physical Exam Constitutional: WD/WN, vitals as above + ill appearing Neck: trachea midline, no thyromegaly Respiratory: normal respiratory effort, lungs clear to auscultation Cardiovascular: RRR, no murmur, no edema Neurologic: moves all extremities and awake Psychiatric: A+Ox3, euthymic affect Results & Data Vital Signs (Past 12 Hours) Vital Signs Temp Pulse Pulse Pulse Resp BP BP 11/03/18 08:00 89 11/03/18 07:20 36.8 C 96 H 16 148/95 H 11/03/18 04:49 37.3 C 80 18 131/84 11/03/18 02:31 89 11/03/18 00:07 37 C 95 H 16 156/94 H Pulse Ox 11/03/18 08:00 11/03/18 07:20 95 11/03/18 04:49 96 11/03/18 02:31 11/03/18 00:07 95 (1) Acute renal failure Acute renal failure type: unspecified Qualified Code(s): N17.9 - Acute kidney failure, unspecified
[2018-11-03] MEDS ORDERED: OXYCODONE HCL IR 5 MG TAB (IMMEDIATE RELEASE) PO STA (22:38)
[2018-11-04] MEDS: RASPBERRY SYRUP 5 ML UDP PO SCH ×4 (05:34→23:14)
[2018-11-04] MEDS: VANCOMYCIN HCL 125 MG/2.5ML SOLN PO SCH ×4 (05:35→23:14)
[2018-11-04 05:56] LABS: Eosinophils # (auto) 0.11 K/uL (0-0.5); Eosinophils % (auto) 2.3 %; Hematocrit (blood only) 22.9 % (42-52); Hemoglobin 7.3 g/dL (14.0-18.0); Immature Granulocytes # (auto) 0.02 K/uL (0.00-0.02); Immature Granulocytes % (auto) 0.4 %; Lymphocytes # (auto) 1.15 K/uL (1.2-3.4); Lymphocytes % (auto) 23.8 %; Mean Corpuscular Hgb Conc 31.9 g/dL (32-36); Mean Corpuscular Volume 86.4 fL (80-100); Mean Platelet Volume 8.3 fL (7.4-10.4); Monocytes # (auto) 0.32 K/uL (0.11-0.59); Monocytes % (auto) 6.6 %; Neutrophils # (auto) 3.23 K/uL (1.4-6.5); Neutrophils % (auto) 66.9 %; Platelet Count 142 K/uL (130-400); RDW Coefficient of Variation 16.2 % (11.5-14.5); Red Blood Count 2.65 M/uL (4.7-6.1); White Blood Count 4.83 K/uL (4.8-10.8)
[2018-11-04 06:30] LABS: RBC Morphology Unremarkable
[2018-11-04 06:49] LABS: Albumin Level 2.1 gm/dl (3.4-5.0); BUN Creatinine Ratio 6.6 (10-20); Calcium 7.7 mg/dl (8.5-10.1); Creatinine Clr Calc Pharmacy 14.9 ml/min; Est GFR (African American) 12.7; Phosphorus 2.4 mg/dl (2.5-4.9); Potassium 3.7 mmol/L (3.5-5.1)
[2018-11-04] MEDS ORDERED: SODIUM CHLORIDE 0.9% 1000ML 1,000 ML IV PRN (07:00)
[2018-11-04] MEDS: CALCIUM CARBONATE 500 MG CHEWABLE TAB PO SCH ×3 (08:29→18:17)
[2018-11-04] MEDS: METOPROLOL TARTRATE 100 MG TAB PO SCH ×2 (08:29→20:48)
[2018-11-04] MEDS: FAMOTIDINE 20 MG TAB PO SCH (08:30)
[2018-11-04] MEDS: HEPARIN SOD 5,000 UNIT/0.5 ML VIAL SQ SCH ×2 (08:30→20:53)
[2018-11-04] MEDS: NEPHROCAPS PO SCH (08:30)
[2018-11-04] MEDS ORDERED: AMLODIPINE BESYLATE 5 MG TAB PO SCH (09:00)
[2018-11-04] MEDS ORDERED: EPOETIN ALFA 10,000 UNITS/ML VIAL IV ONE (09:15)
--- NOTE | 2018-11-04 09:25 | Communication Note ---
Date of Service: November 04, 2018 Pt scheduled for permcath insertion tomorrow by Dr White.
--- NOTE | 2018-11-04 11:10 | Nephrology Progress Note ---
Date of Service November 04, 2018 Assessment & Plan (1) Acute renal failure: 53 y o M with acute kidney injury secondary to ATN in the setting of diarrheal illness complicated by ACEi and diuretic use. Clinical presentation consistent with ATN. Unfortunately, patient remains dialysis dependent without significant evidence of renal recovery. First HD on 10/31/18. Orders for dialysis today have been entered into the EMR and discussed with the HD nurse cushion padder. Discussed permcath placement with vascular surgery. Tentatively scheduled with Dr. White for tomorrow. (2) Anemia: Epogen provided: 94126 units Sunday and 74002 units Sunday (3) Diarrhea: Clinically improving Subjective No acute events overnight. No complaints this morning. Stool remains loose. Mild abdominal discomfort persists. Minimal urine output. No fevers or chills. Breathing comfortably. Review of Systems Review of Systems: All systems reviewed & are unremarkable except as noted in HPI & below Physical Exam Constitutional: well developed; no acute distress Eyes: no scleral abnormality and no corneal abnormality ENMT: Mouth: no oral mucosal abnormality and oral mucous membranes not dry Neck: normal visual inspection and trachea midline Respiratory: normal respiratory effort; no respiratory distress Auscultation: lungs clear to auscultation bilaterally Cardiovascular: Rate/Rhythm: regular rate Heart Sounds: normal S1 and normal S2 Gastrointestinal (Abdomen): Inspection/Auscultation: abdomen normal to inspection and + abdomen distended Percussion/Palpation: abdomen soft; abdomen nontender Musculoskeletal: Extremities: extremities normal to inspection; no cyanosis and no clubbing Skin: no rashes Neurologic: Motor/Sensory: no tremor and no asterixis Psychiatric: Orientation: alert Affect: euthymic affect Genitourinary: Greenberg with clear urine output Results & Data Vital Signs (Past 12 Hours) Vital Signs Temp Pulse Resp BP BP Pulse Ox 11/04/18 08:26 87 146/92 H 11/04/18 07:19 36.9 C 91 H 17 157/105 H 99 11/04/18 03:50 37.1 C 86 21 124/84 95 11/03/18 23:24 37.5 C 90 19 143/94 H 95 Laboratory Results Laboratory Results - last 24 hr 11/04/18 11/04/18 05:44 05:44 WBC 4.83 RBC 2.65 L Hgb 7.3 L Hct 22.9 L MCV 86.4 MCH 27.5 MCHC 31.9 L RDW Std Deviation 51.0 H RDW Coeff of Erich 16.2 H Plt Count 142 MPV 8.3 Immature Gran % (Auto) 0.4 Neut % (Auto) 66.9 Lymph % (Auto) 23.8 Talbot % (Auto) 6.6 Eos % (Auto) 2.3 Baso % (Auto) 0.0 Immature Gran # (Auto) 0.02 Neut # (Auto) 3.23 Lymph # (Auto) 1.15 L Talbot # (Auto) 0.32 Eos # (Auto) 0.11 Baso # (Auto) 0.00 RBC Morphology Unremarkable Sodium 138 Potassium 3.7 D Chloride 103 Carbon Dioxide 27 Anion Gap 8.0 BUN 35 H D Creatinine 5.41 H* D Est Cr Clr Drug Dosing 14.9 Est GFR ( Amer) 12.7 Est GFR (Non-Af Amer) 11.0 BUN/Creatinine Ratio 6.6 L Glucose 92 Calcium 7.7 L Phosphorus 2.4 L Albumin 2.1 L (1) Acute renal failure Acute renal failure type: unspecified Qualified Code(s): N17.9 - Acute kidney failure, unspecified
[2018-11-04] MEDS ORDERED: AMLODIPINE BESYLATE 5 MG TAB PO ONE (15:30)
--- NOTE | 2018-11-04 16:43 | Family Medicine Progress Note ---
Date of Service November 04, 2018 Assessment & Plan (1) Acute renal failure: 53yo male prisoner with PMHx of CKD3 (baseline Cr 1), anemia, HLD, HTN, gastritis, nonischemic cardiomyopathy presented with diarrhea and decreased PO intake x 7 days. Found to have NIK, Cr 10.4 with electrolyte derangements K 6.3. Metabolic acidosis (bicarb 12, AG 19) in the setting of likely uremia from NIK and decreased PO intake. HIV negative Acute renal failure likely pre-renal with metabolic acidosis and electrolyte derangements Likely ATN secondary to prerenal insult from C. Diff Diarrhea Receiving hemodialysis had hypertensive tachycardic episode in the middle of last treated and it was aborted midway. Creatinine greater than 5 today, will receive dialysis this evening Tunneled hemodialysis catheter to be placed tomorrow -Holding home Lisinopril, Lovastatin, Omeprazole and Furosemide -Nephrology consulted - following recs -continue HD via HD cath -Tums with meals, renal vitamin -Dose medications for GFR less than 10, avoid nephrotoxic medications -Trending daily BMP - Will make NPO tonight for tunneled cath placement tomorrow Hypertension Started amlodipine 5 mg yesterday increasing to 10 mg tomorrow Diarrhea, C. Diff Diarrhea improved -Stool toxin and culture is negative -C Diff toxin and gene positive -Continue vanc po 125mg started on 10/27 -day 8 of 10 Hx of non-ischemic cardiomyopathy and HTN -EKG 10/26 normal sinus rhythm, qtc 508, -Previous Echo with EF of 10%-15% -Repeat Echo today: EF 60 to 65%, mild dilated left ventricle, mild concentric LVH, RV mildly dilated with normal function, mild to moderate mitral valve regurg, moderate to severe pulmonary hypertension, right atrial pressure 8 mmHg -CXR 10/31 small R pleural effusion Anemia Asymptomatic, chronic, Has had previous bone marrow workup, neg for MDS. Also neg for Hep C. -hgb 7.3, baseline 7-8 Hgb -Trending CBC Diet: Full DVT proph: IV heparin CODE STATUS: Full code Dispo: Tele Supervising Physician Co-Signing Physician Notes I personally examined the patient and verified all reyes points of history and exam, discussed case, and agree with decision making with Dr Goodwin. Seen during dialysis. Feeling anxious. Feeling a little bit short of breath. Vitals noted, in general he is awake alert pleasant no distress. HEENT normocephalic atraumatic, MMM. Breathing unlabored no accessory muscle use good effort, lungs overall quite clear except for may be faintly diminished base right, of note he is laying on his right side during exam. Acute renal failurelikely on the basis of severe volume depletion related to his C. difficile diarrhea, probable ATN. Continue supportive care. Continue i nitial run of dialysis. Await vascular access that will allow him to be discharged Pulmonary edemarelated to his renal failure more than a true cardiomyopathy (for clarification sake this could possibly be HFpEF but truly this relates much more directly to his renal failure)this appears to have resolved, shortness of breath today appears to be much more anxiety driven. uncontrolled HTN-continue to titrate medications, continue to follow with dialysis Anxietymost of the symptoms today seem to be due to anxiety, offered active reassurance DVT prophylaxisheparin subQ Subjective Mateusz Madera is resting comfortably this morning, he has no concerns and is happy his blood pressure is under better control. Review of Systems Review of Systems: All systems reviewed & are unremarkable except as noted in HPI & below Physical Exam Constitutional: well developed and well nourished; no acute distress Neck: IJ in place Respiratory: normal respiratory effort; no respiratory distress and no labored breathing Auscultation: lungs clear to auscultation bilaterally Cardiovascular: Rate/Rhythm: regular rate and regular rhythm Heart Sounds: normal S1 and normal S2; no click, no gallop, no murmur and no cardiac rub Extremities: no calf tenderness and no edema Gastrointestinal (Abdomen): normal bowel sounds, soft, nontender, no hepatosplenomegaly Psychiatric: Affect: + anxious affect Results & Data Vital Signs (Past 12 Hours) Vital Signs Temp Pulse Pulse Pulse Resp BP BP 11/04/18 16:20 104 H 193/120 H 11/04/18 16:00 107 H 195/123 H 11/04/18 15:40 114 H 189/127 H 11/04/18 15:20 116 H 199/98 H 11/04/18 15:00 99 H 172/114 H 11/04/18 14:40 91 H 180/111 H 11/04/18 14:20 96 H 168/111 H 11/04/18 13:59 36.9 C 95 H 95 H 171/104 H 11/04/18 11:50 37.0 C 93 H 17 11/04/18 08:26 87 11/04/18 07:19 36.9 C 91 H 17 157/105 H BP Pulse Ox 11/04/18 16:20 11/04/18 16:00 11/04/18 15:40 11/04/18 15:20 11/04/18 15:00 11/04/18 14:40 11/04/18 14:20 11/04/18 13:59 11/04/18 11:50 168/116 H 98 11/04/18 08:26 146/92 H 11/04/18 07:19 99 PG Care Time/CCT Total # of Minutes Spent Total Time Spent with Patient: Total time spent is greater than 50% in coordination of care (as documented) at patient's floor/unit and/or counseling patient: Resident Activity Tracking Resident Involvement: Resident Care Provided Care Provided: Adult Hospital Medicine (1) Acute renal failure Acute renal failure type: unspecified Qualified Code(s): N17.9 - Acute kidney failure, unspecified
[2018-11-04] MEDS ORDERED: METOPROLOL TARTRATE 1 MG/ML VIAL IV PRN ×2 (18:42→18:46)
[2018-11-05] MEDS ORDERED: CLINDAMYCIN 600 MG/54 ML BAG IV SCH (06:00)
[2018-11-05] MEDS: RASPBERRY SYRUP 5 ML UDP PO SCH ×3 (06:04→18:00)
[2018-11-05] MEDS: VANCOMYCIN HCL 125 MG/2.5ML SOLN PO SCH ×3 (06:05→18:00)
[2018-11-05 07:00] LABS: Eosinophils # (auto) 0.12 K/uL (0-0.5); Eosinophils % (auto) 2.5 %; Hematocrit (blood only) 23.8 % (42-52); Hemoglobin 7.5 g/dL (14.0-18.0); Immature Granulocytes # (auto) 0.02 K/uL (0.00-0.02); Immature Granulocytes % (auto) 0.4 %; Lymphocytes # (auto) 1.17 K/uL (1.2-3.4); Lymphocytes % (auto) 24.8 %; Mean Corpuscular Hgb Conc 31.5 g/dL (32-36); Mean Corpuscular Volume 85.3 fL (80-100); Mean Platelet Volume 8.8 fL (7.4-10.4); Monocytes # (auto) 0.27 K/uL (0.11-0.59); Monocytes % (auto) 5.7 %; Neutrophils # (auto) 3.13 K/uL (1.4-6.5); Neutrophils % (auto) 66.6 %; Nucleated RBC # (auto) 0.02 K/uL (0-0); Nucleated RBC % (auto) 0.4 %; Platelet Count 130 K/uL (130-400); RDW Coefficient of Variation 16.5 % (11.5-14.5); RDW Standard Deviation 50.6 fL (36.4-46.3); Red Blood Count 2.79 M/uL (4.7-6.1); White Blood Count 4.71 K/uL (4.8-10.8)
[2018-11-05 07:29] LABS: Anisocytosis Present
--- NOTE | 2018-11-05 07:45 | Family Medicine Progress Note ---
Date of Service November 05, 2018 Assessment & Plan (1) Acute renal failure: 53yo male prisoner with PMHx of CKD3 (baseline Cr 1), anemia, HLD, HTN, gastritis, nonischemic cardiomyopathy presented with diarrhea and decreased PO intake x 7 days. Found to have NIK, Cr 10.4 with electrolyte derangements K 6.3. Metabolic acidosis (bicarb 12, AG 19) in the setting of likely uremia from NIK and decreased PO intake. HIV negative Acute renal failure likely pre-renal with metabolic acidosis and electrolyte derangements Likely ATN secondary to prerenal insult from C. Diff Diarrhea Received hemodialysis last night and became hypertensive and tachycardic again, given one dose of lopressor 5mg IV push which lowered rate and pressure Tunneled hemodialysis catheter to be placed today IJ dialysis line pulled last night, no complications -Holding home Lisinopril, Lovastatin, Omeprazole and Furosemide -Trending daily BMP -NPO for procedure later today Hypertension Upped amlodipine to 10 mg Diarrhea, C. Diff Diarrhea improved -Stool toxin and culture is negative -C Diff toxin and gene positive -Continue vanc po 125mg started on 10/27 -day 9 of 10 Hx of non-ischemic cardiomyopathy and HTN -EKG 10/26 normal sinus rhythm, qtc 508, -Previous Echo with EF of 10%-15% -Repeat Echo this admission: EF 60 to 65%, mild dilated left ventricle, mild concentric LVH, RV mildly dilated with normal function, mild to moderate mitral valve regurg, moderate to severe pulmonary hypertension, right atrial pressure 8 mmHg -CXR 10/31 small R pleural effusion Anemia Asymptomatic, chronic, Has had previous bone marrow workup, neg for MDS. Also neg for Hep C. -hgb 7.3, baseline 7-8 Hgb -Trending CBC Diet: Full DVT proph: IV heparin CODE STATUS: Full code Dispo: Tele Supervising Physician Co-Signing Physician Notes I personally examined the patient and verified all reyes points of history and exam, discussed case, and agree with decision making with Dr Goodwin. No new issues. Resting pending dialysis catheter placement. Vitals noted, no distress. Breathing unlabored. Skin shows no rashes no pallor or icterus. Acute renal failurelikely on the basis of severe volume depletion related to his C. difficile diarrhea, probable ATN. Continue supportive care. Getting better dialysis access today, then discharge once okay with nephrology to transition to a stable outpatient regimen. Pulmonary edemarelated to his renal failure more than a true cardiomyopathy (for clarification sake this could possibly be HFpEF but truly this relates much more directly to his renal failure)this appears to have resolved, although he does have a degree of on and off shortness of breath that obviously must be evaluated in detail, but mostly has seemed anxiety driven. uncontrolled HTN-continue to titrate medications, continue to follow with dialysis, also difficult to tease apart how much of this is driven by his anxiety. Anxietycontinue to follow, hopefully is mostly situational. DVT prophylaxisheparin subQ Subjective Mateusz Santy resting comfortably this morning. He is feeling notably less anxious happy with his blood pressures under better control. He denies any chest pain shortness of breath abdominal pain seems to be improved, he denies any pain or bleeding overnight his IJ site after removal. Patient has no other concerns at this time and is ready to get his procedure over with. Review of Systems Review of Systems: All systems reviewed & are unremarkable except as noted in HPI & below Physical Exam 2 Constitutional: Well-appearing well nourished in no acute distress calm cooperative and well-appearing Eyes: Anicteric sclera pupils equal round reactive to light extraocular muscles intact Respiratory: Chest expansion symmetric, breath sounds vesicular bilaterally clear to auscultation Cardiovascular: No murmurs rubs skips or gallops regular rate regular rhythm no edema Gastrointestinal (Abdomen): Soft nontender abdomen no mass or hepatomegaly Skin: Bandage over right IJ site with Tegaderm over sterile gauze no signs of bleeding or hematoma Results & Data Vital Signs (Past 12 Hours) Vital Signs Temp Pulse Pulse Pulse Pulse Resp BP 11/05/18 07:39 37.0 C 90 18 11/05/18 03:35 37 C 89 22 11/05/18 00:26 88 11/05/18 00:00 101 H 11/04/18 23:15 37.1 C 92 H 25 H 11/04/18 20:31 37.0 C 102 H 24 11/04/18 19:43 122 H 164/92 H BP BP Pulse Ox 11/05/18 07:39 149/103 H 94 11/05/18 03:35 148/96 H 93 11/05/18 00:26 11/05/18 00:00 11/04/18 23:15 126/79 90 11/04/18 20:31 140/99 92 11/04/18 19:43 PG Care Time/CCT Total # of Minutes Spent Total Time Spent with Patient: Total time spent is greater than 50% in coordination of care (as documented) at patient's floor/unit and/or counseling patient: Resident Activity Tracking Resident Involvement: Resident Care Provided Care Provided: Adult Hospital Medicine (1) Acute renal failure Acute renal failure type: unspecified Qualified Code(s): N17.9 - Acute kidney failure, unspecified
[2018-11-05 07:46] LABS: BUN Creatinine Ratio 5.6 (10-20); Calcium 7.7 mg/dl (8.5-10.1); Creatinine Clr Calc Pharmacy 25.8 ml/min; Est GFR (African American) 24.6; Est GFR (Non-African American) 21.2; Potassium 3.5 mmol/L (3.5-5.1)
[2018-11-05] MEDS: METOPROLOL TARTRATE 100 MG TAB PO SCH ×2 (07:57→20:42)
[2018-11-05] MEDS: AMLODIPINE BESYLATE 5 MG TAB PO SCH (07:58)
[2018-11-05] MEDS: NEPHROCAPS PO SCH (07:59)
[2018-11-05] MEDS: FAMOTIDINE 20 MG TAB PO SCH (08:00)
[2018-11-05] MEDS: HEPARIN SOD 5,000 UNIT/0.5 ML VIAL SQ SCH ×2 (08:00→20:42)
[2018-11-05] MEDS: CALCIUM CARBONATE 500 MG CHEWABLE TAB PO SCH ×3 (08:03→17:12)
[2018-11-05] MEDS: HydrALAZINE HCL 20 MG/ML VIAL IV PRN (08:56)
--- NOTE | 2018-11-05 10:35 | Nephrology Progress Note ---
Date of Service November 05, 2018 Assessment & Plan (1) Acute renal failure: 53 y o M with acute kidney injury secondary to ATN in the setting of diarrheal illness complicated by ACEi and diuretic use. Clinical presentation consistent with ATN. Unfortunately, patient remains dialysis dependent without significant evidence of renal recovery. First HD on 10/31/18. Plan next treatment tomorrow. TDC placement today. (2) Anemia: Epogen provided: 41686 units Sunday and 14541 units Sunday (3) Diarrhea: Clinically improving Subjective No acute events overnight. Tolerated HD well yesterday without complications. Overall feels well this morning. Denies pain. HD catheter removed. NPO for TDC placement. Review of Systems Review of Systems: All systems reviewed & are unremarkable except as noted in HPI & below Physical Exam Constitutional: well developed; no acute distress Eyes: no scleral abnormality and no corneal abnormality ENMT: Mouth: no oral mucosal abnormality and oral mucous membranes not dry Neck: normal visual inspection and trachea midline Respiratory: normal respiratory effort; no respiratory distress Auscultation: lungs clear to auscultation bilaterally Cardiovascular: Rate/Rhythm: regular rate Heart Sounds: normal S1 and normal S2 Gastrointestinal (Abdomen): Inspection/Auscultation: abdomen normal to inspection and + abdomen distended Percussion/Palpation: abdomen soft; abdomen nontender Musculoskeletal: Extremities: extremities normal to inspection; no cyanosis and no clubbing Skin: no rashes Neurologic: Motor/Sensory: no tremor and no asterixis Psychiatric: Orientation: alert Affect: euthymic affect Results & Data Vital Signs (Past 12 Hours) Vital Signs Temp Pulse Pulse Pulse Pulse Resp BP 11/05/18 09:11 11/05/18 08:56 11/05/18 08:00 79 11/05/18 07:39 37.0 C 90 18 149/103 H 11/05/18 03:35 37 C 89 22 11/05/18 00:26 88 11/05/18 00:00 101 H 11/04/18 23:15 37.1 C 92 H 25 H 126/79 BP Pulse Ox 11/05/18 09:11 141/96 H 11/05/18 08:56 157/102 H 11/05/18 08:00 11/05/18 07:39 94 11/05/18 03:35 148/96 H 93 11/05/18 00:26 11/05/18 00:00 11/04/18 23:15 90 Laboratory Results Laboratory Results - last 24 hr 11/05/18 11/05/18 06:47 06:47 WBC 4.71 L RBC 2.79 L Hgb 7.5 L Hct 23.8 L MCV 85.3 MCH 26.9 MCHC 31.5 L RDW Std Deviation 50.6 H RDW Coeff of Erich 16.5 H Plt Count 130 MPV 8.8 Immature Gran % (Auto) 0.4 Neut % (Auto) 66.6 Lymph % (Auto) 24.8 [place] % (Auto) 5.7 Eos % (Auto) 2.5 Baso % (Auto) 0.0 Immature Gran # (Auto) 0.02 Neut # (Auto) 3.13 Lymph # (Auto) 1.17 L [place] # (Auto) 0.27 Eos # (Auto) 0.12 Baso # (Auto) 0.00 Absolute Nucleated RBC 0.02 H Nucleated RBC % (auto) 0.4 Anisocytosis Present Sodium 137 Potassium 3.5 Chloride 102 Carbon Dioxide 27 Anion Gap 8.0 BUN 18 Creatinine 3.13 H D Est Cr Clr Drug Dosing 25.8 Est GFR ( Amer) 24.6 Est GFR (Non-Af Amer) 21.2 BUN/Creatinine Ratio 5.6 L Glucose 94 Calcium 7.7 L (1) Acute renal failure Acute renal failure type: unspecified Qualified Code(s): N17.9 - Acute kidney failure, unspecified
--- NOTE | 2018-11-05 12:56 | History & Physical Bridge Note ---
Date of Service November 05, 2018 History & Physical Bridge Note Patient for insertion of a permcath. I have discussed the risks options and benefits of the procedure with the patient. The patient understands the risks options and benefits and agrees to the procedure. I have examined the patient, reviewed the History & Physical and in the interval since the performance of the History & Physical I have noted the following changes of clinical significance: no changes noted
--- NOTE | 2018-11-05 13:17 | Pre Anesthesia Assessment ---
Date of Service November 05, 2018 Pre Sedation Assessment Vital Signs Temp Pulse Pulse Pulse Pulse Pulse Resp 11/05/18 13:05 36.8 C 97 H 88 88 11/05/18 11:27 37.1 C 96 H 19 11/05/18 09:11 11/05/18 08:56 11/05/18 08:00 79 11/05/18 07:39 37.0 C 90 18 11/05/18 03:35 37 C 89 22 11/05/18 00:26 88 11/05/18 00:00 101 H 11/04/18 23:15 37.1 C 92 H 25 H 11/04/18 20:31 37.0 C 102 H 24 11/04/18 19:43 122 H 11/04/18 19:23 37.0 C 109 H 27 H 11/04/18 18:36 120 H 11/04/18 18:02 36.8 C 123 H 123 H 11/04/18 17:40 104 H 11/04/18 17:20 104 H 11/04/18 17:00 101 H 11/04/18 16:40 102 H 11/04/18 16:20 104 H 11/04/18 16:00 96 H 11/04/18 15:40 114 H 11/04/18 15:20 116 H 11/04/18 15:00 99 H 11/04/18 14:40 91 H 11/04/18 14:20 96 H 11/04/18 13:59 36.9 C 95 H 95 H BP BP BP Pulse Ox 11/05/18 13:05 130/90 93 11/05/18 11:27 130/90 92 11/05/18 09:11 141/96 H 11/05/18 08:56 157/102 H 11/05/18 08:00 11/05/18 07:39 149/103 H 94 11/05/18 03:35 148/96 H 93 11/05/18 00:26 11/05/18 00:00 11/04/18 23:15 126/79 90 11/04/18 20:31 140/99 92 11/04/18 19:43 164/92 H 11/04/18 19:23 164/92 H 93 11/04/18 18:36 183/126 H 192/123 H 11/04/18 18:02 199/140 H 199/140 H 11/04/18 17:40 188/117 H 11/04/18 17:20 189/119 H 11/04/18 17:00 185/108 H 11/04/18 16:40 186/118 H 11/04/18 16:20 193/120 H 11/04/18 16:00 195/123 H 11/04/18 15:40 189/127 H 11/04/18 15:20 199/98 H 11/04/18 15:00 172/114 H 11/04/18 14:40 180/111 H 11/04/18 14:20 168/111 H 11/04/18 13:59 171/104 H Cardiovascular RRR, no murmur, no edema Respiratory normal respiratory effort, lungs clear to auscultation Pre-Sedation Airway Assessment Smoking Status: Never smoker Hx Sleep Apnea: No Short, Thick Neck: No Thyromental Distance: > or= 3.5 Finger Breadths Oral Cavity: + WNL Mallampati Class: II ASA: ASA3 NPO Status Date of Last Intake of Fluids: 11/05/18 Time of Last Intake of Fluids: 00:01 Last Oral Intake of Fluids Comment: orange juice for low blood sugar Date of Last Intake of Solid Food: 11/05/18 Time of Last Intake of Solid Foods: 00:01 Last Intake of Solids Comment: patient reports cannot recall last solid food intake Procedure Planning Contraindications for Sedation: none Current Medications Reviewed: Yes Notes The planned sedation has been discussed with the patient. Informed Consent was obtained. I have identified the patient, determined the appropriateness of sedation and have assessed the patient immediately prior to the procedure. All medicine(s) and interventions are by my order.
[2018-11-05] MEDS ORDERED: LIDOCAINE HCL 1% 20 ML VIAL ONE (13:19)
[2018-11-05] MEDS ORDERED: HEPARIN SOD 5,000 UNIT/0.5 ML VIAL ONE (13:20)
[2018-11-05] MEDS ORDERED: MIDAZOLAM HCL 1 MG/ML 2ML VIAL ONE (13:24)
[2018-11-05] MEDS ORDERED: fentaNYL citrate 100 MCG/2 ML VIAL ONE (13:24)
--- NOTE | 2018-11-05 14:00 | Post Operative Brief Note ---
Immediate Post Op Note v1 Date of Surgery November 05, 2018 Pre & Post Diagnosis Operation Date: 10/30/18 12:40 <No data on this case meets the specified criteria> Operation Date: 11/05/18 12:10 Pre-Op Diagnosis: Acute Kidney Injury Post-Op Diagnosis: Acute Kidney Injury Procedure Operation Date: 10/30/18 12:40 Actual Procedures p Procedure Cancelled (perm Catheter Placement) - Roe Whtie MD Operation Date: 11/05/18 12:10 Actual Procedures p Perm Catheter Placement Right Jugular [place], Ultrasound Localization of Right Jugular Vein, Fluoroscopy for Positioning, Moderate Sedation 1335- 1408(Right) - Roe White MD Surgeon Roe White MD Wire Rigger MD Mikhail Estimated Blood Loss 5 Findings Consistent with Post-Op Diagnosis Anesthesia Type RN Sedation Complications none Disposition Accompanied Patient To Recovery: No Disposition: Recovery Room
--- NOTE | 2018-11-05 14:07 | Operative Report ---
Post Operative Report Pre & Post Diagnosis Operation Date: 10/30/18 12:40 <No data on this case meets the specified criteria> Operation Date: 11/05/18 12:10 Pre-Op Diagnosis: Acute Kidney Injury Post-Op Diagnosis: Acute Kidney Injury Procedure Operation Date: 10/30/18 12:40 Actual Procedures p Procedure Cancelled (perm Catheter Placement) - Roe White MD Operation Date: 11/05/18 12:10 Actual Procedures p Perm Catheter Placement Right Jugular [place], Ultrasound Localization of Right Jugular Vein, Fluoroscopy for Positioning, Moderate Sedation 1335-(Right) - Roe Whiet MD Surgeon Dr. Roe White Roll Carrier MD Mikhail Estimated Blood Loss 5 Findings Consistent with Post-Op Diagnosis Fluids 50ml Specimens None Drains None Anesthesia Type RN Sedation Complications none Disposition Accompanied Patient To Recovery: No Disposition: Recovery Room Indications 53-year-old male with anuric acute kidney failure requiring hemodialysis who previously had a temporary hemodialysis catheter placed who now needs permanent central access. I have discussed the risks options and benefits of the procedure with the patient. The patient understands the risks options and benefits and agrees to the procedure. Description of Procedure Patient was taken to the angio suite and placed in the supine position. A timeout procedure was performed correctly identifying the patient by his full name and date of as well as the procedure to be performed and laterality. The right side of the neck and chest wall were prepped and draped in a sterile manner. Local anesthesia was then administered to the appropriate areas of the neck and chest wall. Ultrasound was then used to locate the right internal jugular vein. The vein compressed easily, had no filing defects, and was patent. The vein was then punctured under direct ultrasound imaging. A guidewire was then passed centrally under fluoroscopic imaging. A stab wound was then made in the anterior chest wall and a 19 cm permcath was passed from the stab wound on the chest wall to the puncture site on the neck. The puncture site was then dilated till the 14Fr peel away sheath was inserted. The permcath was then inserted through the sheath to a central position in the distal superior vena cava. The peel away sheath was then removed. The catheter was then sutured in place using nylon sutures. The puncture was then closed using a 4-0 Vicryl subcuticular suture. Dermabond was used for a dressing on the puncture site. Both ports aspirated and flushed easily and were then packed with heparin. A sterile dressing was applied to the catheter. The patient left the angio suite in good condition and tolerated the procedure well. I attest to the content of the Intraoperative Record and any orders documented therein. Any exceptions are noted below.
--- NOTE | 2018-11-05 14:13 | Post Anesthesia Assessment ---
Date of Service November 05, 2018 Post Sedation Assessment Vital Signs Temp Pulse Pulse Pulse Pulse Pulse Resp 11/05/18 14:08 88 20 11/05/18 14:03 89 18 11/05/18 14:00 89 20 11/05/18 13:55 90 23 11/05/18 13:50 92 H 23 11/05/18 13:45 90 19 11/05/18 13:40 90 18 11/05/18 13:35 99 H 20 11/05/18 13:30 118 H 22 11/05/18 13:05 36.8 C 97 H 88 88 11/05/18 11:27 37.1 C 96 H 19 11/05/18 09:11 11/05/18 08:56 11/05/18 08:00 79 11/05/18 07:39 37.0 C 90 18 11/05/18 03:35 37 C 89 22 11/05/18 00:26 88 11/05/18 00:00 101 H 11/04/18 23:15 37.1 C 92 H 25 H 11/04/18 20:31 37.0 C 102 H 24 11/04/18 19:43 122 H 11/04/18 19:23 37.0 C 109 H 27 H 11/04/18 18:36 120 H 11/04/18 18:02 36.8 C 123 H 123 H 11/04/18 17:40 104 H 11/04/18 17:20 104 H 11/04/18 17:00 101 H 11/04/18 16:40 102 H 11/04/18 16:20 104 H 11/04/18 16:00 96 H 11/04/18 15:40 114 H 11/04/18 15:20 116 H 11/04/18 15:00 99 H 11/04/18 14:40 91 H 11/04/18 14:20 96 H BP BP BP Pulse Ox 11/05/18 14:08 129/87 94 11/05/18 14:03 124/98 100 11/05/18 14:00 126/92 100 11/05/18 13:55 129/93 100 11/05/18 13:50 140/86 100 11/05/18 13:45 134/92 100 11/05/18 13:40 143/94 H 100 11/05/18 13:35 137/106 H 92 11/05/18 13:30 168/120 H 94 11/05/18 13:05 130/90 93 11/05/18 11:27 130/90 92 11/05/18 09:11 141/96 H 11/05/18 08:56 157/102 H 11/05/18 08:00 11/05/18 07:39 149/103 H 94 11/05/18 03:35 148/96 H 93 11/05/18 00:26 11/05/18 00:00 11/04/18 23:15 126/79 90 11/04/18 20:31 140/99 92 11/04/18 19:43 164/92 H 11/04/18 19:23 164/92 H 93 11/04/18 18:36 183/126 H 192/123 H 11/04/18 18:02 199/140 H 199/140 H 11/04/18 17:40 188/117 H 11/04/18 17:20 189/119 H 11/04/18 17:00 185/108 H 11/04/18 16:40 186/118 H 11/04/18 16:20 193/120 H 11/04/18 16:00 195/123 H 11/04/18 15:40 189/127 H 11/04/18 15:20 199/98 H 11/04/18 15:00 172/114 H 11/04/18 14:40 180/111 H 11/04/18 14:20 168/111 H Recovery Score Activity: Moves 4 extremities Respiration: Deep Breath/Cough Circulation: +/-20% PreAnes Value Consciousness: Fully Awake Oxygen Saturation: > 92% On Room Air Post Anesthesia Score: 10 Discharge Sedation Level of Care: Fast Track Phase II Post Sedation Plan On clinical assessment, the patient appears to have tolerated the sedation without complications. Patient is recovering as anticipated. Patient will continue to be monitored by nursing and may be discharged when sedation discharge criteria are met per below protocol. Upon Completions of procedure and additional 15 minutes continue every 5 minute vital signs and the P.A.R. score; then discharge to a Phase I or Fast Track to Phase II per the following guidelines: * Discharge Patient to appropriate Phase II area if PAR is 8 or greater or return to pre- procedure baseline. The post - procedure orders will be as directed. * If PAR score is less than 8 or not return to pre-procedure baseline then p atient will follow Phase I monitoring till PAR is reached for Phase II. The Phase I may be done in procedure room or may call to secure a Phase I area. * If naloxone or flumazenil are used for reversal, hold in Phase I for continued monitoring from when last reversal dose was given for a minimum of 60 minutes or longer pending the nurse and/or physician discretion of patient condition before discharge to Phase II. Please call the Sedation Physician to re-evaluate and complete post-note for discharge to Phase II area. Do NOT discharge from procedure sedation or Phase 1 until post- sedation evaluation note is complete by procedure /sedation MD Sedation Discharge Instructions to be given to the patient at discharge to home.
[2018-11-06] MEDS: VANCOMYCIN HCL 125 MG/2.5ML SOLN PO SCH ×3 (01:11→12:03)
[2018-11-06] MEDS: RASPBERRY SYRUP 5 ML UDP PO SCH ×4 (01:11→19:25)
[2018-11-06] MEDS: ACETAMINOPHEN 500 MG TAB PO PRN ×2 (01:12→20:07)
[2018-11-06] MEDS ORDERED: SODIUM CHLORIDE 0.9% 1000ML 1,000 ML IV PRN ×2 (07:00→09:33)
--- NOTE | 2018-11-06 07:05 | Family Medicine Progress Note ---
Date of Service November 06, 2018 Assessment & Plan (1) Acute renal failure: 53yo male prisoner with PMHx of CKD3 (baseline Cr 1), anemia, HLD, HTN, gastritis, nonischemic cardiomyopathy presented with diarrhea and decreased PO intake x 7 days. Found to have NIK, Cr 10.4 with electrolyte derangements K 6.3. Metabolic acidosis (bicarb 12, AG 19) in the setting of likely uremia from NIK and decreased PO intake. HIV negative Acute renal failure likely pre-renal with metabolic acidosis and electrolyte derangements Likely ATN secondary to prerenal insult from C. Diff Diarrhea Received hemodialysis last night and became hypertensive and tachycardic again, given one dose of lopressor 5mg IV push which lowered rate and pressure Tunneled hemodialysis catheter placed yesterday Dialysis scheduled for later today Plan on discharging tomorrow morning back to long-term Hypertension Upped amlodipine to 10 mg Diarrhea, C. Diff Diarrhea improved -Stool toxin and culture is negative -C Diff toxin and gene positive -Will disContinue vanc po 125mg started on 10/27 -day 10 of 10 Hx of non-ischemic cardiomyopathy and HTN -EKG 10/26 normal sinus rhythm, qtc 508, -Previous Echo with EF of 10%-15% -Repeat Echo this admission: EF 60 to 65%, mild dilated left ventricle, mild concentric LVH, RV mildly dilated with normal function, mild to moderate mitral valve regurg, moderate to severe pulmonary hypertension, right atrial pressure 8 mmHg -CXR 10/31 small R pleural effusion\ Stable Anemia Asymptomatic, chronic, Has had previous bone marrow workup, neg for MDS. Also ne g for Hep C. -hgb 7.3, baseline 7-8 Hgb -Trending CBC Stable asymptomatic Diet: Full DVT proph: IV heparin CODE STATUS: Full code Dispo: Med Surg home tomorrow Supervising Physician Co-Signing Physician Notes I personally examined the patient and verified all reyes points of history and exam, discussed case, and agree with decision making with Dr Goodwin. No new issues. feeling better after neck cath out. Vitals noted, no distress. Breathing unlabored. Skin shows no rashes no pallor or icterus. Acute renal failurelikely on the basis of severe volume depletion related to his C. difficile diarrhea, probable ATN. Continue supportive care. close to being able to go to outpt HD. Pulmonary edemarelated to his renal failure more than a true cardiomyopathy (for clarification sake this could possibly be HFpEF but truly this relates much more directly to his renal failure)this appears to have resolved, although he does have a degree of on and off shortness of breath that obviously must be evaluated in detail, but mostly has seemed anxiety driven. anxiety doing better now that he's closer to discharges uncontrolled HTN-continue to titrate medications, continue to follow with dialysis, also difficult to tease apart how much of this is driven by his anxiety. as anxiety lets up BP hopefully will improve Anxietycontinue to follow, hopefully is mostly situational. seems calmer today DVT prophylaxisheparin subQ Subjective Mateusz Mad[place] resting comfortably today, tunneled dialysis cath placed yesterday without issue. Patient does not endorse any pain or discomfort at rest though wants him to turn his neck to examine site he does have some mild pain around IJ site. Otherwise he tells me his abdominal pain is improved and his stools continue to firm. No other complaints at this time Review of Systems Review of Systems: All systems reviewed & are unremarkable except as noted in HPI & below Physical Exam Physical Exam: Constitutional: Well-appearing well nourished in no acute distress calm cooperative and well-appearing Eyes: Anicteric sclera pupils equal round reactive to light extraocular muscles intact Respiratory: Chest expansion symmetric, breath sounds vesicular bilaterally clear to auscultation Cardiovascular: No murmurs rubs skips or gallops regular rate regular rhythm no edema Gastrointestinal (Abdomen): Soft nontender abdomen no mass or hepatomegaly Skin: Some bruising over TDC IJ site Results & Data Vital Signs (Past 12 Hours) Vital Signs Temp Pulse Pulse Pulse Resp BP Pulse Ox 11/06/18 03:35 36.8 C 81 17 126/77 92 11/06/18 00:00 84 11/05/18 23:39 37.5 C 90 17 141/88 H 93 11/05/18 19:48 37.0 C 99 H 33 H 151/87 H 93 PG Care Time/CCT Total # of Minutes Spent Total Time Spent with Patient: Total time spent is greater than 50% in coordination of care (as documented) at patient's floor/unit and/or counseling patient: Resident Activity Tracking Resident Involvement: Resident Care Provided Care Provided: Adult Hospital Medicine (1) Acute renal failure Acute renal failure type: unspecified Qualified Code(s): N17.9 - Acute kidney failure, unspecified
[2018-11-06 07:40] LABS: Eosinophils % (auto) 4.8 %; Hematocrit (blood only) 23.5 % (42-52); Hemoglobin 7.4 g/dL (14.0-18.0); Immature Granulocytes # (auto) 0.01 K/uL (0.00-0.02); Immature Granulocytes % (auto) 0.2 %; Lymphocytes # (auto) 1.04 K/uL (1.2-3.4); Lymphocytes % (auto) 25.1 %; Mean Corpuscular Hgb Conc 31.5 g/dL (32-36); Mean Corpuscular Volume 85.5 fL (80-100); Mean Platelet Volume 8.8 fL (7.4-10.4); Monocytes # (auto) 0.31 K/uL (0.11-0.59); Monocytes % (auto) 7.5 %; Neutrophils # (auto) 2.58 K/uL (1.4-6.5); Neutrophils % (auto) 62.4 %; Platelet Count 127 K/uL (130-400); RDW Coefficient of Variation 17.1 % (11.5-14.5); RDW Standard Deviation 52.2 fL (36.4-46.3); Red Blood Count 2.75 M/uL (4.7-6.1); White Blood Count 4.14 K/uL (4.8-10.8)
[2018-11-06] MEDS: CALCIUM CARBONATE 500 MG CHEWABLE TAB PO SCH ×3 (07:40→19:59)
[2018-11-06 08:03] LABS: RBC Morphology Unremarkable
[2018-11-06 08:28] LABS: BUN Creatinine Ratio 7.3 (10-20); Calcium 7.8 mg/dl (8.5-10.1); Creatinine Clr Calc Pharmacy 17.2 ml/min; Est GFR (African American) 15.1; Potassium 3.6 mmol/L (3.5-5.1)
[2018-11-06] MEDS: HEPARIN SOD 5,000 UNIT/0.5 ML VIAL SQ SCH ×2 (08:54→20:07)
[2018-11-06] MEDS: METOPROLOL TARTRATE 100 MG TAB PO SCH ×2 (08:54→20:08)
[2018-11-06] MEDS: NEPHROCAPS PO SCH (08:54)
[2018-11-06] MEDS: AMLODIPINE BESYLATE 5 MG TAB PO SCH (08:55)
[2018-11-06] MEDS: FAMOTIDINE 20 MG TAB PO SCH (08:55)
--- NOTE | 2018-11-06 09:33 | Nephrology Progress Note ---
Date of Service November 06, 2018 Assessment & Plan (1) Acute renal failure: 53 y o M with acute kidney injury secondary to ATN in the setting of diarrheal illness complicated by ACEi and diuretic use. Clinical presentation consistent with ATN. Unfortunately, patient remains dialysis dependent without significant evidence of renal recovery. First HD on 10/31/18. Plan next treatment today. HD orders entered into chart and discussed with dialysis nurse. HD permcath placed on 11/05/[address] White. Appropriate renal diet. Medications are dosed appropriately for kidney function. Patient is stable for discharge from a nephrology standpoint once plans for continued outpatient HD for NIK have been arranged. (2) Anemia: Epogen 58254 units with HD today. Venofer 200 mg with HD today. (3) Diarrhea: Subjective No acute events overnight. TDC placed yesterday by Dr. White without complications. No fevers or chills. Mateusz feels well this morning. Creatinine continues to rise between treatments. Review of Systems Review of Systems: All systems reviewed & are unremarkable except as noted in HPI & below Physical Exam Constitutional: well developed; no acute distress Eyes: no scleral abnormality and no corneal abnormality ENMT: Mouth: no oral mucosal abnormality and oral mucous membranes not dry Neck: normal visual inspection and trachea midline HD permcath Respiratory: normal respiratory effort; no respiratory distress Auscultation: lungs clear to auscultation bilaterally Cardiovascular: Rate/Rhythm: regular rate Heart Sounds: normal S1 and normal S2 Gastrointestinal (Abdomen): Inspection/Auscultation: abdomen normal to i nspection and + abdomen distended Percussion/Palpation: abdomen soft; abdomen nontender Musculoskeletal: Extremities: extremities normal to inspection; no cyanosis and no clubbing Skin: no rashes Neurologic: Motor/Sensory: no tremor and no asterixis Psychiatric: Orientation: alert Affect: euthymic affect Results & Data Vital Signs (Past 12 Hours) Vital Signs Temp Pulse Pulse Pulse Resp BP BP 11/06/18 08:34 36.4 C L 90 18 167/93 H 11/06/18 03:35 36.8 C 81 17 126/77 11/06/18 00:00 84 11/05/18 23:39 37.5 C 90 17 141/88 H Pulse Ox 11/06/18 08:34 98 11/06/18 03:35 92 11/06/18 00:00 11/05/18 23:39 93 Laboratory Results Laboratory Results - last 24 hr 11/06/18 11/06/18 07:26 07:26 WBC 4.14 L RBC 2.75 L Hgb 7.4 L Hct 23.5 L MCV 85.5 MCH 26.9 MCHC 31.5 L RDW Std Deviation 52.2 H RDW Coeff of Erich 17.1 H Plt Count 127 L MPV 8.8 Immature Gran % (Auto) 0.2 Neut % (Auto) 62.4 Lymph % (Auto) 25.1 [place] % (Auto) 7.5 Eos % (Auto) 4.8 Baso % (Auto) 0.0 Immature Gran # (Auto) 0.01 Neut # (Auto) 2.58 Lymph # (Auto) 1.04 L [place] # (Auto) 0.31 Eos # (Auto) 0.20 Baso # (Auto) 0.00 RBC Morphology Unremarkable Sodium 137 Potassium 3.6 Chloride 103 Carbon Dioxide 27 Anion Gap 7.0 BUN 34 H D Creatinine 4.70 H* D Est Cr Clr Drug Dosing 17.2 Est GFR ( Amer) 15.1 Est GFR (Non-Af Amer) 13.0 BUN/Creatinine Ratio 7.3 L Glucose 86 Calcium 7.8 L (1) Acute renal failure Acute renal failure type: unspecified Qualified Code(s): N17.9 - Acute kidney failure, unspecified
[2018-11-06] MEDS ORDERED: EPOETIN ALFA 10,000 UNITS/ML VIAL IV ONE (09:45)
[2018-11-06] MEDS ORDERED: IRON SUCROSE 200 MG in SYRINGE 0 ML IV ONE (09:45)
[2018-11-07] MEDS: LIDOCAINE 5% 1 PATCH TD SCH ×2 (00:03→20:15)
[2018-11-07] MEDS: AMLODIPINE BESYLATE 5 MG TAB PO SCH (08:22)
[2018-11-07] MEDS: ACETAMINOPHEN 500 MG TAB PO PRN ×2 (08:22→20:20)
[2018-11-07] MEDS: CALCIUM CARBONATE 500 MG CHEWABLE TAB PO SCH ×3 (08:22→16:52)
[2018-11-07] MEDS: METOPROLOL TARTRATE 100 MG TAB PO SCH ×2 (08:23→20:16)
[2018-11-07] MEDS: FAMOTIDINE 20 MG TAB PO SCH (08:23)
[2018-11-07] MEDS: NEPHROCAPS PO SCH (08:23)
[2018-11-07] MEDS: HEPARIN SOD 5,000 UNIT/0.5 ML VIAL SQ SCH ×2 (08:24→20:15)
--- NOTE | 2018-11-07 09:39 | Nephrology Progress Note ---
Date of Service November 07, 2018 Assessment & Plan (1) Acute renal failure: 53 y o M with acute kidney injury secondary to ATN in the setting of diarrheal illness complicated by ACEi and diuretic use. Clinical presentation consistent with ATN. Unfortunately, patient remains dialysis dependent without significant evidence of renal recovery. Urine output low. First HD on 10/31/18. Plan next treatment tomorrow. Continue 3 x per week dialysis while monitoring for renal recovery. HD permcath placed on 11/05/[address] White. Renal diet. Medications are dosed appropriately for kidney function. Patient is stable for discharge from a nephrology standpoint once plans for continued outpatient HD for NIK have been arranged. Plan of care discussed with Dr. Bonner this AM. (2) Anemia: Epogen 86596 units with HD today. Venofer 200 mg with HD today. (3) Diarrhea: Subjective No acute events overnight. Mateusz feels well this morning. He notes that dialysis was smooth without complications. He remains oliguric. Abdominal discomfort improved. No diarrhea. No fevers or chills. Appetite good. Review of Systems Review of Systems: All systems reviewed & are unremarkable except as noted in HPI & below Physical Exam Constitutional: well developed; no acute distress Eyes: no scleral abnormality and no corneal abnormality ENMT: Mouth: no oral mucosal abnormality and oral mucous membranes not dry Neck: normal visual inspection and trachea midline Respiratory: normal respiratory effort; no respiratory distress Auscultation: lungs clear to auscultation bilaterally Cardiovascular: Rate/Rhythm: regular rate Heart Sounds: normal S1 and normal S2 Gastrointestinal (Abdomen): Inspection/Auscultation: abdomen normal to inspection and + abdomen distended Percussion/Palpation: abdomen soft; abdomen nontender Musculoskeletal: Extremities: extremities normal to inspection; no cyanosis and no clubbing Skin: no rashes Neurologic: Motor/Sensory: no tremor and no asterixis Psychiatric: Orientation: alert Affect: euthymic affect Results & Data Vital Signs (Past 12 Hours) Vital Signs Temp Pulse Pulse Resp BP BP Pulse Ox 11/07/18 07:50 36.6 C 103 H 20 163/104 H 174/101 H 95 11/07/18 03:53 36.9 C 88 23 137/89 93 11/06/18 22:51 37.1 C 85 20 131/80 91 PG Care Time/CCT Total # of Minutes Spent Total Time Spent with Patient: Total time spent is greater than 50% in coordination of care (as documented) at patient's floor/unit and/or counseling patient: 25 minutes (1) Acute renal failure Acute renal failure type: unspecified Qualified Code(s): N17.9 - Acute kidney failure, unspecified
--- NOTE | 2018-11-07 14:47 | Family Medicine Progress Note ---
Date of Service November 07, 2018 Assessment & Plan (1) Acute renal failure: 53yo male prisoner with PMHx of CKD3 (baseline Cr 1), anemia, HLD, HTN, gastritis, nonischemic cardiomyopathy presented with diarrhea and decreased PO intake x 7 days. Found to have NIK, Cr 10.4 with electrolyte derangements K 6.3. Metabolic acidosis (bicarb 12, AG 19) in the setting of likely uremia from NIK and decreased PO intake. HIV negative Acute renal failure likely pre-renal with metabolic acidosis and electrolyte derangements Likely ATN secondary to prerenal insult from C. Diff Diarrhea Tunneled hemodialysis catheter placed 11/05 Dialysis scheduled for tomorrow afternoon Plan is to discharge back to group home tomorrow where he will be transferred to [facility] for first round of dialysis there tomorrow night. Hypertension Amlodipine dose increased to 10 mg. Continue metoprolol 100mgs bid. Hydralazine prn Diarrhea, C. Diff Diarrhea improved -Stool toxin and culture is negative -C Diff toxin and gene positive -Will disContinue vanc po 125mg started on 10/27 -day 10 of 10 Hx of non-ischemic cardiomyopathy and HTN -EKG 10/26 normal sinus rhythm, qtc 508, - qtc - normalized to 404. -Previous Echo with EF of 10%-15% -Repeat Echo this admission: EF 60 to 65%, mild dilated left ventricle, mild concentric LVH, RV mildly dilated with normal function, mild to moderate mitral valve regurg, moderate to severe pulmonary hypertension, right atrial pressure 8 mmHg - pul HTN likely from fluid overload before HD -CXR 10/31 small R pleural effusion Stable Anemia Asymptomatic, chronic, Has had previous bone marrow workup, neg for MDS. Also neg for Hep C. -hgb 7.3, baseline 7-8 Hgb -Trending CBC Stable asymptomatic Diet: Full DVT proph: IV heparin CODE STATUS: Full code Dispo: Med Surg home to group home tomorrow (2) C. difficile diarrhea: (3) Anemia: (4) Hypertension: Supervising Physician Co-Signing Physician Notes Resident Physician Supervision Note: I independently interviewed and examined the patient and verified the reyes history and physical, reviewed labs and image studies, discussed the case with the resident Dr. Goodwin and agree with the findings and care plan. Subjective No acute events overnight, Mr. Madera is resting comfortaby today and is aware that he will have to be transferred prisons for his dialysis care. Review of Systems Review of Systems: All systems reviewed & are unremarkable except as noted in HPI & below Physical Exam Constitutional: well developed, well nourished, cooperative and comfortable; no acute distress Respiratory: normal respiratory effort; no respiratory distress Auscultation: lungs clear to auscultation bilaterally Cardiovascular: Rate/Rhythm: regular rate and regular rhythm Heart Sounds: normal S1 and normal S2; no click, no gallop, no murmur and no cardiac rub Extremities: no calf tenderness Gastrointestinal (Abdomen): Inspection/Auscultation: abdomen normal to inspection; abdomen not distended Percussion/Palpation: + abdomen tender (Mildlyl tender) and abdomen soft Results & Data Vital Signs (Past 12 Hours) Vital Signs Temp Pulse Pulse Resp BP BP Pulse Ox 11/07/18 10:46 37.3 C 81 26 H 130/79 92 11/07/18 07:50 36.6 C 103 H 20 163/104 H 174/101 H 95 11/07/18 03:53 36.9 C 88 23 137/89 93 PG Care Time/CCT Total # of Minutes Spent Total Time Spent with Patient: Total time spent is greater than 50% in coordination of care (as documented) at patient's floor/unit and/or counseling patient: Resident Activity Tracking Resident Involvement: Resident Care Provided Care Provided: Adult Hospital Medicine (1) Acute renal failure Acute renal failure type: unspecified Qualified Code(s): N17.9 - Acute kidney failure, unspecified
[2018-11-08] MEDS: ACETAMINOPHEN 500 MG TAB PO PRN (04:52)
[2018-11-08 07:34] LABS: Basophils # (auto) 0.01 K/uL (0-0.2); Basophils % (auto) 0.2 %; Eosinophils # (auto) 0.17 K/uL (0-0.5); Eosinophils % (auto) 3.4 %; Hematocrit (blood only) 24.4 % (42-52); Hemoglobin 7.5 g/dL (14.0-18.0); Immature Granulocytes # (auto) 0.01 K/uL (0.00-0.02); Immature Granulocytes % (auto) 0.2 %; Lymphocytes # (auto) 1.02 K/uL (1.2-3.4); Lymphocytes % (auto) 20.4 %; Mean Corpuscular Hgb Conc 30.7 g/dL (32-36); Mean Corpuscular Volume 87.1 fL (80-100); Mean Platelet Volume 9.1 fL (7.4-10.4); Monocytes # (auto) 0.29 K/uL (0.11-0.59); Monocytes % (auto) 5.8 %; Neutrophils # (auto) 3.51 K/uL (1.4-6.5); Platelet Count 119 K/uL (130-400); RDW Coefficient of Variation 17.7 % (11.5-14.5); White Blood Count 5.01 K/uL (4.8-10.8)
[2018-11-08] MEDS: FAMOTIDINE 20 MG TAB PO SCH (07:37)
[2018-11-08] MEDS: HEPARIN SOD 5,000 UNIT/0.5 ML VIAL SQ SCH (07:37)
[2018-11-08] MEDS: NEPHROCAPS PO SCH (07:37)
[2018-11-08] MEDS: AMLODIPINE BESYLATE 5 MG TAB PO SCH (07:37)
[2018-11-08] MEDS: CALCIUM CARBONATE 500 MG CHEWABLE TAB PO SCH (07:37)
[2018-11-08] MEDS: METOPROLOL TARTRATE 100 MG TAB PO SCH (07:37)
[2018-11-08 08:32] LABS: Calcium 7.7 mg/dl (8.5-10.1); Creatinine Clr Calc Pharmacy 17.6 ml/min; Est GFR (African American) 15.5; Est GFR (Non-African American) 13.4; Potassium 3.8 mmol/L (3.5-5.1)
--- NOTE | 2018-11-08 19:50 | Discharge Summary ---
Date of Service November 08, 2018 Admission HPI Per Admitting Provider 53M with PMH CKDIII, anemia, HLD, HTN, gastritis, and nonischemic CM here with diarrhea and low PO intake x 7 days, presents from group home due to abnormal labs - Eyelet Maker 10.4 in ED, with hyperkalemia and elev AG. Has been urinating but says he saw blood in his urine. Denies bloody stools. Has not had antibiotics recently. Has been taking immodium x 3 days. ED course: calcium gluconate, insulin, bicarb. CT abdomen with prostamegaly otherwise unremarkable. Elev RT hemidiaphragm on CXR. Labs remarkable for Eyelet Maker 10.4, K 6.2, AG 19, TSH 0.268. Free T4 1.14. Review of past medical records show: Cardiac cath in 2013 which showed normal patent vessels, global severe nonischemic cardiomyopathy with an EF of 10 to 15% with 2-3+ mitral insufficiency and elevated right heart pressures. History of cholelithiasis. PMH Anemia, leukocytopenia, on Procrit BPH on Flomax Hypertension on lisinopril Gastritis on omeprazole History of CKD stage III as of [facility] Cholecystectomy EGD, showed gastritis [facility] Admission Exam Per Admitting Provider General: In NAD HEENT: dry mucous membranes Neuro: A&O x 4 Pulm: CTAB equal breath sounds bilaterally CV: RRR, no m/r/g, cap refill 2 sec Abdomen:+BS, TTP over LLQ, non-distended LE: no LE edema, no calf TTP Principal Diagnosis Renal Failure Discharge Exam Constitutional: well developed, well nourished, cooperative and comfortable; no acute distress Respiratory: normal respiratory effort; no respiratory distress Auscultation: lungs clear to auscultation bilaterally Cardiovascular: Rate/Rhythm: regular rate and regular rhythm Heart Sounds: normal S1 and normal S2; no click, no gallop, no murmur and no cardiac rub Extremities: no calf tenderness Gastrointestinal (Abdomen): Inspection/Auscultation: abdomen normal to inspection; abdomen not distended Percussion/Palpation: + abdomen tender (Mildlyl tender) and abdomen soft Discharge Data Allergies Allergy/AdvReac Type Severity Reaction Status Date / Time Penicillins Allergy Unknown unknown Verified 10/26/18 18:02 Consultations 10/26/18 21:18 ED Decision to Admit Stat 10/26/18 22:54 Consult Case Management - Discharge Planning Routine Consult Showcase Maker Routine 10/27/18 08:56 Consult Nephrology Routine 10/29/18 12:27 Consult Vascular Surgery Routine Procedures Performed Operation Date: 10/30/18 12:40 Actual Procedures p Procedure Cancelled (perm Catheter Placement) - Roe White MD Operation Date: 11/05/18 12:10 Actual Procedures p Perm Catheter Placement Right Jugular Apporach, Ultrasound Localization of Right Jugular Vein, Fluoroscopy for Positioning, Moderate Sedation [id number] 1408(Right) - Roe White MD Ordered Studies 10/26/18 17:57 CT abd pelvis wo con Stat 10/28/18 08:20 US renal/blad retro comp Routine 10/30/18 07:25 US guide vascular access Routine 10/30/18 15:28 EV cvc insrt tunnel wo prt/heel molder Routine 10/31/18 09:07 US point of care ultrasound Routine 11/05/18 12:34 EV cvc insrt tunnel wo prt/heel molder Routine US guide vascular access Routine Hospital Course (1) C. difficile diarrhea: Mr. Mateusz Madera has been treated here [facility] for 1 week of bad diarrhea on the baseline of chronic renal disease. This led to ATN and a worsening of his renal disease and very severe oliguria, patient has been initiated on dialysis and so far has yet to recover meaningful renal function. Acute Renal failure - needing dialysis Baseline creatinine around 1:01 week of having diarrhea and dehydration patient presented with creatinine of 10.4 and decreased urine output rehydrated patient and continue to monitor for recovery temporary dialysis line was placed Patient received dialysis through temporary port while awaiting tunneled catheter placement Tunneled catheter placed on November 05 successfully used for hemodialysis on the and patient ready to be discharged to group home to follow-up his ongoing dialysis needs on November 07 Diarrheal illness Patient was C. difficile Lily toxin positive Treated patient with course of oral vancomycin completed all 10 days of his course Stool has become more firm and not as frequent No further treatment required at this time continue to monitor for any worsening illness Hypertension Patient's furosemide and lisinopril of course need to be stopped for dialysis Patient had episodes of severe hypertensive urgency asymptomatic particularly during dialysis sessions In moment treated with 5 mg Lopressor pushes Started patient on amlodipine and bumped dose to 10 mg prior to discharge we will discharge at 10 mg Patient's blood pressure is variable continue to monitor and change regime as needed Chronic anemia Patient with chronic anemia baseline hemoglobin between 7 and 8 patient stable 27 8 throughout admission required 3 doses of erythropoietin continue to monitor and treat as needed patient has not required blood and been asymptomatic (2) S/P admission to intensive care unit: (3) Anemia: (4) Acute renal failure: Total Time Total Time Spent Total Time Spent (In Minutes): 55 Total Time Includes: Examination of the Patient, Discharge Planning, Medication Reconciliation, Communication With Other Providers and Other Discharge Plan Discharge Items [facility] Reason For Visit: NIK Discharge Diagnosis: End stage renal disease on dialysis Discharge Goals: Improve disease control and Therapeutic intervention Activity: Per 'Additional Instructions' section Non-emergency contact: Primary Care Provider and Cook Apprentice [employer] Call non-emergency contact if: you have any medication questions and your symptoms worsen Follow-up/Referrals: Justin LAYTON [Primary Care Provider] - Diet: Dialysis Renal Addtl Provider Instructions: Mr. Mateusz Madera has been treated here [facility] for 1 week of bad diarrhea on the baseline of chronic renal disease. This led to ATN and a worsening of his renal disease and very severe oliguria, patient has been initiated on dialysis and so far has yet to recover meaningful renal function. Renal failure Baseline creatinine around 1:01 week of having diarrhea and dehydration patient presented with creatinine of 10.4 and decreased urine output rehydrated patient and continue to monitor for recovery temporary dialysis line was placed Patient received dialysis through temporary port while awaiting tunneled catheter placement Tunneled catheter placed on November 05 successfully used for hemodialysis on the and patient ready to be discharged to group home to follow-up his ongoing dialysis needs on November 07 Diarrheal illness Patient was C. difficile Lily toxin positive Treated patient with course of oral vancomycin completed all 10 days of his course Stool has become more firm and not as frequent No further treatment required at this time continue to monitor for any worsening illness Hypertension Patient's furosemide and lisinopril of course need to be stopped for dialysis Patient had episodes of severe hypertensive urgency asymptomatic particularly during dialysis sessions In moment treated with 5 mg Lopressor pushes Started patient on amlodipine and bumped dose to 10 mg prior to discharge we will discharge at 10 mg Patient's blood pressure is variable continue to monitor and change regime as needed Chronic anemia Patient with chronic anemia baseline hemoglobin between 7 and 8 patient stable 27 8 throughout admission required 3 doses of erythropoietin continue to monitor and treat as needed patient has not required blood and been asymptomatic Prescriptions: New amlodipine [Norvasc] 5 mg Tablet 10 mg PO QAM 30 Days Qty: 60 RF: 0 famotidine 20 mg Tablet 20 mg PO DAILY Qty: 30 RF: 0 Renal Caps 1 mg Capsule 1 cap PO QAM 30 Days Qty: 30 RF: 0 Continued metoprolol tartrate 100 mg Tablet 100 mg PO BID RF: 0 Retacrit 10,000 unit/mL Solution 10,000 unit subcut WK RF: 0 Discontinued furosemide [Lasix] 40 mg Tablet 40 mg PO BID RF: 0 lovastatin 40 mg Tablet 40 mg PO DAILY RF: 0 omeprazole 40 mg Capsule,Delayed Release(Dr/Ec) 40 mg PO QAM RF: 0 aspirin 81 mg Tablet,Delayed Release (Dr/Ec) 81 mg PO DAILY RF: 0 lisinopril 40 mg Tablet 40 mg PO DAILY RF: 0 Stand-Alone Forms: Discharge [facility] Discharge Orders: Discharge Order (Routine); Ordered 11/08/18 Ordered By: Yaakov Goodwin Admission Data Admit Date/Time: 10/26/18 21:45 Attending Provider: Yadira Bonner Admit Provider: Heather Montano Primary Care Provider: Justin LAYTON Other Providers: Domo Strauss ; Kory Ellison ; Shay Mckeon ; Maurice Zepeda ; Roe White ; Derrick Pina Service: Telemetry Other Interventions: Discharge Summary Assessment (RN) Last Done: 11/08/18 08:34 DC Date/Time DO NOT enter until pt leaves facility: 11/08/18 09:15 Supervising Physician Co-Signing Physician Notes Resident Physician Supervision Note: I independently interviewed and examined the patient and verified the reyes history and physical, reviewed labs and image studies, discussed the case with the resident Dr. Goodwin and agree with the findings and care plan. Time spent in discharge 35 min Resident Activity Tracking Resident Involvement: Resident Care Provided Care Provided: Adult Hospital Medicine
--- NOTE | 2018-11-11 08:18 | Coding Query ---
CODING QUERY To promote full compliance with coding requirements relating to patient care, provider participation is requested in all cases of cat hooker uncertainty. Please assist us with the question(s) below: Coding Question(s): Pulmonary Edema was documented in the PN starting 10/28, please clarify if the pulmonary edema was acute or chronic. Thank you so much for your help! Have a great day! ( ) Acute Pulmonary Edema, POA (x ) Acute Pulmonary Edema, NOT POA ( ) Chronic Pulmonary Edema, POA ( ) Unspecified Pulmonary Edema, POA ( ) Other, explain Thank you! Silvia Aguilar Principal Diagnosis: "that condition established after study, to be chiefly responsible for occasioning the admission of the patient to the hospital for care." Co-Existing Principal Diagnosis: "when two or more diagnoses equally meet the criteria for principal diagnosis as determined by the circumstances of admission, diagnostic work up, and/or therapy provided, and the Alphabetic Index, Tabular List, or another coding guideline does not provide sequencing direction, any one of the diagnoses may be sequenced first." "When the physician has documented what appears to be a current diagnosis in the body of the record, but has not included the diagnosis in the final diagnostic statement, the physician should be asked whether the diagnosis should be added." (Source Coding Clinic 2 QTR90. p3-4) [place]
== END 2018-11-08 09:15 | DRG 673 ==
LOC: ED 17:29 → 1E 21:45 → SUATTDRO 21:45 → 1E 22:34 → 2E 10-30 16:34